=== PATIENT | male | born 1960 | race Caucasian/White ===

== ENCOUNTER → 2018-08-10 13:34 | Outpatient (CLI) | payer BC, SELFPAY ==
[2018-08-10 14:06] LABS: Basophils # 0.1 K/mm3 (0-0.2); Basophils % 1.1 % (0.1-2.0); Eosinophils # 0.2 K/mm3 (0.0-0.4); Eosinophils % 2.9 % (0.1-12.0); Hemoglobin 16.2 g/dL (14.1-18.0); Lymphocytes # 1.2 K/mm3 (0.7-4.5); Lymphocytes % 18.2 % (10-50); Mean Corpuscular Volume 87.8 fl (80-94); Mean Platelet Volume 7.4 fl (7.4-10.4); Monocytes # 0.4 K/mm3 (0.1-1.0); Monocytes % 6.1 % (1.7-9.3); Neutrophils # 4.8 K/mm3 (1.8-7.8); Neutrophils % 71.6 % (37.0-80.0); Platelet Count 286 K/mm3 (142-424); Red Blood Count 5.58 M/mm3 (4.60-6.20); Red Cell Distribution Width 14.3 % (11.5-17.5); White Blood Count 6.7 K/mm3 (4.8-10.8)
[2018-08-10 14:55] LABS: Alanine Aminotransferase 27 U/L (12-78); Albumin Level 3.8 gm/dL (3.4-5.0); Albumin/Globulin Ratio 1.1 (1.1-1.8); Alkaline Phosphatase 82 U/L (46-116); Anion Gap 13.5 mEq/L (5-15); Aspartate Amino Transferase 14 U/L (15-37); Bilirubin,Total 1.7 mg/dL (0.2-1.0); Blood Urea Nitrogen 24 mg/dL (7-18); Calcium 9.4 mg/dL (8.5-10.1); Carbon Dioxide 28 mmol/L (21.0-32.0); Chloride 99 mmol/L (98-107); Chol/HDL Ratio 5.6 (1-3.5); Cholesterol 201 mg/dL (140-200); Creatinine,Serum 1.34 mg/dL (0.70-1.30); Estimated Glomerular Filt Rate 55 ml/min (>60); GFR (African American) 67 ML/MIN (>60); Globulin 3.4 gm/dl (1.3-3.2); Glucose 338 mg/dL (74-106); HDL Cholesterol 36 mg/dL (27-67); LDL Cholesterol 115 mg/dL (0-130); Potassium 3.5 mmoL/L (3.5-5.1); Sodium 137 mmol/L (136-145); T4 (Thyroxine) 7.7 ug/dl (4.7-13.3); Thyroid Stimulating Hormone 1.56 uIU/ml (0.358-3.740); Total Protein,Serum 7.2 gm/dL (6.4-8.2); Triglycerides 251 mg/dL (30-200); VLDL Cholesterol 50 mg/dL (0-40)
[2018-08-10 14:57] LABS: Hemoglobin A1C 9.2 % (0.0-7.0)
[2018-08-10 15:07] LABS: Amphetamine/Metha Screen,Urine Negative ng/mL (<1000); Barbiturates Screen,Urine Negative ng/mL (<200); Benzodiazepines Screen,Urine Negative ng/mL (<200); Cannabinoid Screen,Urine Negative ng/mL (<50); Cocaine Screen,Urine Negative ng/mL (<300); Methadone Screen,Urine Negative ng/mL (<300); Opiate Screen,Urine Negative ng/mL (<300); Phencyclidine Screen,Urine Negative ng/mL (<25)
[2018-08-12 10:15] LABS: Creatinine, Urine 226.1 mg/dL (Not Estab.); Microalbumin, Urine 112.4 ug/mL (Not Estab.)
== END ==
PROVIDERS: PCP Nurse Practitioner Family; Visit Provider Nurse Practitioner Family
DX: E11.9 Type 2 diabetes mellitus without complications (principal); I10 Essential (primary) hypertension; Z79.899 Other long term (current) drug therapy
CPT/HCPCS: 80053; 80061; 80305; 82043; 82570; 82652; 83036; 84436; 84443; 85025

== ENCOUNTER → 2018-09-09 08:34 | Outpatient (CLI) | payer BC, SELFPAY | PROVIDERS: PCP Emergency Medicine; Visit Provider Nurse Practitioner Family | DX: Z71.3 Dietary counseling and surveillance (principal); E11.9 Type 2 diabetes mellitus without complications | CPT/HCPCS: 97802 ==

== ENCOUNTER → 2018-10-07 09:03 | Outpatient (CLI) | payer BC, SELFPAY ==
--- NOTE | 2018-10-07 09:05 | US_ITS ---
US Arterial Ankle Brachial Ind History: ITS.REASON: Skin Changes ORDERING PHYSICIAN: Shantel aJckson DPM PATIENT AGE: 58 years TECHNIQUE: Segmental pressures obtained of both right and left leg. These are compared to brachial blood pressure to yield index at each level sampled including summary SHRUTHI. The data sheets from the procedure are available in PACS FINDINGS Rest study only performed today No prior studies available for comparison. Blood pressures reported are in millimeters mercury. RIGHT LEG SHRUTHI = 0.7. RIGHT LEG TBI=0.6 Brachial BP: 157 Thigh BP: 185 Calf BP: 188 Ankle PT: 112 Ankle DP : 105 Digit =92 LEFT LEG SHRUTHI = 1.2 LEFT LEG TBI= 0.9 Brachial BPD: 164 Thigh BP: 179 Calf BP: 189 Ankle PT:189 Ankle DP: 187 Digit = 149 Pulses and waveforms: Normal IMPRESSION: The right SHRUTHI is low consistent with moderate arterial disease
== END ==
PROVIDERS: PCP Nurse Practitioner Family; Visit Provider Podiatrist
DX: R09.89 Other specified symptoms and signs involving the circulatory and respiratory systems (principal)
CPT/HCPCS: 93922

== ENCOUNTER → 2018-10-21 11:22 | Outpatient (CLI) | payer BC, SELFPAY ==
[2018-10-21 11:28] LABS: Microscopic, Urine URINE MICROSCOPIC (MICROSCOPIC)
[2018-10-21 11:44] LABS: Basophils % 0.5 % (0.1-2.0); Eosinophils # 0.1 K/mm3 (0.0-0.4); Eosinophils % 1.7 % (0.1-12.0); Hematocrit 47.8 % (42.0-52.0); Hemoglobin 15.4 g/dL (14.1-18.0); Lymphocytes # 1.2 K/mm3 (0.7-4.5); Lymphocytes % 13.7 % (10-50); Mean Corpuscular HGB Conc 32.3 g/dL (31.8-35.4); Mean Corpuscular Volume 89.7 fl (80-94); Monocytes # 0.4 K/mm3 (0.1-1.0); Neutrophils # 6.8 K/mm3 (1.8-7.8); Platelet Count 306 K/mm3 (142-424); Red Blood Count 5.32 M/mm3 (4.60-6.20); White Blood Count 8.6 K/mm3 (4.8-10.8)
[2018-10-21 11:48] LABS: Appearance,Urine CLEAR (Clear); Bilirubin,Urine Negative (Negative); Blood, Urine Negative (Negative); Color,Urine YELLOW (Yellow); Glucose,Urine (UA) Negative (Negative); Ketones,Urine TRACE (Negative); Leukocyte Esterase,Urine Negative (Negative); Nitrate,Urine Negative (Negative); PH,Urine 6.5 (5.0-8.5); Protein,Urine 1+ (Negative); Specific Gravity, Urine 1.015 (1.005-1.030)
[2018-10-21 12:25] LABS: RBC,Urine Occasional #/hpf (0-3); WBC,Urine Occasional #/hpf (0-3)
[2018-10-21 13:02] LABS: Albumin Level 3.7 gm/dL (3.4-5.0); Anion Gap 13.8 mEq/L (5-15); Blood Urea Nitrogen 22 mg/dL (7-18); Calcium 9.1 mg/dL (8.5-10.1); Carbon Dioxide 28 mmol/L (21.0-32.0); Chloride 101 mmol/L (98-107); Estimated Glomerular Filt Rate 62 ml/min (>60); GFR (African American) 76 ML/MIN (>60); Glucose 140 mg/dL (74-106); Phosphorous 3.9 mg/dL (2.4-4.9); Potassium 3.8 mmoL/L (3.5-5.1); Sodium 139 mmol/L (136-145)
[2018-10-21 14:23] LABS: Creatinine,Urine Random 269 mg/dL (20-320); Total Protein,Urine Random 70.8 mg/dL (0.0-11.9)
[2018-10-22 10:56] LABS: Vitamin D 25 Hydroxy 38.4 ng/mL (30.0-100.0)
[2018-10-22 17:32] LABS: Parathyroid Hormone Intact 56 pg/mL (15-65)
== END ==
PROVIDERS: Visit Provider Internal Medicine Nephrology
DX: N18.3 Chronic kidney disease, stage 3 (moderate) (principal)
CPT/HCPCS: 36415; 80069; 81001; 82570; 82652; 83970; 84155; 85025

== ENCOUNTER → 2018-11-04 12:58 | Outpatient (POV) | payer BC, SELFPAY | PROVIDERS: Visit Provider Internal Medicine Nephrology | DX: Z00.00 Encounter for general adult medical examination without abnormal findings (principal) ==

== ENCOUNTER → 2018-11-05 13:29 | Outpatient (CLI) | payer BC, SELFPAY ==
[2018-11-05 14:57] LABS: Amphetamine/Metha Screen,Urine Negative ng/mL (<1000); Barbiturates Screen,Urine Negative ng/mL (<200); Benzodiazepines Screen,Urine Negative ng/mL (<200); Cannabinoid Screen,Urine Negative ng/mL (<50); Cocaine Screen,Urine Negative ng/mL (<300); Methadone Screen,Urine Negative ng/mL (<300); Opiate Screen,Urine Negative ng/mL (<300); Phencyclidine Screen,Urine Negative ng/mL (<25)
[2018-11-05 15:19] LABS: Hemoglobin A1C 7.3 % (0.0-7.0)
== END ==
PROVIDERS: Visit Provider Nurse Practitioner Family
DX: F41.9 Anxiety disorder, unspecified (principal); Z79.899 Other long term (current) drug therapy; E11.9 Type 2 diabetes mellitus without complications; Z79.84 Long term (current) use of oral hypoglycemic drugs
CPT/HCPCS: 80305; 83036

== ENCOUNTER → 2018-12-06 09:29 | Outpatient (CLI) | payer BC, SELFPAY ==
--- NOTE | 2018-12-06 09:30 | US_ITS ---
US extremity RT limited CLINICAL INDICATION: Palpable abnormality ITS.REASON: lipoma ORDERING PHYSICIAN: Yang Temple MD PATIENT AGE: 58 years Comparison: None FINDINGS: There is an oval heterogeneous area of echogenicity in the subcutaneous region measuring 2.3 x 0.7 x 1.8 cm was some slight increase in echogenicity and may represent a lipoma. This does not represent a cystic process. The echogenicity is greater than the underlying muscle. IMPRESSION: Probable lipoma corresponding to the palpable abnormality of the right anterior shoulder
== END ==
PROVIDERS: PCP Nurse Practitioner Family; Visit Provider Surgery
DX: D17.9 Benign lipomatous neoplasm, unspecified (principal)
CPT/HCPCS: 76882

== ENCOUNTER → 2019-01-25 08:57 | Outpatient (CLI) | payer BC, SELFPAY ==
[2019-01-25 11:10] LABS: Magnesium 2.2 mg/dL (1.4-2.2)
[2019-01-26 08:34] LABS: Vitamin B12 480 pg/mL (232-1245)
[2019-01-29 10:47] LABS: Vitamin B1 181.6 nmol/L (66.5-200.0)
== END ==
PROVIDERS: Visit Provider Nurse Practitioner Family
DX: R25.1 Tremor, unspecified (principal)
CPT/HCPCS: 36415; 82607; 83735; 84425

== ENCOUNTER 2019-03-22 09:55 | Observation (INO) ==
--- NOTE | 2019-03-22 10:04 | Emergency Department Note ---
ED Disposition Clinical Impression: Precordial chest pain, Gait disturbance, Hyperglycemia Speech disturbance Qualifiers: Speech disturbance type: unspecified speech disturbance Qualified Code(s): R47.9 - Unspecified speech disturbances Disposition: Admitted as Observation Condition on Discharge: Good Referrals: Sandra Ray APRN [Primary Care Provider] - - Critical Care Critical Care Time: No Attestation: On , the high probability of a clinically significant, sudden or life threatening deterioration of the following system(s) required my full and direct attention, intervention and personal management. The time I documented below is in addition to time spent performing reported procedures but includes the following listed in this critical care notation. Medical Decision Making - Felipe Inquiry Pt receiving controlled substance: No Vital Signs: 03/22/19 10:03 03/22/19 10:22 03/22/19 10:30 Temperature 98.1 F Temperature Source Oral Pulse Rate [Right Radial] 80 79 83 Respiratory Rate 16 Blood Pressure [Right Arm] 150/105 H 150/105 H 156/112 H Blood Pressure Mean [Right Arm] 120 120 126 Blood Pressure Source [Right Arm] Automatic Cuff Blood Pressure Position [Right Arm] Supine Sitting Sitting 02 Sat by Pulse Oximetry 99 98 96 Oxygen Delivery Method Room Air Room Air Room Air 03/22/19 11:20 Temperature Temperature Source Pulse Rate [Right Radial] 82 Respiratory Rate Blood Pressure [Right Arm] 161/110 H Blood Pressure Mean [Right Arm] 127 Blood Pressure Source [Right Arm] Blood Pressure Position [Right Arm] Sitting 02 Sat by Pulse Oximetry 93 L Oxygen Delivery Method Room Air - Lab Data Lab Results 03/22/19 10:18: WBC 8.0, RBC 4.79, Hgb 12.0 L, Hct 38.6 L, MCV 80.5, MCH 25.0 L, MCHC 31.1 L, RDW 15.4, Plt Count 350, MPV 7.0 L, Neut % (Auto) 76.7, Lymph % (Auto) 13.9, [place] % (Auto) 6.3, Eos % (Auto) 2.5, Baso % (Auto) 0.7, Neut # (Auto) 6.2, Lymph # (Auto) 1.1, [place] # (Auto) 0.5, Eos # (Auto) 0.2, Baso # (Auto) 0.1 03/22/19 10:18: Sodium 136, Potassium 3.4 L, Chloride 100, Carbon Dioxide 27, Anion Gap 12.4, BUN 18, Creatinine 1.34 H, Estimated Creat Clear 80, Estimated GFR 55 L, Est GFR ( Amer) 66, Glucose 302 H, Calcium 8.9, Total Bilirubin 0.8, AST 9 L, ALT 30, Alkaline Phosphatase 121 H, Troponin I < 0.02, Total Protein 6.8, Albumin 3.1 L, Globulin 3.7 H, Albumin/Globulin Ratio 0.8 L Result diagrams: 03/22/19 10:18 03/22/19 10:18 - Radiology Data #1 Image(s): Chest Image Reviewed: Yes I reviewed the patient's radiology image, Yes I have reviewed radiologist's interpretation Preliminary Findings: Normal/NAD - CT Data CT Scan: Head Time Received: 12:[address] Reviewed: Yes: I have viewed the radiologist's interpretation Findings Narrative: Impression:No acute intracranial process. 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 Right maxillary sinus small retention cyst. Dictated By: Asael Pedroza MD 9 [id number] - ECG Data Tracing #1 EKG interpreted by Rolando Conner MD: Rhythm: sinus Rate: 81 [place]: normal Ectopy: none Conduction: Right bundle branch block ST Segment Changes: none T Wave Changes: none Q Waves: none No evidence of acute ischemia or injury - Physician Consults Physician Consulted: CARMINE Castro, for Dr. Lucas Time: 11:20 Reason -: Cardiology Eval/Care Comment/Response: requests admit, serial cardiac enzymes, stress test tomorrow Additional Consult: Julianna Time: 11:50 Reason -: Admission Comment/Response: Agrees to admit the patient to the hospital. We discussed the patient's clinical information, including history, exam, laboratory and radiology results and ED course. Per hospital procedure, I will write temporary bridge inpatient orders on the patient. Specific orders requested by the admitting physician: As per cardiology - ALFREDO Score for Non-Stemi Age of Patient: 50-59 years old Heart Rate: 70-89 bpm Systolic Blood Pressure: 140-159 mmHg Serum Creatinine: 1.20-1.59 mg/dl CHF [place] Class: I-No CHF Other Risk Factors: None Non-Stemi Risk Score: 84 Medical Decision Narrative: I was unable to find any prior heart cath at this facility. Jason was able to find a report of a heart cath February 19, 2018, at [facility], which showed noncritical coronary artery disease. Test was apparently prompted by an abnormal stress test. Recent visit [address] Mayfield in the office here, at that time reported the chest pain. Dr. Mayfield requested a stress test. General Adult HPI - General Stated complaint: Chest pain Time Seen by Provider: 03/22/19 10:25 - History of Present Illness HPI narrative: Complains of episodes of chest pain. This is his third episode. States that he had chest pain today at about 9 AM that lasted less than 15 minutes. Does not remember what he was doing when the pain came on. Associated with shortness of breath, left arm pain, diaphoresis. States that he has had 2 previous episodes on and Thursday of last week, each lasting 2 to 3 minutes, brought on by exertion. States that he is currently pain-free. States he had a cardiac cath in 2016 that showed normal coronary arteries. In November of this year had an angiogram of his lower extremities. States that he has hypertension, hyperlipidemia, diabetes. Also has been having problems with his gait and with forming his words for several months. - Related Data Home Medications Medication Instructions Recorded Confirmed aspirin 81 mg tablet,delayed 81 mg PO DAILY 08/10/18 03/18/19 release Amitriptyline HCl 75 mg PO QHS 03/22/19 Ergocalciferol (Vitamin D2) See Rx Instructions .ROUTE .COMPLEX 03/22/19 [Pilyol] Fluoxetine HCl [Prozac] 40 mg PO DAILY 03/22/19 Gabapentin [Gabapentin 300mg Cap] 300 mg PO BID 03/22/19 Lisinopril [Lisinopril 40mg Tablet] 40 mg PO BID 03/22/19 Lovastatin 10 mg PO QPM 03/22/19 Metformin HCl [Metformin 1000mg 1,000 mg PO BID 03/22/19 Tablets] Metoprolol Succinate 25 mg PO DAILY 03/22/19 Mupirocin [Centany] 1 applic TOPICAL BID 03/22/19 Rivaroxaban [Xarelto] 2.5 mg PO BID 03/22/19 glipiZIDE [Glipizide] 10 mg PO BID 03/22/19 Allergies Allergy/AdvReac Type Severity Reaction Status Date / Time No Known Allergies Allergy Verified 03/18/19 09:37 [facility] History - Hepatitis A Screen Attestation statement:: This patient has been screened for Hepatitis A risk factors. I have reviewed the patient's past medical history: Yes Medical History: Reports:: Anxiety, Depression, Diabetes Mellitus Type 2, Hypertension Comment: ptsd Other Surgeries: Yes: Cardiac Catheterization, Colonoscopy, Other Amputation: No Fractures: No Comment: Removed polyps from instine.. - Social History Smoking Status: Never smoker Alcohol Intake: never Alcohol Intake Frequency:: holidays/special occasions only Substance Use Type: former substance user, marijuana Occupational Status: unemployed Household Members: spouse - Psychiatric History Pschychiatric History:: Reports:: Anxiety, Depression Family Hx:: Cancer, Diabetes, Coronary Artery Disease, Heart Attack, Stroke Comment: Mother-PR@72. Father-CAD@30's. Brother-PR@30's ROS Obtained: Yes All systems reviewed & no additional complaints - Constitutional Constitutional: Denies fever(s) - Cardiovascular Cardiovascular: Reports chest pain, Reports diaphoresis - Respiratory Respiratory: Yes dyspnea - Gastrointestinal Gastrointestingal: Denies: nausea, vomiting - Musculoskeletal Musculoskeletal: Reports other (Intermittent left leg pain due to neuropathy) - Neurologic Neurologic: Reports abnormal gait, Reports abnormal speech Physical Exam - General General appearance: alert, in no apparent distress - Head Head exam: atraumatic, normocephalic - Eye Eye exam: Present: normal appearance, EOMI - ENT ENT exam: Present: mucous membranes moist - Neck Neck exam: Present: normal inspection, trachea midline - Chest Chest inspection: Present: normal inspection, symmetric chest wall rise - Respiratory Respiratory exam: Present: normal lung sounds bilaterally. Absent: respiratory distress - Cardiovascular Cardiovascular exam: Present: regular rate, normal rhythm, normal heart sounds - Abdominal Exam Abdominal exam: Present: soft. Absent: distention, tenderness, guarding - Extremities Exam Extremities exam: Present: normal inspection, full ROM - Neurological Exam Neurological exam: Present: alert, oriented X3 - Psychiatric Psychiatric exam: Present: normal affect, normal mood - Skin Skin exam: Present: warm, dry
[2019-03-22 11:11] LABS: Basophils # 0.1 K/mm3 (0-0.2); Basophils % 0.7 % (0.1-2.0); Eosinophils # 0.2 K/mm3 (0.0-0.4); Eosinophils % 2.5 % (0.1-12.0); Hematocrit 38.6 % (42.0-52.0); Lymphocytes # 1.1 K/mm3 (0.7-4.5); Lymphocytes % 13.9 % (10-50); Mean Corpuscular HGB Conc 31.1 g/dL (31.8-35.4); Mean Corpuscular Volume 80.5 fl (80-94); Monocytes # 0.5 K/mm3 (0.1-1.0); Monocytes % 6.3 % (1.7-9.3); Neutrophils # 6.2 K/mm3 (1.8-7.8); Neutrophils % 76.7 % (37.0-80.0); Platelet Count 350 K/mm3 (142-424); Red Blood Count 4.79 M/mm3 (4.60-6.20); Red Cell Distribution Width 15.4 % (11.5-17.5)
[2019-03-22 11:23] LABS: Alanine Aminotransferase 30 U/L (12-78); Albumin Level 3.1 gm/dL (3.4-5.0); Albumin/Globulin Ratio 0.8 (1.1-1.8); Alkaline Phosphatase 121 U/L (46-116); Anion Gap 12.4 mEq/L (5-15); Aspartate Amino Transferase 9 U/L (15-37); Bilirubin,Total 0.8 mg/dL (0.2-1.0); Blood Urea Nitrogen 18 mg/dL (7-18); Calcium 8.9 mg/dL (8.5-10.1); Carbon Dioxide 27 mmol/L (21.0-32.0); Chloride 100 mmol/L (98-107); Globulin 3.7 gm/dl (1.3-3.2); Glucose 302 mg/dL (74-106); Sodium 136 mmol/L (136-145); Total Protein,Serum 6.8 gm/dL (6.4-8.2)
--- NOTE | 2019-03-22 14:48 | Consult Report ---
History of Present Illness Consult date: 03/22/19 (@[id number]) Requesting physician: Rolando Conner Consult reason: chest pain Chief complaint: Chest pain Additional Medical History:: 1. PAD 2. Hypertension 3. Hyperlipidemia 4. Coronary artery disease 5. Right bundle branch block 6. Diabetes History of present illness: This is a 58-year-old white gentleman who presented to the emergency department with complaints of chest pain. The patient states that he was playing with his dog around 9 AM this morning when he had sudden onset of chest pain. He describes this as a sharp, electric pain in the left side of his chest that radiates down his left arm. He states it is associated with shortness of breath and diaphoresis. The patient states that the symptoms typically occur with activity. They do improve with rest. He is also had multiple episodes of chest pain on and Thursday last week. His episodes last for approximately 15 minutes before they resolve. The patient was seen by Dr. MANNING last week and set up for a echocardiogram and Myoview stress test. These tests are currently in review with his insurance. He denies any fever, chills, nausea, vomiting, diarrhea, PND or orthopnea. The patient does have a history of coronary disease and peripheral arterial disease. He does have hypertension, hyperlipidemia and diabetes. The patient's initial troponin is negative. And his EKG has no acute changes. [facility] History I have reviewed the patient's past medical history: Yes Medical History: Reports:: Anxiety, Coronary Artery Disease, Depression, Diabetes Mellitus Type 2, Hyperlipidemia, Hypertension *Have you ever received a pneumonia vaccine?: No *Have you received a flu vaccine this season?: Yes Other Surgeries: Yes: Cardiac Catheterization, Colonoscopy, Other Amputation: No Fractures: No - *Social History Educational Level: Completed High School Smoking Status: Never smoker Alcohol Intake: current Alcohol Intake Frequency:: a few times a month Substance Use Type: former substance user, marijuana *Occupational Status:: unemployed, disabled Housing: house Household Members: spouse *Travel in the last 8 weeks: None - Psychiatric History Expresses thoughts of harming self/others: None Suicide Plan Description: No Plan Pschychiatric History:: Reports:: Anxiety, Depression Family Hx:: Cancer, Diabetes, Coronary Artery Disease, Heart Attack, Stroke Meds Home Medications Medication Instructions Recorded Confirmed Type aspirin 81 mg tablet,delayed 81 mg PO DAILY 08/10/18 03/22/19 History release Amitriptyline HCl 75 mg PO HS 03/22/19 03/22/19 History Ergocalciferol (Vitamin D2) See Rx Instructions .ROUTE .COMPLEX 03/22/19 03/22/19 History [Drisdol] Fluoxetine HCl [Prozac] 40 mg PO DAILY 03/22/19 03/22/19 History Gabapentin [Gabapentin 300mg Cap] 300 mg PO BID 03/22/19 03/22/19 History Lisinopril [Lisinopril 40mg Tablet] 40 mg PO BID 03/22/19 03/22/19 History Lovastatin 10 mg PO HS 03/22/19 03/22/19 History Metformin HCl [Metformin 1000mg 1,000 mg PO BID 03/22/19 03/22/19 History Tablets] Metoprolol Succinate 25 mg PO DAILY 03/22/19 03/22/19 History Mupirocin [Centany] 1 applic TOPICAL BID 03/22/19 03/22/19 History Rivaroxaban [Xarelto] 2.5 mg PO BID 03/22/19 03/22/19 History glipiZIDE [Glipizide] 10 mg PO BID 03/22/19 03/22/19 History Allergies Allergy/AdvReac Type Severity Reaction Status Date / Time No Known Allergies Allergy Verified 03/18/19 09:37 Review of Systems - Review of Systems Review of systems:: pertinent systems reviewed and negative unless documented below - Constitutional Reports lack of energy - *Cardiovascular Reports chest pain, Reports chest pain with activity, Reports excessive sweating, Reports shortness of breath, Reports shortness of breath with activity - *Respiratory Reports shortness of breath, Reports shortness of breath with activity - *Neurologic Reports abnormal walking, Reports abnormal speech Exam Vital signs and Labs for Last 24 Hours: Temp Pulse Resp BP Pulse Ox 97.5 F L 89 18 172/103 H 98 03/22/19 13:35 03/22/19 13:35 03/22/19 13:35 03/22/19 13:35 03/22/19 13:35 Laboratory Results - last 24 hr 03/22/19 10:18: WBC 8.0, RBC 4.79, Hgb 12.0 L, Hct 38.6 L, MCV 80.5, MCH 25.0 L, MCHC 31.1 L, RDW 15.4, Plt Count 350, MPV 7.0 L, Neut % (Auto) 76.7, Lymph % (Auto) 13.9, [place] % (Auto) 6.3, Eos % (Auto) 2.5, Baso % (Auto) 0.7, Neut # (Auto) 6.2, Lymph # (Auto) 1.1, [place] # (Auto) 0.5, Eos # (Auto) 0.2, Baso # (Auto) 0.1 03/22/19 10:18: Sodium 136, Potassium 3.4 L, Chloride 100, Carbon Dioxide 27, Anion Gap 12.4, BUN 18, Creatinine 1.34 H, Estimated Creat Clear 80, Estimated GFR 55 L, Est GFR ( Amer) 66, Glucose 302 H, Calcium 8.9, Total Bilirubin 0.8, AST 9 L, ALT 30, Alkaline Phosphatase 121 H, Troponin I < 0.02, Total Protein 6.8, Albumin 3.1 L, Globulin 3.7 H, Albumin/Globulin Ratio 0.8 L I & O for Last 24 hours: Intake & Output 03/19/19 03/20/19 03/21/19 03/22/19 23:59 23:59 23:59 23:59 Weight 204 lb 5 oz Narrative: EKG is sinus rhythm with right bundle branch block and a rate of 81. - *Routine HEENT Exam Head: Present: normocephalic, atraumatic Eye: Present: EOMI, PERRL ENT: Present: mucous membranes moist - *Routine Neck Exam Present: supple, full ROM, normal carotid upstroke. Absent: JVD, carotid bruit, lymphadenopathy - *Routine Respiratory Exam Present: CTA bilaterally - *Routine Cardiovascular Exam Present: RRR, Normal S1, Normal S2. Absent: murmur - *Routine Abdominal Exam Present: soft, normoactive bowel sounds. Absent: tenderness, distended - *Routine Extremities Exam Present: full ROM, pulses intact, normal capillary refill. Absent: cyanosis, clubbing, edema - *Routine Skin Exam Present: intact, warm. Absent: erythema, rash - *Routine Neurological Exam Present: alert, oriented X3, CN II-XII intact. Absent: sensory deficit, motor deficit - Routine Psychiatric Exam Present: normal affect, normal thought process - Detailed Eye Exam Eyelids: Left normal inspection Assessment and Plan (1) Typical angina Current visit: Yes Status: Acute Category: Medical Code(s): I20.9 - Angina pectoris, unspecified (2) SOB (shortness of breath) Current visit: No Status: Acute Category: Medical Code(s): R06.02 - Shortness of breath (3) Right bundle branch block (RBBB) Current visit: No Status: Acute Category: Medical Code(s): I45.10 - Unspecified right bundle-branch block (4) CAD (coronary artery disease) Current visit: No Status: Chronic Qualifiers: Coronary Disease-Associated Artery/Lesion type: [place] artery [place] vs. transplanted heart: [place] heart Associated angina: without angina Qualified Code(s): I25.10 - Atherosclerotic heart disease of [place] coronary artery without angina pectoris Category: Medical Code(s): I25.10 - Atherosclerotic heart disease of [place] coronary artery without angina pectoris (5) HTN (hypertension) Current visit: No Status: Chronic Qualifiers: Hypertension type: essential hypertension Qualified Code(s): I10 - Essential (primary) hypertension Category: Medical Code(s): I10 - Essential (primary) hypertension (6) PAD (peripheral artery disease) Current visit: No Status: Acute Category: Medical Code(s): I73.9 - Peripheral vascular disease, unspecified (7) Hyperlipidemia Current visit: No Status: Chronic Qualifiers: Hyperlipidemia type: mixed hyperlipidemia Qualified Code(s): E78.2 - Mixed hyperlipidemia Category: Medical Code(s): E78.5 - Hyperlipidemia, unspecified (8) Diabetes mellitus Current visit: No Status: Chronic Qualifiers: Diabetes mellitus type: type 2 Diabetes mellitus assisted insulin use: without long chain beamer use Diabetes mellitus complication status: with neurologic complications Diabetes mellitus complication detail: with polyneuropathy Qualified Code(s): E11.42 - Type 2 diabetes mellitus with diabetic polyneuropathy Category: Medical Code(s): E11.9 - Type 2 diabetes mellitus without complications - Assessment and plan all Dx Assessment and Plan for all problems:: Plan: 1. The patient has been admitted to the hospital with chest pain. The patient first troponin is negative. He has no acute changes on his EKG. The patient does have known coronary artery disease. He was set up for a Myoview stress test and an echocardiogram on an outpatient basis. These tests are still currently in review. The patient has had worsening of his angina symptoms. He has now come into the emergency department because of his worsening symptoms. He is having typical angina/class III angina. 2. We will plan to proceed with left heart cath to evaluate his coronary artery disease tomorrow around 1430 given his typical angina and known coronary artery disease. He also has a history of PAD, hypertension, hyperlipidemia and diabetes. He has high risk for disease progression. 3. The patient has been educated on the risks and benefits of proceeding with left cardiac catheterization. The patient verbalizes understanding is agreeable in proceeding with the procedure. 4. He will be n.p.o. after breakfast tomorrow in preparation for left heart cath. 5. The patient will get IV fluids prior to the procedure. 6. Coronary artery disease is present. 7. His blood pressure is elevated. Will add Norvasc 5 mg daily and increase his metoprolol ER to 50 mg daily for better blood pressure control. 8. His LDL goal is less than 55. We will get a liver and lipid panel in the morning. 9. We will get an echocardiogram to evaluate his LV function. 10. Hold Xarelto in preparation for left cardiac catheterization. 11. Further recognitions will be made pending the patient's response to treatment. Thank you for the opportunity to help participate in the care of this patient.
--- NOTE | 2019-03-22 15:07 | Pharmacy Consult Notes ---
[facility] Pharmacy VTE Monitoring - Patient Demographics Admission date: 03/22/19 Report Date: 03/22/19 Time: 15:06 Allergies/Adverse Reactions: Patient Allergies No Known Allergies Allergy (Verified 03/18/19 09:37) Height: 1.83 m Weight: 92.675 kg Patient Problems: Current Active Problems (Updated 03/22/19 @ 14:55 by Nani Lr APRN) Precordial chest pain (Acute) Gait disturbance (Acute) Speech disturbance (Acute) Hyperglycemia (Acute) Typical angina (Acute) - VTE Risk Labs: VTE Related Lab Results Hgb 12.0 g/dL (14.1-18.0) L 03/22/19 10:18 Hct 38.6 % (42.0-52.0) L 03/22/19 10:18 Plt Count 350 K/mm3 (142-424) 03/22/19 10:18 BUN 18 mg/dL (7-18) 03/22/19 10:18 Creatinine 1.34 mg/dL (0.70-1.30) H 03/22/19 10:18 Estimated Creat Clear 80 mL/min (50-200) 03/22/19 10:18 Was VTE Risk Assessment Performed: Yes VTE Score: 1 VTE Risk Level: Very Low Risk - Prophylaxis VTE Prophylaxis Ordered?: Yes Types of VTE Prophylaxis: TEDS Knee High Location of Applied Device: Bilateral Lower Extremeties
--- NOTE | 2019-03-22 19:44 | Cardiology Report ---
PROCEDURE: 2-D M-mode and color Doppler study INDICATIONS FOR THE TEST: Chest pain+ COPD Heart Murmur Tobacco Smoking Palpitations Fatigue Syncope Edema Hypertension+Diabetes Mellitus+ Rheumatic Fever SOB+RASHID Obesity Hyperlipidemia+ Family History HD Additional History RBBB, CAD PATIENT INFORMATION HEIGHT: 72 WEIGHT: 205 GENDER: Male B/P: 172/103 2-D/M-MODE INTERPRETATION: 2-D MEASUREMENTS OBSERVED VALUES IN CMS Right Ventricular Dimension (RVDd) 3.0 Interventricular Septum (Thickness)(IVsd) 1.4 Left Ventricular Internal Dimensions(LVIDd) 4.6 Left Ventricular Posterior Wall (Thickness)(LVPWd) 1.3 Aortic Root 3.5 Aortic Cusp Separation 2.6 Left Atrial Dimensions (LAD) 4.6 2D 1. Technically very difficult study because of the patient's factor and poor acoustic windows 2. Left atrium is moderately enlarged, left ventricle is mildly dilated, there is severely reduced left ventricular systolic function, visually estimated ejection fraction of 25-30% , there is marked hypo to akinesis involving the anterolateral lateral and posterolateral wall. Rest of the myocardial segments are hypokinetic. 3. The right atrium and right ventricle are moderately enlarged, contractility of the right ventricle appears to be normal. 4. The aortic valve is thickened and calcified leaflet continue to display mobility. 5. The mitral valve leaflets are minimally thickened. 6. The pulmonic valve is poorly visualized. 7. No significant pericardial effusion noted. DOPPLER INTERROGATION: Doppler interrogation of the aortic, mitral and tricuspid valvular presence of moderate to severe mitral, Doppler evidence of raised left atrial as well as left ventricular end-diastolic pressure, there is moderate tricuspid regurgitation noted, calculated right ventricular systolic pressure 61 mmHg consistent with moderate pulmonary hypertension, inferior vena cava is mildly dilated without significant inspiratory collapse. Doppler evidence of low cardiac output state seen. CONCLUSION: 1. Technically difficult study because of the patient's factor and poor acoustic Windows, endocardial surfaces are poorly visualized. 2. Biatrial enlargement, mildly dilated left ventricle, severely reduced left ventricular systolic function visually estimated ejection fraction 25-30% with segmental wall motion abnormality described above, Doppler evidence of low cardiac output state, as well as increased left atrial and left ventricular end-diastolic pressure. 3. Moderate to severe mitral and moderate tricuspid regurgitation, calculated right ventricular systolic pressure is 61 mmHg consistent with moderate pulmonary hypertension, inferior vena cava is mildly dilated without significant inspiratory collapse. 4. No significant pericardial effusion noted.
--- NOTE | 2019-03-22 20:04 | History & Physical Report ---
*Admission Date: 03/22/19 *Chief complaint: chest pain *History of present illness: this pt presented to the [facility] -omplains of episodes of chest pain. This is his third episode. States that he had chest pain today at about 9 AM that lasted less than 15 minutes. Does not remember what he was doing when the pain came on. Associated with shortness of breath, left arm pain, diaphoresis. States that he has had 2 previous episodes on and Thursday of last week, each lasting 2 to 3 minutes, brought on by exertion. States that he is currently pain-free. States he had a cardiac cath in 2016 that showed normal coronary arteries. In November of this year had an angiogram of his lower extremities. States that he has hypertension, hyperlipidemia, diabetes. Also has been having problems with his gait and with forming his words for several months. pt was admitted for eval and treatment [place] History I have reviewed the patient's past medical history: Yes Medical History: Reports:: Anxiety, Coronary Artery Disease, Depression, Diabe ashly Mellitus Type 2, Hyperlipidemia, Hypertension *Have you ever received a pneumonia vaccine?: No *Have you received a flu vaccine this season?: Yes Other Surgeries: Yes: Cardiac Catheterization, Colonoscopy, Other Amputation: No Fractures: No - *Social History Educational Level: Completed High School Smoking Status: Never smoker Alcohol Intake: current Alcohol Intake Frequency:: a few times a month Substance Use Type: former substance user, marijuana *Occupational Status:: unemployed, disabled Housing: house Household Members: spouse *Travel in the last 8 weeks: None - Psychiatric History Expresses thoughts of harming self/others: None Suicide Plan Description: No Plan Pschychiatric History:: Reports:: Anxiety, Depression Family Hx:: Cancer, Diabetes, Coronary Artery Disease, Heart Attack, Stroke Review of Systems - Review of Systems Review of systems:: pertinent systems reviewed and negative unless documented below - Constitutional Denies fever(s) - Eyes Denies change in vision - ENT Denies headache(s) - *Cardiovascular Reports chest pain - *Respiratory Denies cough - *Gastrointestinal Denies abdominal pain - *Genitourinary Denies blood in urine - *Musculoskeletal Denies joint pain - Integumentary/Breasts Denies rash - *Neurologic Reports abnormal walking, Reports abnormal speech - Psychiatric Denies confusion Meds Home Medications Medication Instructions Recorded Confirmed Type aspirin 81 mg tablet,delayed 81 mg PO DAILY 08/10/18 03/22/19 History release Amitriptyline HCl 75 mg PO HS 03/22/19 03/22/19 History Ergocalciferol (Vitamin D2) 1 cap PO WEEKLY 03/22/19 03/22/19 History [Drisdol] Fluoxetine HCl [Prozac] 40 mg PO DAILY 03/22/19 03/22/19 History Gabapentin [Gabapentin 300mg Cap] 300 mg PO BID 03/22/19 03/22/19 History Lisinopril [Lisinopril 40mg Tablet] 40 mg PO BID 03/22/19 03/22/19 History Lovastatin 10 mg PO HS 03/22/19 03/22/19 History Metformin HCl [Metformin 1000mg 1,000 mg PO BID 03/22/19 03/22/19 History Tablets] Metoprolol Succinate 25 mg PO DAILY 03/22/19 03/22/19 History Mupirocin [Centany] 1 applic TOPICAL BID 03/22/19 03/22/19 History Rivaroxaban [Xarelto] 2.5 mg PO BID 03/22/19 03/22/19 History glipiZIDE [Glipizide] 15 mg PO BID 03/22/19 03/22/19 History Allergies Allergy/AdvReac Type Severity Reaction Status Date / Time No Known Allergies Allergy Verified 03/18/19 09:37 Exam Vital signs and Labs for Last 24 Hours: Temp Pulse Resp BP Pulse Ox 97.5 F L 85 18 172/103 H 98 03/22/19 13:35 03/22/19 16:00 03/22/19 13:35 03/22/19 13:35 03/22/19 13:35 Laboratory Results - last 24 hr 03/22/19 10:18: WBC 8.0, RBC 4.79, Hgb 12.0 L, Hct 38.6 L, MCV 80.5, MCH 25.0 L, MCHC 31.1 L, RDW 15.4, Plt Count 350, MPV 7.0 L, Neut % (Auto) 76.7, Lymph % (Auto) 13.9, [place] % (Auto) 6.3, Eos % (Auto) 2.5, Baso % (Auto) 0.7, Neut # (Auto) 6.2, Lymph # (Auto) 1.1, [place] # (Auto) 0.5, Eos # (Auto) 0.2, Baso # (Auto) 0.1 03/22/19 10:18: Sodium 136, Potassium 3.4 L, Chloride 100, Carbon Dioxide 27, Anion Gap 12.4, BUN 18, Creatinine 1.34 H, Estimated Creat Clear 80, Estimated GFR 55 L, Est GFR ( Amer) 66, Glucose 302 H, Calcium 8.9, Total Bilirubin 0.8, AST 9 L, ALT 30, Alkaline Phosphatase 121 H, Troponin I < 0.02, Total Protein 6.8, Albumin 3.1 L, Globulin 3.7 H, Albumin/Globulin Ratio 0.8 L 03/22/19 15:41: Troponin I < 0.02 03/22/19 17:29: POC Glucose 248 H 03/22/19 19:00: Troponin I < 0.02 I & O for Last 24 hours: Intake & Output 03/20/19 03/21/19 03/22/19 03/23/19 11:59 11:59 11:59 11:59 Intake Total 250 / 250 Balance 250 / 250 Weight 205 lb 204 lb 5 oz - Constitutional no acute distress - *Routine HEENT Exam Head: Present: normocephalic Eye: Present: EOMI, PERRL ENT: Present: mucous membranes dry - *Routine Neck Exam Present: supple. Absent: JVD - *Routine Respiratory Exam Present: decreased breath sounds - *Routine Cardiovascular Exam Present: RRR, murmur - *Routine Abdominal Exam Present: soft - *Routine Extremities Exam Present: edema. Absent: calf tenderness - *Routine Skin Exam Present: intact - *Routine Neurological Exam Present: alert, oriented X3, CN II-XII intact - Routine Psychiatric Exam Present: normal affect Assessment and Plan (1) Typical angina Current visit: Yes Status: Acute Category: Medical Code(s): I20.9 - Angina pectoris, unspecified (2) SOB (shortness of breath) Current visit: No Status: Acute Category: Medical Code(s): R06.02 - Shortness of breath (3) Right bundle branch block (RBBB) Current visit: No Status: Acute Category: Medical Code(s): I45.10 - Unspecified right bundle-branch block (4) CAD (coronary artery disease) Current visit: No Status: Chronic Qualifiers: Coronary Disease-Associated Artery/Lesion type: [place] artery [place] vs. transplanted heart: [place] heart Associated angina: without angina Qualified Code(s): I25.10 - Atherosclerotic heart disease of [place] coronary artery without angina pectoris Category: Medical Code(s): I25.10 - Atherosclerotic heart disease of [place] coronary artery without angina pectoris (5) HTN (hypertension) Current visit: No Status: Chronic Qualifiers: Hypertension type: essential hypertension Qualified Code(s): I10 - Essential (primary) hypertension Category: Medical Code(s): I10 - Essential (primary) hypertension (6) PAD (peripheral artery disease) Current visit: No Status: Acute Category: Medical Code(s): I73.9 - Peripheral vascular disease, unspecified (7) Hyperlipidemia Current visit: No Status: Chronic Qualifiers: Hyperlipidemia type: mixed hyperlipidemia Qualified Code(s): E78.2 - Mixed hyperlipidemia Category: Medical Code(s): E78.5 - Hyperlipidemia, unspecified (8) Diabetes mellitus Current visit: No Status: Chronic Qualifiers: Diabetes mellitus type: type 2 Diabetes mellitus nursing home insulin use: without nursing home use Diabetes mellitus complication status: with neurologic complications Diabetes mellitus complication detail: with polyneuropathy Qualified Code(s): E11.42 - Type 2 diabetes mellitus with diabetic polyneuropathy Category: Medical Code(s): E11.9 - Type 2 diabetes mellitus without complications
[2019-03-23 07:14] LABS: Basophils # 0.1 K/mm3 (0-0.2); Basophils % 0.7 % (0.1-2.0); Eosinophils # 0.2 K/mm3 (0.0-0.4); Eosinophils % 2.6 % (0.1-12.0); Hematocrit 41.6 % (42.0-52.0); Hemoglobin 12.8 g/dL (14.1-18.0); Lymphocytes # 1.7 K/mm3 (0.7-4.5); Lymphocytes % 21.1 % (10-50); Mean Corpuscular HGB Conc 30.8 g/dL (31.8-35.4); Mean Corpuscular Volume 80.5 fl (80-94); Mean Platelet Volume 6.7 fl (7.4-10.4); Monocytes # 0.5 K/mm3 (0.1-1.0); Monocytes % 6.2 % (1.7-9.3); Neutrophils # 5.6 K/mm3 (1.8-7.8); Neutrophils % 69.4 % (37.0-80.0); Platelet Count 443 K/mm3 (142-424); Red Blood Count 5.16 M/mm3 (4.60-6.20); Red Cell Distribution Width 15.5 % (11.5-17.5)
[2019-03-23 07:43] LABS: Anion Gap 11.2 mEq/L (5-15); Calcium 8.9 mg/dL (8.5-10.1)
--- NOTE | 2019-03-23 09:45 | Progress Note ---
Subjective Date: 03/23/19 Time: 09:15 Principal diagnosis: typical angina Interval history: This is a 58-year-old white to the emergency department with complaints of chest pain. He states that he was playing with his dog when he had sudden onset of chest pain and he describes it as a sharp, electric pain in the left side of his chest that radiates down his left arm. It was associated with shortness of breath and diaphoresis. He states that he had also had previous episodes on and Thursday but yesterday morning the pain was more severe and lasted for approximately 15 minutes. He has been set up for an echocardiogram and Myoview stress test on an outpatient basis but his symptoms worsened warranting him to come into the emergency department. This morning he denies any chest pain or pressure. He denies any fever chills nausea vomiting diarrhea PND or orthopnea. The patient is set up to undergo left cardiac catheterization today to reevaluate his coronary artery disease. Exam Vital signs and Labs for Last 24 Hours: Temp Pulse Resp BP Pulse Ox 97.7 F 69 16 151/73 H 95 03/23/19 08:00 03/23/19 08:00 03/23/19 08:00 03/23/19 08:00 03/23/19 08:00 Laboratory Results - last 24 hr 03/22/19 10:18: WBC 8.0, RBC 4.79, Hgb 12.0 L, Hct 38.6 L, MCV 80.5, MCH 25.0 L, MCHC 31.1 L, RDW 15.4, Plt Count 350, MPV 7.0 L, Neut % (Auto) 76.7, Lymph % (Auto) 13.9, [place] % (Auto) 6.3, Eos % (Auto) 2.5, Baso % (Auto) 0.7, Neut # (Auto) 6.2, Lymph # (Auto) 1.1, [place] # (Auto) 0.5, Eos # (Auto) 0.2, Baso # (Auto) 0.1 03/22/19 10:18: Sodium 136, Potassium 3.4 L, Chloride 100, Carbon Dioxide 27, An ion Gap 12.4, BUN 18, Creatinine 1.34 H, Estimated Creat Clear 80, Estimated GFR 55 L, Est GFR ( Amer) 66, Glucose 302 H, Calcium 8.9, Total Bilirubin 0.8, AST 9 L, ALT 30, Alkaline Phosphatase 121 H, Troponin I < 0.02, Total Protein 6.8, Albumin 3.1 L, Globulin 3.7 H, Albumin/Globulin Ratio 0.8 L 03/22/19 15:41: Troponin I < 0.02 03/22/19 17:29: POC Glucose 248 H 03/22/19 19:00: Troponin I < 0.02 03/22/19 20:48: POC Glucose 236 H 03/23/19 05:47: POC Glucose 211 H 03/23/19 06:24: WBC 8.0, RBC 5.16, Hgb 12.8 L, Hct 41.6 L, MCV 80.5, MCH 24.8 L, MCHC 30.8 L, RDW 15.5, Plt Count 443 H D, MPV 6.7 L, Neut % (Auto) 69.4, Lymph % (Auto) 21.1, [place] % (Auto) 6.2, Eos % (Auto) 2.6, Baso % (Auto) 0.7, Neut # (Auto) 5.6, Lymph # (Auto) 1.7, [place] # (Auto) 0.5, Eos # (Auto) 0.2, Baso # (Auto) 0.1 03/23/19 06:24: Sodium 140, Potassium 3.2 L, Chloride 100, Carbon Dioxide 32, Anion Gap 11.2, BUN 19 H, Creatinine 1.42 H, Estimated Creat Clear 74, Estimated GFR 51 L, Est GFR ( Amer) 62, Glucose 190 H D, Calcium 8.9, Triglycerides 99, Cholesterol 161, LDL Cholesterol 114, VLDL Cholesterol 20, HDL Cholesterol 27, Cholesterol/HDL Ratio 6.0 H I & O for Last 24 hours: Intake & Output 03/20/19 03/21/19 03/22/19 03/23/19 23:59 23:59 23:59 23:59 Intake Total 250 / 250 0 / 0 Balance 250 / 250 0 / 0 Weight 204 lb 5 oz 200 lb 8 oz Narrative: His telemetry strip is sinus rhythm with a rate of 74. Echocardiogram shows: 1. Technically difficult study because of the patient's factor and poor acoustic Windows, endocardial surfaces are poorly visualized. 2. Biatrial enlargement, mildly dilated left ventricle, severely reduced left ventricular systolic function visually estimated ejection fraction 25-30% with segmental wall motion abnormality described above, Doppler evidence of low cardiac output state, as well as increased left atrial and left ventricular end-diastolic pressure. 3. Moderate to severe mitral and moderate tricuspid regurgitation, calculated right ventricular systolic pressure is 61 mmHg consistent with moderate pulmonary hypertension, inferior vena cava is mildly dilated without significant inspiratory collapse. 4. No significant pericardial effusion noted. - *Routine HEENT Exam Head: Present: normocephalic, atraumatic Eye: Present: EOMI, PERRL ENT: Present: mucous membranes moist - *Routine Neck Exam Present: supple, full ROM, normal carotid upstroke. Absent: JVD, carotid bruit, lymphadenopathy - *Routine Respiratory Exam Present: CTA bilaterally - *Routine Cardiovascular Exam Present: RRR, Normal S1, Normal S2. Absent: murmur - *Routine Abdominal Exam Present: soft, normoactive bowel sounds. Absent: tenderness, distended - *Routine Extremities Exam Present: full ROM, pulses intact, normal capillary refill. Absent: cyanosis, clubbing, edema - *Routine Skin Exam Present: intact, warm. Absent: erythema, rash - *Routine Neurological Exam Present: alert, oriented X3, CN II-XII intact. Absent: sensory deficit, motor deficit - Detailed Eye Exam Eyelids: Left normal inspection Progress Note: A&P (1) Typical angina Status: Acute Current Visit: Yes (2) SOB (shortness of breath) Status: Acute Current Visit: No (3) Right bundle branch block (RBBB) Status: Acute Current Visit: No (4) CAD (coronary artery disease) Status: Chronic Current Visit: No (5) HTN (hypertension) Status: Chronic Current Visit: No (6) PAD (peripheral artery disease) Status: Acute Current Visit: No (7) Hyperlipidemia Status: Chronic Current Visit: No (8) Diabetes mellitus Status: Chronic Current Visit: No Assessment and Plan for All Diagnoses:: Plan: 1. The patient was admitted to the hospital with chest pain. His troponins have been negative. He had no acute EKG changes. He does have a known history of coronary artery disease. Patient had been set up for an echocardiogram and Myoview stress test on an outpatient basis but his symptoms worsened and he decided to come into the emergency department. The patient is having worsening angina. His symptoms are consistent with typical angina. 2. We will plan to proceed with left cardiac catheterization to evaluate his coronary artery disease given his typical angina. 3. The patient's echocardiogram shows an ejection fraction of 25 to 30% with moderate to severe mitral regurgitation and moderate tricuspid regurgitation. The patient also has moderate pulmonary hypertension. The patient has a new onset of LV dysfunction. This is very concerning for ischemic heart disease. And as mentioned before we will plan to proceed with left cardiac catheterization today to evaluate his coronary artery disease. 4. The patient is at increased risk for sudden cardiac given his severe LV dysfunction. We will get him set up with a LifeVest before discharge from the hospital given his ejection fraction at 25 to 30%. 5. The patient remain n.p.o. in preparation for left cardiac catheterization. 6. We will stop his IV fluids given his LV function. 7. Coronary artery disease is present. 8. His blood pressure is elevated this morning. But it is better than it was yesterday. We will continue to follow his blood pressure post his left heart cath and if his blood pressure remains elevated we may have to titrate his blood pressure medicines even more. 9. His LDL goal is less than 55. His LDL is 114. We will stop pravastatin and switch him over to Lipitor 20 mg daily. 10. His Xarelto is currently being held in preparation for left cardiac catheterization. 11. Further recommendations will be made pending the patient's response to treatment and the results of his left cardiac catheterization later jacques Thank you for the opportunity to help participate in the care of this patient.
--- NOTE | 2019-03-23 23:16 | Progress Note ---
Internal Medicine - PN: Subj *Date: 03/23/19 *Time: 09:00 Interval history: doing ok - has some sob - awaiting heart cath Exam Vital signs and Labs for Last 24 Hours: Temp Pulse Resp BP Pulse Ox 97.7 F 71 20 131/81 94 L 03/23/19 21:30 03/23/19 21:30 03/23/19 21:30 03/23/19 21:30 03/23/19 21:30 Laboratory Results - last 24 hr 03/23/19 05:47: POC Glucose 211 H 03/23/19 06:24: WBC 8.0, RBC 5.16, Hgb 12.8 L, Hct 41.6 L, MCV 80.5, MCH 24.8 L, MCHC 30.8 L, RDW 15.5, Plt Count 443 H D, MPV 6.7 L, Neut % (Auto) 69.4, Lymph % (Auto) 21.1, [place] % (Auto) 6.2, Eos % (Auto) 2.6, Baso % (Auto) 0.7, Neut # (Auto) 5.6, Lymph # (Auto) 1.7, [place] # (Auto) 0.5, Eos # (Auto) 0.2, Baso # (Auto) 0.1 03/23/19 06:24: Sodium 140, Potassium 3.2 L, Chloride 100, Carbon Dioxide 32, Anion Gap 11.2, BUN 19 H, Creatinine 1.42 H, Estimated Creat Clear 74, Estimated GFR 51 L, Est GFR ( Amer) 62, Glucose 190 H D, Calcium 8.9, Triglycerides 99, Cholesterol 161, LDL Cholesterol 114, VLDL Cholesterol 20, HDL Cholesterol 27, Cholesterol/HDL Ratio 6.0 H 03/23/19 11:21: POC Glucose 140 H 03/23/19 16:55: POC Glucose 132 H 03/23/19 20:08: POC Glucose 189 H I & O for Last 24 hours: Intake & Output 03/21/19 03/22/19 03/23/19 03/24/19 11:59 11:59 11:59 11:59 Intake Total 250 / 250 480 / 480 Balance 250 / 250 480 / 480 Weight 205 lb 200 lb 7.99 oz - Constitutional no acute distress - *Routine HEENT Exam Head: Present: normocephalic Eye: Present: EOMI, PERRL ENT: Present: mucous membranes dry - *Routine Neck Exam Present: supple - *Routine Respiratory Exam Present: decreased breath sounds - *Routine Cardiovascular Exam Present: RRR, murmur, S4 - *Routine Abdominal Exam Present: soft - *Routine Extremities Exam Absent: calf tenderness - *Routine Skin Exam Present: intact - *Routine Neurological Exam Present: alert, oriented X3, CN II-XII intact - Routine Psychiatric Exam Present: normal affect Assessment and Plan (1) Typical angina Current visit: Yes Status: Acute Category: Medical Code(s): I20.9 - Angina pectoris, unspecified (2) SOB (shortness of breath) Current visit: No Status: Acute Category: Medical Code(s): R06.02 - Shortness of breath (3) Right bundle branch block (RBBB) Current visit: No Status: Acute Category: Medical Code(s): I45.10 - Unspecified right bundle-branch block (4) CAD (coronary artery disease) Current visit: No Status: Chronic Qualifiers: Coronary Disease-Associated Artery/Lesion type: [place] artery [place] vs. transplanted heart: [place] heart Associated angina: without angina Qualified Code(s): I25.10 - Atherosclerotic heart disease of [place] coronary artery without angina pectoris Category: Medical Code(s): I25.10 - Atherosclerotic heart disease of [place] coronary artery without angina pectoris (5) HTN (hypertension) Current visit: No Status: Chronic Qualifiers: Hypertension type: essential hypertension Qualified Code(s): I10 - Essential (primary) hypertension Category: Medical Code(s): I10 - Essential (primary) hypertension (6) PAD (peripheral artery disease) Current visit: No Status: Acute Category: Medical Code(s): I73.9 - Peripheral vascular disease, unspecified (7) Hyperlipidemia Current visit: No Status: Chronic Qualifiers: Hyperlipidemia type: mixed hyperlipidemia Qualified Code(s): E78.2 - Mixed hyperlipidemia Category: Medical Code(s): E78.5 - Hyperlipidemia, unspecified (8) Diabetes mellitus Current visit: No Status: Chronic Qualifiers: Diabetes mellitus type: type 2 Diabetes mellitus detention insulin use: without intermediate card tender use Diabetes mellitus complication status: with neurologic complications Diabetes mellitus complication detail: with polyneuropathy Qualified Code(s): E11.42 - Type 2 diabetes mellitus with diabetic polyneuropathy Category: Medical Code(s): E11.9 - Type 2 diabetes mellitus without complications
[2019-03-24 06:37] LABS: Basophils # 0.1 K/mm3 (0-0.2); Basophils % 0.8 % (0.1-2.0); Eosinophils # 0.3 K/mm3 (0.0-0.4); Eosinophils % 3.7 % (0.1-12.0); Lymphocytes # 1.1 K/mm3 (0.7-4.5); Lymphocytes % 15.3 % (10-50); Mean Corpuscular HGB Conc 30.9 g/dL (31.8-35.4); Mean Corpuscular Volume 80.9 fl (80-94); Mean Platelet Volume 7.2 fl (7.4-10.4); Monocytes # 0.5 K/mm3 (0.1-1.0); Monocytes % 7.2 % (1.7-9.3); Neutrophils # 5.3 K/mm3 (1.8-7.8); Platelet Count 347 K/mm3 (142-424); Red Blood Count 4.82 M/mm3 (4.60-6.20); Red Cell Distribution Width 15.2 % (11.5-17.5); White Blood Count 7.3 K/mm3 (4.8-10.8)
[2019-03-24 06:40] LABS: Anion Gap 10.3 mEq/L (5-15); Calcium 8.7 mg/dL (8.5-10.1)
--- NOTE | 2019-03-24 08:17 | Progress Note ---
Subjective Date: 03/24/19 Time: 08:12 Principal diagnosis: typical angina Interval history: 58 yo WM in bed in NAD. No complaints. Slept well. Exam Vital signs and Labs for Last 24 Hours: Temp Pulse Resp BP Pulse Ox 98.9 F 68 16 138/88 99 03/24/19 07:59 03/24/19 07:59 03/24/19 07:59 03/24/19 07:59 03/24/19 07:59 Laboratory Results - last 24 hr 03/23/19 11:21: POC Glucose 140 H 03/23/19 16:55: POC Glucose 132 H 03/23/19 20:08: POC Glucose 189 H 03/24/19 05:38: WBC 7.3, RBC 4.82, Hgb 12.0 L, Hct 39.0 L, MCV 80.9, MCH 25.0 L, MCHC 30.9 L, RDW 15.2, Plt Count 347, MPV 7.2 L, Neut % (Auto) 73.0, Lymph % (Auto) 15.3, [place] % (Auto) 7.2, Eos % (Auto) 3.7, Baso % (Auto) 0.8, Neut # (Auto) 5.3, Lymph # (Auto) 1.1, [place] # (Auto) 0.5, Eos # (Auto) 0.3, Baso # (Auto) 0.1 03/24/19 05:38: Sodium 140, Potassium 3.3 L, Chloride 102, Carbon Dioxide 31, Anion Gap 10.3, BUN 17, Creatinine 1.31 H, Estimated Creat Clear 80, Estimated GFR 56 L, Est GFR ( Amer) 68, Glucose 190 H, Calcium 8.7 03/24/19 05:58: POC Glucose 191 H I & O for Last 24 hours: Intake & Output 03/21/19 03/22/19 03/23/19 03/24/19 11:59 11:59 11:59 11:59 Intake Total 250 / 250 720 / 720 Balance 250 / 250 720 / 720 Weight 205 lb 200 lb 7.99 oz 201 lb 1 oz - *Routine HEENT Exam Head: Present: normocephalic Eye: Present: EOMI, PERRL ENT: Present: mucous membranes moist - *Routine Respiratory Exam Present: CTA bilaterally. Absent: accessory muscle use, rales, rhonchi, wheezes - *Routine Cardiovascular Exam Present: RRR. Absent: murmur, gallop, rubs - *Routine Extremities Exam Absent: edema, calf tenderness - *Routine Neurological Exam Present: alert, oriented X3, moving all extremities Progress Note: A&P (1) Typical angina Status: Acute Current Visit: Yes (2) SOB (shortness of breath) Status: Acute Current Visit: No (3) Right bundle branch block (RBBB) Status: Acute Current Visit: No (4) CAD (coronary artery disease) Status: Chronic Current Visit: No (5) HTN (hypertension) Status: Chronic Current Visit: No (6) PAD (peripheral artery disease) Status: Acute Current Visit: No (7) Hyperlipidemia Status: Chronic Current Visit: No (8) Diabetes mellitus Status: Chronic Current Visit: No (9) Cardiomyopathy, dilated, nonischemic Status: Acute Current Visit: Yes Assessment and Plan for All Diagnoses:: 1. In light of non-ischemic cardiomyopathy, will switch meds to coreg 25 mg BID, entresto 24/26 mg BID along with spironolactone 25 mg daily (stopping metoprolol, lisinopril, lasix and will work to stop norvasc due to cardiomyopathy). Continue ASA 81 mg daily and atorvastatin 20 mg daily. 2. Replacing potassium today. 3. Awaiting fitting of LifeVest 4. Possibly home later today if LifeVest placed. 5. Follow up next week to check BP/HR and adjust meds.
--- NOTE | 2019-03-24 09:02 | Progress Note ---
Internal Medicine - PN: Subj *Date: 03/24/19 *Time: 09:14 Interval history: 38-year-old male patient sitting up in bed resting quietly. Respirations easy even, denies chest pain SOA, or any other concerns at present Exam Vital signs and Labs for Last 24 Hours: Temp Pulse Resp BP Pulse Ox 98.9 F 68 16 138/88 99 03/24/19 07:59 03/24/19 07:59 03/24/19 07:59 03/24/19 07:59 03/24/19 07:59 Laboratory Results - last 24 hr 03/23/19 11:21: POC Glucose 140 H 03/23/19 16:55: POC Glucose 132 H 03/23/19 20:08: POC Glucose 189 H 03/24/19 05:38: WBC 7.3, RBC 4.82, Hgb 12.0 L, Hct 39.0 L, MCV 80.9, MCH 25.0 L, MCHC 30.9 L, RDW 15.2, Plt Count 347, MPV 7.2 L, Neut % (Auto) 73.0, Lymph % (Auto) 15.3, [place] % (Auto) 7.2, Eos % (Auto) 3.7, Baso % (Auto) 0.8, Neut # (Auto) 5.3, Lymph # (Auto) 1.1, [place] # (Auto) 0.5, Eos # (Auto) 0.3, Baso # (Auto) 0.1 03/24/19 05:38: Sodium 140, Potassium 3.3 L, Chloride 102, Carbon Dioxide 31, Anion Gap 10.3, BUN 17, Creatinine 1.31 H, Estimated Creat Clear 80, Estimated GFR 56 L, Est GFR ( Amer) 68, Glucose 190 H, Calcium 8.7 03/24/19 05:58: POC Glucose 191 H I & O for Last 24 hours: Intake & Output 03/21/19 03/22/19 03/23/19 03/24/19 23:59 23:59 23:59 23:59 Intake Total 250 / 250 480 / 480 240 / 240 Balance 250 / 250 480 / 480 240 / 240 Weight 204 lb 5 oz 200 lb 7.99 oz 201 lb 1 oz - Constitutional no acute distress - *Routine HEENT Exam Head: Present: normocephalic, atraumatic Eye: Present: EOMI, PERRL ENT: Absent: mucous membranes dry - *Routine Neck Exam Present: supple, full ROM. Absent: JVD - *Routine Respiratory Exam Present: CTA bilaterally. Absent: accessory muscle use, respiratory distress - *Routine Cardiovascular Exam Present: RRR. Absent: murmur - *Routine Abdominal Exam Present: soft, normoactive bowel sounds. Absent: tenderness - *Routine Extremities Exam Present: full ROM, pulses intact. Absent: cyanosis - Routine Back/Spine/Pelvis Exam Back/Spine: Present: full ROM, CVA tenderness. Absent: pain with rotation - *Routine Skin Exam Present: intact. Absent: cyanosis, wounds - *Routine Neurological Exam Present: alert, oriented X3, CN II-XII intact. Absent: altered mental status - Routine Psychiatric Exam Present: normal affect, normal thought process. Absent: auditory hallucinations, visual hallucinations Assessment and Plan (1) Typical angina Current visit: Yes Status: Acute Category: Medical Code(s): I20.9 - Angina pectoris, unspecified (2) SOB (shortness of breath) Current visit: No Status: Acute Category: Medical Code(s): R06.02 - Shortness of breath (3) Right bundle branch block (RBBB) Current visit: No Status: Acute Category: Medical Code(s): I45.10 - Unspecified right bundle-branch block (4) CAD (coronary artery disease) Current visit: No Status: Chronic Qualifiers: Coronary Disease-Associated Artery/Lesion type: [place] artery [place] vs. transplanted heart: [place] heart Associated angina: without angina Qualified Code(s): I25.10 - Atherosclerotic heart disease of [place] coronary artery without angina pectoris Category: Medical Code(s): I25.10 - Atherosclerotic heart disease of [place] coronary artery without angina pectoris (5) HTN (hypertension) Current visit: No Status: Chronic Qualifiers: Hypertension type: essential hypertension Qualified Code(s): I10 - Essential (primary) hypertension Category: Medical Code(s): I10 - Essential (primary) hypertension (6) PAD (peripheral artery disease) Current visit: No Status: Acute Category: Medical Code(s): I73.9 - Peripheral vascular disease, unspecified (7) Hyperlipidemia Current visit: No Status: Chronic Qualifiers: Hyperlipidemia type: mixed hyperlipidemia Qualified Code(s): E78.2 - Mixed hyperlipidemia Category: Medical Code(s): E78.5 - Hyperlipidemia, unspecified (8) Diabetes mellitus Current visit: No Status: Chronic Qualifiers: Diabetes mellitus type: type 2 Diabetes mellitus terminal system operator insulin use: without terminal system operator use Diabetes mellitus complication status: with neurologic complications Diabetes mellitus complication detail: with polyneuropathy Qualified Code(s): E11.42 - Type 2 diabetes mellitus with diabetic polyneuropathy Category: Medical Code(s): E11.9 - Type 2 diabetes mellitus without complications (9) Cardiomyopathy, dilated, nonischemic Current visit: Yes Status: Acute Category: Medical Code(s): I42.0 - Dilated cardiomyopathy - Assessment and plan all Dx Assessment and Plan for all problems:: Rounded with Dr. Levine all orders per Dr. Levine 03/21 ECHO: Echocardiogram shows: 1. Technically difficult study because of the patient's factor and poor acoustic Windows, endocardial surfaces are poorly visualized. 2. Biatrial enlargement, mildly dilated left ventricle, severely reduced left ventricular systolic function visually estimated ejection fraction 25-30% with segmental wall motion abnormality described above, Doppler evidence of low cardiac output state, as well as increased left atrial and left ventricular end-diastolic pressure. 3. Moderate to severe mitral and moderate tricuspid regurgitation, calculated right ventricular systolic pressure is 61 mmHg consistent with moderate pulmonary hypertension, inferior vena cava is mildly dilated without significant inspiratory collapse. 4. No significant pericardial effusion noted. Cardiology is seen today and recommends: 1. In light of non-ischemic cardiomyopathy, will switch meds to coreg 25 mg BID, entresto 24/26 mg BID along with spironolactone 25 mg daily (stopping metoprolol, lisinopril, lasix and will work to stop norvasc due to cardiomyopathy). Continue ASA 81 mg daily and atorvastatin 20 mg daily. 2. Replacing potassium today. 3. Awaiting fitting of LifeVest 4. Possibly home later today if LifeVest placed. 5. Follow up next week to check BP/HR and adjust meds. Today we will wait to see results of LifeVest fitting
--- NOTE | 2019-03-24 12:11 | Discharge Summary ---
General - General Admission date:: 03/22/19 Discharge date: 03/24/19 (Patient sitting up in bed respirations easy even, denies further chest pain. Will be discharged pending LifeVest fitting, patient is agreeable to this.) HPI HPI: this pt presented to the [facility] ed -omplains of episodes of chest pain. This is his third episode. States that he had chest pain today at about 9 AM that lasted less than 15 minutes. Does not remember what he was doing when the pain came on. Associated with shortness of breath, left arm pain, diaphoresis. States that he has had 2 previous episodes on and Thursday of last week, each lasting 2 to 3 minutes, brought on by exertion. States that he is currently pain-free. States he had a cardiac cath in 2016 that showed normal coronary arteries. In November of this year had an angiogram of his lower extremities. States that he has hypertension, hyperlipidemia, diabetes. Also has been having problems with his gait and with forming his words for several months. pt was admitted for eval and treatment Hospital Course Hospital Course: 58-year-old male patient presented to the ED on 03/22 with complaints of chest pain. This has been his third episode of chest pain, he had chest pain that lasted 15 minutes and is not able to remember what he was doing when the pain began, he also complained of shortness of air, left arm pain, and states he was diaphoretic at the time. He has had 2 previous episodes of chest pain last week on 2 separate days each lasting 2 to 3 minutes that were brought on by exertion. He reports having a cardiac cath in 2016 that showed normal coronary arteries. He does have a history of hypertension hyperlipidemia and diabetes. While in the hospital he had a 2D echo showing biatrial enlargement mildly dilated left ventricle with a reduced estimated ejection fraction of 25 to 30% with segmental wall motion abnormality. Moderate to severe mitral and moderate tricuspid regurgitation calculated right ventricular systolic pressure is 61 consistent with moderate pulmonary hypertension. There is no significant pericardial effusion noted. (Per Dr. Mayfield). 03/22 CXR: Neg Dictated By:Asael Pedroza MD 03/[address]: There is no mass, acute hemorrhage or extra-axial fluid collection. Ventricles, sulci and cortical areas are normal. There are punctate round hypodense foci of CSF attenuation in the right basal ganglia and the genu of the right internal capsule. There are no other areas of abnormal attenuation. There is a 10 mm polypoid density along the medial wall of the right maxillary sinus. The remainder of the paranasal sinuses and mastoid air cells are clear. There is no acute osseous process. Impression:No acute intracranial process. 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 Right maxillary sinus small retention cyst. Dictated By: Asael Pedroza MD Cardiology has seen the patient and has recommended: 1. With nonischemic cardiomyopathy, will switch meds to Coreg 25 mg twice daily Entresto 24/26 mg twice daily along with Spironolactone 25 mg daily (stopping metoprolol lisinopril Lasix and will work to stop Norvasc due to cardiomyopathy (continue ASA 81 mg daily and atorvastatin 20 mg daily 2. Replacing potassium today 3. Awaiting fitting of LifeVest 4. Possibly home later today if LifeVest placed 5. Follow-up next week to check BP/HR and adjust meds Currently awaiting LifeVest to be fitted, after fitting patient will be discharged home. Patient is agreeable to this. Will follow up with the cardiology in 1 week, and then follow-up with PCP in 2 weeks. Objective Vital signs: Temp Pulse Resp BP Pulse Ox 98.2 F 71 18 144/72 H 99 03/24/19 11:02 03/24/19 11:02 03/24/19 11:02 03/24/19 11:02 03/24/19 11:02 no acute distress, cooperative - *Routine HEENT Exam Head: Present: normocephalic, atraumatic. Absent: tenderness of temporal artery Eye: Present: EOMI, PERRL. Absent: conjunctival icterus ENT: Present: mucous membranes dry. Absent: sinus tenderness - *Routine Neck Exam Present: supple, full ROM. Absent: JVD, tenderness - *Routine Respiratory Exam Present: CTA bilaterally. Absent: accessory muscle use, respiratory distress, wheezes - *Routine Cardiovascular Exam Present: RRR. Absent: murmur, gallop, JVD - *Routine Abdominal Exam Present: soft, normoactive bowel sounds. Absent: tenderness, guarding, firm - *Routine Extremities Exam Present: full ROM, pulses intact. Absent: cyanosis, tenderness, joint swelling - Routine Back/Spine/Pelvis Exam Back/Spine: Present: full ROM. Absent: CVA tenderness - *Routine Skin Exam Present: intact, normal turgor. Absent: cyanosis, erythema, rash - *Routine Neurological Exam Present: alert, oriented X3, CN II-XII intact, moving all extremities. Absent: sensory deficit, motor deficit - Routine Psychiatric Exam Present: normal affect, normal thought process. Absent: auditory hallucinati ons, visual hallucinations Results Labs on day of discharge: Labs from last 24 hours 03/24/19 03/24/19 03/24/19 11:37 05:58 05:38 WBC RBC Hgb Hct MCV MCH MCHC RDW Plt Count MPV Neut % (Auto) Lymph % (Auto) [place] % (Auto) Eos % (Auto) Baso % (Auto) Neut # (Auto) Lymph # (Auto) [place] # (Auto) Eos # (Auto) Baso # (Auto) Sodium 140 Potassium 3.3 L Chloride 102 Carbon Dioxide 31 Anion Gap 10.3 BUN 17 Creatinine 1.31 H Estimated Creat Clear 80 Estimated GFR 56 L Est GFR ( Amer) 68 Glucose 190 H POC Glucose 275 H 191 H Calcium 8.7 03/24/19 03/23/19 03/23/19 05:38 20:08 16:55 WBC 7.3 RBC 4.82 Hgb 12.0 L Hct 39.0 L MCV 80.9 MCH 25.0 L MCHC 30.9 L RDW 15.2 Plt Count 347 MPV 7.2 L Neut % (Auto) 73.0 Lymph % (Auto) 15.3 [place] % (Auto) 7.2 Eos % (Auto) 3.7 Baso % (Auto) 0.8 Neut # (Auto) 5.3 Lymph # (Auto) 1.1 [place] # (Auto) 0.5 Eos # (Auto) 0.3 Baso # (Auto) 0.1 Sodium Potassium Chloride Carbon Dioxide Anion Gap BUN Creatinine Estimated Creat Clear Estimated GFR Est GFR ( Amer) Glucose POC Glucose 189 H 132 H Calcium - Additional Comments Rounded with Dr. Levine all orders per Dr. Levine DS: Diagnosis - Discharge Diagnosis (1) Typical angina Status: Acute (2) SOB (shortness of breath) Status: Acute (3) Right bundle branch block (RBBB) Status: Acute (4) CAD (coronary artery disease) Status: Chronic (5) HTN (hypertension) Status: Chronic (6) PAD (peripheral artery disease) Status: Acute (7) Hyperlipidemia Status: Chronic (8) Diabetes mellitus Status: Chronic (9) Cardiomyopathy, dilated, nonischemic Status: Acute Discharge Plan - Patient Discharge Instructions ACTIVITY: Continue current activity DIET: continue same diet Patient Instructions: Cardiac Catheterization, DI for Cardiac Catheterization, DI for Surgical Site Infection, DI for Chest Pain, Surgical Site Infection, Low- Sodium Diet - Follow up Plan Follow up with: Singh Lucas MD [Staff Physician] - 1 week Mohan Levine MD [Staff Physician] - 2 weeks Disposition: Home, Self-Skilled Nursing Medications: Home Medications Medication Instructions Recorded Confirmed Type aspirin 81 mg tablet,delayed 81 mg PO DAILY 08/10/18 03/22/19 History release Amitriptyline HCl 75 mg PO HS 03/22/19 03/22/19 History Ergocalciferol (Vitamin D2) 1 cap PO WEEKLY 03/22/19 03/22/19 History [Drisdol] Fluoxetine HCl [Prozac] 40 mg PO DAILY 03/22/19 03/22/19 History Gabapentin [Gabapentin 300mg Cap] 300 mg PO BID 03/22/19 03/22/19 History Lisinopril [Lisinopril 40mg Tablet] 40 mg PO BID 03/22/19 03/22/19 History Lovastatin 10 mg PO HS 03/22/19 03/22/19 History Metformin HCl [Metformin 1000mg 1,000 mg PO BID 03/22/19 03/22/19 History Tablets] Metoprolol Succinate 25 mg PO DAILY 03/22/19 03/22/19 History Mupirocin [Centany] 1 applic TOPICAL BID 03/22/19 03/22/19 History Rivaroxaban [Xarelto] 2.5 mg PO BID 03/22/19 03/22/19 History glipiZIDE [Glipizide] 15 mg PO BID 03/22/19 03/22/19 History Amlodipine Besylate [Norvasc 5mg 5 mg PO DAILY 30 Days #30 tab 03/24/19 Rx tablet] Carvedilol [Coreg 25mg Tablet] 25 mg PO BID 30 Days #60 tab 03/24/19 Rx Sacubitril/Valsartan [Entresto 1 each PO BID 30 Days #60 tab 03/24/19 Rx 24/26mg Tablet] Spironolactone [Aldactone 25mg Tab] 25 mg PO DAILY 30 Days #30 tab 03/24/19 Rx Prescriptions/Medication Reconciliation: New Carvedilol [Coreg 25mg Tablet] 25 mg PO BID 30 Days #60 tab Sacubitril/Valsartan [Entresto 24/26mg Tablet] 1 each PO BID 30 Days #60 tab Amlodipine Besylate [Norvasc 5mg tablet] 5 mg PO DAILY 30 Days #30 tab Spironolactone [Aldactone 25mg Tab] 25 mg PO DAILY 30 Days #30 tab Continued aspirin 81 mg tablet,delayed release 81 mg PO DAILY Mupirocin [Centany] 1 applic TOPICAL BID Metformin HCl [Metformin 1000mg Tablets] 1,000 mg PO BID Lovastatin 10 mg PO HS glipiZIDE [Glipizide] 15 mg PO BID Gabapentin [Gabapentin 300mg Cap] 300 mg PO BID Fluoxetine HCl [Prozac] 40 mg PO DAILY Amitriptyline HCl 75 mg PO HS Rivaroxaban [Xarelto] 2.5 mg PO BID Ergocalciferol (Vitamin D2) [Drisdol] 1 cap PO WEEKLY Discontinued Metoprolol Succinate 25 mg PO DAILY Lisinopril [Lisinopril 40mg Tablet] 40 mg PO BID
== END 2019-03-24 18:38 | disposition home or self-care (01) ==
LOC: 2ND 09:55 → ER 09:55 → 2ND 13:38
PROVIDERS: ADMIT Emergency Medicine; ATTEND Emergency Medicine
DX: Z79.899 Other long term (current) drug therapy; R06.02 Shortness of breath; E11.42 Type 2 diabetes mellitus with diabetic polyneuropathy; I27.20 Pulmonary hypertension, unspecified; Z79.84 Long term (current) use of oral hypoglycemic drugs; E11.65 Type 2 diabetes mellitus with hyperglycemia; Z79.01 Long term (current) use of anticoagulants; I42.9 Cardiomyopathy, unspecified; I20.9 Angina pectoris, unspecified; I25.10 Atherosclerotic heart disease of native coronary artery without angina pectoris; I45.10 Unspecified right bundle-branch block; I73.9 Peripheral vascular disease, unspecified; R94.31 Abnormal electrocardiogram [ECG] [EKG]; E78.2 Mixed hyperlipidemia; R26.9 Unspecified abnormalities of gait and mobility; Z79.82 Long term (current) use of aspirin
CPT/HCPCS: 36415; 70450; 71010; 71045; 80048; 80053; 80061; 82962; 84484; 85025; 93005; 93306; 93458; 99152; 99284; C1725; C1769; G0378; Q9967

== ENCOUNTER → 2019-04-20 19:47 | Outpatient (CLI) | payer BC, SELFPAY | PROVIDERS: PCP Emergency Medicine; Visit Provider Nurse Practitioner Family | DX: G47.33 Obstructive sleep apnea (adult) (pediatric) (principal); I10 Essential (primary) hypertension; R40.0 Somnolence; R06.83 Snoring | CPT/HCPCS: 95810 ==

== ENCOUNTER → 2019-04-26 10:04 | Outpatient (CLI) | payer BC, SELFPAY ==
[2019-04-26 10:06] LABS: Microscopic, Urine URINE MICROSCOPIC (MICROSCOPIC)
--- NOTE | 2019-04-26 10:14 | NM_ITS ---
PROCEDURE: NM MUGA CLINICAL INDICATION: MUGA scan Cardiomyopathy COMPARISON: No exams were available for comparison TECHNIQUE: 26.5 mCi technetium sodium pertechnetate with ultra tag kit FINDINGS: Ejection fraction is calculated be 21 percent with global hypokinesia IMPRESSION: EF low at 21 percent Dictated by: Navdeep Medel MD 04/26/2019 19:21 Signed by: <Electronically signed by Navdeep Medel MD in [place]> 04/26/2019 19:21
[2019-04-26 10:27] LABS: Basophils # 0.1 K/mm3 (0-0.2); Basophils % 0.7 % (0.1-2.0); Eosinophils # 0.3 K/mm3 (0.0-0.4); Eosinophils % 3.4 % (0.1-12.0); Hematocrit 50.5 % (42.0-52.0); Lymphocytes # 1.2 K/mm3 (0.7-4.5); Lymphocytes % 13.6 % (10-50); Mean Corpuscular HGB Conc 31.8 g/dL (31.8-35.4); Mean Corpuscular Hemoglobin 26.8 pg (27.0-31.2); Mean Corpuscular Volume 84.1 fl (80-94); Mean Platelet Volume 6.6 fl (7.4-10.4); Monocytes # 0.5 K/mm3 (0.1-1.0); Monocytes % 5.5 % (1.7-9.3); Neutrophils # 6.6 K/mm3 (1.8-7.8); Neutrophils % 76.7 % (37.0-80.0); Platelet Count 297 K/mm3 (142-424); Red Cell Distribution Width 16.2 % (11.5-17.5); White Blood Count 8.6 K/mm3 (4.8-10.8)
[2019-04-26 10:41] LABS: Appearance,Urine CLEAR (Clear); Bilirubin,Urine Negative (Negative); Blood, Urine Negative (Negative); Color,Urine YELLOW (Yellow); Glucose,Urine (UA) 3+ (Negative); Ketones,Urine Negative (Negative); Leukocyte Esterase,Urine Negative (Negative); Nitrate,Urine Negative (Negative); Protein,Urine TRACE (Negative); Urobilinogen,Urine 0.2 EU/dl (0.2)
[2019-04-26 11:06] LABS: Albumin Level 3.8 gm/dL (3.4-5.0); Anion Gap 10.7 mEq/L (5-15); Blood Urea Nitrogen 21 mg/dL (7-18); Calcium 9.1 mg/dL (8.5-10.1); Carbon Dioxide 31 mmol/L (21.0-32.0); Chloride 95 mmol/L (98-107); Creatinine,Serum 1.48 mg/dL (0.70-1.30); Estimated Glomerular Filt Rate 49 ml/min (>60); GFR (African American) 59 ML/MIN (>60); Phosphorous 3.5 mg/dL (2.4-4.9); Potassium 3.7 mmoL/L (3.5-5.1); Sodium 133 mmol/L (136-145)
[2019-04-26 11:07] LABS: Creatinine,Urine Random 76 mg/dL (20-320)
[2019-04-26 11:13] LABS: Glucose 495 mg/dL (74-106)
[2019-04-26 11:39] LABS: Squamous Epithelial Cell,Urine Occasional #/hpf (0-5); WBC,Urine Occasional #/hpf (0-3)
--- NOTE | 2019-04-26 12:41 | HMH.ITSHM ---
Current Home Medications as stated by this patient Vikram Flores or corporate representative. []GLIPIZIDE FLUOXETINE ASA AMITRIPTYLINE SPIRONOLACTONE ENTRESTO RIVAROXABAN MUPIROCIN METFORMIN GABAPENTIN CARVEDILOL VITAMIN D2 ATORVASTATIN AMLODIPINE
== END ==
PROVIDERS: Internal Medicine Nephrology; Visit Provider Internal Medicine Cardiovascular Disease
DX: I42.0 Dilated cardiomyopathy (principal); N18.2 Chronic kidney disease, stage 2 (mild)
CPT/HCPCS: 36415; 78473; 80069; 81001; 82570; 84155; 85025; A9512; A9560

== ENCOUNTER → 2019-05-09 15:43 | Outpatient (POV) | payer BC, SELFPAY | PROVIDERS: Visit Provider Internal Medicine Nephrology | DX: Z00.00 Encounter for general adult medical examination without abnormal findings (principal) ==

== ENCOUNTER → 2019-06-13 19:15 | Outpatient (CLI) | payer BC, SELFPAY | PROVIDERS: PCP Nurse Practitioner Family; Visit Provider Nurse Practitioner Family | DX: G47.33 Obstructive sleep apnea (adult) (pediatric) (principal); I10 Essential (primary) hypertension; R40.0 Somnolence; R06.83 Snoring | CPT/HCPCS: 95810 ==

== ENCOUNTER → 2019-07-04 09:46 | Outpatient (CLI) | payer BC, SELFPAY ==
--- NOTE | 2019-07-04 09:49 | XR_ITS ---
PROCEDURE: XR ELBOW LT 2V CLINICAL INDICATION: Elbow pain The elbow pain with fluid buildup COMPARISON: No exams were available for comparison FINDINGS: No fracture or dislocation. No lytic or blastic change. There is normal mineralization. The joint spaces are well-preserved. No significant degenerative/arthritic changes. No erosive changes evident.. Minimal calcification noted at the medial epicondylar region. This could be due to old injury. Other findings:Soft tissue swelling is present at the olecranon. No radiopaque foreign body or soft tissue gas IMPRESSION: Olecranon bursitis Dictated by: Navdeep Medel MD 07/04/2019 12:05 Electronically signed by Navdeep Medel MD in [place] 07/04/2019 12:05
== END ==
PROVIDERS: PCP Nurse Practitioner Family; Visit Provider Orthopaedic Surgery
DX: M25.522 Pain in left elbow (principal)
CPT/HCPCS: 73070

== ENCOUNTER 2019-08-11 04:49 | Observation (INO) ==
[2019-08-11 05:08] LABS: Basophils # 0.1 K/mm3 (0-0.2); Basophils % 0.8 % (0.1-2.0); Eosinophils # 0.3 K/mm3 (0.0-0.4); Eosinophils % 3.2 % (0.1-12.0); Hematocrit 50.8 % (42.0-52.0); Hemoglobin 16.6 g/dL (14.1-18.0); Lymphocytes # 1.6 K/mm3 (0.7-4.5); Lymphocytes % 21.2 % (10-50); Mean Corpuscular HGB Conc 32.8 g/dL (31.8-35.4); Mean Corpuscular Volume 90.9 fl (80-94); Mean Platelet Volume 7.7 fl (7.4-10.4); Monocytes # 0.4 K/mm3 (0.1-1.0); Monocytes % 5.7 % (1.7-9.3); Neutrophils # 5.3 K/mm3 (1.8-7.8); Neutrophils % 69.1 % (37.0-80.0); Platelet Count 275 K/mm3 (142-424); Red Blood Count 5.59 M/mm3 (4.60-6.20); Red Cell Distribution Width 13.2 % (11.5-17.5); White Blood Count 7.6 K/mm3 (4.8-10.8)
[2019-08-11 05:22] LABS: Anion Gap 13.4 mEq/L (5-15); C-Reactive Protein 0.5 mg/dL (0.0-0.9); Calcium 8.8 mg/dL (8.5-10.1)
--- NOTE | 2019-08-11 05:33 | Emergency Department Note ---
ED Disposition Clinical Impression: AICD (automatic cardioverter/defibrillator) present Chest pain Qualifiers: Chest pain type: precordial pain Qualified Code(s): R07.2 - Precordial pain Disposition: Admitted as Observation Condition on Discharge: Good - Critical Care Critical Care Time: No Attestation: On 08/11/19, the high probability of a clinically significant, sudden or life threatening deterioration of the following system(s) required my full and direct attention, intervention and personal management. The time I documented below is in addition to time spent performing reported procedures but includes the following listed in this critical care notation. Medical Decision Making - Medical Records Medical records reviewed: Yes: I reviewed the patient's medical records. - Felipe Inquiry Pt receiving controlled substance: No Vital Signs: 08/11/19 04:50 08/11/19 04:57 08/11/19 05:04 Temperature 97.6 F Temperature Source Oral Pulse Rate [Left Radial] 72 65 Respiratory Rate 16 Blood Pressure [Right Arm] 187/93 H 166/89 H Blood Pressure Mean [Right Arm] 124 114 Blood Pressure Source [Right Arm] Automatic Cuff Automatic Cuff Automatic Cuff Blood Pressure Position [Right Arm] Sitting Sitting Supine 02 Sat by Pulse Oximetry 99 Oxygen Delivery Method Room Air - Lab Data Lab results reviewed: Yes: I reviewed the patient's lab results. Lab Results 08/11/19 04:53: WBC 7.6, RBC 5.59, Hgb 16.6, Hct 50.8, MCV 90.9, MCH 29.8, MCHC 32.8, RDW 13.2, Plt Count 275, MPV 7.7, Neut % (Auto) 69.1, Lymph % (Auto) 21.2, Carver % (Auto) 5.7, Eos % (Auto) 3.2, Baso % (Auto) 0.8, Neut # (Auto) 5.3, Lymph # (Auto) 1.6, Carver # (Auto) 0.4, Eos # (Auto) 0.3, Baso # (Auto) 0.1, ESR 14 08/11/19 04:53: Sodium 140, Potassium 3.4 L, Chloride 100, Carbon Dioxide 30, Anion Gap 13.4, BUN 18, Creatinine 1.31 H, Estimated Creat Clear 80, Estimated GFR 56 L, Est GFR ( Amer) 68, Glucose 361 H, Calcium 8.8, Troponin I 0.03, C-Reactive Protein 0.5 Result diagrams: 08/11/19 04:53 08/11/19 04:53 Orders (Tests/Meds): ED MEDICATIONS Generic Name Dose Route Start Last Admin Trade Name Freq PRN Reason Stop Dose Admin Sodium Chloride 1,000 mls @ 999 mls/hr 08/11/19 05:00 08/11/19 05:03 Sod Chlor 0.9% 1000ml Bag IV 08/11/19 06:00 999 mls/hr .Q1H1M ERMELINDA Administration Discontinued Medications Generic Name Dose Route Start Last Admin Trade Name Freq PRN Reason Stop Dose Admin Aspirin 243 mg 08/11/19 05:00 08/11/19 05:03 Aspirin 81mg Chewable Tablet PO 08/11/19 05:01 243 mg ONCE ONE Administration Ketorolac Tromethamine 30 mg 08/11/19 05:37 08/11/19 05:39 Toradol 30mg/Ml Vial IV 08/11/19 05:38 30 mg ONCE ONE Administration ORDERS Category Date Time Status Troponin I Q3H Lab 08/11/19 08:00 Ordered Troponin I Q3H Lab 08/11/19 11:00 Ordered - Radiology Data #1 Image(s): Chest Image Reviewed: Yes I reviewed the patient's radiology image Preliminary Findings: Normal/NAD - ECG Data Tracing #1 Arrhythmias present: other (pacemaker) Chest Pain HPI - General Chief Complaint: Chest Pain Stated Complaint: chest pain Time Seen by Provider: 08/11/19 05:00 Mode of Arrival: Ambulatory Source of Information: Patient, Spouse, Medical Record Limitations: No Limitations Description of Symptoms (Recalled from ER Triage Doc. by RN): pt stated he experienced chest pain this morning around 3am. pt stated it was a sharp pain that felt like it radiated across his chest. pt stated he took 2 nitro at home and 81mg of aspirin. pt denies any chest pain at this time. - History of Present Illness HPI narrative: pt with acute episode of chest pain this am with hx of heart dis - pt reports chest pain resolved at this time MD complaint: chest pain indicative of cardiac Onset (ago): hour(s) Duration: now resolved Activity at onset: awoke with symptoms Pain location: left chest Severity: severe Quality: sharp Pain radiation: LUE Relieving factors: nitroglycerin Risk Factors for CAD: Family Hx of CAD Treatments prior to or on arrival for Cardiac Chest Pain: aspirin, nitroglycerin - ALFREDO Score for Non-Stemi Age of Patient: 50-59 years old Heart Rate: 70-89 bpm Systolic Blood Pressure: 160-199 mmHg Serum Creatinine: 1.20-1.59 mg/dl CHF Killip Class: I-No CHF Other Risk Factors: None Non-Stemi Risk Score: 70 - Related Data Prior Cardiac Testing/Procedures: Cardiac Angiogram Home Medications Medication Instructions Recorded Confirmed aspirin 81 mg tablet,delayed 81 mg PO DAILY 08/10/18 07/15/19 release Ergocalciferol (Vitamin D2) 1 cap PO WEEKLY 03/22/19 07/15/19 [Drisdol] Gabapentin [Gabapentin 300mg Cap] 300 mg PO BID 03/22/19 07/15/19 Rivaroxaban [Xarelto 2.5mg Tab*] 2.5 mg PO BID 03/22/19 07/15/19 carvediloL [Coreg 25mg Tablet] 25 mg PO BID 06/16/19 07/15/19 Nitroglycerin [Nitroglycerin Patch] 1 patch TRANSDERMAL DAILY 08/11/19 08/11/19 Rosuvastatin Calcium 10 mg PO DAILY 08/11/19 08/11/19 Trazodone HCl 50 mg PO QHS 08/11/19 08/11/19 Previous Rx's Medication Instructions Recorded nitroglycerin 0.4 mg sublingual 0.4 mg SUBLINGUAL Q5-15M PRN #30 06/16/19 tablet tab metformin 1,000 mg tablet 1,000 mg PO BID 90 Days #180 tab 07/13/19 glipizide 10 mg tablet 15 mg PO BID #180 tab 07/15/19 losartan 100 mg tablet 100 mg PO DAILY #30 tab 07/15/19 aripiprazole 5 mg tablet 5 mg PO QHS #30 tab 07/26/19 fluoxetine 40 mg capsule 40 mg PO DAILY #30 cap 07/26/19 hydroxyzine pamoate 25 mg capsule 25 mg PO TID PRN #90 cap 08/03/19 Allergies Allergy/AdvReac Type Severity Reaction Status Date / Time No Known Allergies Allergy Verified 07/15/19 11:15 [facility] History - Hepatitis A Screen Drug use history?: No High risk sexual behaviors?: No History of sexually transmitted infection?: No Currently employed?: No Childcare worker?: No Do you have indoor plumbing?: Yes Do you have electricity?: Yes Attestation statement:: This patient has been screened for Hepatitis A risk factors. I have reviewed the patient's past medical history: Yes Medical History: Reports:: Anxiety, Congestive Heart Failure, Coronary Artery Disease, Depression, Diabetes Mellitus Type 2, Hyperlipidemia, Hypertension, Internal Pacemaker, Migraine Comment: ptsd, wearing heart monitor (life vest) Laterality Cases: Bilateral: Tonsillectomy Other Surgeries: Yes: Cardiac Catheterization, Cardiac Surgery, Colonoscopy, Coronary Stent, Pacemaker, Other Amputation: No Fractures: No Comment: Removed polyps from instine.. - Social History Smoking Status: Never smoker Alcohol Intake: never Alcohol Intake Frequency:: holidays/special occasions only Substance Use Type: former substance user, marijuana Occupational Status: unemployed, disabled Housing: house Household Members: spouse - Psychiatric History Pschychiatric History:: Reports:: Anxiety, Depression Family Hx:: Cancer, Diabetes, Coronary Artery Disease, Heart Attack, Stroke Comment: Mother-NV@72. Father-CAD@30's. Brother-NV@30's ROS Obtained: Yes All systems reviewed & no additional complaints - Constitutional Constitutional: Denies fever(s) - Eyes Eyes: Denies change in vision - ENT Ears, Nose, Mouth, and Throat: Denies sore throat - Cardiovascular Cardiovascular: Reports chest pain, Reports chest pain at rest, Reports radiating jaw, neck or arm pain - Respiratory Respiratory: No cough - Gastrointestinal Gastrointestingal: Denies: vomiting - Genitourinary Male Genitourinary: Denies hematuria - Musculoskeletal Musculoskeletal: Denies joint pain - Integumentary/Breasts Skin/Breast: Denies rash - Neurologic Neurologic: Reports as per HPI, Reports headache(s), Denies seizure-like activity Physical Exam - General General appearance: alert, in no apparent distress - Head Head exam: normocephalic - Eye Eye exam: Present: PERRL, EOMI. Absent: scleral icterus - ENT ENT exam: Present: mucous membranes moist - Neck Neck exam: Present: trachea midline - Respiratory Respiratory exam: Present: normal lung sounds bilaterally. Absent: respiratory distress - Cardiovascular Cardiovascular exam: Present: regular rate, systolic murmur - Abdominal Exam Abdominal exam: Present: soft - Extremities Exam Extremities exam: Present: full ROM. Absent: calf tenderness - Neurological Exam Neurological exam: Present: alert, oriented X3, CN II-XII intact - Psychiatric Psychiatric exam: Present: normal affect - Skin Skin exam: Absent: rash
[2019-08-11 05:45] LABS: Erythrocyte Sedimentation Rate 14 mm/hr (0-20)
--- NOTE | 2019-08-11 07:49 | Pharmacy Consult Notes ---
[facility] Pharmacy VTE Monitoring - Patient Demographics Admission date: 08/11/19 Report Date: 08/11/19 Time: 07:49 Allergies/Adverse Reactions: Patient Allergies No Known Allergies Allergy (Verified 07/15/19 11:15) Height: 1.83 m Weight: 88.054 kg Patient Problems: Current Active Problems Chest pain (Acute) AICD (automatic cardioverter/defibrillator) present (Chronic) - VTE Risk Labs: VTE Related Lab Results Hgb 16.6 g/dL (14.1-18.0) 08/11/19 04:53 Hct 50.8 % (42.0-52.0) 08/11/19 04:53 Plt Count 275 K/mm3 (142-424) 08/11/19 04:53 BUN 18 mg/dL (7-18) 08/11/19 04:53 Creatinine 1.31 mg/dL (0.70-1.30) H 08/11/19 04:53 Estimated Creat Clear 80 mL/min (50-200) 08/11/19 04:53 Was VTE Risk Assessment Performed: Yes VTE Score: 5 VTE Risk Level: Low Risk - Prophylaxis VTE Prophylaxis Ordered?: Yes Types of VTE Prophylaxis: Pharmacological Pharmacologic Type: Other (XARELTO) - VTE Diagnosis Confirmed Treatment or plan recommended: Continue Current Treatment
--- NOTE | 2019-08-11 09:00 | Consult Report ---
History of Present Illness Consult date: 08/11/19 Requesting physician: Mohan Levine Consult reason: chest pain Chief complaint: chest pain Additional Medical History:: 1. PAD Juan John, 02/2019 ANGIOGRAPHIC RESULTS: The suprarenal abdominal aorta is normal. The mesenteric arteries normal. The bilateral renal arteries are singular and normal. The infrarenal abdominal aorta is normal. The bilateral common internal and external iliac arteries are normal. The bilateral common femoral arteries are normal. The bilateral profunda femoris artery superficial femoral arteries are normal. The right popliteal artery has a long concentric 30-40% stenosis. Distally there is single-vessel runoff below the knee as the anterior and posterior tibialis arteries are proximally occluded. The peroneal artery is patent down to its distal segment and then has small vessel 90% stenoses prior to approaching the foot. The posterior tibialis artery reconstitutes penitentiary down the calf and then supplies a posterior flow to the foot. The left popliteal artery has a focal 30-40% stenosis in its proximal portion with mild 20% mid vessel stenoses. Distally there is a 40-50% stenosis involving the ACT trauma. The posterior tibialis artery is proximally occluded the anterior tibialis artery is widely patent in its proximal mid and distal segment with very slow flow into the left foot. The peroneal artery is patent in the proximal and mid segment but does not appear to have distal flow into the foot Impression: Single vessel runoff bilaterally below the knees as described above consistent with small vessel diffuse vasculopathy Widely patent major arteries in the abdomen iliacs femoral and superficial femoral arteries with mild to moderate nonflow limiting disease in the popliteal arteries Plan: Medical management LDL less than 55 Aggressive physical therapy I would recommend Xarelto 2.5 twice a day combined with aspirin 81 mg daily 2. Hypertension 3. Hyperlipidemia 4. Non-ischemic Cardiomyopathy [facility], 02/2019, Dr. Cantu ANGIOGRAPHIC RESULTS: 1. The left main artery normal 2. The left anterior descending artery small but normal 3. The circumflex artery large and dominant. Second obtuse marginal branch was small in size. 80% mid stenosis. This vessel is less than 2 mm in size. Normal and brisk flow into the posterior descending and posterior lateral branches was came off the circumflex 4. The right coronary artery moderate in size and nondominant. Angiographically normal 5. The ACHARYA ventriculogram reveals a ejection fraction 20-25%. Global reduc tion. 1+ mitral insufficiency 6. The left ventricular end-diastolic pressure 25 IMPRESSION: 1. Severe one-vessel coronary artery disease. This is a branch vessel less than 2 mm in size. All of the large vessels have brisk flow with no significant stenosis. 2. Severe cardiomyopathy with an ejection fraction of 20-25% 3. Mild to moderate mitral insufficiency 4. Elevated left ventricular end-diastolic pressure PLAN: 1. Recommend aspirin and Plavix given patient's branch vessel disease. Coronary disease is significantly out of proportion to patient's cardiomyopathy. No intervention necessary for the branch vessel disease. Large coronary arteries angiographically normal 2. Aggressive treatment for cardiomyopathy 3. Continue IV Lasix 4. Recommended addition of Coreg, Entresto, oral Lasix and aldactone as tolerated 5. Patient will need a life vest until ejection fraction can be repeated at the 6-8 week shivani B. AICD implanted, 05/2019 due to continued cardiomyopathy with MUGA scan EF of 21%. 5. Right bundle branch block 6. Diabetes 7. Anxiety secondary to PTSD (related to trauma) History of present illness: 58-year-old white male admitted through the emergency department for recurrent episodes of left-sided chest discomfort with radiation across the chest and occasionally into the left arm. Patient relates elevated blood pressure recently in the 190/110 mm Hg range with associated headaches and chest discomfort. Patient did take nitroglycerin at home with improvement in symptoms which prompted his visit to the ER. EKG shows ventricular pacing. Troponins are within normal limits. Patient's had no further chest pain since admission. Recently seen in the office by Dr. Mayfield with increasing his losartan to 100 mg daily but still with elevated blood pressure noted. [facility] History Medical History: Reports:: Anxiety, Cardiomyopathy, Congestive Heart Failure, Coronary Artery Disease, Depression, Diabetes Mellitus Type 2, Hyperlipidemia, Hypertension, Internal Pacemaker, Migraine Denies:: Cancer, Diabetes Mellitus Type 1, MRSA *Have you ever received a pneumonia vaccine?: Yes *Have you received a flu vaccine this season?: Yes Other Medical History: Reports: Arthritis, Sinus Problems Laterality Cases: Bilateral: Tonsillectomy Other Surgeries: Yes: Appendectomy, Cardiac Catheterization, Cardiac Surgery, Colonoscopy, Coronary Stent, Pacemaker, Other Amputation: No Fractures: No - *Social History Educational Level: Completed High School Smoking Status: Never smoker Alcohol Intake: current Alcohol Intake Frequency:: holidays/special occasions only Substance Use Type: former substance user, marijuana *Occupational Status:: unemployed, disabled Housing: house Household Members: spouse *Travel in the last 8 weeks: None - Psychiatric History Pschychiatric History:: Reports:: Anxiety, Depression Family Hx:: Cancer, Coronary Artery Disease, Diabetes, Heart Attack, Hypertension, Stroke, Alcoholism Meds Home Medications Medication Instructions Recorded Confirmed Type aspirin 81 mg tablet,delayed 81 mg PO DAILY 08/10/18 08/11/19 History release Ergocalciferol (Vitamin D2) 1 cap PO WEEKLY 03/22/19 08/11/19 History [Drisdol] Gabapentin [Gabapentin 300mg Cap] 300 mg PO BID 03/22/19 08/11/19 History Rivaroxaban [Xarelto 2.5mg Tab*] 2.5 mg PO BID 03/22/19 08/11/19 History carvediloL [Coreg 25mg Tablet] 25 mg PO BID 06/16/19 08/11/19 History nitroglycerin 0.4 mg sublingual 0.4 mg SUBLINGUAL Q5-15M PRN #30 06/16/19 08/11/19 Rx tablet tab metformin 1,000 mg tablet 1,000 mg PO BID 90 Days #180 tab 07/13/19 08/11/19 Rx glipizide 10 mg tablet 15 mg PO BID #180 tab 07/15/19 08/11/19 Rx losartan 100 mg tablet 100 mg PO DAILY #30 tab 07/15/19 08/11/19 Rx aripiprazole 5 mg tablet 5 mg PO QHS #30 tab 07/26/19 08/11/19 Rx fluoxetine 40 mg capsule 40 mg PO DAILY #30 cap 07/26/19 08/11/19 Rx hydroxyzine pamoate 25 mg capsule 25 mg PO TID PRN #90 cap 08/03/19 08/11/19 Rx Nitroglycerin [Nitroglycerin Patch] 1 patch TRANSDERMAL DAILY 08/11/19 08/11/19 History Rosuvastatin Calcium 10 mg PO DAILY 08/11/19 08/11/19 History Trazodone HCl 50 mg PO QHS 08/11/19 08/11/19 History Allergies Allergy/AdvReac Type Severity Reaction Status Date / Time No Known Allergies Allergy Verified 07/15/19 11:15 Review of Systems - Review of Systems Review of systems:: pertinent systems reviewed and negative unless documented below - *Cardiovascular Reports chest pain, Denies shortness of breath, Denies shortness of breath with activity - *Respiratory Denies shortness of breath, Denies shortness of breath with activity - *Gastrointestinal Denies abdominal pain, Denies nausea, Denies vomiting - *Musculoskeletal Denies joint pain, Denies back pain - *Neurologic Reports headache(s), Denies seizure-like activity Exam Vital signs and Labs for Last 24 Hours: Temp Pulse Resp BP Pulse Ox 98.3 F 66 18 162/93 H 99 08/11/19 07:44 08/11/19 07:44 08/11/19 07:44 08/11/19 07:44 08/11/19 07:44 Laboratory Results - last 24 hr 08/11/19 04:53: WBC 7.6, RBC 5.59, Hgb 16.6, Hct 50.8, MCV 90.9, MCH 29.8, MCHC 32.8, RDW 13.2, Plt Count 275, MPV 7.7, Neut % (Auto) 69.1, Lymph % (Auto) 21.2, Dunn % (Auto) 5.7, Eos % (Auto) 3.2, Baso % (Auto) 0.8, Neut # (Auto) 5.3, Lymph # (Auto) 1.6, Dunn # (Auto) 0.4, Eos # (Auto) 0.3, Baso # (Auto) 0.1, ESR 14 08/11/19 04:53: Sodium 140, Potassium 3.4 L, Chloride 100, Carbon Dioxide 30, Anion Gap 13.4, BUN 18, Creatinine 1.31 H, Estimated Creat Clear 80, Estimated GFR 56 L, Est GFR ( Amer) 68, Glucose 361 H, Calcium 8.8, Troponin I 0.03, C-Reactive Protein 0.5 08/11/19 06:39: POC Glucose 375 H* 08/11/19 08:20: Troponin I < 0.02 I & O for Last 24 hours: Intake & Output 08/08/19 08/09/19 08/10/19 08/11/19 11:59 11:59 11:59 11:59 Intake Total 0 / 0 Balance 0 / 0 Weight 194 lb 2 oz - *Routine HEENT Exam Head: Present: normocephalic Eye: Present: EOMI, PERRL ENT: Present: mucous membranes moist - *Routine Neck Exam Present: supple. Absent: JVD, carotid bruit - *Routine Respiratory Exam Present: CTA bilaterally. Absent: accessory muscle use, rales, rhonchi, wheezes - *Routine Cardiovascular Exam Present: RRR. Absent: murmur, gallop, rubs - *Routine Abdominal Exam Present: soft. Absent: tenderness, distended, guarding - *Routine Extremities Exam Absent: edema, calf tenderness - *Routine Neurological Exam Present: alert, oriented X3, moving all extremities Assessment and Plan (1) Chest pain Current visit: Yes Status: Acute Qualifiers: Chest pain type: precordial pain Qualified Code(s): R07.2 - Precordial pain Category: Medical Code(s): R07.9 - Chest pain, unspecified (2) AICD (automatic cardioverter/defibrillator) present Current visit: Yes Status: Chronic Category: Surgical Code(s): Z95.810 - Presence of automatic (implantable) cardiac defibrillator (3) Cardiomyopathy, dilated, nonischemic Current visit: No Status: Chronic Category: Medical Code(s): I42.0 - Dilated cardiomyopathy (4) Diabetes mellitus Current visit: No Status: Chronic Qualifiers: Diabetes mellitus type: type 2 Diabetes mellitus intermodal owner operator truck driver insulin use: without intermodal owner operator truck driver use Diabetes mellitus complication status: with neurologic complications Diabetes mellitus complication detail: with polyneuropathy Qualified Code(s): E11.42 - Type 2 diabetes mellitus with diabetic polyneuropathy Category: Medical Code(s): E11.9 - Type 2 diabetes mellitus without complications (5) Hyperlipidemia Current visit: No Status: Chronic Qualifiers: Hyperlipidemia type: mixed hyperlipidemia Qualified Code(s): E78.2 - Mixed hyperlipidemia Category: Medical Code(s): E78.5 - Hyperlipidemia, unspecified (6) PAD (peripheral artery disease) Current visit: No Status: Chronic Category: Medical Code(s): I73.9 - Peripheral vascular disease, unspecified (7) HTN (hypertension) Current visit: No Status: Chronic Qualifiers: Hypertension type: essential hypertension Qualified Code(s): I10 - Essential (primary) hypertension Category: Medical Code(s): I10 - Essential (primary) hypertension - Assessment and plan all Dx Assessment and Plan for all problems:: 1. Atypical chest pain with normal troponins and no acute EKG changes. Known small vessel branch disease by recent cardiac catheterization earlier this year with patent main coronary arteries. Likely related to uncontrolled blood pressure. Will increase Coreg to 37.5 mg twice daily and continue losartan 100 mg daily. Recommend follow-up in our office in 1 to 2 weeks for blood pressure check. 2. Continue AICD checks as per schedule in our office. 3. Continue aspirin and low-dose Xarelto therapy for small vessel CAD and PAD. 4. Okay for discharge home from cardiology standpoint. Follow-up in our office in 1 to 2 weeks.
--- NOTE | 2019-08-11 09:10 | Discharge Summary ---
General - General Admission date:: 08/11/19 Discharge date: 08/11/19 Objective Vital signs: Temp Pulse Resp BP Pulse Ox 98.3 F 66 18 162/93 H 99 08/11/19 07:44 08/11/19 07:44 08/11/19 07:44 08/11/19 07:44 08/11/19 07:44 no acute distress - *Routine HEENT Exam Head: Present: normocephalic, atraumatic. Absent: scalp tenderness, tenderness of temporal artery Eye: Present: EOMI, PERRL, normal accommodation. Absent: periorbital swelling ENT: Present: mucous membranes moist. Absent: sinus tenderness - *Routine Neck Exam Present: full ROM, trachea midline. Absent: JVD, tracheal deviation - *Routine Respiratory Exam Present: CTA bilaterally. Absent: accessory muscle use - *Routine Cardiovascular Exam Present: RRR - *Routine Abdominal Exam Present: soft, normoactive bowel sounds. Absent: tenderness, firm - *Routine Extremities Exam Present: full ROM, pulses intact. Absent: cyanosis, calf tenderness - Routine Back/Spine/Pelvis Exam Back/Spine: Present: full ROM. Absent: CVA tenderness - *Routine Skin Exam Present: intact, warm. Absent: cyanosis, wounds - *Routine Neurological Exam Present: alert, oriented X3, CN II-XII intact. Absent: pronator drift, hemineglect - Routine Psychiatric Exam Present: normal affect, normal thought process. Absent: auditory hallucinations, visual hallucinations Results Labs on day of discharge: Labs from last 24 hours 08/11/19 08/11/19 08/11/19 08:20 06:39 04:53 WBC RBC Hgb Hct MCV MCH MCHC RDW Plt Count MPV Neut % (Auto) Lymph % (Auto) [place] % (Auto) Eos % (Auto) Baso % (Auto) Neut # (Auto) Lymph # (Auto) [place] # (Auto) Eos # (Auto) Baso # (Auto) ESR Sodium 140 Potassium 3.4 L Chloride 100 Carbon Dioxide 30 Anion Gap 13.4 BUN 18 Creatinine 1.31 H Estimated Creat Clear 80 Estimated GFR 56 L Est GFR ( Amer) 68 Glucose 361 H POC Glucose 375 H* Calcium 8.8 Troponin I < 0.02 0.03 C-Reactive Protein 0.5 08/11/19 04:53 WBC 7.6 RBC 5.59 Hgb 16.6 Hct 50.8 MCV 90.9 MCH 29.8 MCHC 32.8 RDW 13.2 Plt Count 275 MPV 7.7 Neut % (Auto) 69.1 Lymph % (Auto) 21.2 [place] % (Auto) 5.7 Eos % (Auto) 3.2 Baso % (Auto) 0.8 Neut # (Auto) 5.3 Lymph # (Auto) 1.6 [place] # (Auto) 0.4 Eos # (Auto) 0.3 Baso # (Auto) 0.1 ESR 14 Sodium Potassium Chloride Carbon Dioxide Anion Gap BUN Creatinine Estimated Creat Clear Estimated GFR Est GFR ( Amer) Glucose POC Glucose Calcium Troponin I C-Reactive Protein - Additional Comments Rounded with Dr. Levine, all orders per Dr. Levine 1. Will discharge home today 2. We will follow-up in office in 1 week 3. Pulmonology appointment September 06 at 2 PM Discharge Plan - Patient Discharge Instructions ACTIVITY: Continue current activity DIET: continue same diet Patient Instructions: Automatic Cardioverter Defibrillator Implantation, DI for Automatic Cardioverter/Defibrillator Implantation, DI for Chest Pain - Follow up Plan Follow up with: Marquez Saldaña APRN [Nurse Practitioner] - 1 week Disposition: Home, Self-Custodial Medications: Home Medications Medication Instructions Recorded Confirmed Type aspirin 81 mg tablet,delayed 81 mg PO DAILY 08/10/18 08/11/19 History release Ergocalciferol (Vitamin D2) 1 cap PO WEEKLY 03/22/19 08/11/19 History [Drisdol] Gabapentin [Gabapentin 300mg Cap] 300 mg PO BID 03/22/19 08/11/19 History Rivaroxaban [Xarelto 2.5mg Tab*] 2.5 mg PO BID 03/22/19 08/11/19 History carvediloL [Coreg 25mg Tablet] 25 mg PO BID 06/16/19 08/11/19 History nitroglycerin 0.4 mg sublingual 0.4 mg SUBLINGUAL Q5-15M PRN #30 06/16/19 1 10/12/18 Rx tablet tab metformin 1,000 mg tablet 1,000 mg PO BID 90 Days #180 tab 07/13/19 08/11/19 Rx glipizide 10 mg tablet 15 mg PO BID #180 tab 07/15/19 08/11/19 Rx losartan 100 mg tablet 100 mg PO DAILY #30 tab 07/15/19 08/11/19 Rx aripiprazole 5 mg tablet 5 mg PO QHS #30 tab 07/26/19 08/11/19 Rx fluoxetine 40 mg capsule 40 mg PO DAILY #30 cap 07/26/19 08/11/19 Rx hydroxyzine pamoate 25 mg capsule 25 mg PO TID PRN #90 cap 08/03/19 08/11/19 Rx Nitroglycerin [Nitroglycerin Patch] 1 patch TRANSDERMAL DAILY 08/11/19 08/11/19 History Rosuvastatin Calcium 10 mg PO DAILY 08/11/19 08/11/19 History Trazodone HCl 50 mg PO QHS 08/11/19 08/11/19 History Prescriptions/Medication Reconciliation: No Action aspirin 81 mg tablet,delayed release 81 mg PO DAILY metformin 1,000 mg tablet 1,000 mg PO BID 90 Days #180 tab losartan 100 mg tablet 100 mg PO DAILY #30 tab glipizide 10 mg tablet 15 mg PO BID #180 tab nitroglycerin 0.4 mg sublingual tablet 0.4 mg SUBLINGUAL Q5-15M PRN #30 tab PRN Reason: chest pain aripiprazole 5 mg tablet 5 mg PO QHS #30 tab fluoxetine 40 mg capsule 40 mg PO DAILY #30 cap hydroxyzine pamoate 25 mg capsule 25 mg PO TID PRN #90 cap PRN Reason: for increased anxiety Gabapentin [Gabapentin 300mg Cap] 300 mg PO BID carvediloL [Coreg 25mg Tablet] 25 mg PO BID Trazodone HCl 50 mg PO QHS Rosuvastatin Calcium 10 mg PO DAILY Rivaroxaban [Xarelto 2.5mg Tab*] 2.5 mg PO BID Ergocalciferol (Vitamin D2) [Drisdol] 1 cap PO WEEKLY Nitroglycerin [Nitroglycerin Patch] 1 patch TRANSDERMAL DAILY - Problem Reconciliation Problems Reviewed?: Yes
--- NOTE | 2019-08-11 09:51 | H&P/Discharge Summary ---
General - General Admission date:: 08/11/19 Discharge date: 08/11/19 *Admission Date: 08/11/19 *History of present illness: 58-year-old white male admitted through the emergency department for recurrent episodes of left-sided chest discomfort with radiation across the chest and occasionally into the left arm. Patient relates elevated blood pressure recently in the 190/110 mm Hg range with associated headaches and chest discomfort. Patient did take nitroglycerin at home with improvement in symptoms which prompted his visit to the ER. EKG shows ventricular pacing. Troponins are within normal limits. Patient's had no further chest pain since admission. Recently seen in the office by Dr. Mayfield with increasing his losartan to 100 mg daily but still with elevated blood pressure noted (Per CARMINE Chavez). [facility] History Medical History: Reports:: Anxiety, Cardiomyopathy, Congestive Heart Failure, Coronary Artery Disease, Depression, Diabetes Mellitus Type 2, Hyperlipidemia, Hypertension, Internal Pacemaker, Migraine Denies:: Cancer, Diabetes Mellitus Type 1, MRSA *Have you ever received a pneumonia vaccine?: Yes *Have you received a flu vaccine this season?: Yes Other Medical History: Reports: Arthritis, Sinus Problems Laterality Cases: Bilateral: Tonsillectomy Other Surgeries: Yes: Appendectomy, Cardiac Catheterization, Cardiac Surgery, Colonoscopy, Coronary Stent, Pacemaker, Other Amputation: No Fractures: No - *Social History Educational Level: Completed High School Smoking Status: Never smoker Alcohol Intake: current Alcohol Intake Frequency:: holidays/special occasions only Substance Use Type: former substance user, marijuana *Occupational Status:: unemployed, disabled Housing: house Household Members: spouse *Travel in the last 8 weeks: None - Psychiatric History Pschychiatric History:: Reports:: Anxiety, Depression Family Hx:: Cancer, Coronary Artery Disease, Diabetes, Heart Attack, Hypertension, Stroke, Alcoholism Review of Systems - Review of Systems Review of systems:: pertinent systems reviewed and negative unless documented below - Constitutional Denies fever(s), Denies weakness - Eyes Denies blurry vision, Denies change in vision - ENT Denies sinus pressure, Denies sore throat - *Cardiovascular Reports chest pain, Reports chest pain with activity, Denies shortness of breath when lying down - *Respiratory Reports shortness of breath with activity, Denies cough - *Gastrointestinal Denies abdominal pain, Denies coffee ground vomit, Denies bright, red blood in stools - *Genitourinary Denies difficulty urinating, Denies painful urination - *Musculoskeletal Denies joint swelling - Integumentary/Breasts Denies hair loss, Denies yellowing of the skin - *Neurologic Reports headache(s), Denies seizure-like activity - Psychiatric Denies thoughts of hurting/killing others, Denies thoughts of hurting/killing yourself - Endocrine Denies cold intolerance, Denies heat intolerance - Hematologic/Lymphatic Denies easy bleeding, Denies easy bruising - Allergic/Immunologic Denies lip swelling, Denies tongue swelling Exam Vital signs and Labs for Last 24 Hours: Temp Pulse Resp BP Pulse Ox 98.3 F 66 18 162/93 H 99 08/11/19 07:44 08/11/19 08:00 08/11/19 07:44 08/11/19 07:44 08/11/19 08:00 Laboratory Results - last 24 hr 08/11/19 04:53: WBC 7.6, RBC 5.59, Hgb 16.6, Hct 50.8, MCV 90.9, MCH 29.8, MCHC 32.8, RDW 13.2, Plt Count 275, MPV 7.7, Neut % (Auto) 69.1, Lymph % (Auto) 21.2, [place] % (Auto) 5.7, Eos % (Auto) 3.2, Baso % (Auto) 0.8, Neut # (Auto) 5.3, Lymph # (Auto) 1.6, [place] # (Auto) 0.4, Eos # (Auto) 0.3, Baso # (Auto) 0.1, ESR 14 08/11/19 04:53: Sodium 140, Potassium 3.4 L, Chloride 100, Carbon Dioxide 30, Anion Gap 13.4, BUN 18, Creatinine 1.31 H, Estimated Creat Clear 80, Estimated GFR 56 L, Est GFR ( Amer) 68, Glucose 361 H, Calcium 8.8, Troponin I 0.03, C-Reactive Protein 0.5 08/11/19 06:39: POC Glucose 375 H* 08/11/19 08:20: Troponin I < 0.02 I & O for Last 24 hours: Intake & Output 08/08/19 08/09/19 08/10/19 08/11/19 23:59 23:59 23:59 23:59 Intake Total 0 / 0 Balance 0 / 0 Weight 194 lb 2 oz - Constitutional no acute distress - *Routine HEENT Exam Head: Present: normocephalic, atraumatic Eye: Present: EOMI, PERRL, normal accommodation. Absent: conjunctival icterus ENT: Present: mucous membranes moist - *Routine Neck Exam Present: full ROM, trachea midline. Absent: JVD, tracheal deviation - *Routine Respiratory Exam Present: CTA bilaterally. Absent: accessory muscle use, rales - *Routine Cardiovascular Exam Present: RRR - *Routine Abdominal Exam Present: soft. Absent: tenderness, firm - *Routine Extremities Exam Present: full ROM. Absent: cyanosis, tenderness - Routine Back/Spine/Pelvis Exam Back/Spine: Present: full ROM. Absent: CVA tenderness - *Routine Skin Exam Present: intact. Absent: cyanosis, erythema - *Routine Neurological Exam Present: alert, oriented X3, CN II-XII intact. Absent: altered mental status - Routine Psychiatric Exam Present: normal affect, normal thought process. Absent: auditory hallucinations, visual hallucinations Hospital Course Hospital Course: 58-year-old white male admitted through the emergency department for recurrent episodes of left-sided chest discomfort with radiation across the chest and occasionally into the left arm. Patient relates elevated blood pressure recently in the 190/110 mm Hg range with associated headaches and chest discomfort. Patient did take nitroglycerin at home with improvement in symptoms which prompted his visit to the ER. EKG shows ventricular pacing. Troponins are within normal limits. Patient's had no further chest pain since admission. Recently seen in the office by Dr. Mayfield with increasing his losartan to 100 mg daily but still with elevated blood pressure noted (Per CARMINE Chavez). Trop NEG 08/11 CXR: IMPRESSION: No change with no acute finding Dictated by: Alaina Medel has seen and Rec: 1. Atypical chest pain with normal troponins and no acute EKG changes. Known small vessel branch disease by recent cardiac catheterization earlier this year with patent main coronary arteries. Likely related to uncontrolled blood pressure. Will increase Coreg to 37.5 mg twice daily and continue losartan 100 mg daily. Recommend follow-up in our office in 1 to 2 weeks for blood pressure check. 2. Continue AICD checks as per schedule in our office. 3. Continue aspirin and low-dose Xarelto therapy for small vessel CAD and PAD. 4. Okay for discharge home from cardiology standpoint. Follow-up in our office in 1 to 2 weeks. 1. Will D/C home today 2. F/U PCP in 1 week 3. F/U Cards in 1-2 weeks Results Labs on day of discharge: Labs from last 24 hours 08/11/19 08/11/19 08/11/19 08:20 06:39 04:53 WBC RBC Hgb Hct MCV MCH MCHC RDW Plt Count MPV Neut % (Auto) Lymph % (Auto) [place] % (Auto) Eos % (Auto) Baso % (Auto) Neut # (Auto) Lymph # (Auto) [place] # (Auto) Eos # (Auto) Baso # (Auto) ESR Sodium 140 Potassium 3.4 L Chloride 100 Carbon Dioxide 30 Anion Gap 13.4 BUN 18 Creatinine 1.31 H Estimated Creat Clear 80 Estimated GFR 56 L Est GFR ( Amer) 68 Glucose 361 H POC Glucose 375 H* Calcium 8.8 Troponin I < 0.02 0.03 C-Reactive Protein 0.5 08/11/19 04:53 WBC 7.6 RBC 5.59 Hgb 16.6 Hct 50.8 MCV 90.9 MCH 29.8 MCHC 32.8 RDW 13.2 Plt Count 275 MPV 7.7 Neut % (Auto) 69.1 Lymph % (Auto) 21.2 [place] % (Auto) 5.7 Eos % (Auto) 3.2 Baso % (Auto) 0.8 Neut # (Auto) 5.3 Lymph # (Auto) 1.6 [place] # (Auto) 0.4 Eos # (Auto) 0.3 Baso # (Auto) 0.1 ESR 14 Sodium Potassium Chloride Carbon Dioxide Anion Gap BUN Creatinine Estimated Creat Clear Estimated GFR Est GFR ( Amer) Glucose POC Glucose Calcium Troponin I C-Reactive Protein - Additional Comments Rounded w/ Dr Levine, all orders per Dr. Levine DS: Diagnosis - Discharge Diagnosis (1) Chest pain Status: Acute (2) AICD (automatic cardioverter/defibrillator) present Status: Chronic (3) Cardiomyopathy, dilated, nonischemic Status: Chronic (4) Diabetes mellitus Status: Chronic (5) Hyperlipidemia Status: Chronic (6) PAD (peripheral artery disease) Status: Chronic (7) HTN (hypertension) Status: Chronic Discharge Plan - Patient Discharge Instructions DIET: continue same diet Patient Instructions: Automatic Cardioverter Defibrillator Implantation, DI for Automatic Cardioverter/Defibrillator Implantation, DI for Chest Pain - Follow up Plan Follow up with: Marquez Saldaña APRN [Nurse Practitioner] - 1 week Singh Lucas MD [Staff Physician] - 1 week Disposition: Home, Self-Detention Medications: Home Medications Medication Instructions Recorded Confirmed Type aspirin 81 mg tablet,delayed 81 mg PO DAILY 08/10/18 08/11/19 History release Ergocalciferol (Vitamin D2) 1 cap PO WEEKLY 03/22/19 08/11/19 History [Drisdol] Gabapentin [Gabapentin 300mg Cap] 300 mg PO BID 03/22/19 08/11/19 History Rivaroxaban [Xarelto 2.5mg Tab*] 2.5 mg PO BID 03/22/19 08/11/19 History carvediloL [Coreg 25mg Tablet] 25 mg PO BID 06/16/19 08/11/19 History nitroglycerin 0.4 mg sublingual 0.4 mg SUBLINGUAL Q5-15M PRN #30 06/16/19 08/11/19 Rx tablet tab metformin 1,000 mg tablet 1,000 mg PO BID 90 Days #180 tab 07/13/19 08/11/19 Rx glipizide 10 mg tablet 15 mg PO BID #180 tab 07/15/19 08/11/19 Rx losartan 100 mg tablet 100 mg PO DAILY #30 tab 07/15/19 08/11/19 Rx aripiprazole 5 mg tablet 5 mg PO QHS #30 tab 07/26/19 08/11/19 Rx fluoxetine 40 mg capsule 40 mg PO DAILY #30 cap 07/26/19 08/11/19 Rx hydroxyzine pamoate 25 mg capsule 25 mg PO TID PRN #90 cap 08/03/19 08/11/19 Rx Nitroglycerin [Nitroglycerin Patch] 1 patch TRANSDERMAL DAILY 08/11/19 08/11/19 History Rosuvastatin Calcium 10 mg PO DAILY 08/11/19 08/11/19 History Trazodone HCl 50 mg PO QHS 08/11/19 08/11/19 History Prescriptions/Medication Reconciliation: No Action aspirin 81 mg tablet,delayed release 81 mg PO DAILY metformin 1,000 mg tablet 1,000 mg PO BID 90 Days #180 tab losartan 100 mg tablet 100 mg PO DAILY #30 tab glipizide 10 mg tablet 15 mg PO BID #180 tab nitroglycerin 0.4 mg sublingual tablet 0.4 mg SUBLINGUAL Q5-15M PRN #30 tab PRN Reason: chest pain aripiprazole 5 mg tablet 5 mg PO QHS #30 tab fluoxetine 40 mg capsule 40 mg PO DAILY #30 cap hydroxyzine pamoate 25 mg capsule 25 mg PO TID PRN #90 cap PRN Reason: for increased anxiety Gabapentin [Gabapentin 300mg Cap] 300 mg PO BID carvediloL [Coreg 25mg Tablet] 25 mg PO BID Trazodone HCl 50 mg PO QHS Rosuvastatin Calcium 10 mg PO DAILY Rivaroxaban [Xarelto 2.5mg Tab*] 2.5 mg PO BID Ergocalciferol (Vitamin D2) [Drisdol] 1 cap PO WEEKLY Nitroglycerin [Nitroglycerin Patch] 1 patch TRANSDERMAL DAILY - Problem Reconciliation Problems Reviewed?: Yes
--- NOTE | 2019-08-12 06:54 | Electrocardiograph Report ---
APPROVED REPORT Exam: Resting ECG HR:68 bpm ECG Measurements Heart Rate 68 AXES NC 166 P 65 QRSd 148 QRS 128 QT 444 T51 QTc 472 <Conclusion> Poor data quality, interpretation may be adversely affected Electronic ventricular pacemaker Electronically signed by : Joe Morales, 08/12/2019 06:53:21
--- OUTSIDE RECORDS SUMMARY | 2019-08-12 09:37 | External Medical Summary | Continuity of Care Document ---
:1960 Author Organization [facility] Address [address] [employer] [place] [address] Phone Care Team Providers Name Role Phone Lance Attending Provider Flor Primary Care Provider Lance Primary Care Provider Nneka Stewatr Attending Provider Juan Attending Provider Shar Bee Attending Provider Shira Mayfield Attending Provider Tori Levine Primary Care Provider Layne Attending Provider Renetta Attending Provider Flor Attending Provider Malik Attending Provider Tori Levine Attending Provider Allergies, Adverse Reactions, Alerts No known allergies. Medications Medication Status Dose Units Route Sig Qty Days Start End Instruct ions Date Date Aspirin Active 81 MG Oral Daily August 10, 2018 10:09am Losartan Active 100 MG Oral Daily July 11:40am Nitroglycerin Active 0.4 MG Sublingua every May until l to , response; do minutes 2019 not exceed 3 9:39am doses per episode Metformin Hcl Active 1000 MG Oral Twice a July 9:06am Glipizide Active 15 MG Oral Twice a July take with , mg tablet to 2019 equal 15 mg 1:21pm twice daily Aripiprazole Active 5 mg Oral every 30 July day at , bedtime 2018 5:44pm Fluoxetine Hcl Active 40 MG Oral Daily July 26, 2019 5:44pm Hydroxyzine Active 25 mg Oral Three July Pamoate times a 2018 day 10:01am Carvedilol Active 25 MG Oral Twice a May 3:42am Ergocalciferol Active 1 CAP Oral Weekly February E ONE (Vitamin D2) , CAPSULE BY 2018 MOUTH WEEKLY 10:25am Gabapentin Active 300 MG Oral Twice a February 10:25am Rivaroxaban Active 2.5 MG Oral Twice a February 10:25am Nitroglycerin Active 1 PATCH Daily July low nitrate-free interval of approx. 10-12 hrs per 24-hour period , Place patch 8P M and remove 8AM 2018 5:47am Rosuvastatin Active 10 MG Oral Daily July 5:47am Trazodone Hcl Active 50 MG Oral every July at , bedtime 2018 5:47am Problems Active Problems Medical Problem Onset Date Status Daytime somnolence Active Heart failure, NYHA class 2 Active Heart failure, NYHA class 3 Active Onychogryphosis Active Decreased stamina Active Family history of heart disease Active Cardiomyopathy, dilated, nonischemic Act elkin Diabetic neuropathy Active Speech disturbance Active Onychomycosis Active Fatigue Active SOB (shortness of breath) Active Diabetes mellitus Active Angina, class IV Active CAD (coronary artery disease) Active Right bundle branch block (RBBB) Active Claudication Active Depression Active Dyspnea Active Hyperglycemia Active Hyperlipidemia Active Chronic systolic heart failure Active Neuropathy Active Renal insufficiency Active Retinopathy Active Decreased sensation of lower Active extremity Pre-ulcerative calluses Active Pain due to onychomycosis of Active toenails of both feet Abnormal EKG Active PAD (peripheral artery disease) Active Claudication Active AICD (automatic Active cardioverter/defibrillator) present Chest pain Active Abnormal ankle brachial index (SHRUTHI) Acti ve HTN (hypertension) Active Cardiomyopathy Active Numbness and tingling of both lower Acti ve extremities Inactive/Resolved Problems Medical Problem Onset Date Status Gait disturbance Resolved Typical angina Resolved Precordial chest pain Resolved Chest pain Resolved Procedures Procedure Date Performed Status XR chest 2V August 11, 2019 completed ECG initial Besson August 11, 2019 completed XR elbow LT 2V July 04, 2019 completed XR chest portable May 18, 2019 completed Bi-Ventricular AICD May 18, 2019 9:00am completed XR chest 2V June 16, 2019 completed ECG initial Go June 16, 2019 completed Relevant Diagnostic Tests and/or Laboratory Data Laboratory Results Test Date/Time Result Interpretation Reference Result Perfo rming Range Comment Site White Blood May 8.6 4.8-10.8 [facility], [address] [place] [address] 36 E Count 2018 K/mm3 [place] [address] 9:10am White Blood May 7.9 4.8-10.8 [place] [address] E Count 2018 K/mm3 [place] [address] 3:25am White Blood July 7.6 4.8-10.8 [facility], [address] [place] [address] 36 E Count 2018 K/mm3 [place] [address] 4:53am Red Blood Count May 6.03 4.60-6.20 [facility], [address] [place] [address] 36 E 2018 M/mm3 [place] [address] 9:10am Red Blood Count May 5.23 4.60-6.20 [facility], [address] [place] [address] 36 E 2018 M/[place]3 [place] [address] 3:25am Red Blood Count July 5.59 4.60-6.20 [facility], [address] [place] [address] 36 E 2018 M/[place]3 [place] [address] 4:53am Hemoglobin May 16.6 14.1-18.0 [facility], [address] [place] [address] 36 E 2018 g/[place] [address] 9:10am Hemoglobin May 14.9 14.1-18.0 [facility], [address] [place] [address] 36 E 2018 g/[place] [address] 3:25am Hemoglobin July 16.6 14.1-18.0 [facility], [address] [place] [address] E 2018 g/dL [place] [address] 4:53am Hematocrit May 49.6 % 42.0-52.0 [facility], [address] [place] [address] E 2018 [place] [address] 9:10am Hematocrit May 45.8 % 42.0-52.0 [facility], [address] [place] [address] E 2018 [place] [address] 3:25am Hematocrit July 50.8 % 42.0-52.0 [facility], [address] [place] [address] E 2018 [place] [address] 4:53am Mean May 82.3 fl 80-94 [facility], [address] [place] [address] E Corpuscular 2018 [place] [address] Volume 9:10am Mean May 87.6 fl 80-94 [facility], [address] [place] [address] E Corpuscular 2018 [place] [address] Volume 3:25am Mean July 90.9 fl 80-94 [facility], [address] [place] [address] E Corpuscular 2018 [place] [address] Volume 4:53am Mean May 27.5 pg 27.0-31.2 [facility], [address] [place] [address] E Corpuscular 2018 [place] [address] Hemoglobin 9:10am Mean May 28.4 pg 27.0-31.2 [facility], [address] [place] [address] E Corpuscular 2018 [place] [address] Hemoglobin 3:25am Mean July 29.8 pg 27.0-31.2 [facility], [address] [place] [address] E Corpuscular 2018 [place] [address] Hemoglobin 4:53am Mean May 33.5 31.8-35.4 [facility], [address] [place] [address] E Corpuscular 2018 g/dL [place] [address] Hemoglobin 9:10am Concent Mean May 32.4 31.8-35.4 [facility], [address] [place] [address] E Corpuscular 2018 g/dL [place] [address] Hemoglobin 3:25am Concent Mean July 32.8 31.8-35.4 [facility], [address] [place] [address] E Corpuscular 2018 g/dL [place] [address] Hemoglobin 4:53am Concent Red Cell May 17.2 % 11.5-17.5 [facility], [address] [place] [address] E Distribution 2018 Tammy [place] [address] Width 9:10am Red Cell May 17.0 % 11.5-17.5 [facility], [address] [place] [address] E Distribution 2018 [place] [address] Width 3:25am Red Cell July 13.2 % 11.5-17.5 [facility], [address] [place] [address] E Distribution 2018 Tam[place] [address] Width 4:53am Platelet Count May 309 142-424 [facility], [address] [place] [address] E 2018 K/mm3 [place] [address] 9:10am Platelet Count May 277 142-424 [facility], [address] [place] [address] E 2018 K/mm3 [place] [address] 3:25am Platelet Count July 275 142-424 [facility], [address] [place] [address] 36 E 2018 K/mm3 [place] [address] 4:53am Mean Platelet May 6.2 fl 7.4-10.4 [facility], [address] [place] [address] E Volume 2018 [place] [address] 9:10am Mean Platelet May 7.0 fl 7.4-10.4 [facility], [address] [place] [address] E Volume 2018 [place] [address] 3:25am Mean Platelet July 7.7 fl 7.4-10.4 [facility], [address] [place] [address] E Volume 2018 [place] [address] 4:53am Neutrophils (%) May 74.1 % 37.0-80.0 [facility], [address] [place] [address] E (Auto) 2018 [place] [address] 9:10am Neutrophils (%) May 65.0 % 37.0-80.0 [facility], [address] [place] [address] 36 E (Auto) 2018 [place] [address] 3:25am Neutrophils (%) July 69.1 % 37.0-80.0 [facility], [address] [place] [address] 36 E (Auto) 2018 [place] [address] 4:53am Lymphocytes (%) May 16.6 % [facility], [address] [place] [address] 36 E (Auto) 2018 [place] [address] 9:10am Lymphocytes (%) May 23.8 % [facility], [address] [place] [address] 36 E (Auto) 2018 [place] [address] 3:25am Lymphocytes (%) July 21.2 % [facility], [address] [place] [address] E (Auto) 2018 [place] [address] 4:53am Monocytes (%) May 6.1 % 1.7-9.3 [facility], [address] [place] [address] E (Auto) 2018 [place] [address] 9:10am Monocytes (%) May 7.2 % 1.7-9.3 [facility], [address] [place] [address] 36 E (Auto) 2018 [place] [address] 3:25am Monocytes (%) July 5.7 % 1.7-9.3 [facility], [address] [place] [address] E (Auto) 2018 [place] [address] 4:53am Eosinophils (%) May 2.6 % 0.1-12.0 [facility], [address] [place] [address] 36 E (Auto) 2018 [place] [address] 9:10am Eosinophils (%) May 3.4 % 0.1-12.0 [facility], [address] [place] [address] 36 E (Auto) 2018 [place] [address] 3:25am Eosinophils (%) July 3.2 % 0.1-12.0 [facility], [address] [place] [address] E (Auto) 2018 [place] [address] 4:53am Basophils (%) May 0.7 % 0.1-2.0 [facility], [address] [place] [address] E (Auto) 2018 [place] [address] 9:10am Basophils (%) May 0.7 % 0.1-2.0 [facility], [address] [place] [address] 36 E (Auto) 2018 [place] [address] 3:25am Basophils (%) July 0.8 % 0.1-2.0 [facility], [address] [place] [address] E (Auto) 2018 [place] [address] 4:53am Neutrophils # May 6.4 1.8-7.8 [facility], [address] [place] [address] 36 E (Auto) 2018 K/mm3 [place] [address] 9:10am Neutrophils # May 5.1 1.8-7.8 [facility], [address] [place] [address] E (Auto) 2018 K/mm3 [place] [address] 3:25am Neutrophils # July 5.3 1.8-7.8 [facility], [address] [place] [address] E (Auto) 2018 K/mm3 [place] [address] 4:53am Lymphocytes # May 1.4 0.7-4.5 [facility], [address] [place] [address] 36 E (Auto) 2018 K/mm3 [place] [address] 9:10am Lymphocytes # May 1.9 0.7-4.5 [facility], [address] [place] [address] 36 E (Auto) 2018 K/mm3 [place] [address] 3:25am Lymphocytes # July 1.6 0.7-4.5 [facility], [address] [place] [address] 36 E (Auto) 2018 K/mm3 [place] [address] 4:53am Monocytes # May 0.5 0.1-1.0 [facility], [address] [place] [address] 36 E (Auto) 2018 K/mm3 [place] [address] 9:10am Monocytes # May 0.6 0.1-1.0 [facility], [address] [place] [address] 36 E (Auto) 2018 K/mm3 [place] [address] 3:25am Monocytes # July 0.4 0.1-1.0 [facility], [address] [place] [address] E (Auto) 2018 K/mm3 [place] [address] 4:53am Eosinophils # Edna 0.2 0.0-0.4 [facility], [address] [place] [address] 36 E (Auto) 2018 K/mm3 [place] [address] 9:10am Eosinophils # May 0.3 0.0-0.4 [facility], [address] [place] [address] 36 E (Auto) 2018 K/mm3 [place] [address] 3:25am Eosinophils # July 0.3 0.0-0.4 [facility], [address] [place] [address] 36 E (Auto) 2018 K/mm3 [place] [address] 4:53am Basophils # May 0.1 0-0.2 [facility], [address] [place] [address] 36 E (Auto) 2018 K/mm3 [place] [address] 9:10am Basophils # May 0.1 0-0.2 [facility], [address] [place] [address] E (Auto) 2018 K/mm3 [place] [address] 3:25am Basophils # July 0.1 0-0.2 [facility], [address] [place] [address] 36 E (Auto) 2018 K/mm3 [place] [address] 4:53am Erythrocyte July 14 mm/hr 0-20 [facility], [address] [place] [address] E Sedimentation 2018 [place] [address] Rate 4:53am Troponin I May < 0.02 0.00-0.06 *ALERT* [facility], [address] [place] [address] E 2018 ng/ml levels of [place] [address] 5:25am Biotin can falsely depress Troponin results.Many dietary supplements promoted for hair,skin, and nail benefits contain biotin levels up to 650 times the recommended daily intake of biotin. In additon to dietary supplements, Biotin is occasionally prescribed for medical conditions. Troponin I July 0.03 0.00-0.06 *ALERT* [facility], [address] [place] [address] E 2018 ng/ml levels of [place] [address] 11:17am Biotin can falsely depress Troponin results.Many dietary supplements promoted for hair,skin, and nail benefits contain biotin levels up to 650 times the recommended daily intake of biotin. In additon to dietary supplements, Biotin is occasionally prescribed for medical conditions. Sodium Level May 137 136-145 [facility], [address] [place] [address] 36 E 2018 mmol/[place] [address] 9:10am Sodium Level May 137 136-145 [facility], [address] [place] [address] 36 E 2018 mmol/[place] [address] 3:25am Sodium Level July 140 136-145 [facility], [address] [place] [address] 36 E 2018 mmol/[place] [address] 4:53am Potassium Level May 3.6 3.5-5.1 [facility], [address] [place] [address] 36 E 2018 mmoL/[place] [address] 9:10am Potassium Level May 3.9 3.5-5.1 [facility], [address] [place] [address] 36 E 2018 mmoL/[place] [address] 3:25am Potassium Level July 3.4 3.5-5.1 [facility], [address] [place] [address] 36 E 2018 mmoL/[place] [address] 4:53am Chloride Level May-107 [facility], [address] [place] [address] 36 E 2018 mmol/[place] [address] 9:10am Chloride Level May107 [facility], [address] [place] [address] 36 E 2018 mmol/[place] [address] 3:25am Chloride Level July107 [facility], [address] [place] [address] 36 E 2018 mmol/[place] [address] 4:53am Carbon Dioxide May 28 21.0-32.0 [facility], [address] [place] [address] 36 E Level 2018 mmol/[place] [address] 9:10am Carbon Dioxide June 26 21.0-32.0 [facility], [address] [place] [address] E Level 2018 mmol/[place] [address] 3:25am Carbon Dioxide August 29 21.0-32.0 [facility], [address] [place] [address] 36 E Level 2018 mmol/[place] [address] 4:53am Anion Gap May 14.6 5-15 [facility], [address] [place] [address] 36 E 2018 mEq/[place] [address] 9:10am Anion Gap May 13.9 - [facility], [address] [place] [address] 36 E 2018 mEq/[place] [address] 3:25am Anion Gap July 13.4 01-12 [facility], [address] [place] [address] 36 E 2018 mEq/[place] [address] 4:53am Blood Urea May 15 mg/dL 03-17 [facility], [address] [place] [address] 36 E Nitrogen 2018 [place] [address] 9:10am Blood Urea May 25 mg/dL 03-17 [facility], [address] [place] [address] 36 E Nitrogen 2018 [place] [address] 3:25am Blood Urea July 18 mg/dL 03-17 [facility], [address] [place] [address] 36 E Nitrogen 2018 [place] [address] 4:53am Creatinine May 1.21 0.70-1.30 [facility], [address] [place] [address] 36 E 2018 mg/[place] [address] 9:10am Creatinine May 1.35 0.70-1.30 [facility], [address] [place] [address] 36 E 2018 mg/[place] [address] 3:25am Creatinine July 1.31 0.70-1.30 [facility], [address] [place] [address] 36 E 2018 mg/[place] [address] 4:53am Estimated May 0-300 [facility], [address] [place] [address] 36 E Creatinine 2018 mL/[place] [address] Clearance 9:10am Estimated May 77 0-300 [facility], [address] [place] [address] 36 E Creatinine 2018 mL/[place] [address] Clearance 3:25am Estimated July 0-300 [facility], [address] [place] [address] 36 E Creatinine 2018 mL/[place] [address] Clearance 4:53am Estimated GFR May 75 >59 [facility], [address] [place] [address] 36 E ( 2018 ML/[place] [address] [place]er) 9:10am Estimated GFR May 66 >59 [facility], [address] [place] [address] 36 E ( 2018 ML/[place] [address] [place]) 3:25am Estimated GFR July 68 >59 [facility], [address] [place] [address] 36 E ( 2018 ML/[place] [address] [place]) 4:53am Estimat May >59 [facility], [address] [place] [address] 36 E Glomerular 2018 ml/[place] [address] Filtration Rate 9:10am Estimat May 54 >59 [facility], [address] [place] [address] 36 E Glomerular 2018 ml/[place] [address] Filtration Rate 3:25am Estimat July 56 >59 [facility], [address] [place] [address] 36 E Glomerular 2018 ml/[place] [address] Filtration Rate 4:53am Glucose Level May 272 74-106 [facility], [address] [place] [address] 36 E 2018 mg/[place] [address] 9:10am Glucose Level May 199 74-106 [facility], [address] [place] [address] 36 E 2018 mg/[place] [address] 3:25am Glucose Level July 361 74-106 [facility], [address] [place] [address] 36 E 2018 mg/[place] [address] 4:53am Bedside Glucose July 230 70-110 [place] 2018 re (RALS) 12:27pm Calcium Level May 9.1 8.5-10.1 [facility], [address] [place] [address] 36 E 182018 mg/[place] [address] 9:10am Calcium Level May 9.3 8.5-10.1 [facility], [address] [place] [address] 36 E 2018 mg/[place] [address] 3:25am Calcium Level July 8.8 8.5-10.1 [facility], [address] [place] [address] 36 E 2018 mg/[place] [address] 4:53am C-Reactive Kurt 0.5 0.0-0.9 [facility], [address] [place] [address] 36 E Protein 2018 mg/[place] [address] 4:53am Diagnostic Imaging Reports Report Dictated Date/Time Dictated By Status Radiology Report May 18, 2019 Navdeep Medel MD completed 12:58pm [place] [address] [facility] [address] [place] [id number] XRay R eport Sig mika Patient: Vikram Flores MR#: [id number] : 1960 Acct:[id number] Age/Sex: 58 / M ADM Date: 9 Loc: CATHLAB Attending Dr: Singh Lucas MD Ordering Physician: Singh Lucas MD Date of Service: 05/18/19 Procedure(s): XR chest portable Accession Number(s): [id number] cc: Navdeep Medel MD; Sandra Ray APRN~ PROCEDURE: XR CHEST PORTABLE CLINICAL HISTORY: Confirm pacemaker/AI D placement COMPARISON: CL PACEMAKER DEFIBRILATOR from 05/18/2019 FINDINGS: Normal heart size. Biventricular pacema ker has been inserted by left subclavian approach. A coronary sinus lead is curled distall y and looped back upon itself. RV and RA leads are in position. No luca dence of pneumothorax. No lobar consolidation or collapse. Surgic al clips are present in the left upper chest. No acute bony abnormalities. IMPRESSION: Biventricular pacemaker present as desc ribed above Dictated by: Navdeep Medel MD 05/18/2019 14:04 Electronically signed by Navdeep Medel in OV 05/18/2019 14:04 Interventional Radiology May 18, 2019 Singh Lucas , completed Report 2:00pm [place] [address] [facility] [address] [id number] Interventional Radiology Rpt Sig mika Patient: Vikram Flores MR#: [id number] : 1960 Acct:[id number] Age/Sex: 58 / M ADM Date: 9 Loc: CATHLAB Attending Dr: Singh Lucsa MD Ordering Physician: Singh Lucas MD Date of Service: 05/18/19 Procedure(s): CL PACEMAKER DEFIBRILATOR Accession Number(s): [id number] cc: Sandra Ray APRN; Singh Lucas MD~ APPROVED REPORT -------- ------ Patient Location: Outpatient Transportation Modeler: Shar Michelle AUTOGRAPHER RT (R) PROCEDURES 1. Pocket formation for biventricular p acemaker generator with cardiac resynchronization/defibrillator therapy. 2. Placement of atrial sensing and pacing lead into the right atrial appendage. 3. Placement of a right ventricular sensin g, pacing and shocking lead in the right ventricular apex. 4. Placemen t of left ventricular sensing pacing lead via the coronary sinus. 5. Permanent cardiac resynchronization therapy with ICD impl antation/biventricular pacemaker. INDICATION Systolic Congestive Heart Failure, ejec tion <35%, Wide QRS >120ms, [place] Heart Assoication Clas s 3 Congestive Heart Failure Informed consent was obtained prior to the procedure. COMPLICATIONS None Estimated Blood Loss: less than 10ml TECHNIQUE 1% Lidocaine with epinephrine used to a nesthetized the left anterior aspect of the chest. Scalpel was used t o make the initial cutaneous incision while electrocautery was used to dissect down tinto the fascia. The fascia was lifted off the p ectoralis muscle and digitally manipulated creating a pocket for the p acemaker. The patient was then placed in Trendelenburg position and th e subclavian vein was accessed via the Selinger technique on 3 separat e occasions. 3 wires were left into the subclavian vein.The right vent ricular pacing shocking coil sheath was placed into the subclavian v ein and under fluoroscopic guidance the right ventricular sensing pacing shocking lead was placed into the right ventricular apex and secured into place with a distal screw. After achieving excellent numbers the lead was then secured into placing using 3-0 silk. Th e lead was secured to the fascia also with a heavy silk suture. P rior to the right ventricular lead being secured into place, the pimentel th was peeled away from the subclavian vein. Under fluoroscopic travon dance the coronary sinus was cannulated and confirmed with an inject ion of contrast. An .014 wire was then placed distally in the inferio r posterior segment of the left ventricle via the coronary sinus a nd the left ventricular lead was advanced. After achieving excellent thresholds and interrogation numbers the sheath was then peeled away and the lead was then secured into place using silk suture. Following this, the left ventricular coil was secured in place using heavy s ilk and also secured to the fascia. An additional 7 Persian sheath w as then placed over the existing wire and an atrial sensing charles cing coil was placed in the right atrial appendage. After achieving excellent thresholds the sheath was peeled away and the lead was secured to the fascia using heavy silk. After achieving hemostasis, Ancef was used to flush the pocket and the 3 leads were attached to the LITHOGRAPH PRINTER-D generator. The generator was the secured into place vi a heavy silk suture. Monocryl was used to close the subcutaneous laye rs while venancio were used to close the cutaneous layer. A pressure d ressing was placed and the [facility]. ANGIOGRAPHIC RESULTS Generator Model number: G247 Generator Serial number: [id number] Atrial lead model number: 774 Atrial lead serial number: [id number] P-wave: 4.3 mV Impedence: 663 Ohms Threshold: 0.8V Left Ventricular lead model number: 467 4 Left Ventricular lead serial number: [id number] R-wave: 10.8V Impedence: 1273 Ohms Threshold: 0.8 V Right Ventricular lead model number: 06 75 Right Ventricular lead serial number: [id number] R-wave: 8.3 V Impedence: 484 Ohms Threshold: 0.4 V Pacing Parameters: Mode: DDD Base/Max Track: 60/120 bpm ICD Rate Cutoffs: VT-1: 180 bpm, 30 sec, ATP, 41J x 6 VF: 220 bpm, 1 sec, Quick convert, 41J x 8 No diaphragmatic stimulation at 10 volt s. IMPRESSION 1. Successful Pocket formation for bive ntricular pacemaker generator with cardiac resynchronization/defibril lator therapy. 2. Successful placement of right atrial sensing and pacing lead into the right atrial appendage. 3. Successful placement of a right vent ricular sensing, pacing and shocking lead in the right ventricular apex. 4. Successful placement of left ventric ular sensing pacing lead via the coronary sinus. 5. Successful permanent cardiac resynch ronization plus AICD generator device. Electronically signed by : Singh cormier, 05/20/2019 10:33:21 Radiology Report June 16, 2019 Navdeep Medel MD completed 3:34am [facility] [address] [place] [facility] [address] [place] [address] XRay R eport Sig mika Patient: Vikram Flores MR#: [id number] : 1960 Acct:[id number] Age/Sex: 58 / M ADM Date: 9 Loc: ER Attending Dr: Ordering Physician: Mohan Levine MD Date of Service: 06/16/19 Procedure(s): XR chest 2V Accession Number(s): [id number] cc: Navdeep Medel MD~ PROCEDURE: XR CHEST 2V CLINICAL HISTORY: CP Chest pain, recent pacemaker insertion COMPARISON: XR CHEST PORTABLE from FINDINGS: There is a biventricular pacemaker pres ent as before from left subclavian approach. Normal heart size . Lungs are clear. The lungs are clear without infiltrates , suspicious nodules, or pleural effusions. No acute bony abnormalities. IMPRESSION: Pacemaker present. No change with no a cute finding Dictated by: Navdeep Medel MD 06/16/2019 03:49 Electronically signed by Navdeep Medel in [place] 06/16/2019 03:49 Radiology Report July 04, 2019 Navdeep Medel MD completed 9:56am [place] [id number] [place] [facility] [address] [place], [place] [address] XRay R eport Sig mika Patient: Vikram Flores MR#: [id number] : 1960 Acct:[id number] Age/Sex: 58 / M ADM Date: 9 Loc: RAD Attending Dr: Sravanthi Gan MD Ordering Physician: Sravanthi Gan MD Date of Service: 07/04/19 Procedure(s): XR elbow LT 2V Accession Number(s): [id number] cc: Navdeep Medel MD; Sandra Ray APRN~ PROCEDURE: XR ELBOW LT 2V CLINICAL INDICATION: Elbow pain The elbow pain with fluid buildup COMPARISON: No exams were available fo r comparison FINDINGS: No fracture or dislocation. No lytic or blastic change. There is normal mineralization. The joint spaces are well-preserved. No significant degenerative/arthritic changes. No eros elkin changes evident.. Minimal calcification noted at the medial epico ndylar region. This could be due to old injury. Other findings:Soft tissue swelling is present at the olecranon. No radiopaque foreign body or soft tissue gas IMPRESSION: Olecranon bursitis Dictated by: Navdeep Medel MD 07/04/2019 12:05 Electronically signed by Navdeep Medel in [place] 07/04/2019 12:05 Radiology Report August 11, 2019 Navdeep Medel MD completed 5:10am [facility] [address] [place] [facility] [address] [address] XRay R eport Sig mika Patient: Vikram Flores MR#: [id number] : 1960 Acct:[id number] Age/Sex: 58 / M ADM Date: 9 Loc: 2ND [id number]-[address]: Mohan Levine MD Ordering Physician: Mohan Levine MD Date of Service: 08/11/19 Procedure(s): XR chest 2V Accession Number(s): [id number] cc: Navdeep Medel MD; Mohan Levine MD~ PROCEDURE: XR CHEST 2V CLINICAL HISTORY: chest pain COMPARISON: XR CHEST PORTABLE from XR CHEST 2V from 06/16/2019 FINDINGS: Biventricular pacemaker is present from left subclavian approach. Right atrial lead is also noted. There are low lung volumes. Unremarkable heart size. Lungs are janak ar. Degenerative changes thoracic spine. IMPRESSION: No change with no acute finding Dictated by: Navdeep Medel MD 08/11/2019 05:33 Electronically signed by Navdeep Medel in [place] 08/11/2019 05:33 Health Concerns Concerns Recurrent chest pain, and what to do if it occurs. Advance Directives Advance Directive Response Recorded Date/Time Living Will Yes August 11, 2019 6:40am Does the patient have an No June 20 019 1:34pm advanced directive on file? Living Will No June 20, 2019 1 :34pm Chief Complaint and Reason for Visit Chief Complaint ISCHEMIC CARDIOMYOPATHY [facility] (follow up ) pm placement f/u Amb Documentation Amb Documentation bp chest/lab test fu 1 week sleep study CP er f/u Diabetic foot evaluation Fluid on Elbow lt elbow, no known ao [facility] (follow up ) Obstructive sleep apnea foll ow-up LT elbow pain/fluid 1 month chest pain Reason for Visit Chest pain AICD (automatic cardioverter /defibrillator) present Encounters Encounter Location(s) Arrival/Admit Date Discharge/Depart Date Provider(s) Departed [facility] Physician May 18, May 18, 2019 [facility] 2018 8:35am 2:52pm MD Lance Care Registered [facility] Physician May 18, [facility]-Cardiology 2018 11:59pm MD Lola Lucas Departed [facility] Physician May 24, May 24, 2019 Martina Early Physician/[facility]-Behavioral 2018 8:12am 10:30am KORY Stewart ab[facility] Visit Departed [facility] Physician May 25, May 25, 2019 Lavern wright Physician/[facility]-Cardiology 2018 1:30pm 2:12pm Easton Saldaña abhijeet Office -[place] Visit Registered [facility] Physician May 27, [facility]- 2018 9:28am KORY Maritnez Registered [facility] Physician May 27, [facility] Inpatient [facility]- 2018 9:44am Departed [facility] Physician June 02, 2019 June 02, 2019 Francisco Javier Mayfield Physician/[facility]-Cardiology 1:14pm 2:52pm MD jha Office -[place] Visit Departed [facility] Physician June 09, 2019 June 09, 2019 Daquan Mayfield Physician/[facility]-Cardiology 12:48pm 1:46pm MD abhijeet Office -[place] Visit Registered [facility] Physician June 13, 2019 Pallavi jenkins , Inpatient Group-Neurology 7:15pm MD [facility] Departed [facility] Physician June 16, 2019 June 16, 2019 jimenez barclay [facility]-Emergency 3:17am 6:57am Room Departed [facility] Physician June 16, 2019 June 16, 2019 Daquan Mayfield Physician/[facility]-Cardiology 8:35am 9:55am MD abhijeet Office -[place] Visit Departed [facility] Physician June 16, 2019 June 16, 2019 Estephania Jackson , Physician/[facility]-Podiatry 9:58am 10:33am DPM abhijeet Office Clinic [facility] Visit Departed [facility] Physician June 20, 2019 June 20, 2019 [facility] iv[facility] Ray , Physician/[facility]-Primary 12:40pm 1:24pm TELEPHONE 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 abhijeet Office Care-[place] Visit Registered [facility] Physician July 04, 2019 [facility]-Radiology 9:46am MD Malik Departed [facility] Physician July 04, 2019 July 04, 2019 Victoria Early Physician/[facility]-Behavioral 9:59am 11:25am KORY Stewart [facility] Office [facility] Visit Departed [facility] Physician July 04, 2019 July 04, 2019 Aramis Tillman Physician/[facility]-Neurology 10:05am 10:57am MD abhijeet Office Sleep Clinic Visit [facility] Departed [facility] Physician July 04, 2019 July 04, 2019 Irlanda coreas Physician/[facility]-Surgical 1:02pm 2:13pm MD Malik abhijeet Office Suite Visit Departed [facility] Physician July 15, July 15, 2019 Francisco Javier denson Physician/[facility]-Cardiology 2018 10:32am 11:43am MD abhijeet Office -[place] Visit Discharged [facility] Physician August 11, August 11, 2019 Shamir Valle Inpatient Group-Second 2019 6:22am 4:03pm MD Julianna Floor Registered [facility] Physician August 12, Mohan Valle Inpatient Group- 2018 9:10am MD Julianna Recent Diagnosis Onset Date Chest pain AICD (automatic cardioverter/defibrillator) present Assessments See care plan goals Functional Status Observation Response Date Recorded Oral Care Ability Independent August 11, 2019 6:40am Bathing Ability Independent August 11, 2019 6:40am Eating (Feeding) Ability Independent August 11, 2019 6:40am Toileting Ability Independent August 11, 2019 6:40am Ambulation Ability Independent August 11, 2019 6:40am Functional status ambulatory July 04, 2019 1 0:57am Functional status ambulatory July 24, 2019 9:08pm Functional status ambulatory June 16, 2019 1 0:38am Functional status ambulatory July 15, 2019 2:53pm Functional status ambulatory June 09, 2019 3 :05pm Functional status ambulatory June 02, 2019 3: 09pm Functional status ambulatory June 16, 2019 1 :53pm Functional status ambulatory June 20, 2019 1 :34pm Functional status ambulatory July 04, 2019 3 :04pm Oral Care Ability Independent July 04, 2019 3 :04pm Bathing Ability Independent July 04, 2019 3 :04pm Eating (Feeding) Ability Independent July 04, 2 019 3:04pm Toileting Ability Independent July 04, 2019 3 :04pm Ambulation Ability Independent July 04, 2019 3 :04pm Functional status ambulatory May 25, 2019 3:06pm Functional status ambulatory May 24, 2019 9:26am Oral Care Ability Independent May 24, 2019 9:26am Bathing Ability Independent May 24, 2019 9:26am Eating (Feeding) Ability Independent May 24, 2019 9:26am Toileting Ability Independent May 24, 2019 9:26am Ambulation Ability Independent May 24, 2019 9:26am Goals Acute Goals Nursing Diagnosis: Knowledge Deficit D isease/Condition Goal(s): Education of di sease process Instruction(s): Follow provider p joy/instructions (See attached discharge education) Follow/up with primary care provider as instructed in discharge packet Ambulatory Goals Patient verbalizes understanding of dise ase process/healthy behaviors. Patient to follow plan of care. Education provid ed. - is supportive Immunizations Immunization Event Date Not Given Dose Panel Edge Painter Lot Vac cine Reason Number Number Informatio n Statement (VIS) Deta il Fluzone Quad May 6mo+ 2017 Fluzone Quad May 6-35 Months 2016 PPD (Tuberculin) March 19, 2018 Mental Status Observation Response Date Recorded Comprehension Ability No Impairment August 11 9 12:44pm Able to Read Yes August 11, 2019 6:40am Able to Write Yes August 11, 2019 6:40am Ability to Follow Directions Excellent August 112018 6:40am Eye Contact Maintains Eye Contact August 11 9 6:40am Oral Expression Ability No Impairment August 11 019 6:40am Ability to Follow Directions Excellent May 012018 9:07am Medical Equipment Implanted Devices Device Date Implanted MAYI Number ACUITY QUAD SPIRAL S 86CM May 18, 2019 Endocardial defibrillation lead May 18, 2019 [id number] Endocardial pacing lead May 18, 2019 [id number] Cardiac resynchronization therapy May 18, 2019 [id number] implantable defibrillator Insurance Providers Guarantor Vikram Flores Address [address] [address] Contact Info. Home Phone: Payer Policy Id Coverage Id Subscriber's Subscriber Effective Expi ration Name Id Date Date [place] [id number] Vikram Flores [id number] Claims Other1 [id number] Self Pay Self N/A Plan of Treatment Follow up as ordered by primary care provider Discussed treatment of insomnia with [facility] DIRECTOR GLOBAL DEVELOPMENT. She would prefer that Dr. Tillman initially prescribe ambien and if despite treatment of severe complex sleep apnea his insomnia persists, she would then consider taking it over. Ambien 5mg take 1 tablet PO QHS PRN insomnia #15, 1 refill No to be taken nightly, only PRN. Risks for addiction/abuse reviewed. Indications and possible side effects were again reviewed. Controlled Substance agreement all reviewed Do not drive after taking ambien due to fatigue/excessive sleepiness placing you at increased risk of injury to self or others Do not take trazodone on same night as ambien Trazodone prescribed by behavioral health DIRECTOR GLOBAL DEVELOPMENT (Thelma) not helping Healthy sleep hygiene reviewed Treat Severe complex sleep apnea and ability to fall asleep and stay asleep likely to improve Behavioral Health DIRECTOR GLOBAL DEVELOPMENT to consider Ambien PRN while adjusting to cpap treatment Start with trial w/ autopap 6/16cm w/ heated humidifier Depending on response, may require formal titration Prefers Lina KOVACS. Order faxed Follow up in 1 month -Educated re: what AMANDA is (central and obstructive), risks of untreated AMANDA, personal AMANDA risk factors, AMANDA treatment options was provided. "About Sleep Disorders" booklet and "What is AMANDA" handout provided. -Goals for treatment and usage of device were reviewed and reinforced today. Patient is able to verbalize understanding of the importance of wearing the device a minimum of 4 hours every night. -Aware sleep apnea typically improved when sleeping elevated or avoiding supine positioning while sleeping -Patient was advised to notify the office immediately with any new or worsening symptoms. -Risk associated with driving and unresolved drowsiness as a result of untreated sleep apnea were reviewed. Patient agrees to not drive if drowsy -Lifestyle modifications including but not limited to diet, daily exercise, maintaining healthy weight were discussed and encouraged 58yo M with olecranon bursitis L elbow -- recommend ice, compression, NSAIDs -- do not recommend aspiration -- should infection develop, recommend patient return for evaluation/antibiotics -- if this fails to improve with time and bothers the patient it may be excised, but he would like to avoid surgery at this time -- [email or web address] handout given -- f/u PRN Disclaimer: Portions of this office visit were transcribed with voice recognition software. Notes are proofread for errors, but minor grammatical or spelling errors may persist. refer to ortho for removal, ointment for rash Future Tests Future scheduled test information is unavailable Pending Tests Pending diagnostic test information is unavailable Future Visits Future appointment information is unavailable Referrals to Other Providers Reason for Referral Start Provider Provider Contact Provider Address Referral Date Information Admission to [facility] August 122018 [facility] Singh Lucas Work Phone: [phone] [place] [phone] Future Procedures Future procedure information is unavailable Future Medications Future medication information is unavailable Patient Instructions Post-traumatic Stress Disorder Insomnia High Triglycerides Heart Failure Coronary Artery Disease Essential Hypertension Heart-Healthy Diet Fat-Restricted Diet Effectiveness of Diets for Weight Loss DI for Shortness of Breath Peripheral Neuropathy High Triglycerides Type 2 Diabetes Heart Failure Heart-Healthy Diet Fat-Restricted Diet Effectiveness of Diets for Weight Loss DI for Chest Pain Heart Failure Essential Hypertension DI for Chest Pain Coronary Artery Disease DI for Chest Pain How to Take Care of Your Feet If You Hav e Diabetes DI for Rash Post-traumatic Stress Disorder Insomnia Insomnia Vertigo High Triglycerides Type 2 Diabetes Heart Failure Heart-Healthy Diet Fat-Restricted Diet Effectiveness of Diets for Weight Loss DI for Diabetic Neuropathy DI for Shortness of Breath Automatic Cardioverter Defibrillator Imp lantation DI for Automatic Cardioverter/Defibrilla tor Implantation DI for Chest Pain Social History Assigned Sex Male Vital Signs Vital Reading Result Reference Range Collection Date/ Time Height 172.72 cm May 18, 2019 8:52am Weight 96.61 kg May 18, 2019 8:52am Body Temperature 97.6 [degF] 97.6-99.6 May 18, 2019 9:07am Heart Rate 94 /min 60-90 May 18, 2019 2:15pm Respiratory rate 18 /min -May 18, 2019 2:15pm Oxygen saturation by 98 % 95-100 May 012018 Pulse oximetry 2:15pm BP Systolic 146 mm[Hg] 110-140 May 18, 2019 2:15pm BP Diastolic 113 mm[Hg] 60-90 May 18, 2019 2:15pm BMI (Body Mass Index) 32.3 kg/m2 May 18, 2019 8:52am Height 172.72 cm May 24, 2019 9:00am Weight 90.26 kg May 24, 2019 9:00am Body Temperature 95.8 [degF] 97.6-99.6 May 24, 2019 9:00am Heart Rate 80 /min 60-90 May 24, 2019 9:00am Oxygen saturation by 96 % 95-100 May 022018 Pulse oximetry 9:00am BP Systolic 112 mm[Hg] 110-140 May 24, 2019 9:00am BP Diastolic 76 mm[Hg] 60-90 May 24, 2019 9:00am BMI (Body Mass Index) 30.2 kg/m2 May 24, 2019 9:00am Height 185.42 cm May 25, 2019 1:46pm Weight 89.35 kg May 25, 2019 1:46pm Heart Rate 89 /min 60-90 May 25, 2019 1:46pm Oxygen saturation by 97 % 95-100 May 022018 Pulse oximetry 1:46pm BP Systolic 132 mm[Hg] 110-140 May 25, 2019 1:46pm BP Diastolic 90 mm[Hg] 60-90 May 25, 2019 1:46pm BMI (Body Mass Index) 25.9 kg/m2 May 25, 2019 1:46pm Height 185.42 cm June 02 9 1:44pm Weight 89.81 kg June 02 9 1:44pm Heart Rate 81 /min 60-90 June 02 9 1:44pm Oxygen saturation by 98 % 95-100 May Pulse oximetry 1:44pm BP Systolic 154 mm[Hg] 110-140 June 02 9 1:48pm BP Diastolic 93 mm[Hg] 60-90 June 02 9 1:48pm BMI (Body Mass Index) 26.1 kg/m2 May 1:44pm Height 185.42 cm June 09 1:12pm Weight 89.81 kg June 09 1:12pm Heart Rate 81 /min 60-90 June 09 1:12pm Oxygen saturation by 95 % 95-100 May Pulse oximetry 1:12pm BP Systolic 162 mm[Hg] 110-140 June 09 1:12pm BP Diastolic 100 mm[Hg] 60-90 June 09 1:12pm BMI (Body Mass Index) 26.1 kg/m2 June 092018 1:12pm Height 182.88 cm June 16 3:25am Weight 89.81 kg June 16 3:25am Body Temperature 98.3 [degF] 97.6-99.6 June 16, 2 019 6:55am Heart Rate 73 /min 60-June 16 6:55am Respiratory rate 20 /min 12-June 16, 019 6:55am Oxygen saturation by 98 % 95-100 May Pulse oximetry 3:25am BP Systolic 116 mm[Hg] 110-140 June 16, 6:55am BP Diastolic 79 mm[Hg] 60-90 June 16, 6:55am BMI (Body Mass Index) 26.8 kg/m2 June 162018 3:25am Height 185.42 cm June 16 9:11am Weight 92.98 kg June 16 9:11am Heart Rate 75 /min 60-90 June 16 9:11am Oxygen saturation by 96 % 95-100 May Pulse oximetry 9:11am BP Systolic 144 mm[Hg] 110-140 June 16 9:11am BP Diastolic 76 mm[Hg] 60-90 June 16 9:11am BMI (Body Mass Index) 27.0 kg/m2 June 162018 9:11am Height 182.88 cm June 16 10:10am Weight 91.17 kg June 16 10:10am Heart Rate 76 /min 60-90 June 16 10:10am Oxygen saturation by 96 % 95-100 May Pulse oximetry 10:10am BP Systolic 147 mm[Hg] 110-140 June 16 10:10am BP Diastolic 81 mm[Hg] 60-90 June 16 10:10am BMI (Body Mass Index) 27.2 kg/m2 June 162018 10:10am Height 182.88 cm June 20 12:56pm Weight 90.26 kg June 20 12:56pm Body Temperature 97.9 [degF] 97.6-99.6 June 20, 2 019 12:56pm Heart Rate 78 /min 60-90 June 20 12:56pm Respiratory rate 18 /min -June 20, 2 019 12:56pm Oxygen saturation by 98 % 95-100 May Pulse oximetry 12:56pm BP Systolic 140 mm[Hg] 110-140 June 20, 12:56pm BP Diastolic 88 mm[Hg] 60-90 June 20, 12:56pm BMI (Body Mass Index) 26.9 kg/m2 June 202018 12:56pm Height 182.88 cm July 04, 10:58am Weight 88.45 kg July 04, 10:58am Heart Rate 72 /min -July 04, 10:58am Oxygen saturation by 92 % 95-100 July Pulse oximetry 10:58am BP Systolic 140 mm[Hg] 110-140 July 04, 10:58am BP Diastolic 89 mm[Hg] 60-90 July 04, 10:58am BMI (Body Mass Index) 26.4 kg/m2 July 042018 10:58am Height 182.88 cm July 04, 10:10am Weight 88.45 kg July 04, 10:10am Body Temperature 97.8 [degF] 97.6-99.6 July 04, 2 019 10:10am Heart Rate 71 /min -July 04, 10:10am Respiratory rate 16 /min 08-23July 04, 2 019 10:10am Oxygen saturation by 95 % 95-100 July Pulse oximetry 10:10am BP Systolic 140 mm[Hg] 110-140 July 04, 10:10am BP Diastolic 86 mm[Hg] 60-90 July 04, 10:10am BMI (Body Mass Index) 26.4 kg/m2 July 042018 10:10am Height 182.88 cm July 04, 1:21pm Weight 88.45 kg July 04, 1:21pm Heart Rate 73 /min -July 04, 1:21pm BP Systolic 156 mm[Hg] 110-140 July 04, 1:21pm BP Diastolic 90 mm[Hg] 60-July 04, 1:21pm BMI (Body Mass Index) 26.4 kg/m2 July 042018 1:21pm Height 182.88 cm July 15, 2 019 11:15am Weight 90.71 kg July 15, 2 019 11:15am Heart Rate 83 /min 60-90 July 15, 2 019 11:15am Oxygen saturation by 100 % 95-100 July 152018 Pulse oximetry 11:15am BP Systolic 173 mm[Hg] 110-140 July 15, 2 019 11:20am BP Diastolic 89 mm[Hg] 60-90 July 15, 2 019 11:20am BMI (Body Mass Index) 27.1 kg/m2 July 012018 11:15am Height 182.88 cm August 11, 2 019 6:19am Weight 88.05 kg August 11, 2 019 6:19am Body Temperature 98.3 [degF] 97.6-99.6 August 11, 2019 12:00pm Heart Rate 66 /min -August 11, 2 019 12:00pm Respiratory rate 18 /min -August 11, 2019 12:00pm Oxygen saturation by 99 % 95-100 August 112018 Pulse oximetry 12:00pm BP Systolic 178 mm[Hg] 110-140 August 11, 2 019 12:00pm BP Diastolic 103 mm[Hg] 60-90 August 11, 2 019 12:00pm BMI (Body Mass Index) 26.3 kg/m2 July 312018 6:19am
== END 2019-08-11 16:03 | disposition home or self-care (01) ==
LOC: 2ND 04:49 → ER 04:49 → 2ND 06:22
PROVIDERS: ADMIT Emergency Medicine; ATTEND Emergency Medicine
CPT/HCPCS: 36415; 71020; 71046; 80048; 82962; 84484; 85025; 85651; 86140; 93005; 96374; 99284; G0378

== ENCOUNTER → 2020-03-28 07:41 | Outpatient (CLI) | payer BC, SELFPAY ==
--- NOTE | 2020-03-28 07:42 | CA_ITS ---
APPROVED REPORT Invertebrate Paleontologist: Fifi Aguirre RVT Study Quality: Good Indications: HTN Risk Factors Hypertension Hyperlipidemia Diabetes Renal Artery Doppler Origin (R) 116.3/ cm/sec Proximal (R) 138.9/ cm/sec Mid (R) 109.9/ cm/sec Distal (R) 59.5/ cm/sec Renal Aorta Ratio (R) 1.72 Segmental A. (R) 39.7/14.0 cm/sec RI: 0.64 Segmental A. Sup (R) 39.7/14.0 cm/sec Segmental A. Mid (R) 25.7/10.5 cm/sec Segmental A. Inf (R) 28.9/13.7 cm/sec Origin (L) 103.7/ cm/sec Proximal (L) 88.1/ cm/sec Mid (L) 122.3/ cm/sec Distal (L) 63.4/ cm/sec Renal Aorta Ratio (L) 1.52 Segmental A. (L) 57.7/13.7 cm/sec RI: 0.76 Segmental A. Sup (L) 42.1/16.6 cm/sec Segmental A. Mid (L) 24.5/11.7 cm/sec Segmental A. Inf (L) 57.7/13.7 cm/sec Renal Measurements Kidney Size (R) 11.9x7.9 cm Cortical Thickness (R) 1.2 cm Kidney Size (L) 12.6x7.9 cm Cortical Thickness (L) 1.9 cm Findings Study suggests no evidence of renal artery stenosis of the bilateral renal arteries. Conclusion Study suggests no evidence of renal artery stenosis of the bilateral renal arteries. Electronically signed by : Karen Sotelo, 03/29/2020 09:03:57
--- NOTE | 2020-03-28 07:42 | CA_ITS ---
APPROVED REPORT EXAM: Comprehensive 2D, Doppler, and color-flow Echocardiogram Liquor Merchant: Fifi Aguirre RVT Ht: 6 ft 0 in Wt: 192lbs BSA: 2.09 BP: 158/90 mmHg Indications: HTN,CP,CM,AICD,HLD,CHF,ABN EKG,SOA,DM 2D Dimensions LVOT 1.89 cm (M/F) 1.5-2.5 M-Mode Dimensions RVDd 2.21 cm (0.9-2.6) LVDd 3.62 cm (3.5-5.7) LVDs 2.67 cm (3.5-5.7) IVSd 1.49 cm (0.6-1.1) PWd 1.51 cm (0.6-1.1) EF (Teich) 52.40% FS 26.20% EDV (Teich) 55.20 mL ESV (Teich) 26.30 mL LV Diastology E/A Ratio 0.47 Mitral Valve MV A Velocity 94.00 (40-130 cm/s) Left Ventricle Left atrium is mildly enlarged, left ventricle is mildly dilated, visually estimated ejection fraction 40% left ventricle is globally hypokinetic, there is grade 1 diastolic dysfunction seen without tissue Doppler evidence of raise left atrial pressure. Right Ventricle Right atrium and right ventricular normal size and contractility, there is an AICD lead seen in right ventricle. Aortic Valve Aortic valve is minimally thickened and fibrosed, there is no aortic stenosis or aortic insufficiency. Mitral Valve Mitral valve is grossly normal, there is mild mitral regurgitation. Tricuspid Valve Tricuspid valve is grossly normal, there is mild tricuspid regurgitation, tricuspid regurgitation jet velocity is inadequate for calculation of the right ventricular systolic pressure. Pulmonic Valve Pulmonic valve is poorly visualized. Great Vessels Aortic root is normal size. Pericardium No significant pericardial effusion noted. Conclusion 1. Mildly enlarged left atrium, mildly dilated left ventricle, mild concentric left ventricular hypertrophy, visually estimated ejection fraction 40%, left ventricle is globally hypokinetic, grade 1 diastolic dysfunction seen without tissue Doppler evidence of raise left atrial pressure. 2. Mild mitral and tricuspid regurgitation. 3. No significant pericardial effusion noted. Electronically signed by : Francisco Javier Mayfield, 03/29/2020 16:02:49
== END ==
PROVIDERS: PCP Emergency Medicine; Visit Provider Urology
DX: R07.89 Other chest pain (principal); R06.02 Shortness of breath; R42 Dizziness and giddiness; R94.31 Abnormal electrocardiogram [ECG] [EKG]; E11.42 Type 2 diabetes mellitus with diabetic polyneuropathy; E13.49 Other specified diabetes mellitus with other diabetic neurological complication; E78.2 Mixed hyperlipidemia; G62.9 Polyneuropathy, unspecified; I42.9 Cardiomyopathy, unspecified; I50.22 Chronic systolic (congestive) heart failure; I50.9 Heart failure, unspecified; R53.83 Other fatigue; Z82.49 Family history of ischemic heart disease and other diseases of the circulatory system; Z95.810 Presence of automatic (implantable) cardiac defibrillator
CPT/HCPCS: 93306; 93976

== ENCOUNTER 2020-09-04 17:46 | Inpatient (IN) | payer MEDICARE, BC, SELFPAY ==
[2020-09-04] VITALS (9 sets, daily range): BP systolic 158–213; BP diastolic 98–121; PULSE 65–76; RESP 12–20; TEMP 36.5–37; O2SAT 94–98; BMI 24.4
--- NOTE | 2020-09-04 17:47 | XR_ITS ---
PROCEDURE: XR CHEST PORTABLE CLINICAL HISTORY: weak Weakness, left-sided numbness COMPARISON: CR XR CHEST PORTABLE from 05/18/2019 CR XR CHEST 2V from 06/16/2019 CR XR CHEST 2V from 08/11/2019 FINDINGS: The cardiomediastinal silhouette and pulmonary vascularity are within normal limits. Biventricular and right atrial pacemaker leads are in place. No acute bony abnormalities. IMPRESSION: No acute findings. Dictated by: Navdeep Medel MD 09/04/2020 19:21 Navdeep Medel MD in [place] 09/04/2020 19:21
--- NOTE | 2020-09-04 17:47 | CT_ITS ---
PROCEDURE: CT HEAD/BRAIN WO CON CLINICAL INDICATION: left arm weak And study gait, left arm weakness, walking difficulty COMPARISON: CT HEADWO CT head/brain wo con from 03/22/2019 TECHNIQUE: Axial images obtained. All CT scans at the facility use one or more dose reduction, viz: automated exposure control, ma/kV adjustment per patient size (including targeted exams where dose is matched to indication, i.e. head), or iterative reconstruction technique. FINDINGS: No midline shift, mass effect, intracranial hemorrhage, hydrocephalus, or extra-axial fluid collection is evident. There are old right-sided lacunar infarctions of the basal ganglia and thalamus. The calvarium has an unremarkable appearance. No mastoid effusion. Small retention cyst noted in the maxillary sinuses. IMPRESSION: Chronic ischemic changes, no acute intracranial findings Dictated by: Navdeep Medel MD 09/05/2020 11:16 Navdeep Medel MD in [place] 09/05/2020 11:16
--- NOTE | 2020-09-04 17:48 | CT_ITS ---
Procedure: CT ANGIO NECK CT ANGIO HEAD CLINICAL HISTORY: stroke Under study gait, weakness, left-sided weakness with numbness and loss of balance COMPARISON: CT CT ANGIO HEAD from 09/04/2020 TECHNIQUE: IV Contrast: 100ml Isovue 370 Axial images obtained with sagittal and coronal reformats. All CT scans at the facility use one or more dose reduction, viz: automated exposure control, ma/kV adjustment per patient size (including targeted exams where dose is matched to indication, i.e. head), or iterative reconstruction technique. FINDINGS: CT angio neck: The aortic arch has an unremarkable appearance as do the great vessels. The right common carotid internal carotid and external carotid arteries have an unremarkable appearance. No evidence stenosis or dissection. No ulcerating plaque. The left common carotid internal carotid and external carotid arteries have an unremarkable appearance. No evidence of stenosis dissection or ulcerated plaque. No aneurysm apparent. Minimal calcific plaque is noted in the proximal left internal carotid. Unremarkable vertebrals with left-sided vertebral dominance. CTA head: The internal carotids have an unremarkable appearance. No aneurysm, AVM, or major intracranial occlusive process. The the vertebral basilar system has an unremarkable appearance. Soft tissues: Lung apices are clear. Scattered small nodes are present in the neck. No enhancing lesions are evident. IMPRESSION: 1. Negative CT angiogram of the neck. 2. Negative CT angiogram of the head 3. No stenosis occlusion ulceration or aneurysm apparent. Dictated by: Navdeep Medel MD 09/05/2020 11:25 Navdeep Medel MD in [place] 09/05/2020 11:25
--- NOTE | 2020-09-04 17:53 | PC.NURSE ---
FSBS 352
--- NOTE | 2020-09-04 17:54 | HMH.EDGENADL ---
ED Disposition Clinical Impression: Transient ischemic attack (TIA) Hypertension Qualifiers: Hypertension type: essential hypertension Qualified Code(s): I10 - Essential (primary) hypertension Disposition: Admitted As Inpatient Condition on Discharge: Serious Referrals: Sandra Ray APRN [Primary Care Provider] - Time of Disposition: 19:30 - Critical Care Critical Care Time: Yes Attestation: On , the high probability of a clinically significant, sudden or life threatening deterioration of the following system(s) required my full and direct attention, intervention and personal management. The time I documented below is in addition to time spent performing reported procedures but includes the following listed in this critical care notation. Total Critical Care Time: 36 Vital system(s) involved:: Central Nervous System My critical care processes included: Assessment & monitoring of V/S, Initial and Re-exams, Data Review/Interpretation, Coordinating Care, Documentation Medical Decision Making - Medical Records Medical records reviewed: Yes: I reviewed the patient's medical records. - Felipe Inquiry Pt receiving controlled substance: No Vital Signs: 09/04/20 17:46 09/04/20 18:29 09/04/20 19:01 Temperature 98.6 F Temperature Source Oral Pulse Rate [Left Radial] 66 68 68 Respiratory Rate 20 Blood Pressure [Right Arm] 210/121 H 213/118 H 193/113 H Blood Pressure Mean [Right Arm] 150 149 139 Blood Pressure Source [Right Arm] Automatic Cuff Automatic Cuff Automatic Cuff Blood Pressure Position [Right Arm] Sitting Sitting Sitting 02 Sat by Pulse Oximetry 97 96 96 Oxygen Delivery Method Room Air Room Air Room Air - Lab Data Lab Results 09/04/20 17:52: POC Glucose 352 H* 09/04/20 18:00: WBC 6.8, RBC 5.67, Hgb 17.8, Hct 50.0, MCV 88.0, MCH 31.4 H, MCHC 35.6 H, RDW 13.4, Plt Count 253, MPV 7.3 L, Neut % (Auto) 69.1, Lymph % (Auto) 21.5, [place] % (Auto) 6.6, Eos % (Auto) 1.8, Baso % (Auto) 1.0, Neut # (Auto) 4.7, Lymph # (Auto) 1.5, [place] # (Auto) 0.4, Eos # (Auto) 0.1, Baso # (Auto) 0.1 09/04/20 18:00: PT 10.7, INR 0.96, APTT 25.8 09/04/20 18:00: Sodium 132 L, Potassium 3.9, Chloride 96 L, Carbon Dioxide 30, Anion Gap 9.9, BUN 14, Creatinine 0.80, Estimated Creat Clear 115, Estimated GFR 99, Est GFR ( Amer) 120, Glucose 379 H, Calcium 10.2, Total Bilirubin 1.6 H, AST 31, ALT 22, Alkaline Phosphatase 125, Troponin I 0.02, Total Protein 7.2, Albumin 4.1, Globulin 3.1, Albumin/Globulin Ratio 1.3 Result diagrams: 09/04/20 18:00 09/04/20 18:00 Orders (Tests/Meds): ED MEDICATIONS Discontinued Medications Generic Name Dose Route Start Last Admin Trade Name Freq PRN Reason Stop Dose Admin Iopamidol 100 ml 09/04/20 18:15 09/04/20 18:19 Iopamidol-370 (76%);100ml Bottle IV 09/04/20 18:16 100 ml ONCE ONE Administration Nitroglycerin 0.4 mg 09/04/20 19:27 Nitroglycerin 0.4mg Sl Tablet SL 09/04/20 19:28 ONCE ONE Sodium Chloride 50 ml 09/04/20 18:15 09/04/20 18:19 0.9 % Sodium Chloride 50 Ml Vial IV 09/04/20 18:16 50 ml ONCE ONE Administration Sodium Chloride 10 ml 09/04/20 18:15 09/04/20 18:19 Sodium Chloride 0.9% 10ml Syr (Rad Only) IV 09/04/20 18:16 10 ml ONCE ONE Administration ORDERS Category Date Time Status CT angio head Stat Cat Scan 09/04/20 17:[address] angio neck Stat Cat Scan 09/04/20 17:[address] head/brain wo con Stat Cat Scan 09/04/20 17:47 Taken Covid-19 IgG/IgM ([facility]) Stat Lab 09/04/20 19:27 Ordered Troponin I Q3H Lab 09/04/20 21:00 Ordered Troponin I Q3H Lab 09/05/20 00:00 Ordered EKG Request [ECG Request by /Shen] Stat Y 09/04/20 17:47 Ordered Medical Decision Narrative: In summary this is a 60-year-old male presenting to the emergency department with left-sided weakness. Patient clinically stable on arrival. Taken to a room and placed on radiographer cardiac catheterization. Barely perceptible right arm weakness and pronator drif
[2020-09-04 17:59] LABS: POC Glucose,Bedside 352 (70-110)
--- NOTE | 2020-09-04 18:01 | PC.NURSE ---
Pt to rad.
[2020-09-04 18:07] LABS: Basophils # 0.1 K/mm3 (0-0.2); Eosinophils # 0.1 K/mm3 (0.0-0.4); Eosinophils % 1.8 % (0.1-12.0); Hemoglobin 17.8 g/dL (14.1-18.0); Lymphocytes # 1.5 K/mm3 (0.7-4.5); Lymphocytes % 21.5 % (10-50); Mean Corpuscular HGB Conc 35.6 g/dL (31.8-35.4); Mean Corpuscular Hemoglobin 31.4 pg (27.0-31.2); Mean Platelet Volume 7.3 fl (7.4-10.4); Monocytes # 0.4 K/mm3 (0.1-1.0); Monocytes % 6.6 % (1.7-9.3); Neutrophils # 4.7 K/mm3 (1.8-7.8); Neutrophils % 69.1 % (37.0-80.0); Platelet Count 253 K/mm3 (142-424); Red Blood Count 5.67 M/mm3 (4.60-6.20); Red Cell Distribution Width 13.4 % (11.5-17.5); White Blood Count 6.8 K/mm3 (4.8-10.8)
[2020-09-04 18:12] LABS: Chloride 96 mmol/L (98-107)
[2020-09-04 18:13] LABS: Potassium 3.9 mmoL/L (3.5-5.1); Sodium 132 mmol/L (136-145)
[2020-09-04 18:15] LABS: Alanine Aminotransferase 22 U/L (12-78); Aspartate Amino Transferase 31 U/L (17-59); Blood Urea Nitrogen 14 mg/dl (9-20); Creatinine Clearance Estimated 115 mL/min (50-200); Estimated Glomerular Filt Rate 99 ml/min (>60); GFR (African American) 120 ML/MIN (>60)
[2020-09-04 18:16] LABS: Albumin Level 4.1 g/dl (3.5-5.0); Albumin/Globulin Ratio 1.3 (1.1-1.8); Alkaline Phosphatase 125 U/L (38-126); Anion Gap 9.9 mEq/L (5-15); Bilirubin,Total 1.6 mg/dl (0.2-1.3); Calcium 10.2 mg/dl (8.4-10.2); Carbon Dioxide 30 mmol/L (22.0-30.0); Globulin 3.1 g/dL (1.3-3.2); Glucose 379 mg/dl (74-100); Total Protein,Serum 7.2 g/dl (6.3-8.2)
[2020-09-04 18:28] LABS: Troponin I 0.02 ng/ml (0.00-0.034)
[2020-09-04 18:30] LABS: INR 0.96 (0.9-1.1); Prothrombin Time 10.7 seconds (9.4-11.8)
[2020-09-04 18:31] LABS: Activated Partial Thrombo Time 25.8 seconds (23.6-34.0)
[2020-09-04 19:48] LABS: Coronavirus 19 IgG Antibody Negative (Negative); Coronavirus 19 IgM Antibody Negative (Negative)
--- NOTE | 2020-09-04 21:10 | PC.NURSE ---
PT ARRIVED TO FLOOR VIA WHEELCHAIR @ 2104
--- NOTE | 2020-09-04 21:23 | HMH.PHAVTE ---
[facility] Pharmacy VTE Monitoring - Patient Demographics Admission date: 09/04/20 Report Date: 09/04/20 Time: 21:23 Allergies/Adverse Reactions: Patient Allergies No Known Allergies Allergy (Verified 07/09/20 08:35) Height: 1.83 m Weight: 81.647 kg Patient Problems: Current Active Problems Transient ischemic attack (TIA) (Acute) HTN (hypertension) (Chronic) - VTE Risk Labs: VTE Related Lab Results Hgb 17.8 g/dL (14.1-18.0) 09/04/20 18:00 Hct 50.0 % (42.0-52.0) 09/04/20 18:00 Plt Count 253 K/mm3 (142-424) 09/04/20 18:00 PT 10.7 seconds (9.4-11.8) 09/04/20 18:00 INR 0.96 (0.9-1.1) 09/04/20 18:00 APTT 25.8 seconds (23.6-34.0) 09/04/20 18:00 BUN 14 mg/dl (9-20) 09/04/20 18:00 Creatinine 0.80 mg/dl (0.66-1.25) 09/04/20 18:00 Estimated Creat Clear 115 mL/min (50-200) 09/04/20 18:00 Clinical Trial Participant: No - Prophylaxis VTE Prophylaxis Ordered?: Yes Types of VTE Prophylaxis: TEDS Knee High
--- NOTE | 2020-09-04 21:26 | HMH.HP ---
*Admission Date: 09/04/20 *Chief complaint: possible tia *History of present illness: pt presented to the ed e states that for 2 days pt has been slurring his words and weak on his left side 60-year-old male presenting to the emergency department with left-sided weakness. Symptoms started over the weekend, 2 to 3 days ago. No specific time. Patient noticed that he was having trouble gripping objects with his left hand. [place] like his arm and leg were getting tired quickly. His thought his speech was somewhat abnormal. No vision changes. No numbness or weakness in his lower extremities. No gait instability. He has a history of diabetes, poorly controlled. Cardiac history. Takes a blood thinner, does not know the name. No history of stroke. Chart review shows that patient takes Xarelto. summary this is a 60-year-old male presenting to the emergency department with left-sided weakness. Patient clinically stable on arrival. Taken to a room and placed on noise abatement engineer. Barely perceptible right arm weakness and pronator drift. No facial asymmetry. No dysarthria or aphasia. Patient is at least 48 hours since symptom onset, likely longer. Will obtain CBC, CMP, chest x-ray, EKG, troponin profile, PT, PTT, noncontrast head CT, CT angiography of the head and neck. Noncontrast head CT shows old lacunar infarcts. CT angiography of the head shows no large vessel occlusion. Does show severe left SCRAP WORKER P3 stenosis. Severe right RUPESH A2 stenosis CT angiography of the neck shows no abnormality. On reassessment patient has no focal neurologic deficit. Has a subjective tingling in his left hand. But no weakness. No facial asymmetry. No speech difficulty. Eager to eat and drink. Patient will be admitted for MRI of the brain and further management of transient ischemic attack. pt was seen in the ed and has some blurred vision and slurred speech with decreased dexterity lt upper ext - pt will be admitted at this time - [facility] History I have reviewed the patient's past medical history: Yes Medical History: Reports:: Anxiety, Cardiomyopathy, Congestive Heart Failure, Coronary Artery Disease, Depression, Diabetes Mellitus Type 1, Diabetes Mellitus Type 2, Hyperlipidemia, Hypertension, Internal Pacemaker, Migraine Denies:: Cancer, MRSA *Have you ever received a pneumonia vaccine?: No *Have you received a flu vaccine this season?: No Other Medical History: Reports: Arthritis, Sinus Problems Laterality Cases: Bilateral: Tonsillectomy Other Surgeries: Yes: Appendectomy, Cardiac Catheterization, Cardiac Surgery, Colonoscopy, Coronary Stent, Pacemaker, Other Amputation: No Fractures: No - *Social History Smoking Status: Never smoker Alcohol Intake: current Alcohol Intake Frequency:: holidays/special occasions only Substance Use Type: former substance user, marijuana *Occupational Status:: unemployed, disabled Housing: house Household Members: spouse *Travel in the last 8 weeks: None - Psychiatric History Pschychiatric History:: Reports:: Anxiety, Depression Family Hx:: Cancer, Coronary Artery Disease, Diabetes, Heart Attack, Hypertension, Stroke, Alcoholism Review of Systems - Review of Systems Review of systems:: pertinent systems reviewed and negative unless documented below - Constitutional Denies fever(s) - Eyes Reports blurry vision, Reports change in vision - ENT Denies facial pain - *Cardiovascular Denies chest pain - *Respiratory Denies cough - *Gastrointestinal Denies abdominal pain - *Genitourinary Denies blood in urine - *Musculoskeletal Denies joint pain, Denies neck pain - Integumentary/Breasts Denies rash - *Neurologic Reports abnormal speech, Reports sensory deficit, Reports weakness, Denies confusion, Denies dizziness, Denies headache(s), Denies loss of vision, Denies numbness, Denies seizure-like activity - Psychiatric Denies anxiety Meds Home Medications Medication Instructions Record
[2020-09-04 22:25] LABS: POC Glucose,Bedside 463 (70-110)
--- NOTE | 2020-09-04 23:29 | PC.NURSE ---
notified Dr Levine by phone of pt fsbs [phone] at approx [phone]. protocol states to call md if greater than [phone]. md gave verbal order to give 15 units of insulin to pt.
--- NOTE | 2020-09-04 23:52 | PC.NURSE ---
During assessment it was noted that pt appears to have weakness in left leg and difficulty controlling it with ambulation. pt states it is better than prior to admission. pt left barker operator is slightly weaker than right. Pt also states that he is having difficulty discerning colors on the call sheikh. will continue to monitor.
[2020-09-05 00:38] VITALS: BMI 25.3
[2020-09-05 04:00] VITALS: BP 159/86; PULSE 67; RESP 18; TEMP 36.8; O2SAT 97
--- NOTE | 2020-09-05 05:12 | PC.NURSE ---
Admission assessment delayed r/t scheduled downtime. pt has rested fitfully this shift. requested something for sleep at 0300, informed pt that we will address with MD during rounds just in case pt remains another night. lung sounds are clear throughout. bowel sounds are active in all quads. nad noted. pt is unsteady on his feet when ambulating to the bathroom. pt is compliant with calling for help to go to the restroom. pt is alert and oriented x4. will continue to monitor.
[2020-09-05 05:42] VITALS: BMI 272.7
[2020-09-05 06:58] LABS: POC Glucose,Bedside 229 (70-110)
--- NOTE | 2020-09-05 07:06 | CA_ITS ---
APPROVED REPORT Field Sales Engineer: Fifi Aguirre RVT Laterality: Bilateral Study Quality: Good Indications: tia Risk Factors Hypertension: TIA/CVA History Hyperlipidemia Diabetes Doppler Spectral Velocity Analysis ECA (R) 141.10/15.00 cm/s ECA (L) 127.20/12.80 cm/s dICA (R) 97.30/24.60 cm/s dICA (L) 84.50/21.40 cm/s Chaya (R) 83.40/22.50 cm/s Chaya (L) 59.90/16.00 cm/s pICA (R) 67.40/17.10 cm/s pICA (L) 50.30/12.80 cm/s dCCA (R) 81.30/11.80 cm/s dCCA (L) 79.10/11.80 cm/s pCCA (R) 103.70/8.60 cm/s pCCA (L) 104.80/15.00 cm/s Vert (R) 48.10/11.80 cm/s Vert (L) 33.10/8.60 cm/s ICA/CCA 1.20 ICA/CCA 1.07 Findings Study suggests less than 20% stenosis of the right internal cartoid artery. study suggests less than 20% stneosis of the left internal cartoid artery. Antegrade flow seen bilateral vertebral arteries. Conclusion Study suggests less than 20% stenosis of the right internal cartoid artery. study suggests less than 20% stneosis of the left internal cartoid artery. Antegrade flow seen bilateral vertebral arteries. Electronically signed by : Navdeep Medel MD 09/05/2020 13:23:22
--- NOTE | 2020-09-05 07:07 | CA_ITS ---
APPROVED REPORT EXAM: Comprehensive 2D, Doppler, and color-flow Echocardiogram Choker Hooker: Rosita Kong CRT Ht: 6 ft 0 in Wt: 187lbs BSA: 2.07 BP: 185/98 mmHg Indications: Chest Pain, Chest Pressure, Diabetes, Hyperlipidemia, Cardiomyopathy, Hypertension/HDD, CHF, CAD, STENT, AICD, TIA 2D Dimensions Aortic Root 2.05 cm M-Mode Dimensions RVDd 2.61 cm (0.9-2.6) LA Diam 4.34 cm (1.9-4.0) LVDd 5.57 cm (3.5-5.7) Ao Diam 4.27 cm (2.0-3.7) LVDs 4.43 cm (3.5-5.7) IVSd 1.25 cm (0.6-1.1) PWd 0.71 cm (0.6-1.1) EF (Teich) 41.30% FS 20.50% EDV (Teich) 151.80 mL ESV (Teich) 89.10 mL LV Diastology E Decel Time 150.00 (160-240 msec) E/A Ratio 0.46 Aortic Valve AO Peak GR. 6.40 mmHg Mitral Valve MV E Max Nikolay. 43.60 (40-130 cm/s) MV A Velocity 94.50 (40-130 cm/s) E/A Ratio 0.46 MV Decel. Time 150.00 (160-240 ms) MV PHT 44.00 ms Tricuspid Valve TR P. Velocity 204.10 cm/s RAP Estimate 10.00 mmHg RVSP 26.70 mmHg Left Ventricle Left atrium is mildly enlarged, left ventricle is normal size, mild concentric left ventricular hypertrophy, visually estimated ejection fraction 40%, there is moderate hypokinesis involving mid to distal septum and anterior apical wall, endocardial surfaces are very poorly visualized, Doppler evidence of impaired LV relaxation seen, tissue Doppler is inadequate for calculation of the left atrial pressure. Right Ventricle Right atrium and right ventricle are normal size and contractility, there is a pacemaker or any AICD lead seen in right ventricle. Aortic Valve Aortic valve is minimally thickened and fibrosed, there is no aortic stenosis or aortic insufficiency. Mitral Valve Mitral valve is grossly normal, there is mild mitral regurgitation. Tricuspid Valve Tricuspid valve is grossly normal, there is mild tricuspid regurgitation, tricuspid regurgitation jet velocity is inadequate for calculation of the right ventricular systolic pressure. Pulmonic Valve Pulmonic valve is poorly visualized. Great Vessels Aortic root is normal size. Pericardium No significant pericardial effusion noted. Conclusion 1. Technically difficult study because of the patient factors and poor acoustic windows. 2. Mildly enlarged left atrium, normal left ventricular size, mild concentric left ventricular hypertrophy, visually estimated ejection fraction 40% with segmental wall motion abnormalities described above. Doppler evidence of impaired LV relaxation. 3. Mild mitral and tricuspid regurgitation. 4. No significant pericardial effusion noted. Electronically signed by : Francisco Javier Mayfield, 09/06/2020 16:04:45
--- NOTE | 2020-09-05 07:30 | PC.NURSE ---
faxed order to pharmacy to change fsbs to [facility]. computers down from [phone] order obtained for dr vega at approx [phone]
--- NOTE | 2020-09-05 07:31 | PC.NURSE ---
pt unsure of meds this shift r/t tia/memory issues. pt is to ask to bring in meds so they may be verified
[2020-09-05 08:00] VITALS: BP 182/94; PULSE 73; RESP 15; TEMP 36.7; O2SAT 96
--- NOTE | 2020-09-05 08:03 | HMH.PHAINT ---
Clarified home medication list using list from Cardiology office and [facility] pharmacy
[2020-09-05 08:30] LABS: Basophils % 0.7 % (0.1-2.0); Eosinophils # 0.2 K/mm3 (0.0-0.4); Hematocrit 47.1 % (42.0-52.0); Hemoglobin 16.3 g/dL (14.1-18.0); Lymphocytes # 1.9 K/mm3 (0.7-4.5); Lymphocytes % 27.9 % (10-50); Mean Corpuscular HGB Conc 34.7 g/dL (31.8-35.4); Mean Corpuscular Hemoglobin 31.1 pg (27.0-31.2); Mean Corpuscular Volume 89.7 fl (80-94); Mean Platelet Volume 7.8 fl (7.4-10.4); Monocytes # 0.4 K/mm3 (0.1-1.0); Monocytes % 5.7 % (1.7-9.3); Neutrophils # 4.2 K/mm3 (1.8-7.8); Neutrophils % 62.8 % (37.0-80.0); Platelet Count 244 K/mm3 (142-424); Red Blood Count 5.26 M/mm3 (4.60-6.20); Red Cell Distribution Width 13.4 % (11.5-17.5); White Blood Count 6.7 K/mm3 (4.8-10.8)
[2020-09-05 08:39] LABS: Anion Gap 10.9 mEq/L (5-15); Blood Urea Nitrogen 9 mg/dl (9-20); Carbon Dioxide 33 mmol/L (22.0-30.0); Chloride 95 mmol/L (98-107); Creatinine Clearance Estimated -56 mL/min (50-200); Estimated Glomerular Filt Rate 99 ml/min (>60); GFR (African American) 120 ML/MIN (>60); Glucose 280 mg/dl (74-100); Sodium 136 mmol/L (136-145)
[2020-09-05 08:46] LABS: Calcium 8.8 mg/dl (8.4-10.2); Potassium 2.9 mmoL/L (3.5-5.1)
[2020-09-05 09:06] LABS: Hemoglobin A1C 11.2 % (4.0-6.0)
--- NOTE | 2020-09-05 10:50 | HMH.DCSUM ---
General - General Admission date:: 09/04/20 Discharge date: 09/05/20 HPI HPI: pt presented to the ed e states that for 2 days pt has been slurring his words and weak on his left side 60-year-old male presenting to the emergency department with left-sided weakness. Symptoms started over the weekend, 2 to 3 days ago. No specific time. Patient noticed that he was having trouble gripping objects with his left hand. [place] like his arm and leg were getting tired quickly. His thought his speech was somewhat abnormal. No vision changes. No numbness or weakness in his lower extremities. No gait instability. He has a history of diabetes, poorly controlled. Cardiac history. Takes a blood thinner, does not know the name. No history of stroke. Chart review shows that patient takes Xarelto. summary this is a 60-year-old male presenting to the emergency department with left-sided weakness. Patient clinically stable on arrival. Taken to a room and placed on cardiac cath lab manager. Barely perceptible right arm weakness and pronator drift. No facial asymmetry. No dysarthria or aphasia. Patient is at least 48 hours since symptom onset, likely longer. Will obtain CBC, CMP, chest x-ray, EKG, troponin profile, PT, PTT, noncontrast head CT, CT angiography of the head and neck. Noncontrast head CT shows old lacunar infarcts. CT angiography of the head shows no large vessel occlusion. Does show severe left GROUP CAPTAIN P3 stenosis. Severe right RUPESH A2 stenosis CT angiography of the neck shows no abnormality. On reassessment patient has no focal neurologic deficit. Has a subjective tingling in his left hand. But no weakness. No facial asymmetry. No speech difficulty. Eager to eat and drink. Patient will be admitted for MRI of the brain and further management of transient ischemic attack. pt was seen in the ed and has some blurred vision and slurred speech with decreased dexterity lt upper ext - pt will be admitted at this time - Hospital Course Hospital Course: 60-year-old male patient presents the emergency department with left-sided weakness, slurring his words, and blurred vision. He reports this has been going on for 2 to 3 days. He denies any numbness or weakness in his bilateral lower extremities, left upper extremity is weak and he reports having difficulty grabbing objects. He does have a history of poorly controlled diabetes and is on a blood thinner but does not know the name He was admitted to the hospital for MRI of the brain and further work-up of TIA. Noncontrast head CT shows old lacunar infarcts. CT angiography of the head shows no large vessel occlusion. Does show severe left GROUP CAPTAIN P3 stenosis. Severe right RUPESH A2 stenosis CT angiography of the neck shows no abnormality. Sodium 136, potassium 2.9 replaced today, BUN 9, creatinine 0.8. H/H 16.3/47.3 He is unable to obtain MRI today due to having an AICD. Discussed discharging home today he is in agreement to this, also discussed lack of medical appointment attendance and better control of his diabetes. He states he will make a greater attempt to attend all appointments in the future. Carotid Dopplers showing no acute abnormalities Echo showing 40% ejection fraction and mild mitral valve regurgitation and tricuspid valve regurgitation with no acute findings We will discharge home today he is agreeable to this will look into outpatient OT/PT Follow-up with PCP to sched outpatient EMG and nerve conduction studies Objective Vital signs: Temp Pulse Resp BP Pulse Ox 98.1 F 73 15 182/94 H 96 09/05/20 08:00 09/05/20 08:00 09/05/20 08:00 09/05/20 08:00 09/05/20 08:00 no acute distress - *Routine HEENT Exam Head: Present: normocephalic. Absent: tenderness of temporal artery Eye: Present: EOMI. Absent: periorbital tenderness ENT: Present: mucous membranes moist. Absent: sinus tenderness - *Routine Neck Exam Present: trachea midline.
--- NOTE | 2020-09-05 11:24 | HMH.PTEV ---
Physical Therapy Evaluation Rehab PT IP Evaluation Start: 09/05/20 09:50 Freq: ONCE Status: Active Protocol: Document 09/05/20 11:18 WILLY (Rec: 09/05/20 11:24 WILLY [id number]) Subjective/History History History pt presented to the ed e states that for 2 days pt has been slurring his words and weak on his left side 60-year-old male presenting to the emergency department with left-sided weakness. Symptoms started over the weekend, 2 to 3 days ago. No specific time. Patient noticed that he was having trouble gripping objects with his left hand. [place] like his arm and leg were getting tired quickly. His thought his speech was somewhat abnormal. No vision changes. No numbness or weakness in his lower extremities. No gait instability. He has a history of diabetes, poorly controlled. Cardiac history. Takes a blood thinner, does not know the name. No history of stroke. Subjective Subjective Pt reports c/o blurry vision, and feeling weak and wobbly Rehab PT IP Eval Objective Appearance Patient Behavior Appropriate,Cooperative Patient Orientation Person,Place,Time Difficulty following instructions none Speech Pattern Clear,Appropriate Ambulation Patient Able to Ambulate Yes Ambulation Observation IP General Gait Pattern Observation Ataxic Gait,Shuffling Step Ambulation Distance (feet) 5 Ambulation Assistive Device None Ambulation Ability Contact Guard/Hand Hold Balance Ability to Arise Able, uses arms to help Sitting Balance Steady, safe Standing Balance Steady, wide stance Dynamic Sitting Balance Ability Fair Dynamic Standing Balance Ability Poor Transfers Bed Transfer Ability Independent,Supervision/Stand by Chair Transfer Ability Independent,Supervision/Stand by Sit to Stand Bed Transfer Ability Supervision/Stand by Sit to Stand Chair Transfer Ability Supervision/Stand by ROM LUE PT ROM Status
--- NOTE | 2020-09-05 12:53 | XR_ITS ---
PROCEDURE: XR SHOULDER LT MIN 2V CLINICAL INDICATION: fall in bathroom Posttraumatic pain COMPARISON: No exams were available for comparison FINDINGS: No fracture or dislocation. No lytic or blastic change. Cardiac pacemaker device is present The joint spaces are well-preserved. No significant degenerative/arthritic changes. No erosive changes evident. Other findings:None. IMPRESSION: No acute findings. Dictated by: Navdeep Medel MD 09/05/2020 13:27 Navdeep Medel MD in [place] 09/05/2020 13:27
--- NOTE | 2020-09-05 14:12 | HMH.OTEV ---
OT Inpatient Evaluation Rehab OT IP Evaluation Start: 09/05/20 09:50 Freq: ONCE Status: Complete Protocol: [facility] 09[facility]05/20 14[facility]06 [facility] (Rec: 09/05/20 14:12 [facility] [id number]) Rehab OT IP Assessment Subjective History Pt was oriented x3 on arrival. Pt was admitted via ED on 09/04/20 due to possible TIA. Pt had been having weakness on left side and slurred speech for 2+ days. Pt has a past medical history of Anxiety, cardiomyopathy, CHF, CAD, DM type 2, Hyperlipidemia, HTN, and internal pacemaker. Pt reports he lived at home with his . Pt claims he was independent with all ADL's and IADL's. Pt did not require AE during ambulation. Subjective I just got in bed. Objective Patient Orientation Person,Place,Birthday Upper Extremity Gross ROM WFL Bed Mobility bed mobility-scooting,bed mobility - supine/sit,bed mobility - rolling Assist Level Minimal x 2 (25% assist) Rehab OT IP prob,goals,plan Problems Date of Evaluation: 09/05/20 OT IP Problems Bed Mobility,Transfers,Gait, Balance,Self care,Safety Rehab Potential Rehab Potential Good Equipment Needs Assistive Devices Rolling / Wheeled Walker Plan OT intervention Plan Bed Mobility,Transfers,Gait, Balance,Self care,Safety, Therapeutic Exercise OT Plan Frequency Daily Duration LOS Discharge Goals Bed Mobility Ability Standby Assistance Sit to Stand Chair Transfer Ability Moderate x 1 (50% assist) Chair Transfer Ability Moderate x 1 (50% assist) Chair Transfer Technique Sit to/from Ambulatory Chair Transfer Assistive Devices Rolling Walker Feeding Ability Assist with Tray Set Up Lower Body Dressing Ability Assistance X1 Upper Body Dressing Ability Standby Assistance Bathing Ability Assistance x1 Performing Toilet Hygiene Ability Assistance X1 Overall Commode/Toilet Transfer Ability Assistance x1 Commode/Toilet Transfer Technique Sit to/from Ambulatory Discharge Plan OT Discharge Plan Pt would benefit most from short term rehab following hospital stay in order to
--- NOTE | 2020-09-05 14:12 | SW/DCPLANNER ---
Addendum entered by Velma Martínez 09/06/20 16:42: Updated patient information has been faxed to Heidy at [facility] per her request. Addendum entered by Velma Martínez 09/06/20 13:02: Heidy with [employer] has stated that she has been here to evaluate this patient: does not foresee any issues but will have to get approval from insurance. Heidy expects to have an answer before end of day today. Addendum entered by Velma Martínez 09/06/20 09:55: Heidy with [facility] [employer] has stated that she will be at [facility] to evaluate this patient this morning. I have attempted to contact patients regarding situation: no answer but VM has been left. Original Note: SPOKE WITH THIS AFTERNOON REGARDING DISCHARGE PLANS FOR THIS PATIENT... SHE STATED HER HAD SYMPTOMS FOR 2 DAYS BEFORE HE MENTIONED IT TO HER... SHE STATED SHE CAME HOME FROM WORK AND HE HAD AN ILL LOOK ON HIS FACE AND SHE IMMEDIATELY KNEW SOMETHING WAS NOT RIGHT AND BROUGHT HIM TO THE HOSPITAL AGAINST HIS WILL...I ASKED HER IF I COULD SEND IT TO [place] TO SEE IF HE IS A CANDIDATE FOR THEIR ACUTE REHAB DEPARTMENT... SHE AGREED HE NEEDS TO GO SOMEWHERE, HE WAS ASLEEP WHEN I SPOKE WITH HER AND SHE REQUESTED FOR ME TO NOT WAKE HIM.. I TOLD HER I WOULD SEND IT AND FOR HER TO DISCUSS THIS WITH HIM WHEN HE AWAKES...ONCE WE HEAR BACK IF ACCEPTED IT IS REASONABLE TO THINK HE CAN DISCHARGE TO GET HIM STARTED ON AGGRESSIVE THERAPY.... WILL FOLLOW UP ONCE I HEAR....
--- NOTE | 2020-09-05 14:13 | PC.NURSE ---
1305 patient sleeping. refused to have his blood pressure rechecked at this time
[2020-09-05 16:00] VITALS: BP 163/95; PULSE 70; RESP 16; TEMP 36.7; O2SAT 98
--- NOTE | 2020-09-05 16:35 | PC.NURSE ---
LEFT SIDED WEAKNESS CONTINUES WITH PREVIOUS ASSESSMENT. LEFT SIDED FACIAL DROOP NOTED AT TIMES. PATIENT IS ALERT AND ORIENTED X4. STATES SHE THINKS THE LEFT SIDED WEAKNESS IS WORSE THAN YESTERDAY. 20 GAUGE IV IN LEFT FA WITH NS INFUSING AT 50 ML/HR. PATIENT DENIES ANY PAIN. LUNG SOUNDS ARE CLEAR. VOIDS PER URINAL WITH ASSIST NEEDED AT TIMES. PLACEMENT TO REHAB FACILITY IN PROGRESS PER CARE MANAGEMENT. REMAINS AT BEDSIDE.
[2020-09-05 18:25] VITALS: BP 155/89; PULSE 76; RESP 18; O2SAT 95
--- NOTE | 2020-09-05 18:51 | XR_ITS ---
PROCEDURE: XR ELBOW LT MIN 3V CLINICAL INDICATION: LEFT ELBOW PAIN Posttraumatic pain COMPARISON: CR XR ELBOW LT 2V from 07/04/2019 FINDINGS: No fracture or dislocation. No lytic or blastic change. There is normal mineralization. Minimal osteoarthritic changes are present at the elbow. Soft tissue swelling is present at the olecranon region. Other findings:None. IMPRESSION: Soft tissue swelling at the olecranon region. No acute fracture or dislocation. Dictated by: Navdeep Medel MD 09/06/2020 06:24 Navdeep Medel MD in [place] 09/06/2020 06:24
--- NOTE | 2020-09-05 19:02 | PC.NURSE ---
REPORT GIVEN TO Claudette ORELLANA RN
[2020-09-05 20:00] VITALS: BP 154/95; PULSE 74; RESP 18; TEMP 36.7; O2SAT 95; O2SAT 97
[2020-09-05 23:30] LABS: POC Glucose,Bedside 306 (70-110)
[2020-09-06] VITALS: BP 152/88; PULSE 67; RESP 18; TEMP 36.3; O2SAT 95
--- NOTE | 2020-09-06 | PC.NURSE ---
Of note during assessment of patient his left arm weakness and left leg weakness appear progressed since my previous shift. pt unable to open left hand initially, hand eventually responded. Pt states that this has been an ongoing issue at home for the past few days. Issues was not apparent my last shift. no deviation to tongue noted, slight droop to left side of mouth when smiling. no eye droopage noted. will continue to monitor.
--- NOTE | 2020-09-06 00:31 | PC.NURSE ---
Addendum entered by Isha Reno RN 09/06/20 00:33: pt had 2 falls on day shift. Original Note: At start of shift pt requested something to help him sleep. Pt states he was unable to sleep last night and usually takes sleeping medication at home. paged Dr Morales at 2015 and call returned at 2023. ok to reorder pt Trazodone 100 mg QHS. informed of pt admission with TIA and pt had 2 falls this shift.
[2020-09-06 04:00] VITALS: BP 149/88; PULSE 69; RESP 20; TEMP 36.3; O2SAT 96
[2020-09-06 04:09] LABS: POC Glucose,Bedside 268 (70-110)
--- NOTE | 2020-09-06 05:10 | PC.NURSE ---
Addendum entered by Isha Reno RN 09/06/20 05:50: slight droop to left side of mouth Original Note: Paged Dr Morales at approx 1900. Pt was admitted with symptoms of TIA. 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 no weakness noted in left leg, but when walking pt was stiff leg walking. tonight on initial assessment pt had right sided facial droop, difficulty moving left arm. his left hand was noted to be in a fist at approx 1940. When asked a/o x4 pt when this started he stated this was nothing new. States it had been doing this for the past few days. pt was able to lift his hand off of the bed. pt was noted to have weakness in his left leg initially this shift. upon reassessment pt can only lift leg off of the bed approx [address] Levine pt primary MD was consulted in regards to possible stroke. information reviewed with MD. no need for stroke alert r/t symptoms already existing for 3-4 days with only progression of symptoms. no new orders for ct scan at this time. lung sounds are clear, bowel sounds are active .nad noted. pt is a DNR. a/ox4. fsbs spot checked at 6646 result 268.
[2020-09-06 06:32] LABS: POC Glucose,Bedside 274 (70-110)
[2020-09-06 07:10] LABS: Basophils # 0.1 K/mm3 (0-0.2); Basophils % 0.5 % (0.1-2.0); Eosinophils # 0.1 K/mm3 (0.0-0.4); Eosinophils % 1.2 % (0.1-12.0); Hemoglobin 15.2 g/dL (14.1-18.0); Lymphocytes # 1.1 K/mm3 (0.7-4.5); Lymphocytes % 12.5 % (10-50); Mean Corpuscular HGB Conc 33.1 g/dL (31.8-35.4); Mean Corpuscular Hemoglobin 30.3 pg (27.0-31.2); Mean Corpuscular Volume 91.6 fl (80-94); Mean Platelet Volume 6.9 fl (7.4-10.4); Monocytes # 0.5 K/mm3 (0.1-1.0); Monocytes % 5.1 % (1.7-9.3); Neutrophils # 7.2 K/mm3 (1.8-7.8); Neutrophils % 80.6 % (37.0-80.0); Platelet Count 222 K/mm3 (142-424); Red Blood Count 5.01 M/mm3 (4.60-6.20); Red Cell Distribution Width 13.2 % (11.5-17.5); White Blood Count 8.9 K/mm3 (4.8-10.8)
[2020-09-06 07:17] LABS: Anion Gap 12.3 mEq/L (5-15); Blood Urea Nitrogen 13 mg/dl (9-20); Calcium 8.6 mg/dl (8.4-10.2); Carbon Dioxide 26 mmol/L (22.0-30.0); Chloride 98 mmol/L (98-107); Creatinine Clearance Estimated 105 mL/min (50-200); Estimated Glomerular Filt Rate 86 ml/min (>60); GFR (African American) 105 ML/MIN (>60); Glucose 298 mg/dl (74-100); Potassium 3.3 mmoL/L (3.5-5.1); Sodium 133 mmol/L (136-145)
[2020-09-06 07:35] VITALS: BP 143/85; PULSE 77; RESP 18; TEMP 36.6; O2SAT 99
--- NOTE | 2020-09-06 08:30 | CT_ITS ---
PROCEDURE: CT HEAD/BRAIN W CON CLINICAL INDICATION: progressive neuro symptoms Progressive neurological symptoms. Left arm weakness now with inability to move the left arm the COMPARISON: CT HEADWO CT head/brain wo con from 03/22/[address] ANGIO HEAD from 09/04/[address] HEAD/BRAIN WO CON from 09/04/2020 TECHNIQUE: IV Contrast: 100ML Isovue 370 Axial images obtained. All CT scans at the facility use one or more dose reduction, viz: automated exposure control, ma/kV adjustment per patient size (including targeted exams where dose is matched to indication, i.e. head), or iterative reconstruction technique. FINDINGS: No midline shift or mass effect is evident. No acute intracranial hemorrhage. There are old lacunar infarctions of the right basal ganglia and thalamus. Decreased attenuation is present in the right thalamus which has the appearance of an old lacunar infarction on the previous exam. This however is slightly more prominent on today's exam and may represent superimposed acute lacunar infarction. There is also a new area of low density in the left head of the caudate region consistent with acute lacunar infarction. These areas do not demonstrate contrast enhancement. No enhancing lesions are evident. There are small bilateral maxillary sinus retention cyst. IMPRESSION: 1. New small lacunar infarction in the head of the caudate on the left. This area measures approximately 10 mm. 2. Chronic lacunar infarctions in the right basal ganglia and thalamus. There is some further decreased attenuation in the right thalamic region which may represent acute lacunar infarction superimposed upon chronic lacunar infarction in this area. 3. No acute intracranial hemorrhage and no enhancing lesions are evident. Dictated by: Navdeep Medel MD 09/06/2020 09:29 Navdeep Medel MD in [place] 09/06/2020 09:29
--- NOTE | 2020-09-06 09:35 | HMH.ACPN2 ---
Internal Medicine - PN: Subj *Date: 09/06/20 *Time: 09:35 Interval history: Overnight patient symptoms have increased. Patient is having left-sided facial droopiness unable to move or squeeze on the left upper extremity. Patient was able to follow commands. Left lower extremity weak but able to move toes. Repeated head CT which showed a new left lacunar infarction in the basal ganglia. And developing infarction on the right thalamus. called for transfer to stroke team. Spoke with Dr. Medina gave report on patient and CT. She stated there was no interventions at this time. States patient is on Xarelto and a baby aspirin that would be the treatment. They do not TPA small vessel disease. Dr. Medina stated that he is developing symptoms could go on for days. The treatment at this time would be Xarelto, aspirin, PT, and OT. Dr. Medina said at this time he does not need interventions. called message left for her to return call. Exam Vital signs and Labs for Last 24 Hours: Temp Pulse Resp BP Pulse Ox 97.8 F 77 18 143/85 H 99 09/06/20 07:35 09/06/20 07:35 09/06/20 07:35 09/06/20 07:35 09/06/20 07:35 Laboratory Results - last 24 hr 09/05/20 21:55: POC Glucose 306 H* 09/06/20 03:58: POC Glucose 268 H 09/06/20 06:22: POC Glucose 274 H 09/06/20 06:51: WBC 8.9 D, RBC 5.01, Hgb 15.2, Hct 46.0, MCV 91.6, MCH 30.3, MCHC 33.1, RDW 13.2, Plt Count 222, MPV 6.9 L, Neut % (Auto) 80.6 H, Lymph % (Auto) 12.5, [place] % (Auto) 5.1, Eos % (Auto) 1.2, Baso % (Auto) 0.5, Neut # (Auto) 7.2, Lymph # (Auto) 1.1, [place] # (Auto) 0.5, Eos # (Auto) 0.1, Baso # (Auto) 0.1 09/06/20 06:51: Sodium 133 L, Potassium 3.3 L, Chloride 98, Carbon Dioxide 26 D, Anion Gap 12.3, BUN 13 D, Creatinine 0.90, Estimated Creat Clear 105, Estimated GFR 86, Est GFR ( Amer) 105, Glucose 298 H, Calcium 8.6 I & O for Last 24 hours: Intake & Output 09/03/20 09/04/20 09/05/20 09/06/20 11:59 11:59 11:59 11:59 Intake Total 2886 / 2886 2736 / 2736 Output Total 700 / 700 Balance 2886 / 2886 2035 Weight 187 lb 1.348 oz 184 lb 8 oz - Constitutional no acute distress, thin - *Routine HEENT Exam Head: Present: normocephalic Eye: Present: PERRL ENT: Present: mucous membranes moist - *Routine Neck Exam Present: supple. Absent: lymphadenopathy - *Routine Respiratory Exam Present: CTA bilaterally - *Routine Cardiovascular Exam Present: RRR - *Routine Abdominal Exam Present: soft, normoactive bowel sounds. Absent: tenderness - *Routine Extremities Exam Absent: cyanosis, clubbing, edema, full ROM Comments: Left lower extremity weakness but able to move. Unable to move left upper extremity or grasp hand. But able to feel touch. - *Routine Skin Exam Present: warm. Absent: rash - *Routine Neurological Exam Present: alert, oriented X3, motor deficit, facial asymmetry Facial droopiness on the left.able to stick out tongue. - Routine Psychiatric Exam Present: normal affect Assessment and Plan (1) Transient ischemic attack (TIA) Status: Acute Category: Medical Code(s): G45.9 - Transient cerebral ischemic attack, unspecified (2) AICD (automatic cardioverter/defibrillator) present Status: Chronic Category: Surgical Code(s): Z95.810 - Presence of automatic (implantable) cardiac defibrillator (3) Chronic systolic heart failure Status: Chronic Category: Medical Code(s): I50.22 - Chronic systolic (congestive) heart failure (4) Cardiomyopathy, dilated, nonischemic Status: Chronic Category: Medical Code(s): I42.0 - Dilated cardiomyopathy (5) Right bundle branch block (RBBB) Status: Acute Category: Medical Code(s): I45.10 - Unspecified right bundle-branch block (6) CAD (coronary artery disease) Status: Chronic Qualifiers: Coronary Disease-Associated Artery/Lesion type: [place] artery [place] vs. transplanted heart: [place] heart Associated angina: without angina Qualified Code
--- NOTE | 2020-09-06 14:07 | HMH.SLDYSPHA ---
Speech & Language Evaluation Speech/Language Dysphagia Evaluation Start: 09/06/20 13:49 Freq: ONCE Status: Active Protocol: Document 09/06/20 13:50 FAM (Rec: 09/06/20 14:06 FAM [id number]) Dysphagia Assess/Goals/Plan Assessment Date of Evaluation: 09/06/20 Evaluation Type Initial Certification Assessment/Problems Dysphagia Does Patient Qualify for Service No Qualify/Failure Comment Patient showed no signs of dysphagia. No diet modifications needed. Recommendations PHYSICIAN CERTIFICATION: The specified therapy services are required, authorized, and reviewed every 30 days. Diet Recommendations Normal Liquid Type Recommendations Normal/Thin Dysphagia Swallow Precautions/Strategies Sitting Upright (90 deg) Plan Pt/Guardian verbally ack understanding Yes: RN notified of dx/prognosis/goals G -code Required No Speech & Language HPI Language Primary Language Tajik General Information General Current Food Consistancy Regular,Thin Liquids Dentition Good Dentition Oxygen Status Room Air Facial Symmetry Asymmetrical Patient Orientation Person,Place,Time,Situation Ability to Follow Directions Excellent Communication Ability No Impairment Dysphagia:Food Presentation Evaluation Food Type Mechanical Soft,Regular,Liquid ,Pudding Dysphagia Evaluation Summary Mr. Flores was given the following consistencies: thins via straw and open cup, pudding, mechanical soft, and regular. No signs of dysphagia were noted during the evaluation. At this time, Mr. Flores is on the least restrictive diet. Therapy is not warranted. Stroke Dysphagia Assessment PHYSICIAN CERTIFICATION: I certify the specified therapy services for Vikram Flores are required, authorized, and reviewed every 30 days.
[2020-09-06 15:37] VITALS: BP 152/97; PULSE 78; RESP 20; TEMP 36.6; O2SAT 95
--- NOTE | 2020-09-06 18:30 | PC.NURSE ---
HE IS AOx4, ABLE TO MAKE NEEDS KNOWN TO STAFF, LEFT SIDED FLACCIDITY IS STILL NOTICEABLE, MD IS AWARE OF STATUS, HE DID RECEIVE ANOTHER CT THIS SHIFT BUT NO NEW ORDERS AT THIS TIME, PT DOES NOT APPEAR TO HAVE ANY ISSUES WITH SWALLOWING OR CHEWING, TOLERATING DIABETIC DIET WELL, DENIES N/V/D, NO NEEDS AT THIS TIME, WILL CONTINUE TO MONITOR.
[2020-09-06 20:00] VITALS: BP 151/89; PULSE 66; RESP 18; TEMP 36.7; O2SAT 99
--- NOTE | 2020-09-06 21:27 | PC.NURSE ---
INFORMED DR ROMAN OF PT FSBS THIS EVENING. NO NEW ORDERS.
[2020-09-06 21:35] LABS: POC Glucose,Bedside 171 (70-110)
[2020-09-07 04:00] VITALS: BP 150/89; PULSE 67; RESP 16; TEMP 36.6; O2SAT 97
--- NOTE | 2020-09-07 04:32 | PC.NURSE ---
PT. ABLE TO STATE NAME, , PLACE AND YEAR. PT. ABLE TO FOLLOW COMMANDS AND STATE NEEDS. LUE NOTED TO HAVE SEVERE WEAKNESS AND LLE NOTED TO BE FLACCID. NO EPISODES OF N/V/D, DIZZINESS, SOA OR PAIN THIS SHIFT.
[2020-09-07 05:10] VITALS: BMI 25.4
[2020-09-07 06:53] LABS: POC Glucose,Bedside 201 (70-110)
[2020-09-07 07:20] LABS: Basophils # 0.1 K/mm3 (0-0.2); Basophils % 0.6 % (0.1-2.0); Eosinophils # 0.1 K/mm3 (0.0-0.4); Eosinophils % 1.7 % (0.1-12.0); Hematocrit 47.5 % (42.0-52.0); Hemoglobin 16.2 g/dL (14.1-18.0); Lymphocytes # 1.9 K/mm3 (0.7-4.5); Lymphocytes % 22.4 % (10-50); Mean Corpuscular HGB Conc 34.1 g/dL (31.8-35.4); Mean Corpuscular Volume 91.1 fl (80-94); Mean Platelet Volume 7.3 fl (7.4-10.4); Monocytes # 0.5 K/mm3 (0.1-1.0); Monocytes % 5.5 % (1.7-9.3); Neutrophils # 5.8 K/mm3 (1.8-7.8); Neutrophils % 69.8 % (37.0-80.0); Platelet Count 245 K/mm3 (142-424); Red Blood Count 5.22 M/mm3 (4.60-6.20); Red Cell Distribution Width 13.7 % (11.5-17.5); White Blood Count 8.3 K/mm3 (4.8-10.8)
[2020-09-07 07:32] LABS: Anion Gap 9.1 mEq/L (5-15); Blood Urea Nitrogen 15 mg/dl (9-20); Calcium 8.9 mg/dl (8.4-10.2); Carbon Dioxide 29 mmol/L (22.0-30.0); Chloride 96 mmol/L (98-107); Creatinine Clearance Estimated 106 mL/min (50-200); Estimated Glomerular Filt Rate 86 ml/min (>60); GFR (African American) 105 ML/MIN (>60); Glucose 226 mg/dl (74-100); Potassium 3.1 mmoL/L (3.5-5.1); Sodium 131 mmol/L (136-145)
[2020-09-07 08:00] VITALS: BP 155/86; PULSE 69; RESP 16; TEMP 36.7; O2SAT 95
--- NOTE | 2020-09-07 09:16 | HMH.ACPN2 ---
Internal Medicine - PN: Subj *Date: 09/07/20 *Time: 09:16 Interval history: pt alert and oreinted x3 Exam Vital signs and Labs for Last 24 Hours: Temp Pulse Resp BP Pulse Ox 98.0 F 69 16 155/86 H 95 09/07/20 08:00 09/07/20 08:00 09/07/20 08:00 09/07/20 08:00 09/07/20 08:00 Laboratory Results - last 24 hr 09/06/20 21:23: POC Glucose 171 H 09/07/20 06:25: WBC 8.3, RBC 5.22, Hgb 16.2, Hct 47.5, MCV 91.1, MCH 31.0, MCHC 34.1, RDW 13.7, Plt Count 245, MPV 7.3 L, Neut % (Auto) 69.8, Lymph % (Auto) 22.4, [place] % (Auto) 5.5, Eos % (Auto) 1.7, Baso % (Auto) 0.6, Neut # (Auto) 5.8, Lymph # (Auto) 1.9, [place] # (Auto) 0.5, Eos # (Auto) 0.1, Baso # (Auto) 0.1 09/07/20 06:25: Sodium 131 L, Potassium 3.1 L, Chloride 96 L, Carbon Dioxide 29, Anion Gap 9.1, BUN 15, Creatinine 0.90, Estimated Creat Clear 106, Estimated GFR 86, Est GFR ( Amer) 105, Glucose 226 H D, Calcium 8.9 09/07/20 06:25: POC Glucose 201 H I & O for Last 24 hours: Intake & Output 09/04/20 09/05/20 09/06/20 09/07/20 11:59 11:59 11:59 11:59 Intake Total 2886 / 2886 2736 / 2736 720 / 720 Output Total 700 / 700 850 / 850 Balance 2886 / 2886 2035 / 2035 -130 / -130 Weight 187 lb 1.348 oz 184 lb 8 oz 187 lb 11.2 oz - Constitutional no acute distress - *Routine HEENT Exam Head: Present: normocephalic Eye: Present: PERRL ENT: Present: mucous membranes moist - *Routine Neck Exam Present: supple. Absent: lymphadenopathy - *Routine Respiratory Exam Present: CTA bilaterally - *Routine Cardiovascular Exam Present: RRR - *Routine Abdominal Exam Present: soft, normoactive bowel sounds. Absent: tenderness - *Routine Extremities Exam Absent: cyanosis, clubbing, edema Comments: unable to move or grasp with left arm/hand left face droop - *Routine Skin Exam Present: warm. Absent: rash - *Routine Neurological Exam Present: alert, oriented X3 - Routine Psychiatric Exam Present: normal affect Assessment and Plan (1) Transient ischemic attack (TIA) Status: Acute Category: Medical Code(s): G45.9 - Transient cerebral ischemic attack, unspecified (2) AICD (automatic cardioverter/defibrillator) present Status: Chronic Category: Surgical Code(s): Z95.810 - Presence of automatic (implantable) cardiac defibrillator (3) Chronic systolic heart failure Status: Chronic Category: Medical Code(s): I50.22 - Chronic systolic (congestive) heart failure (4) Cardiomyopathy, dilated, nonischemic Status: Chronic Category: Medical Code(s): I42.0 - Dilated cardiomyopathy (5) Right bundle branch block (RBBB) Status: Acute Category: Medical Code(s): I45.10 - Unspecified right bundle-branch block (6) CAD (coronary artery disease) Status: Chronic Qualifiers: Coronary Disease-Associated Artery/Lesion type: [place] artery [place] vs. transplanted heart: [place] heart Associated angina: without angina Qualified Code(s): I25.10 - Atherosclerotic heart disease of [place] coronary artery without angina pectoris Category: Medical Code(s): I25.10 - Atherosclerotic heart disease of [place] coronary artery without angina pectoris (7) HTN (hypertension) Status: Chronic Qualifiers: Hypertension type: essential hypertension Qualified Code(s): I10 - Essential (primary) hypertension Category: Medical Code(s): I10 - Essential (primary) hypertension (8) Diabetes mellitus Status: Chronic Qualifiers: Diabetes mellitus type: type 2 Diabetes mellitus skilled nursing insulin use: without rodent exterminator use Diabetes mellitus complication status: with neurologic complications Diabetes mellitus complication detail: with polyneuropathy Qualified Code(s): E11.42 - Type 2 diabetes mellitus with diabetic polyneuropathy Category: Medical Code(s): E11.9 - Type 2 diabetes mellitus without complications - Assessment and plan all Dx Assessment and Plan for all problems:: rounded with dr dumas
--- NOTE | 2020-09-07 09:35 | SW/DCPLANNER ---
Addendum entered by [facility] 09/11/20 09:28: This patient discharged to [facility] Stroke Unit today. I did inform Heidy with [facility]. Addendum entered by [facility] 09/10/20 15:57: Heidy with [facility] has stated that due to patient not being at [facility] by 4PM (hold up due to ambulance transportation) accepted MD (Dr Blackburn) has requested to postpone admission to [facility] till tomorrow morning. I will inform: nurse (Daija), Taz Kimbrough and patient/family. Addendum entered by [facility] 09/10/20 13:20: Discharge summary has been faxed to [facility] Stroke [facility]. Nurse is aware that patient will need to be at [facility] before 4PM. Patient/ prefer ambulance transportation. Addendum entered by [facility] 09/10/20 13:04: Per Heiyd with [facility] this patient has been approved for today. I have informed patients family and nurse (Maribell). Patient will discharge today. Heidy has requested that this patient be at [facility] prior to 4PM and this has been relayed to nursing and MD. Addendum entered by [facility] 09/10/20 10:00: Updated patient information has been faxed to Heidy at [facility]. Patient is medically stable for discharge however we are currently waiting to hear back regarding precert from patients insurance. Addendum entered by [facility] 09/07/20 14:34: [facility] Unit: Stroke Unit Accepting MD: Dr Blackburn (unless discharge over weekend will be news production supervisor MD) report phone number: [phone] fax number: [phone] At this time [facility] is just waiting for precert from insurance. Patient, and MD are aware of plan. Heidy with [facility] will follow up once insurance gives auth. Addendum entered by [facility] 09/07/20 13:37: Continue to wait for pre-cert from insurance per Heidy at [facility]. Original Note: Per Heidy with [facility] this patient has been accepted to [facility] pending authorization from insurance company. I will update patient and his . I have also updated MD regarding situation. Dr Levine has stated that patient can discharge once auth is received from insurance. Heidy has stated that no further COVID testing is needed prior to admission to [facility]. I will continue to update: patient, , MD and Heidy with [facility]. Patient is agreeable to plan.
[2020-09-07 11:04] LABS: POC Glucose,Bedside 262 (70-110)
[2020-09-07 11:04] LABS: POC Glucose,Bedside 318 (70-110)
[2020-09-07 11:04] LABS: POC Glucose,Bedside 455 (70-110)
[2020-09-07 11:27] LABS: POC Glucose,Bedside 226 (70-110)
[2020-09-07 16:00] VITALS: BP 141/86; PULSE 69; RESP 18; TEMP 36.8; O2SAT 96
[2020-09-07 16:46] LABS: POC Glucose,Bedside 266 (70-110)
--- NOTE | 2020-09-07 17:45 | PC.NURSE ---
1630 RN reassessment complete. Pt has slept for majority of the shift, reports that he did not rest well last night. LUE remains flaccid, elevated on a pillow this shift. LLE with extreme weakness. Left sided facial droop not noticed during AM assessment but has been noticed since. A & O X4. Lung sounds CTA. Abd soft and nontender with BS active in all quads. Call light within reach, will continue to monitor.
[2020-09-07 20:00] VITALS: BP 159/84; PULSE 76; RESP 18; TEMP 36.4; O2SAT 96
[2020-09-07 20:10] VITALS: O2SAT 96
[2020-09-07 21:53] LABS: POC Glucose,Bedside 269 (70-110)
[2020-09-08 04:00] VITALS: BP 146/86; PULSE 69; RESP 16; TEMP 36.7; O2SAT 96
[2020-09-08 05:08] VITALS: BMI 24.8
--- NOTE | 2020-09-08 05:12 | PC.NURSE ---
at approximately 2009, bed alarm sounded and staff responded, pt had fallen before staff entered room, no injuries noted, no complaints of pain, vice president media relations dr notified, no new orders received, has rested well the rest of the shift, pt continues to have severe weakness to the LLE and the LUE is flaccid, is AxOx4, no complaints of SOA, chest pain, N/V/D, bed alarm remains on for safety
[2020-09-08 06:11] LABS: POC Glucose,Bedside 218 (70-110)
[2020-09-08 07:06] LABS: Basophils % 0.5 % (0.1-2.0); Eosinophils # 0.2 K/mm3 (0.0-0.4); Eosinophils % 1.9 % (0.1-12.0); Hematocrit 45.1 % (42.0-52.0); Hemoglobin 15.7 g/dL (14.1-18.0); Lymphocytes # 1.4 K/mm3 (0.7-4.5); Lymphocytes % 17.8 % (10-50); Mean Corpuscular HGB Conc 34.8 g/dL (31.8-35.4); Mean Corpuscular Hemoglobin 31.3 pg (27.0-31.2); Mean Corpuscular Volume 90.2 fl (80-94); Mean Platelet Volume 7.6 fl (7.4-10.4); Monocytes # 0.5 K/mm3 (0.1-1.0); Monocytes % 5.8 % (1.7-9.3); Neutrophils # 5.7 K/mm3 (1.8-7.8); Neutrophils % 74.1 % (37.0-80.0); Platelet Count 243 K/mm3 (142-424); Red Cell Distribution Width 13.6 % (11.5-17.5); White Blood Count 7.7 K/mm3 (4.8-10.8)
[2020-09-08 07:24] LABS: Anion Gap 10.2 mEq/L (5-15); Blood Urea Nitrogen 13 mg/dl (9-20); Calcium 8.7 mg/dl (8.4-10.2); Carbon Dioxide 29 mmol/L (22.0-30.0); Chloride 98 mmol/L (98-107); Creatinine Clearance Estimated 104 mL/min (50-200); Estimated Glomerular Filt Rate 86 ml/min (>60); GFR (African American) 105 ML/MIN (>60); Glucose 215 mg/dl (74-100); Potassium 3.2 mmoL/L (3.5-5.1); Sodium 134 mmol/L (136-145)
[2020-09-08 08:00] VITALS: BP 149/89; PULSE 68; RESP 18; TEMP 36.8; O2SAT 97
--- NOTE | 2020-09-08 09:37 | HMH.ACPN2 ---
Internal Medicine - PN: Subj *Date: 09/08/20 *Time: 09:37 Interval history: pt doing ok- no c/o - no improvement with lt upper ext - awaiting [facility] Exam Vital signs and Labs for Last 24 Hours: Temp Pulse Resp BP Pulse Ox 98.1 F 69 16 146/86 H 96 09/08/20 04:00 09/08/20 04:00 09/08/20 04:00 09/08/20 04:00 09/08/20 04:00 Laboratory Results - last 24 hr 09/06/20 14:06: POC Glucose 318 H* 09/06/20 17:43: POC Glucose 262 H 09/06/20 18:35: POC Glucose 455 H* 09/07/20 11:12: POC Glucose 226 H 09/07/20 16:28: POC Glucose 266 H 09/07/20 21:02: POC Glucose 269 H 09/08/20 05:43: POC Glucose 218 H 09/08/20 06:32: WBC 7.7, RBC 5.00, Hgb 15.7, Hct 45.1, MCV 90.2, MCH 31.3 H, MCHC 34.8, RDW 13.6, Plt Count 243, MPV 7.6, Neut % (Auto) 74.1, Lymph % (Auto) 17.8, [place] % (Auto) 5.8, Eos % (Auto) 1.9, Baso % (Auto) 0.5, Neut # (Auto) 5.7, Lymph # (Auto) 1.4, [place] # (Auto) 0.5, Eos # (Auto) 0.2, Baso # (Auto) 0.0 09/08/20 06:32: Sodium 134 L, Potassium 3.2 L, Chloride 98, Carbon Dioxide 29, Anion Gap 10.2, BUN 13, Creatinine 0.90, Estimated Creat Clear 104, Estimated GFR 86, Est GFR ( Amer) 105, Glucose 215 H, Calcium 8.7 I & O for Last 24 hours: Intake & Output 09/05/20 09/06/20 09/07/20 09/08/20 11:59 11:59 11:59 11:59 Intake Total 2886 / 2886 2736 / 2736 720 / 720 1054 / 1054 Output Total 700 / 700 1300 / 1300 1000 / 1000 Balance 2886 / 2886 2035 / 2035 -580 / -580 54 / 54 Weight 187 lb 1.348 oz 184 lb 8 oz 187 lb 11.2 oz 183 lb 8 oz - Constitutional no acute distress - *Routine HEENT Exam Head: Present: normocephalic Eye: Present: EOMI, PERRL ENT: Present: mucous membranes dry - *Routine Neck Exam Present: supple - *Routine Respiratory Exam Present: CTA bilaterally - *Routine Cardiovascular Exam Present: RRR, murmur - *Routine Abdominal Exam Present: soft - *Routine Extremities Exam Absent: calf tenderness - *Routine Skin Exam Present: intact - *Routine Neurological Exam Present: alert, CN II-XII intact flaccid lt upper ext - Routine Psychiatric Exam Present: normal affect Assessment and Plan (1) Transient ischemic attack (TIA) Status: Acute Category: Medical Code(s): G45.9 - Transient cerebral ischemic attack, unspecified (2) AICD (automatic cardioverter/defibrillator) present Status: Chronic Category: Surgical Code(s): Z95.810 - Presence of automatic (implantable) cardiac defibrillator (3) Chronic systolic heart failure Status: Chronic Category: Medical Code(s): I50.22 - Chronic systolic (congestive) heart failure (4) Cardiomyopathy, dilated, nonischemic Status: Chronic Category: Medical Code(s): I42.0 - Dilated cardiomyopathy (5) Right bundle branch block (RBBB) Status: Acute Category: Medical Code(s): I45.10 - Unspecified right bundle-branch block (6) CAD (coronary artery disease) Status: Chronic Qualifiers: Coronary Disease-Associated Artery/Lesion type: [place] artery [place] vs. transplanted heart: [place] heart Associated angina: without angina Qualified Code(s): I25.10 - Atherosclerotic heart disease of [place] coronary artery without angina pectoris Category: Medical Code(s): I25.10 - Atherosclerotic heart disease of [place] coronary artery without angina pectoris (7) HTN (hypertension) Status: Chronic Qualifiers: Hypertension type: essential hypertension Qualified Code(s): I10 - Essential (primary) hypertension Category: Medical Code(s): I10 - Essential (primary) hypertension (8) Diabetes mellitus Status: Chronic Qualifiers: Diabetes mellitus type: type 2 Diabetes mellitus nursing home insulin use: without buttermaker use Diabetes mellitus complication status: with neurologic complications Diabetes mellitus complication detail: with polyneuropathy Qualified Code(s): E11.42 - Type 2 diabetes mellitus with diabetic polyneuropathy Category: Medical Code(s): E11.9 - Type
[2020-09-08 11:38] LABS: POC Glucose,Bedside 159 (70-110)
[2020-09-08 15:52] LABS: POC Glucose,Bedside 228 (70-110)
[2020-09-08 16:00] VITALS: BP 141/86; PULSE 71; RESP 18; TEMP 36.9; O2SAT 96
--- NOTE | 2020-09-08 16:20 | PC.NURSE ---
A&OX4. PT HAS TOLERATED RA WELL THROUGHOUT SHIFT. RESPIRATIONS REGULAR AND UNLABORED. LUNG SOUNDS BILATERALLY CLEAR. ACTIVE BOWEL SOUNDS HEARD IN ALL 4 QUADRANTS. SOFT AND NONTENDER ABDOMEN .NO BM THUS FAR. PT VOIDS PER URINAL WITH CLEAR YELLOW URINE NOTED. +2 PULSES NOTED. L ARM IS FLACCID. SEVERE WEAKNESS NOTED TO L LEG. NO EDEMA NOTED. NO REPORTS OF PAIN THUS FAR. NS INFUSING AT 50ML/HR. VISITED PT TODAY. BED ALARM ON TO PROMOTE SAFETY. PT IS CURRENTLY LYING IN BED W CALL LIGHT WITHIN REACH. BED IN LOWEST POSITION. VSS. WILL CONTINUE TO MONITOR.
[2020-09-08 20:00] VITALS: BP 151/94; PULSE 69; RESP 16; TEMP 36.7; O2SAT 97
[2020-09-08 20:30] VITALS: O2SAT 97
[2020-09-08 20:49] LABS: POC Glucose,Bedside 228 (70-110)
[2020-09-09 04:00] VITALS: BP 149/79; PULSE 68; RESP 16; TEMP 36.8; O2SAT 96
[2020-09-09 04:48] VITALS: BMI 25.4
--- NOTE | 2020-09-09 04:59 | PC.NURSE ---
pt has rested well t/o shift, no acute changes since prior assessment, left leg remains severely weak, and left arm remains flaccid, bed alarm remains on for safety
[2020-09-09 06:18] LABS: POC Glucose,Bedside 203 (70-110)
[2020-09-09 07:21] LABS: Basophils # 0.1 K/mm3 (0-0.2); Basophils % 0.7 % (0.1-2.0); Eosinophils # 0.2 K/mm3 (0.0-0.4); Eosinophils % 2.3 % (0.1-12.0); Hematocrit 46.2 % (42.0-52.0); Hemoglobin 15.6 g/dL (14.1-18.0); Lymphocytes # 1.4 K/mm3 (0.7-4.5); Lymphocytes % 18.2 % (10-50); Mean Corpuscular HGB Conc 33.8 g/dL (31.8-35.4); Mean Corpuscular Hemoglobin 30.9 pg (27.0-31.2); Mean Corpuscular Volume 91.4 fl (80-94); Mean Platelet Volume 7.4 fl (7.4-10.4); Monocytes # 0.5 K/mm3 (0.1-1.0); Neutrophils # 5.4 K/mm3 (1.8-7.8); Neutrophils % 71.8 % (37.0-80.0); Platelet Count 226 K/mm3 (142-424); Red Blood Count 5.06 M/mm3 (4.60-6.20); Red Cell Distribution Width 13.6 % (11.5-17.5); White Blood Count 7.5 K/mm3 (4.8-10.8)
[2020-09-09 07:36] LABS: Anion Gap 8.5 mEq/L (5-15); Blood Urea Nitrogen 14 mg/dl (9-20); Calcium 8.6 mg/dl (8.4-10.2); Carbon Dioxide 28 mmol/L (22.0-30.0); Chloride 100 mmol/L (98-107); Creatinine Clearance Estimated 120 mL/min (50-200); Estimated Glomerular Filt Rate 99 ml/min (>60); GFR (African American) 120 ML/MIN (>60); Glucose 222 mg/dl (74-100); Potassium 3.5 mmoL/L (3.5-5.1); Sodium 133 mmol/L (136-145)
[2020-09-09 08:00] VITALS: BP 126/90; PULSE 69; RESP 20; TEMP 36.4; O2SAT 95
--- NOTE | 2020-09-09 09:36 | HMH.ACPN2 ---
Internal Medicine - PN: Subj *Date: 09/09/20 *Time: 08:30 Interval history: doing ok - sleepy but no sig change in neuro exam - - vss and labs ok Exam Vital signs and Labs for Last 24 Hours: Temp Pulse Resp BP Pulse Ox 97.6 F 69 20 126/90 95 09/09/20 08:00 09/09/20 08:00 09/09/20 08:00 09/09/20 08:00 09/09/20 08:00 Laboratory Results - last 24 hr 09/08/20 11:30: POC Glucose 159 H 09/08/20 15:41: POC Glucose 228 H 09/08/20 20:42: POC Glucose 228 H 09/09/20 06:02: POC Glucose 203 H 09/09/20 06:20: WBC 7.5, RBC 5.06, Hgb 15.6, Hct 46.2, MCV 91.4, MCH 30.9, MCHC 33.8, RDW 13.6, Plt Count 226, MPV 7.4, Neut % (Auto) 71.8, Lymph % (Auto) 18.2, [place] % (Auto) 7.0, Eos % (Auto) 2.3, Baso % (Auto) 0.7, Neut # (Auto) 5.4, Lymph # (Auto) 1.4, [place] # (Auto) 0.5, Eos # (Auto) 0.2, Baso # (Auto) 0.1 09/09/20 06:20: Sodium 133 L, Potassium 3.5, Chloride 100, Carbon Dioxide 28, Anion Gap 8.5, BUN 14, Creatinine 0.80, Estimated Creat Clear 120, Estimated GFR 99, Est GFR ( Amer) 120, Glucose 222 H, Calcium 8.6 I & O for Last 24 hours: Intake & Output 09/06/20 09/07/20 09/08/20 09/09/20 11:59 11:59 11:59 11:59 Intake Total 2736 / 2736 720 / 720 1174 / 1174 1042 / 1042 Output Total 700 / 700 1300 / 1300 1000 / 1000 550 / 550 Balance 2035 / 2035 -580 / -580 174 / 174 492 / 492 Weight 184 lb 8 oz 187 lb 11.2 oz 183 lb 8 oz 188 lb 2 oz - Constitutional no acute distress - *Routine HEENT Exam Head: Present: normocephalic Eye: Present: EOMI, PERRL ENT: Present: mucous membranes dry - *Routine Neck Exam Present: supple - *Routine Respiratory Exam Present: CTA bilaterally - *Routine Cardiovascular Exam Present: RRR - *Routine Abdominal Exam Present: soft - *Routine Extremities Exam Absent: calf tenderness - *Routine Skin Exam Present: intact - *Routine Neurological Exam Present: motor deficit (flaccid lt upper ext ) - Routine Psychiatric Exam Present: unable to assess Assessment and Plan (1) Transient ischemic attack (TIA) Status: Acute Category: Medical Code(s): G45.9 - Transient cerebral ischemic attack, unspecified (2) AICD (automatic cardioverter/defibrillator) present Status: Chronic Category: Surgical Code(s): Z95.810 - Presence of automatic (implantable) cardiac defibrillator (3) Chronic systolic heart failure Status: Chronic Category: Medical Code(s): I50.22 - Chronic systolic (congestive) heart failure (4) Cardiomyopathy, dilated, nonischemic Status: Chronic Category: Medical Code(s): I42.0 - Dilated cardiomyopathy (5) Right bundle branch block (RBBB) Status: Acute Category: Medical Code(s): I45.10 - Unspecified right bundle-branch block (6) CAD (coronary artery disease) Status: Chronic Qualifiers: Coronary Disease-Associated Artery/Lesion type: [place] artery [place] vs. transplanted heart: [place] heart Associated angina: without angina Qualified Code(s): I25.10 - Atherosclerotic heart disease of [place] coronary artery without angina pectoris Category: Medical Code(s): I25.10 - Atherosclerotic heart disease of [place] coronary artery without angina pectoris (7) HTN (hypertension) Status: Chronic Qualifiers: Hypertension type: essential hypertension Qualified Code(s): I10 - Essential (primary) hypertension Category: Medical Code(s): I10 - Essential (primary) hypertension (8) Diabetes mellitus Status: Chronic Qualifiers: Diabetes mellitus type: type 2 Diabetes mellitus keg header insulin use: without keg header use Diabetes mellitus complication status: with neurologic complications Diabetes mellitus complication detail: with polyneuropathy Qualified Code(s): E11.42 - Type 2 diabetes mellitus with diabetic polyneuropathy Category: Medical Code(s): E11.9 - Type 2 diabetes mellitus without complications (9) CVA (cerebral vascular accident) Status: Acute Qualifiers: CVA mechani
[2020-09-09 11:44] LABS: POC Glucose,Bedside 268 (70-110)
--- NOTE | 2020-09-09 15:21 | PC.NURSE ---
A&OX4. PT HAS TOLERATED RA WELL THROUGHOUT SHIFT. RESPIRATIONS REGULAR AND UNLABORED. LUNG SOUNDS BILATERALLY CLEAR. ACTIVE BOWEL SOUNDS HEARD IN ALL 4 QUADRANTS. SOFT AND NONTENDER ABDOMEN .NO BM THUS FAR. PT VOIDS PER URINAL WITH CLEAR YELLOW URINE NOTED. +2 PULSES NOTED. L ARM IS FLACCID. SEVERE WEAKNESS NOTED TO L LEG. NO EDEMA NOTED. NO REPORTS OF PAIN THUS FAR. NS INFUSING AT 50ML/HR. VISITED PT TODAY. BED ALARM ON TO PROMOTE SAFETY. PT RECEIVED A SHOWER AND LINEN CHANGE. PT IS CURRENTLY UP TO THE CHAIR TOLERATING WELL. BED IN LOWEST POSITION. VSS. WILL CONTINUE TO MONITOR.
[2020-09-09 15:48] LABS: POC Glucose,Bedside 217 (70-110)
[2020-09-09 16:00] VITALS: BP 143/69; PULSE 64; RESP 16; TEMP 36.7; O2SAT 98
[2020-09-09 19:45] VITALS: RESP 17; O2SAT 97
[2020-09-09 19:56] VITALS: BP 151/88; PULSE 67; RESP 17; TEMP 36.9; O2SAT 97
[2020-09-09 21:09] LABS: POC Glucose,Bedside 245 (70-110)
[2020-09-10 04:00] VITALS: BP 153/85; PULSE 67; RESP 16; TEMP 37.3; O2SAT 96
--- NOTE | 2020-09-10 04:33 | PC.NURSE ---
no acute changes since prior assessment, pt has rested well t/o shift, left arm remains flaccid, no complaints of SOA or chest pain, remains on room air with O2 sats 96-97%, bed alarm has remained on for safety
[2020-09-10 04:49] VITALS: BMI 25.6
[2020-09-10 05:40] LABS: POC Glucose,Bedside 184 (70-110)
[2020-09-10 07:41] LABS: Anion Gap 9.3 mEq/L (5-15); Blood Urea Nitrogen 12 mg/dl (9-20); Calcium 8.7 mg/dl (8.4-10.2); Carbon Dioxide 29 mmol/L (22.0-30.0); Chloride 100 mmol/L (98-107); Creatinine Clearance Estimated 107 mL/min (50-200); Estimated Glomerular Filt Rate 86 ml/min (>60); GFR (African American) 105 ML/MIN (>60); Glucose 173 mg/dl (74-100); Potassium 3.3 mmoL/L (3.5-5.1); Sodium 135 mmol/L (136-145)
[2020-09-10 07:47] LABS: Basophils # 0.1 K/mm3 (0-0.2); Basophils % 0.7 % (0.1-2.0); Eosinophils # 0.2 K/mm3 (0.0-0.4); Eosinophils % 2.6 % (0.1-12.0); Hematocrit 45.4 % (42.0-52.0); Hemoglobin 15.4 g/dL (14.1-18.0); Lymphocytes # 1.4 K/mm3 (0.7-4.5); Lymphocytes % 18.6 % (10-50); Mean Corpuscular HGB Conc 33.8 g/dL (31.8-35.4); Mean Corpuscular Hemoglobin 31.3 pg (27.0-31.2); Mean Corpuscular Volume 92.4 fl (80-94); Mean Platelet Volume 7.1 fl (7.4-10.4); Monocytes # 0.5 K/mm3 (0.1-1.0); Monocytes % 6.5 % (1.7-9.3); Neutrophils # 5.4 K/mm3 (1.8-7.8); Neutrophils % 71.7 % (37.0-80.0); Platelet Count 223 K/mm3 (142-424); Red Blood Count 4.91 M/mm3 (4.60-6.20); Red Cell Distribution Width 13.7 % (11.5-17.5); White Blood Count 7.5 K/mm3 (4.8-10.8)
[2020-09-10 08:00] VITALS: BP 148/86; PULSE 63; RESP 18; TEMP 36.8; O2SAT 96
--- NOTE | 2020-09-10 08:57 | HMH.ACPN2 ---
Internal Medicine - PN: Subj *Date: 09/10/20 *Time: 08:00 Interval history: no change in condition. waiting for [facility] Exam Vital signs and Labs for Last 24 Hours: Temp Pulse Resp BP Pulse Ox 98.3 F 63 18 148/86 H 96 09/10/20 08:00 09/10/20 08:00 09/10/20 08:00 09/10/20 08:00 09/10/20 08:00 Laboratory Results - last 24 hr 09/09/20 11:33: POC Glucose 268 H 09/09/20 15:38: POC Glucose 217 H 09/09/20 20:12: POC Glucose 245 H 09/10/20 05:33: POC Glucose 184 H 09/10/20 06:48: WBC 7.5, RBC 4.91, Hgb 15.4, Hct 45.4, MCV 92.4, MCH 31.3 H, MCHC 33.8, RDW 13.7, Plt Count 223, MPV 7.1 L, Neut % (Auto) 71.7, Lymph % (Auto) 18.6, [place] % (Auto) 6.5, Eos % (Auto) 2.6, Baso % (Auto) 0.7, Neut # (Auto) 5.4, Lymph # (Auto) 1.4, [place] # (Auto) 0.5, Eos # (Auto) 0.2, Baso # (Auto) 0.1 09/10/20 06:48: Sodium 135 L, Potassium 3.3 L, Chloride 100, Carbon Dioxide 29, Anion Gap 9.3, BUN 12, Creatinine 0.90, Estimated Creat Clear 107, Estimated GFR 86, Est GFR ( Amer) 105, Glucose 173 H, Calcium 8.7 I & O for Last 24 hours: Intake & Output 09/07/20 09/08/20 09/09/20 09/10/20 11:59 11:59 11:59 11:59 Intake Total 720 / 720 1174 / 1174 1042 / 1042 2261 / 2261 Output Total 1300 / 1300 1000 / 1000 550 / 550 1625 / 1625 Balance -580 / -580 174 / 174 492 / 492 636 / 636 Weight 187 lb 11.2 oz 183 lb 8 oz 188 lb 2 oz 189 lb 3 oz - Constitutional no acute distress - *Routine HEENT Exam Head: Present: normocephalic Eye: Present: PERRL ENT: Present: mucous membranes moist - *Routine Neck Exam Present: supple. Absent: lymphadenopathy - *Routine Respiratory Exam Present: CTA bilaterally - *Routine Cardiovascular Exam Present: RRR Comments: pacemaker - *Routine Abdominal Exam Present: soft, normoactive bowel sounds. Absent: tenderness - *Routine Extremities Exam Present: normal capillary refill. Absent: cyanosis, clubbing, edema Comments: unable to move left upper est. left side facial drooping - *Routine Skin Exam Present: warm. Absent: rash - *Routine Neurological Exam Present: alert, oriented X3 facial drooping left side unable to move left upper ext - Routine Psychiatric Exam Present: normal affect Assessment and Plan (1) Transient ischemic attack (TIA) Status: Acute Category: Medical Code(s): G45.9 - Transient cerebral ischemic attack, unspecified (2) AICD (automatic cardioverter/defibrillator) present Status: Chronic Category: Surgical Code(s): Z95.810 - Presence of automatic (implantable) cardiac defibrillator (3) Chronic systolic heart failure Status: Chronic Category: Medical Code(s): I50.22 - Chronic systolic (congestive) heart failure (4) Cardiomyopathy, dilated, nonischemic Status: Chronic Category: Medical Code(s): I42.0 - Dilated cardiomyopathy (5) Right bundle branch block (RBBB) Status: Acute Category: Medical Code(s): I45.10 - Unspecified right bundle-branch block (6) CAD (coronary artery disease) Status: Chronic Qualifiers: Coronary Disease-Associated Artery/Lesion type: [place] artery [place] vs. transplanted heart: [place] heart Associated angina: without angina Qualified Code(s): I25.10 - Atherosclerotic heart disease of [place] coronary artery without angina pectoris Category: Medical Code(s): I25.10 - Atherosclerotic heart disease of [place] coronary artery without angina pectoris (7) HTN (hypertension) Status: Chronic Qualifiers: Hypertension type: essential hypertension Qualified Code(s): I10 - Essential (primary) hypertension Category: Medical Code(s): I10 - Essential (primary) hypertension (8) Diabetes mellitus Status: Chronic Qualifiers: Diabetes mellitus type: type 2 Diabetes mellitus [facility] insulin use: without terminal computer operator use Diabetes mellitus complication status: with neurologic complications Diabetes mellitus complication detail: with polyneuropathy Qualified
[2020-09-10 11:02] LABS: POC Glucose,Bedside 156 (70-110)
--- NOTE | 2020-09-10 13:05 | HMH.DCSUM ---
General - General Admission date:: 09/04/20 Discharge date: 09/10/20 HPI HPI: pt presented to the ed e states that for 2 days pt has been slurring his words and weak on his left side 60-year-old male presenting to the emergency department with left-sided weakness. Symptoms started over the weekend, 2 to 3 days ago. No specific time. Patient noticed that he was having trouble gripping objects with his left hand. [place] like his arm and leg were getting tired quickly. His thought his speech was somewhat abnormal. No vision changes. No numbness or weakness in his lower extremities. No gait instability. He has a history of diabetes, poorly controlled. Cardiac history. Takes a blood thinner, does not know the name. No history of stroke. Chart review shows that patient takes Xarelto. summary this is a 60-year-old male presenting to the emergency department with left-sided weakness. Patient clinically stable on arrival. Taken to a room and placed on equipment monitor phototypesetting. Barely perceptible right arm weakness and pronator drift. No facial asymmetry. No dysarthria or aphasia. Patient is at least 48 hours since symptom onset, likely longer. Will obtain CBC, CMP, chest x-ray, EKG, troponin profile, PT, PTT, noncontrast head CT, CT angiography of the head and neck. Noncontrast head CT shows old lacunar infarcts. CT angiography of the head shows no large vessel occlusion. Does show severe left PHYSICIAN RELATIONS MANAGER P3 stenosis. Severe right RUPESH A2 stenosis CT angiography of the neck shows no abnormality. On reassessment patient has no focal neurologic deficit. Has a subjective tingling in his left hand. But no weakness. No facial asymmetry. No speech difficulty. Eager to eat and drink. Patient will be admitted for MRI of the brain and further management of transient ischemic attack. pt was seen in the ed and has some blurred vision and slurred speech with decreased dexterity lt upper ext - pt will be admitted at this time - Hospital Course Hospital Course: pt was admitted and at first was noted to have some use of lt upper ext - it was felt that he has element of atrophy to both upper ext - he had been eval in ed - In summary this is a 60-year-old male presenting to the emergency department with left-sided weakness. Patient clinically stable on arrival. Taken to a room and placed on equipment monitor phototypesetting. Barely perceptible right arm weakness and pronator drift. No facial asymmetry. No dysarthria or aphasia. Patient is at least 48 hours since symptom onset, likely longer. Will obtain CBC, CMP, chest x-ray, EKG, troponin profile, PT, PTT, noncontrast head CT, CT angiography of the head and neck. Noncontrast head CT shows old lacunar infarcts. CT angiography of the head shows no large vessel occlusion. Does show severe left PHYSICIAN RELATIONS MANAGER P3 stenosis. Severe right RUPESH A2 stenosis CT angiography of the neck shows no abnormality. On reassessment patient has no focal neurologic deficit. Has a subjective tingling in his left hand. But no weakness. No facial asymmetry. No speech difficulty. Eager to eat and drink. Patient will be admitted for MRI of the brain and further management of transient ischemic attack. PROCEDURE: CT HEAD/BRAIN WO CON CLINICAL INDICATION: left arm weak And study gait, left arm weakness, walking difficulty COMPARISON: CT HEADWO CT head/brain wo con from 03/22/2019 TECHNIQUE: Axial images obtained. All CT scans at the facility use one or more dose reduction, viz: automated exposure control, ma/kV adjustment per patient size (including targeted exams where dose is matched to indication, i.e. head), or iterative reconstruction technique. FINDINGS: No midline shift, mass effect, intracranial hemorrhage, hydrocephalus, or extra-axial fluid collection is evident. There are old right-sided lacunar infarctions of the basal ganglia and thalamus. The calvarium has an unremarkable appearance. No mastoid eff
--- NOTE | 2020-09-10 13:53 | PC.NURSE ---
ATTEMPTED TO CALL REPORT TO [facility]. THEY SAID THEY WOULD CALL BACK SHORTLY.
--- NOTE | 2020-09-10 14:07 | PC.NURSE ---
CALLED REPORT TO ANALI AT [facility].
--- NOTE | 2020-09-10 14:10 | PC.NURSE ---
CALLED [facility] TO TRANSPORT PT. THEY SAID IT MAY BE A LITTLE BIT.
[2020-09-10 16:00] VITALS: BP 149/84; PULSE 66; RESP 16; TEMP 36.7; O2SAT 96
--- NOTE | 2020-09-10 19:00 | PC.NURSE ---
A&OX4. PT HAS TOLERATED RA WELL THROUGHOUT SHIFT. RESPIRATIONS REGULAR AND UNLABORED. LUNG SOUNDS BILATERALLY CLEAR. ACTIVE BOWEL SOUNDS HEARD IN ALL 4 QUADRANTS. SOFT AND NONTENDER ABDOMEN .NO BM THUS FAR. PT VOIDS PER URINAL WITH CLEAR YELLOW URINE NOTED. +2 PULSES NOTED. L ARM IS FLACCID. SEVERE WEAKNESS NOTED TO L LEG. NO EDEMA NOTED. NO REPORTS OF PAIN THUS FAR. VISITED PT TODAY. BED ALARM ON TO PROMOTE SAFETY. PT WAS UNABLE TO GO TO [facility] TODAY DUE TO [facility] NOT BEING ABLE TO TRANSFER PT UNTIL LATER IN THE DAY DUE TO AN EMERGENCY RUN. IS AWARE. REPORT CALLED TO ANALI. ALL INFO FAXED TO [facility]. PT RECEIVED PNEUMONIA VACCINE AND TOLERATED WELL. PT IS BE DISCHARGED TO [facility] IN THE MORNING. IS AWARE WELL [facility]. PT IS CURRENTLY ASLEEP IN BED. BED IN LOWEST POSITION. CALL LIGHT WITHIN REACH. VSS. WILL CONTINUE TO MONITOR.
[2020-09-10 19:45] VITALS: RESP 16; O2SAT 96
[2020-09-10 20:00] VITALS: BP 114/94; PULSE 69; RESP 16; TEMP 37.1; O2SAT 96
--- NOTE | 2020-09-10 22:33 | PC.NURSE ---
pt's IV access was removed on day shift when pt was supposed to be discharged, pt currently has no IV access and Dr. Levine aware, will discharge to [facility] tomorrow
[2020-09-11 00:41] LABS: POC Glucose,Bedside 179 (70-110)
[2020-09-11 00:41] LABS: POC Glucose,Bedside 241 (70-110)
[2020-09-11 04:00] VITALS: BP 148/81; PULSE 67; RESP 16; TEMP 36.6; O2SAT 96
[2020-09-11 05:11] VITALS: BMI 25.4
--- NOTE | 2020-09-11 05:31 | PC.NURSE ---
pt has rested well t/o shift, no complaints of SOA or chest pain, left arm remains flaccid, left leg remains severely weak, bed alarm remains on
[2020-09-11 06:31] LABS: POC Glucose,Bedside 210 (70-110)
[2020-09-11 07:12] LABS: Basophils # 0.1 K/mm3 (0-0.2); Basophils % 0.6 % (0.1-2.0); Eosinophils # 0.1 K/mm3 (0.0-0.4); Eosinophils % 1.5 % (0.1-12.0); Hemoglobin 16.2 g/dL (14.1-18.0); Lymphocytes # 1.3 K/mm3 (0.7-4.5); Lymphocytes % 13.7 % (10-50); Mean Corpuscular HGB Conc 34.5 g/dL (31.8-35.4); Mean Corpuscular Hemoglobin 32.2 pg (27.0-31.2); Mean Corpuscular Volume 93.4 fl (80-94); Monocytes # 0.6 K/mm3 (0.1-1.0); Monocytes % 6.4 % (1.7-9.3); Neutrophils # 7.2 K/mm3 (1.8-7.8); Neutrophils % 77.9 % (37.0-80.0); Platelet Count 231 K/mm3 (142-424); Red Blood Count 5.03 M/mm3 (4.60-6.20); White Blood Count 9.2 K/mm3 (4.8-10.8)
[2020-09-11 07:28] LABS: Anion Gap 11.2 mEq/L (5-15); Blood Urea Nitrogen 15 mg/dl (9-20); Calcium 8.8 mg/dl (8.4-10.2); Carbon Dioxide 29 mmol/L (22.0-30.0); Chloride 99 mmol/L (98-107); Creatinine Clearance Estimated 107 mL/min (50-200); Estimated Glomerular Filt Rate 86 ml/min (>60); GFR (African American) 105 ML/MIN (>60); Glucose 230 mg/dl (74-100); Potassium 3.2 mmoL/L (3.5-5.1); Sodium 136 mmol/L (136-145)
--- NOTE | 2020-09-11 07:55 | PC.NURSE ---
pt assessed at this time. pt axo x4. pt denies any pain at this time. pt l arm and leg is flaccid. is able to feel touch on this side. unable to move fingers or toes. bilateral lung sounds clear. no edema noted. pt was assisted with opening breakfast tray and pulled up in bed so that he could feed himself. pt is to be transfered to [facility] today for rehab. will continue to observe.
[2020-09-11 08:00] VITALS: BP 151/82; PULSE 64; RESP 17; TEMP 36.6; O2SAT 98
--- NOTE | 2020-09-11 08:20 | HMH.ORTHOCON ---
*Admission Date: 09/04/20 *Reason for consult:: Diabetic Nail trim *History of present illness: Patient Name: Vikram Flores Date of : 1960 Patient Status: Inpatient Attending Provider: Mohan Levine Date: 09/11/20 Initialization Date: 09/04/20 21:26 *Admission Date: 09/04/20 *Chief complaint: possible tia *History of present illness: pt presented to the ed e states that for 2 days pt has been slurring his words and weak on his left side 60-year-old male presenting to the emergency department with left-sided weakness. Symptoms started over the weekend, 2 to 3 days ago. No specific time. Patient noticed that he was having trouble gripping objects with his left hand. [place] like his arm and leg were getting tired quickly. His thought his speech was somewhat abnormal. No vision changes. No numbness or weakness in his lower extremities. No gait instability. He has a history of diabetes, poorly controlled. Cardiac history. Takes a blood thinner, does not know the name. No history of stroke. Chart review shows that patient takes Xarelto. summary this is a 60-year-old male presenting to the emergency department with left-sided weakness. Patient clinically stable on arrival. Taken to a room and placed on campus monitor. Barely perceptible right arm weakness and pronator drift. No facial asymmetry. No dysarthria or aphasia. Patient is at least 48 hours since symptom onset, likely longer. Will obtain CBC, CMP, chest x-ray, EKG, troponin profile, PT, PTT, noncontrast head CT, CT angiography of the head and neck. Noncontrast head CT shows old lacunar infarcts. CT angiography of the head shows no large vessel occlusion. Does show severe left DRILL SERGEANT P3 stenosis. Severe right RUPESH A2 stenosis CT angiography of the neck shows no abnormality. On reassessment patient has no focal neurologic deficit. Has a subjective tingling in his left hand. But no weakness. No facial asymmetry. No speech difficulty. Eager to eat and drink. Patient will be admitted for MRI of the brain and further management of transient ischemic attack. pt was seen in the ed and has some blurred vision and slurred speech with decreased dexterity lt upper ext - pt will be admitted at this time - *New Podiatry Consult today for a Diabetic Nail trim before he is to go to [facility] for Rehab for a TIA and Left sided weakness. Patient is a patient of ours and hadn't been seen since 01/11/20. I will trim his nails today and he can follow up with us again once he is stable and discharged back home in three months. Patient appears to be stable this morning he is eating breakfast using his right hand and is doing well. [facility] History I have reviewed the patient's past medical history: Yes Medical History: Reports:: Anxiety, Cardiomyopathy, Congestive Heart Failure, Coronary Artery Disease, Depression, Diabetes Mellitus Type 1, Diabetes Mellitus Type 2, Hyperlipidemia, Hypertension, Internal Pacemaker, Migraine Denies:: Cancer, MRSA *Have you ever received a pneumonia vaccine?: No *Have you received a flu vaccine this season?: No Other Medical History: Reports: Arthritis, Sinus Problems Laterality Cases: Bilateral: Tonsillectomy Other Surgeries: Yes: Appendectomy, Cardiac Catheterization, Cardiac Surgery, Colonoscopy, Coronary Stent, Pacemaker, Other Amputation: No Fractures: No - *Social History Smoking Status: Never smoker Alcohol Intake: current Alcohol Intake Frequency:: holidays/special occasions only Substance Use Type: former substance user, marijuana *Occupational Status:: unemployed, disabled Housing: house Household Members: spouse *Travel in the last 8 weeks: None [facility] History I have reviewed the patient's past medical history: Yes Medical History: Reports:: Anxiety, Cardiomyopathy, Congestive Heart Failure, Coronary Artery Disease, Depression, Diabetes Mellitus Type 1, Diabetes Mellitus Type 2, Hyperlipidemia, Hyperten
--- NOTE | 2020-09-11 08:37 | PC.NURSE ---
report given to karla at [facility]
--- NOTE | 2020-09-11 08:37 | HMH.ACPN2 ---
Internal Medicine - PN: Subj *Date: 09/11/20 *Time: 08:45 Interval history: 60-year-old male patient sitting up in bed eating breakfast, reports he had a good night. Podiatry has been him today trim nails will schedule appointment in 3 months. Discussed discharge to [facility] today, he is agreement to this. it application support analyst is been arranged for 0900 Exam Vital signs and Labs for Last 24 Hours: Temp Pulse Resp BP Pulse Ox 97.9 F 67 16 148/81 H 96 09/11/20 04:00 09/11/20 04:00 09/11/20 04:00 09/11/20 04:00 09/11/20 04:00 Laboratory Results - last 24 hr 09/10/20 10:53: POC Glucose 156 H 09/10/20 17:05: POC Glucose 179 H 09/10/20 20:25: POC Glucose 241 H 09/11/20 06:23: POC Glucose 210 H 09/11/20 06:36: WBC 9.2, RBC 5.03, Hgb 16.2, Hct 47.0, MCV 93.4, MCH 32.2 H, MCHC 34.5, RDW 14.0, Plt Count 231, MPV 7.0 L, Neut % (Auto) 77.9, Lymph % (Auto) 13.7, [place] % (Auto) 6.4, Eos % (Auto) 1.5, Baso % (Auto) 0.6, Neut # (Auto) 7.2, Lymph # (Auto) 1.3, [place] # (Auto) 0.6, Eos # (Auto) 0.1, Baso # (Auto) 0.1 09/11/20 06:36: Sodium 136, Potassium 3.2 L, Chloride 99, Carbon Dioxide 29, Anion Gap 11.2, BUN 15, Creatinine 0.90, Estimated Creat Clear 107, Estimated GFR 86, Est GFR ( Amer) 105, Glucose 230 H D, Calcium 8.8 I & O for Last 24 hours: Intake & Output 09/08/20 09/09/20 09/10/20 09/11/20 23:59 23:59 23:59 23:59 Intake Total 1496 / 1496 1928 / 1928 1623 / 1623 Output Total 700 / 700 700 / 700 1175 / 1175 775 / 775 Balance 796 / 796 1228 / 1228 448 / 448 -775 / -775 Weight 183 lb 8 oz 188 lb 2 oz 189 lb 3 oz 188 lb 4 oz - Constitutional no acute distress - *Routine HEENT Exam Head: Present: normocephalic Eye: Present: EOMI ENT: Present: mucous membranes moist - *Routine Neck Exam Present: supple, trachea midline. Absent: tracheal deviation - *Routine Respiratory Exam Present: CTA bilaterally. Absent: accessory muscle use - *Routine Cardiovascular Exam Present: RRR - *Routine Abdominal Exam Present: soft, normoactive bowel sounds. Absent: tenderness, firm - *Routine Extremities Exam Present: pulses intact, normal capillary refill. Absent: cyanosis, edema, full ROM Comments: Left upper extremity is flaccid, no drive worker strength Left lower extremity extremely weak - *Routine Skin Exam Present: intact, dry, warm. Absent: cyanosis, erythema - *Routine Neurological Exam Present: alert, oriented X3. Absent: altered mental status - Routine Psychiatric Exam Present: normal affect, normal thought process. Absent: auditory hallucinations, visual hallucinations Assessment and Plan (1) Transient ischemic attack (TIA) Status: Acute Category: Medical Code(s): G45.9 - Transient cerebral ischemic attack, unspecified (2) AICD (automatic cardioverter/defibrillator) present Status: Chronic Category: Surgical Code(s): Z95.810 - Presence of automatic (implantable) cardiac defibrillator (3) Chronic systolic heart failure Status: Chronic Category: Medical Code(s): I50.22 - Chronic systolic (congestive) heart failure (4) Cardiomyopathy, dilated, nonischemic Status: Chronic Category: Medical Code(s): I42.0 - Dilated cardiomyopathy (5) Right bundle branch block (RBBB) Status: Acute Category: Medical Code(s): I45.10 - Unspecified right bundle-branch block (6) CAD (coronary artery disease) Status: Chronic Qualifiers: Coronary Disease-Associated Artery/Lesion type: jena artery [place] vs. transplanted heart: jena heart Associated angina: without angina Qualified Code(s): I25.10 - Atherosclerotic heart disease of jena coronary artery without angina pectoris Category: Medical Code(s): I25.10 - Atherosclerotic heart disease of jena coronary artery without angina pectoris (7) HTN (hypertension) Status: Chronic Qualifiers: Hypertension type: essential hypertension Qualified Code(s): I10 - Essential (primary) hypertension Category:
--- NOTE | 2020-09-11 09:05 | PC.NURSE ---
pt taken off unit at this time in stretcher via x2 ems staff to be transported to [facility]
[2020-09-11 10:25] LABS: POC Glucose,Bedside 311 (70-110)
[2020-09-11 10:25] LABS: POC Glucose,Bedside 291 (70-110)
== END 2020-09-11 09:05 | DRG 65 ==
LOC: ER 19:30 → 2ND 19:48
PROVIDERS: Nurse Practitioner Family; Admitting Provider Emergency Medicine; Emergency Provider Emergency Medicine; PCP Nurse Practitioner Family; Visit Provider Emergency Medicine
DX: I63.81 Other cerebral infarction due to occlusion or stenosis of small artery (principal); G81.94 Hemiplegia, unspecified affecting left nondominant side; I50.22 Chronic systolic (congestive) heart failure; I42.0 Dilated cardiomyopathy; R47.1 Dysarthria and anarthria; R29.810 Facial weakness; I11.0 Hypertensive heart disease with heart failure; I45.10 Unspecified right bundle-branch block; Z95.810 Presence of automatic (implantable) cardiac defibrillator; E11.42 Type 2 diabetes mellitus with diabetic polyneuropathy; I25.10 Atherosclerotic heart disease of native coronary artery without angina pectoris; Z79.899 Other long term (current) drug therapy; Z79.84 Long term (current) use of oral hypoglycemic drugs; Z79.82 Long term (current) use of aspirin; Z79.01 Long term (current) use of anticoagulants
CPT/HCPCS: 36415; 70450; 70470; 70496; 70498; 71045; 73030; 73080; 80048; 80053; 82962; 83036; 84484; 85025; 85610; 85730; 86328; 90732; 92610; 93005; 93306; 93880; 96365; 96366; 96372; 97110; 97162; 97166; 97530; 99284; Q9967

== ENCOUNTER 2020-10-22 10:42 | Emergency (ER) | payer MEDICARE, BC, SELFPAY ==
[2020-10-22 10:42] VITALS: BP 129/75; PULSE 69; RESP 16; TEMP 37.3; O2SAT 98; BMI 24.4
--- NOTE | 2020-10-22 10:48 | XR_ITS ---
PROCEDURE: XR CHEST PORTABLE CLINICAL HISTORY: cough COMPARISON: CR XR CHEST 2V from 06/16/2019 CR XR CHEST 2V from 08/11/2019 CR XR CHEST PORTABLE from 09/04/2020 FINDINGS: Cardiac pacemaker device is present from left subclavian approach with biventricular and right atrial leads. Borderline cardiomegaly without failure. Lungs are clear bilaterally. There are degenerative changes of the shoulders. IMPRESSION: No acute findings. Dictated by: Navdeep Medel MD 10/22/2020 12:00 Navdeep Medel MD in [place] 10/22/2020 12:00
--- NOTE | 2020-10-22 10:48 | CT_ITS ---
PROCEDURE: CT HEAD/BRAIN WO CON CLINICAL INDICATION: weakness Left-sided weakness. Altered mental status, altered level of consciousness, confusion, disorientation COMPARISON: CT CT HEAD/BRAIN WO/W CON from 09/06/2020 TECHNIQUE: Axial images obtained. All CT scans at the facility use one or more dose reduction, viz: automated exposure control, ma/kV adjustment per patient size (including targeted exams where dose is matched to indication, i.e. head), or iterative reconstruction technique. FINDINGS: No midline shift, mass effect, intracranial hemorrhage, hydrocephalus, or extra-axial fluid collection is evident. There are old right-sided lacunar infarctions of the basal ganglia. The calvarium has an unremarkable appearance. No mastoid effusion. Small retention cysts are present in the maxillary sinuses. There is mild mucosal thickening of the ethmoid sinuses. IMPRESSION: 1. No acute intracranial findings. 2. Old right-sided lacunar infarctions of the basal ganglia Dictated by: Navdeep Medel MD 10/22/2020 11:26 Navdeep Medel MD in [place] 10/22/2020 11:26
[2020-10-22 11:00] LABS: Basophils # 0.1 K/mm3 (0-0.2); Basophils % 0.5 % (0.1-2.0); Eosinophils # 0.3 K/mm3 (0.0-0.4); Eosinophils % 2.8 % (0.1-12.0); Hematocrit 42.3 % (42.0-52.0); Hemoglobin 14.3 g/dL (14.1-18.0); Lymphocytes # 1.3 K/mm3 (0.7-4.5); Mean Corpuscular HGB Conc 33.7 g/dL (31.8-35.4); Mean Corpuscular Volume 91.9 fl (80-94); Mean Platelet Volume 7.3 fl (7.4-10.4); Monocytes # 0.6 K/mm3 (0.1-1.0); Monocytes % 6.4 % (1.7-9.3); Neutrophils # 7.3 K/mm3 (1.8-7.8); Neutrophils % 76.3 % (37.0-80.0); Platelet Count 303 K/mm3 (142-424); Red Blood Count 4.61 M/mm3 (4.60-6.20); Red Cell Distribution Width 13.3 % (11.5-17.5); White Blood Count 9.5 K/mm3 (4.8-10.8)
[2020-10-22 11:05] LABS: Chloride 106 mmol/L (98-107)
[2020-10-22 11:06] LABS: Potassium 4.8 mmoL/L (3.5-5.1); Sodium 139 mmol/L (136-145)
[2020-10-22 11:08] LABS: Alanine Aminotransferase 21 U/L (12-78); Aspartate Amino Transferase 26 U/L (17-59); Blood Urea Nitrogen 33 mg/dl (9-20); Creatinine Clearance Estimated 92 mL/min (50-200); Estimated Glomerular Filt Rate 76 ml/min (>60); GFR (African American) 93 ML/MIN (>60); INR 1.07 (0.9-1.1); Prothrombin Time 11.8 seconds (9.4-11.8)
[2020-10-22 11:09] LABS: Albumin Level 4.4 g/dl (3.5-5.0); Albumin/Globulin Ratio 1.3 (1.1-1.8); Alkaline Phosphatase 84 U/L (38-126); Anion Gap 11.8 mEq/L (5-15); Carbon Dioxide 26 mmol/L (22.0-30.0); Globulin 3.3 g/dL (1.3-3.2); Glucose 207 mg/dl (74-100); Total Protein,Serum 7.7 g/dl (6.3-8.2)
[2020-10-22 11:12] VITALS: BP 121/74; PULSE 74; RESP 20; O2SAT 95
[2020-10-22 11:19] LABS: NT Pro Brain Natriuretic Pep. 236 pg/mL (0-125)
--- NOTE | 2020-10-22 11:21 | HMH.EDWEAK ---
ED Disposition Clinical Impression: Transient ischemic attack (TIA) Migraine Qualifiers: Migraine type: without aura Status migrainosus presence: without status migrainosus Intractability: not intractable Qualified Code(s): G43.009 - Migraine without aura, not intractable, without status migrainosus Disposition: Home, Self-Care Condition on Discharge: Good Instructions: DI for Muscle Weakness Referrals: Sandra Ray APRN [Primary Care Provider] - - Critical Care Critical Care Time: No Attestation: On 10/22/20, the high probability of a clinically significant, sudden or life threatening deterioration of the following system(s) required my full and direct attention, intervention and personal management. The time I documented below is in addition to time spent performing reported procedures but includes the following listed in this critical care notation. Medical Decision Making - Medical Records Medical records reviewed: Yes: I reviewed the patient's medical records. - Felipe Inquiry Pt receiving controlled substance: No Vital Signs: 10/22/20 10:42 10/22/20 11:12 10/22/20 11:42 Temperature 99.1 F Temperature Source Oral Pulse Rate [Left] 69 74 72 Respiratory Rate 16 20 18 Blood Pressure [Right Arm] 129/75 121/74 149/84 H Blood Pressure Mean [Right Arm] 93 89 105 Blood Pressure Source [Right Arm] Automatic Cuff Blood Pressure Position [Right Arm] Sitting 02 Sat by Pulse Oximetry 98 95 94 L Oxygen Delivery Method Room Air 10/22/20 12:12 Temperature Temperature Source Pulse Rate [Left] 72 Respiratory Rate 18 Blood Pressure [Right Arm] 136/90 Blood Pressure Mean [Right Arm] 105 Blood Pressure Source [Right Arm] Blood Pressure Position [Right Arm] 02 Sat by Pulse Oximetry 95 Oxygen Delivery Method - Lab Data Lab Results 10/22/20 10:45: WBC 9.5, RBC 4.61, Hgb 14.3, Hct 42.3, MCV 91.9, MCH 31.0, MCHC 33.7, RDW 13.3, Plt Count 303, MPV 7.3 L, Neut % (Auto) 76.3, Lymph % (Auto) 14.0, [place] % (Auto) 6.4, Eos % (Auto) 2.8, Baso % (Auto) 0.5, Neut # (Auto) 7.3, Lymph # (Auto) 1.3, [place] # (Auto) 0.6, Eos # (Auto) 0.3, Baso # (Auto) 0.1 10/22/20 10:45: PT 11.8, INR 1.07, APTT 27.0 10/22/20 10:45: Sodium 139, Potassium 4.8, Chloride 106, Carbon Dioxide 26, Anion Gap 11.8, BUN 33 H, Creatinine 1.00, Estimated Creat Clear 92, Estimated GFR 76, Est GFR ( Amer) 93, Glucose 207 H, Calcium 10.0, Total Bilirubin 1.0, AST 26, ALT 21, Alkaline Phosphatase 84, Troponin I < 0.01, NT-Pro-B Natriuret Pep 236 H, Total Protein 7.7, Albumin 4.4, Globulin 3.3 H, Albumin/Globulin Ratio 1.3, TSH 1.21 Result diagrams: 10/22/20 10:45 10/22/20 10:45 Orders (Tests/Meds): ORDERS Category Date Time Status Troponin I Q3H Lab 10/22/20 14:00 Ordered Troponin I Q3H Lab 10/22/20 17:00 Ordered Urinalysis and Microscopic Stat Lab 10/22/20 10:48 Ordered - Radiology Data #1 Image(s): Chest Image Reviewed: Yes I reviewed the patient's radiology results, Yes I reviewed the patient's radiology image, Yes I have reviewed radiologist's interpretation Preliminary Findings: Normal/NAD - CT Data CT Scan: Head Time Received: 13:[address] Reviewed: Yes: I have reviewed the patient's CT results, I have viewed the radiologist's interpretation Findings Narrative: IMPRESSION: 1. No acute intracranial findings. 2. Old right-sided lacunar infarctions of the basal ganglia - Reevaluation(s) Time: 13:50 Reevaluation #1: On reevaluation, the patient is feeling better. He has no headache. Repeat neurologic exam again does not show any focal weakness. I did have discussion with the patient regarding his medical management. He is currently on anticoagulation for CVA and receiving outpatient therapy. I did discuss the need for admission, however the patient would like to continue with outpatient remedies at this time. Given that his symptoms have resolved and he is currently on appropriate medicatio
[2020-10-22 11:23] LABS: Troponin I < 0.01 ng/ml (0.00-0.034)
[2020-10-22 11:40] LABS: Thyroid Stimulating Hormone 1.21 uIU/mL (0.465-4.68)
[2020-10-22 11:42] VITALS: BP 149/84; PULSE 72; RESP 18; O2SAT 94
[2020-10-22 12:12] VITALS: BP 136/90; PULSE 72; RESP 18; O2SAT 95
[2020-10-22 14:33] VITALS: BP 157/86; PULSE 71; RESP 16; TEMP 36.8; O2SAT 98
[2020-11-21 13:49] LABS: POC Glucose,Bedside 190 (70-110)
== END 2020-10-22 14:35 | disposition home or self-care (01) ==
PROVIDERS: Emergency Provider Emergency Medicine; PCP Nurse Practitioner Family
DX: G45.8 Other transient cerebral ischemic attacks and related syndromes (principal); G43.009 Migraine without aura, not intractable, without status migrainosus; E11.65 Type 2 diabetes mellitus with hyperglycemia; F41.8 Other specified anxiety disorders; I50.9 Heart failure, unspecified; I25.10 Atherosclerotic heart disease of native coronary artery without angina pectoris; I10 Essential (primary) hypertension; E78.5 Hyperlipidemia, unspecified; Z79.899 Other long term (current) drug therapy
CPT/HCPCS: 70450; 71045; 80053; 82962; 83880; 84443; 84484; 85025; 85610; 85730; 99283

== ENCOUNTER 2020-12-28 22:35 | Emergency (ER) | payer MEDICARE, BC, SELFPAY ==
[2020-12-28 22:32] VITALS: BP 156/102; PULSE 73; RESP 16; TEMP 36.4; O2SAT 97; BMI 24.3
--- NOTE | 2020-12-28 22:37 | CT_ITS ---
PROCEDURE INFORMATION: Exam: CT Head Without Contrast Exam date and time: 12/28/2020 10:37 PM Age: 60 years old Clinical indication: Injury or trauma; Blunt trauma (contusions or hematomas); Without loss of consciousness; Patient HX: Fall. No loc. Lac above left eye. Headache TECHNIQUE: Imaging protocol: Computed tomography of the head without contrast. Radiation optimization: All CT scans at this facility use at least one of these dose optimization techniques: automated exposure control; mA and/or kV adjustment per patient size (includes targeted exams where dose is matched to clinical indication); or iterative reconstruction. COMPARISON: CT HEAD/BRAIN WO CON 10/22/2020 11:09 AM FINDINGS: Brain: Atrophy and chronic small vessel ischemic changes. No hemorrhage. No mass effect or midline shift. Remote lacunar infarcts in the right thalamus. Cerebral ventricles: No ventriculomegaly. Bones/joints: Unremarkable. No acute fracture. Paranasal sinuses: Visualized sinuses are unremarkable. No fluid levels. Mastoid air cells: Visualized mastoid air cells are well aerated. Soft tissues: Unremarkable. IMPRESSION: Chronic changes in the brain but no acute intracranial abnormality.
--- NOTE | 2020-12-28 22:37 | CT_ITS ---
PROCEDURE INFORMATION: Exam: CT Cervical Spine Without Contrast Exam date and time: 12/28/2020 10:37 PM Age: 60 years old Clinical indication: Injury or trauma; Blunt trauma; Patient HX: Fall. No loc. Lac above left eye. Headache TECHNIQUE: Imaging protocol: Computed tomography images of the cervical spine without contrast. Radiation optimization: All CT scans at this facility use at least one of these dose optimization techniques: automated exposure control; mA and/or kV adjustment per patient size (includes targeted exams where dose is matched to clinical indication); or iterative reconstruction. COMPARISON: CT ANGIO NECK 09/04/2020 6:06 PM FINDINGS: Bones/joints: No acute fracture. Normal alignment. Discs/Spinal canal/Neural foramina: No significant disc protrusion. No severe spinal canal stenosis. No significant neural foraminal narrowing. Lungs: Lung apices are normal. Soft tissues: Unremarkable. IMPRESSION: No acute findings.
--- NOTE | 2020-12-28 22:37 | XR_ITS ---
PROCEDURE INFORMATION: Exam: XR Chest Exam date and time: 12/28/2020 10:37 PM Age: 60 years old Clinical indication: Injury or trauma; Fall; Blunt trauma (contusions or hematomas); Prior surgery; Surgery date: 6+ months; Surgery type: Pacemaker TECHNIQUE: Imaging protocol: XR of the chest. Views: 1 view. COMPARISON: CT ANGIO CHEST 12/28/2020 11:26 PM FINDINGS: Lungs: Unremarkable. No consolidation. Pleural spaces: Unremarkable. No pleural effusion. No pneumothorax. Heart/Mediastinum: Unremarkable. No cardiomegaly. Multi lead left-sided cardiac pacemaker with leads intact. Bones/joints: Unremarkable. IMPRESSION: No acute findings.
--- NOTE | 2020-12-28 22:39 | XR_ITS ---
PROCEDURE INFORMATION: Exam: XR Left Hip Exam date and time: 12/28/2020 10:39 PM Age: 60 years old Clinical indication: Injury or trauma; Fall; Blunt trauma (contusions or hematomas); Left; Hip TECHNIQUE: Imaging protocol: XR Left hip. Views: 2 or 3 views hip with pelvis when performed. COMPARISON: No relevant prior studies available. FINDINGS: Bones/joints: Unremarkable. No acute fracture. Soft tissues: Unremarkable. IMPRESSION: No acute findings.
--- NOTE | 2020-12-28 22:42 | CT_ITS ---
PROCEDURE INFORMATION: Exam: CT Lumbar Spine Without Contrast Exam date and time: 12/28/2020 10:42 PM Age: 60 years old Clinical indication: Injury or trauma; Blunt trauma (contusions or hematomas); Patient HX: Fall. Left rib pain TECHNIQUE: Imaging protocol: Computed tomography images of the lumbar spine without contrast. Radiation optimization: All CT scans at this facility use at least one of these dose optimization techniques: automated exposure control; mA and/or kV adjustment per patient size (includes targeted exams where dose is matched to clinical indication); or iterative reconstruction. COMPARISON: No relevant prior studies available. FINDINGS: Vertebrae: No acute fracture. Normal alignment. Discs/Spinal canal/Neural foramina: Disc bulging at L5-S1 with marginal osteophyte formation resulting in neural foraminal and central canal narrowing. No additional significant disc protrusion. No severe spinal canal stenosis. No significant neural foraminal narrowing. Soft tissues: Unremarkable. Nondisplaced left posterior 12th and 11th rib fracture. IMPRESSION: No fracture or malalignment of the lumbar spine.
--- NOTE | 2020-12-28 22:42 | CT_ITS ---
PROCEDURE INFORMATION: Exam: CT Thoracic Spine Without Contrast Exam date and time: 12/28/2020 10:42 PM Age: 60 years old Clinical indication: Injury or trauma; Blunt trauma (contusions or hematomas); Patient HX: Fall. Left rib pain TECHNIQUE: Imaging protocol: Computed tomography images of the thoracic spine without contrast. Radiation optimization: All CT scans at this facility use at least one of these dose optimization techniques: automated exposure control; mA and/or kV adjustment per patient size (includes targeted exams where dose is matched to clinical indication); or iterative reconstruction. COMPARISON: No relevant prior studies available. FINDINGS: Vertebrae: No acute fracture. Normal alignment. Multilevel anterior bridging osteophyte formation. Discs/Spinal canal/Neural foramina: No significant disc protrusion. No severe spinal canal stenosis. No significant neural foraminal narrowing. Soft tissues: Unremarkable. Nondisplaced left posterior 11th and 12th rib fractures. IMPRESSION: No acute fracture or malalignment of the thoracic spine.
[2020-12-28 22:45] LABS: Basophils % 0.3 % (0.1-2.0); Eosinophils # 0.1 K/mm3 (0.0-0.4); Eosinophils % 0.8 % (0.1-12.0); Hematocrit 34.9 % (42.0-52.0); Hemoglobin 12.1 g/dL (14.1-18.0); Lymphocytes # 0.9 K/mm3 (0.7-4.5); Lymphocytes % 6.2 % (10-50); Mean Corpuscular HGB Conc 34.6 g/dL (31.8-35.4); Mean Corpuscular Hemoglobin 31.2 pg (27.0-31.2); Mean Corpuscular Volume 90.2 fl (80-94); Mean Platelet Volume 7.1 fl (7.4-10.4); Monocytes # 0.7 K/mm3 (0.1-1.0); Monocytes % 4.7 % (1.7-9.3); Neutrophils # 12.5 K/mm3 (1.8-7.8); Platelet Count 276 K/mm3 (142-424); Red Blood Count 3.87 M/mm3 (4.60-6.20); Red Cell Distribution Width 13.4 % (11.5-17.5); White Blood Count 14.2 K/mm3 (4.8-10.8)
[2020-12-28 22:46] LABS: MANUAL DIFFERENTIAL MANUAL DIFFERENTIAL (MANUAL DIFF)
[2020-12-28 22:48] LABS: Chloride 101 mmol/L (98-107)
[2020-12-28 22:49] LABS: Potassium 4.1 mmoL/L (3.5-5.1); Sodium 137 mmol/L (136-145)
[2020-12-28 22:51] LABS: Alanine Aminotransferase 18 U/L (12-78); Aspartate Amino Transferase 20 U/L (17-59); Blood Urea Nitrogen 40 mg/dl (9-20); Creatinine Clearance Estimated 63 mL/min (50-200); Estimated Glomerular Filt Rate 57 ml/min (>60); GFR (African American) 68 ML/MIN (>60)
[2020-12-28 22:52] LABS: Albumin/Globulin Ratio 1.6 (1.1-1.8); Alkaline Phosphatase 78 U/L (38-126); Anion Gap 13.1 mEq/L (5-15); Bilirubin,Total 1.2 mg/dl (0.2-1.3); Calcium 9.5 mg/dl (8.4-10.2); Carbon Dioxide 27 mmol/L (22.0-30.0); Globulin 2.5 g/dL (1.3-3.2); Glucose 256 mg/dl (74-100); Total Protein,Serum 6.5 g/dl (6.3-8.2)
[2020-12-28 22:57] LABS: C-Reactive Protein 2.2 mg/L (0-4)
--- NOTE | 2020-12-28 23:00 | HMH.EDFALL ---
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 Left rib fracture Qualifiers: Encounter type: initial encounter Rib fracture type: multiple ribs Fracture type: closed Qualified Code(s): S22.42XA - Multiple fractures of ribs, left side, initial encounter for closed fracture Fall Qualifiers: Encounter type: initial encounter Qualified Code(s): W19.XXXA - Unspecified fall, initial encounter Diabetes mellitus Qualifiers: Diabetes mellitus type: type 2 Diabetes mellitus termite inspector insulin use: unspecified care home insulin use status Diabetes mellitus complication status: with other specified complication Qualified Code(s): E11.69 - Type 2 diabetes mellitus with other specified complication Disposition: Home, Self-Care Condition on Discharge: Fair Instructions: DI for Rib Fracture Additional Instructions: call pcp for follow up on thursday Referrals: Mohan Levine MD [Primary Care Provider] - - Critical Care Critical Care Time: No Attestation: On 12/28/20, the high probability of a clinically significant, sudden or life threatening deterioration of the following system(s) required my full and direct attention, intervention and personal management. The time I documented below is in addition to time spent performing reported procedures but includes the following listed in this critical care notation. Medical Decision Making - Medical Records Medical records reviewed: Yes: I reviewed the patient's medical records. - Felipe Inquiry Pt receiving controlled substance: No Vital Signs: 12/28/20 22:32 12/29/20 00:00 12/29/20 01:43 Temperature 97.5 F L Temperature Source Oral Pulse Rate 87 84 Pulse Rate [Right] 73 Respiratory Rate 16 Blood Pressure 189/103 H 135/71 Blood Pressure [Right Arm] 156/102 H Blood Pressure Mean 117 100 Blood Pressure Mean [Right Arm] 120 Blood Pressure Source 02 Sat by Pulse Oximetry 97 97 96 Oxygen Delivery Method 12/29/20 02:08 12/29/20 02:30 Temperature Temperature Source Pulse Rate 82 84 Pulse Rate [Right] Respiratory Rate Blood Pressure 137/71 140/73 Blood Pressure [Right Arm] Blood Pressure Mean Blood Pressure Mean [Right Arm] Blood Pressure Source Automatic Cuff Automatic Cuff 02 Sat by Pulse Oximetry 96 94 L Oxygen Delivery Method Room Air - Lab Data Lab results reviewed: Yes: I reviewed the patient's lab results. Lab Results 12/28/20 22:35: WBC 14.2 H, RBC 3.87 L, Hgb 12.1 L, Hct 34.9 L, MCV 90.2, MCH 31.2, MCHC 34.6, RDW 13.4, Plt Count 276, MPV 7.1 L, Neut % (Auto) 88.0 H, Lymph % (Auto) 6.2 L, [place] % (Auto) 4.7, Eos % (Auto) 0.8, Baso % (Auto) 0.3, Neut # (Auto) 12.5 H, Lymph # (Auto) 0.9, [place] # (Auto) 0.7, Eos # (Auto) 0.1, Baso # (Auto) 0.0, Total Counted 100, Neutrophils % (Manual) 87 H, Lymphocytes % (Manual) 4 L, Monocytes % (Manual) 7, Eosinophils % (Manual) 2, Platelet Estimate Normal, RBC Morphology Normal 12/28/20 22:35: Sodium 137, Potassium 4.1, Chloride 101, Carbon Dioxide 27, Anion Gap 13.1, BUN 40 H, Creatinine 1.30 H, Estimated Creat Clear 63, Estimated GFR 57 L, Est GFR ( Amer) 68, Glucose 256 H, Calcium 9.5, Total Bilirubin 1.2, AST 20, ALT 18, Alkaline Phosphatase 78, Troponin I < 0.01, C-Reactive Protein 2.2, Total Protein 6.5, Albumin 4.0, Globulin 2.5, Albumin/Globulin Ratio 1.6 12/28/20 22:35: ESR 20 12/28/20 22:35: Lipase 96 12/28/20 22:35: Amylase 107 12/29/20 00:05: Lactate 1.8 12/29/20 00:17: Urine Color Yellow, Urine Appearance Clear, Urine pH 6.5, Ur Specific [place] 1.015, Urine Protein Trace, Urine Glucose (UA) 1+, Urine Ketones Negative, Urine Blood Negative, Urine Nitrate Negative, Urine Bilirubin Negative, Urine Urobilinogen 0.2, Ur Leukocyte Esterase Negative, Urine RBC None, Urine WBC 5-10, Ur Squamous Epith Cells Occasional, Urine Bacteria None
[2020-12-28 23:03] LABS: Eosinophils % 2 % (0-3); Lymphocytes % 4 % (10-50); Monocytes % 7 % (2-9); Neutrophils % 87 % (42-76); Platelet Estimate Normal; RBC Morphology Normal; Total Cells Counted 100
--- NOTE | 2020-12-28 23:07 | CT_ITS ---
PROCEDURE INFORMATION: Exam: CTA Chest With Contrast Exam date and time: 12/28/2020 11:07 PM Age: 60 years old Clinical indication: Injury or trauma; Blunt trauma (contusions or hematomas); Patient HX: Fall. Left rib pain. Bruising to left ribs; Additional info: Fell on chest TECHNIQUE: Imaging protocol: Computed tomographic angiography of the chest with contrast. 3D rendering (Not supervised by radiologist): MIP and/or 3D reconstructed images were created by the technologist. Radiation optimization: All CT scans at this facility use at least one of these dose optimization techniques: automated exposure control; mA and/or kV adjustment per patient size (includes targeted exams where dose is matched to clinical indication); or iterative reconstruction. Contrast material: ISOVUE 370; Contrast volume: 70 ml; Contrast route: INTRAVENOUS (IV); COMPARISON: CR XR CHEST PORTABLE 10/22/2020 11:17 AM FINDINGS: Pulmonary arteries: Normal. No pulmonary emboli. Aorta: Unremarkable. No aortic aneurysm. No aortic dissection. Lungs: Mild dependent atelectasis in the lung bases. No pneumonia. Pleural spaces: Unremarkable. No pneumothorax. No pleural effusion. Heart: Unremarkable. No cardiomegaly. No pericardial effusion. Lymph nodes: Unremarkable. No enlarged lymph nodes. Bones/joints: Nondisplaced left posterior 11th rib fracture. Soft tissues: Unremarkable. IMPRESSION: Nondisplaced posterior left 11th rib fracture. No additional acute findings in the chest.
[2020-12-28 23:09] LABS: Erythrocyte Sedimentation Rate 20 mm/hr (0-20)
[2020-12-28 23:12] LABS: Troponin I < 0.01 ng/ml (0.00-0.034)
[2020-12-29] VITALS: BP 189/103; PULSE 87; O2SAT 97
--- NOTE | 2020-12-29 00:03 | ECG_ITS ---
APPROVED REPORT Exam: Resting ECG HR:79 bpm ECG Measurements Heart Rate 79 AXES VT 172 P 67 QRSd 144 QRS -47 QT 442 T 70 QTc 506 Conclusion Electronic ventricular pacemaker Electronically signed by : Joe Morales, 12/29/2020 08:43:52
[2020-12-29 00:22] LABS: Microscopic, Urine URINE MICROSCOPIC (MICROSCOPIC)
[2020-12-29 00:23] LABS: Appearance,Urine CLEAR (Clear); Bilirubin,Urine Negative (Negative); Blood, Urine Negative (Negative); Color,Urine YELLOW (Yellow); Glucose,Urine (UA) 1+ (Negative); Ketones,Urine Negative (Negative); Leukocyte Esterase,Urine Negative (Negative); Nitrate,Urine Negative (Negative); PH,Urine 6.5 (5.0-8.5); Protein,Urine TRACE (Negative); Specific Gravity, Urine 1.015 (1.005-1.030); Urobilinogen,Urine 0.2 EU/dl (0.2)
--- NOTE | 2020-12-29 00:25 | CT_ITS ---
PROCEDURE INFORMATION: Exam: CT Abdomen And Pelvis With Contrast Exam date and time: 12/29/2020 12:25 AM Age: 60 years old Clinical indication: Abdominal pain; Generalized; Patient HX: Left rib pain; Additional info: Mic earl TECHNIQUE: Imaging protocol: Computed tomography of the abdomen and pelvis with contrast. Radiation optimization: All CT scans at this facility use at least one of these dose optimization techniques: automated exposure control; mA and/or kV adjustment per patient size (includes targeted exams where dose is matched to clinical indication); or iterative reconstruction. Contrast material: ISOVUE; Contrast volume: 60 ml; Contrast route: IV; COMPARISON: CR XR HIP LT 2-3V W/PELVIS 12/28/2020 11:43 PM FINDINGS: Lungs: Mild atelectasis in the lung bases. Liver: Normal. No mass. Gallbladder and bile ducts: Normal. No calcified stones. No ductal dilation. Pancreas: Normal. No ductal dilation. Spleen: Normal. No splenomegaly. Adrenal glands: Normal. No mass. Kidneys and ureters: Normal. No hydronephrosis. Stomach and bowel: Unremarkable. No obstruction. No mucosal thickening. Appendix: No evidence of appendicitis. Intraperitoneal space: Unremarkable. No free air. No significant fluid collection. Vasculature: Unremarkable. No abdominal aortic aneurysm. Lymph nodes: Unremarkable. No enlarged lymph nodes. Urinary bladder: Unremarkable as visualized. Reproductive: Unremarkable as visualized. Bones/joints: Minimally displaced left posterior left 11th and 12th rib fracture. Soft tissues: Unremarkable. IMPRESSION: No acute intra abdominal or intrapelvic findings. Minimally displaced left posterior left 11th and 12th rib fracture.
[2020-12-29 00:28] LABS: Lactic Acid 1.8 mmol/L (0.7-2.1)
[2020-12-29 00:34] LABS: Squamous Epithelial Cell,Urine Occasional #/hpf (0-5)
[2020-12-29 00:37] LABS: Lipase 96 U/L (23-300)
--- NOTE | 2020-12-29 00:54 | XR_ITS ---
PROCEDURE INFORMATION: Exam: XR Left Shoulder Exam date and time: 12/29/2020 12:54 AM Age: 60 years old Clinical indication: Pain and injury or trauma; Blunt trauma (contusions or hematomas); Shoulder; Patient HX: Fall. HX of stroke, best images possible, limited movement of left arm; Additional info: Fall w/ pain TECHNIQUE: Imaging protocol: XR Left shoulder. Views: 2 or more views. COMPARISON: CR XR SHOULDER LT MIN 2V 09/05/2020 1:14 PM FINDINGS: Bones/joints: Normal. Soft tissues: Normal. IMPRESSION: No acute findings.
[2020-12-29 00:58] LABS: Amylase 107 U/L (30-110)
[2020-12-29 01:43] VITALS: BP 135/71; PULSE 84; O2SAT 96
[2020-12-29 02:08] VITALS: BP 137/71; PULSE 82; O2SAT 96
[2020-12-29 02:30] VITALS: BP 140/73; PULSE 84; O2SAT 94
[2020-12-29 02:31] LABS: Troponin I < 0.01 ng/ml (0.00-0.034)
[2020-12-29 03:00] VITALS: BP 132/69; PULSE 83; O2SAT 96
[2020-12-29 03:28] VITALS: BP 132/69; PULSE 83; RESP 16; TEMP 36.4; O2SAT 95
== END 2020-12-29 03:30 | disposition home or self-care (01) ==
PROVIDERS: Emergency Provider Emergency Medicine; PCP Emergency Medicine
DX: S22.42XA Multiple fractures of ribs, left side, initial encounter for closed fracture (principal); S00.83XA Contusion of other part of head, initial encounter; I63.89 Other cerebral infarction; G81.04 Flaccid hemiplegia affecting left nondominant side; Z95.810 Presence of automatic (implantable) cardiac defibrillator; E11.65 Type 2 diabetes mellitus with hyperglycemia; I50.9 Heart failure, unspecified; I25.10 Atherosclerotic heart disease of native coronary artery without angina pectoris; E78.5 Hyperlipidemia, unspecified; I10 Essential (primary) hypertension; Z79.899 Other long term (current) drug therapy; N28.9 Disorder of kidney and ureter, unspecified
CPT/HCPCS: 96374; 70450; 71045; 71275; 72125; 72128; 72131; 73030; 73502; 74177; 80053; 81001; 82150; 83605; 83690; 84484; 85007; 85025; 85651; 86140; 87040; 93005; 96375; 99283; Q9967

== ENCOUNTER → 2021-02-06 12:12 | Outpatient (CLI) | payer MEDICARE, BC, SELFPAY ==
[2021-02-06 13:01] LABS: Basophils # 0.1 K/mm3 (0-0.2); Basophils % 0.7 % (0.1-2.0); Eosinophils # 0.2 K/mm3 (0.0-0.4); Hematocrit 41.3 % (42.0-52.0); Hemoglobin 14.2 g/dL (14.1-18.0); Lymphocytes # 1.3 K/mm3 (0.7-4.5); Lymphocytes % 13.3 % (10-50); Mean Corpuscular HGB Conc 34.4 g/dL (31.8-35.4); Mean Corpuscular Hemoglobin 31.7 pg (27.0-31.2); Mean Corpuscular Volume 92.1 fl (80-94); Mean Platelet Volume 7.3 fl (7.4-10.4); Monocytes # 0.6 K/mm3 (0.1-1.0); Monocytes % 6.1 % (1.7-9.3); Neutrophils # 7.4 K/mm3 (1.8-7.8); Platelet Count 312 K/mm3 (142-424); Red Blood Count 4.48 M/mm3 (4.60-6.20); Red Cell Distribution Width 13.1 % (11.5-17.5); White Blood Count 9.5 K/mm3 (4.8-10.8)
[2021-02-06 13:28] LABS: Albumin Level 4.6 g/dl (3.5-5.0); Chloride 103 mmol/L (98-107); Potassium 4.7 mmoL/L (3.5-5.1); Sodium 139 mmol/L (136-145)
[2021-02-06 13:30] LABS: Blood Urea Nitrogen 21 mg/dl (9-20); Estimated Glomerular Filt Rate 69 ml/min (>60); GFR (African American) 83 ML/MIN (>60)
[2021-02-06 13:31] LABS: Anion Gap 12.7 mEq/L (5-15); Calcium 9.2 mg/dl (8.4-10.2); Carbon Dioxide 28 mmol/L (22.0-30.0); Glucose 154 mg/dl (74-100)
[2021-02-06 13:48] LABS: 25-OH Vitamin D, Total 73.1 ng/mL (30-100)
[2021-02-06 15:06] LABS: Intact Parathyroid Hormone 53.5 pg/mL (7.5-53.5)
== END ==
PROVIDERS: Visit Provider Internal Medicine Nephrology
DX: N18.30 Chronic kidney disease, stage 3 unspecified (principal)
CPT/HCPCS: 36415; 80069; 82306; 83970; 85025

== ENCOUNTER → 2021-02-11 12:21 | Outpatient (CLI) | payer MEDICARE, BC, SELFPAY ==
[2021-02-11 12:25] LABS: Microscopic, Urine URINE MICROSCOPIC (MICROSCOPIC)
[2021-02-11 13:07] LABS: Appearance,Urine CLEAR (Clear); Bilirubin,Urine Negative (Negative); Blood, Urine Negative (Negative); Color,Urine YELLOW (Yellow); Glucose,Urine (UA) 1+ (Negative); Ketones,Urine Negative (Negative); Leukocyte Esterase,Urine Negative (Negative); Nitrate,Urine Negative (Negative); Protein,Urine Negative (Negative); Specific Gravity, Urine 1.025 (1.005-1.030)
[2021-02-11 13:13] LABS: Creatinine,Urine Random 194 mg/dL (Not Estab.)
[2021-02-11 13:41] LABS: Squamous Epithelial Cell,Urine Occasional #/hpf (0-5)
== END ==
PROVIDERS: Visit Provider Internal Medicine Nephrology
DX: N18.30 Chronic kidney disease, stage 3 unspecified (principal)
CPT/HCPCS: 81001; 82570; 84155

== ENCOUNTER → 2021-02-11 14:59 | Outpatient (POV) | payer MEDICARE, BC, SELFPAY | PROVIDERS: Visit Provider Internal Medicine Nephrology | DX: Z00.00 Encounter for general adult medical examination without abnormal findings (principal) ==

== ENCOUNTER → 2021-02-28 14:35 | Outpatient (CLI) | payer MEDICARE, BC, SELFPAY ==
--- NOTE | 2021-02-28 14:35 | CT_ITS ---
PROCEDURE: CT CERVICAL SPINE WO CON CLINICAL INDICATION: Left arm weakness COMPARISON: CT CT CERVICAL SPINE WO CON from 12/28/2020 TECHNIQUE: Axial images obtained with sagittal and coronal reformats. All CT scans at the facility use one or more dose reduction, viz: automated exposure control, ma/kV adjustment per patient size (including targeted exams where dose is matched to indication, i.e. head), or iterative reconstruction technique. Axial spiral CT scanning performed of the cervical spine beginning at the base of the skull and continuing to the upper T-spine. 3-D multiplanar reconstruction with 3-D manipulation of volumetric data set in image rendering was completed by the radiologist and/or technologist with the supervision of the radiologist on independent workstation. FINDINGS: There is normal alignment. Small sclerotic focus is present in the lateral mass of C2 on the right unchanged. Minimal degenerative disc disease with minimal bulging disc at C3-C4.. Small lucency involving the superior endplate of C4 approximately 4 mm unchanged Minimal degenerative disc disease C4-C5. Degenerative disc disease C5-C6 with mild right-sided foraminal narrowing. Anterior osteophytes are present at this level. At C6-C7 there are small anterior osteophytes. C7-T1 has an unremarkable appearance. Lung apices are clear. There is a small retention cyst in the right maxillary sinus medially at 9 mm. IMPRESSION: Minimal degenerative changes. Overall no change with no acute finding. Dictated by: Navdeep Medel MD 02/28/2021 15:38 Navdeep Medel MD in [facility] 02/28/2021 15:38
== END ==
PROVIDERS: PCP Emergency Medicine; Visit Provider Specialist
DX: R53.1 Weakness (principal)
CPT/HCPCS: 72125

== ENCOUNTER → 2021-03-20 17:08 | Outpatient (CLI) | payer MEDICARE, BC, SELFPAY ==
[2021-03-20 18:30] LABS: Basophils # 0.1 K/mm3 (0-0.2); Basophils % 0.5 % (0.1-2.0); Eosinophils # 0.2 K/mm3 (0.0-0.4); Eosinophils % 1.8 % (0.1-12.0); Hematocrit 43.3 % (42.0-52.0); Hemoglobin 14.4 g/dL (14.1-18.0); Lymphocytes # 1.1 K/mm3 (0.7-4.5); Mean Corpuscular HGB Conc 33.2 g/dL (31.8-35.4); Mean Corpuscular Hemoglobin 30.4 pg (27.0-31.2); Mean Corpuscular Volume 91.5 fl (80-94); Mean Platelet Volume 7.7 fl (7.4-10.4); Monocytes # 0.5 K/mm3 (0.1-1.0); Monocytes % 4.8 % (1.7-9.3); Neutrophils # 9.3 K/mm3 (1.8-7.8); Neutrophils % 82.8 % (37.0-80.0); Platelet Count 333 K/mm3 (142-424); Red Blood Count 4.74 M/mm3 (4.60-6.20); Red Cell Distribution Width 12.8 % (11.5-17.5); White Blood Count 11.3 K/mm3 (4.8-10.8)
[2021-03-20 18:43] LABS: Alanine Aminotransferase 17 U/L (12-78); Albumin Level 4.3 g/dl (3.5-5.0); Albumin/Globulin Ratio 1.7 (1.1-1.8); Alkaline Phosphatase 82 U/L (38-126); Anion Gap 16.9 mEq/L (5-15); Aspartate Amino Transferase 20 U/L (17-59); Bilirubin,Total 0.9 mg/dl (0.2-1.3); Blood Urea Nitrogen 29 mg/dl (9-20); Calcium 9.3 mg/dl (8.4-10.2); Carbon Dioxide 26 mmol/L (22.0-30.0); Chloride 104 mmol/L (98-107); Chol/HDL Ratio 3.5 (1-3.5); Cholesterol 108 mg/dl (140-200); Estimated Glomerular Filt Rate 57 ml/min (>60); GFR (African American) 68 ML/MIN (>60); Globulin 2.5 g/dL (1.3-3.2); Glucose 173 mg/dl (74-100); HDL Cholesterol 31 mg/dl (40-60); Potassium 4.9 mmoL/L (3.5-5.1); Sodium 142 mmol/L (136-145); Total Protein,Serum 6.8 g/dl (6.3-8.2); Triglycerides 159 mg/dl (30-150); VLDL Cholesterol 32 mg/dL (0-40)
[2021-03-20 18:48] LABS: 25-OH Vitamin D, Total 72.6 ng/mL (30-100)
[2021-03-20 18:54] LABS: Direct LDL Cholesterol 52.22 mg/dL (100-129)
[2021-03-20 19:13] LABS: Prostate Specific Ag Screen 1.1 ng/ml (0.0-4.0); Thyroid Stimulating Hormone 1.62 uIU/mL (0.465-4.68)
[2021-03-21 08:45] LABS: Microalbumin/Creatinine Ratio 39.4
[2021-03-21 08:46] LABS: Creatinine,Urine Random 305 mg/dL (Not Estab.)
== END ==
PROVIDERS: Visit Provider Nurse Practitioner Family
DX: E11.9 Type 2 diabetes mellitus without complications (principal); E78.49 Other hyperlipidemia; N28.9 Disorder of kidney and ureter, unspecified; R09.89 Other specified symptoms and signs involving the circulatory and respiratory systems; R53.83 Other fatigue; E55.9 Vitamin D deficiency, unspecified; Z12.5 Encounter for screening for malignant neoplasm of prostate; Z79.84 Long term (current) use of oral hypoglycemic drugs
CPT/HCPCS: 80053; 80061; 82043; 82306; 82570; 83036; 84436; 84443; 85025; G0103

== ENCOUNTER → 2021-04-05 17:04 | Outpatient (CLI) | payer MEDICARE, BC, SELFPAY | PROVIDERS: Visit Provider Nurse Practitioner Family | DX: N39.0 Urinary tract infection, site not specified (principal); R68.89 Other general symptoms and signs | CPT/HCPCS: 87086 ==

== ENCOUNTER → 2021-05-15 13:03 | Outpatient (CLI) | payer MEDICARE, BC, SELFPAY ==
--- NOTE | 2021-05-15 13:10 | CT_ITS ---
PROCEDURE: CT HEAD/BRAIN WO CON CLINICAL INDICATION: vertigo, balance COMPARISON: CT CT HEAD/BRAIN WO CON from 12/28/2020 TECHNIQUE: Axial images obtained. All CT scans at the facility use one or more dose reduction, viz: automated exposure control, ma/kV adjustment per patient size (including targeted exams where dose is matched to indication, i.e. head), or iterative reconstruction technique. FINDINGS: No midline shift, mass effect, intracranial hemorrhage, hydrocephalus, or extra-axial fluid collection is evident. There are old lacunar infarctions of the right basal ganglia the right lower nima. No mastoid effusion. No sinus air-fluid level. IMPRESSION: 1. No acute intracranial findings. 2. Chronic ischemic changes with multiple old right-sided lacunar infarctions Dictated by: Navdeep Medel MD 05/15/2021 17:36 Navdeep Medel MD in [facility] 05/15/2021 17:36
== END ==
PROVIDERS: PCP Emergency Medicine; Visit Provider Nurse Practitioner Family
DX: R42 Dizziness and giddiness (principal)
CPT/HCPCS: 70450

== ENCOUNTER → 2021-05-29 12:21 | Outpatient (CLI) | payer MEDICARE, BC, SELFPAY ==
--- NOTE | 2021-05-29 12:26 | FL_ITS ---
PROCEDURE: FL BARIUM SWALLOW MODIFIED CLINICAL INDICATION: choking when drinking COMPARISON: No exams were available for comparison TECHNIQUE: Patient administered varying consistencies of barium contrast, while viewed in lateral position under real-time fluoroscopy with cine recording. FLUOROSCOPY TIME:3.5 minutes The study was performed in conjunction with speech pathologist. Please see that report & recommendations. FINDINGS: Patient was given varying consistencies of barium. There was tracheal aspiration with thin barium via a straw. There was no cough reflex. Was mild residual with all consistencies. There was some delay in initiation of the swallowing mechanism with mechanical soft with moderate residual with poor clearance with dry swallow. IMPRESSION: Solid aspiration with thin liquids with moderate residual and delay in initiation of swallowing mechanism Please see speech pathologist report and recommendations. Dictated by: Navdeep Medel MD 05/30/2021 15:14 Navdeep Medel MD in [facility] 05/30/2021 15:14
--- NOTE | 2021-05-29 14:16 | HMH.SLMBS2 ---
Speech & Language Evaluation Speech/Language Mod Barium Swallow Start: 05/29/21 13:58 Freq: once Status: Complete Protocol: Document 05/29/21 13:58 FAM (Rec: 05/29/21 14:16 FAM [id number]) General Information General Current Food Consistancy Regular,Thin Liquids Dentition Good Dentition Oxygen Status Room Air Facial Symmetry Asymmetrical Patient Orientation Person,Place,Time Ability to Follow Directions Excellent Communication Ability No Impairment MBS Recommendations Diet Dietary Recommendations Dysphagia Mechanical Soft, Chopped Meats,Thin Liquids Treatment/Strategies Strategy/Precaution Recommend Sitting Upright (90 deg),Turn Head Left,Chin Tuck,No Straw, Liquids from Cup,Small Bites and Sips,Alternate Liquids/ Solids Mod Barium Swallow Impressions Summary and Impressions Oral Phase Impression Mild Impairment Oral Phase Summary Mr. Flores was given the following consistencies: thins via straw and open cup, pudding, pureed, mechanical soft, regular, and pill with thin wash. The following impairments were noted in the oral phase: decreased oral manipulation with pudding and pureed. Pharyngeal Phase Impression Moderate Impairment Pharyngeal Phase Summary Mr. Flores did exhibit silent aspiration with thin liquids via straw. He did show penetration into laryngeal vestibule with thin liquids from open cup once fatigue set in. He was instructed to utilize the compensatory strategy head turn to left with chin tuck with success. He did have vallecular residue with all consistencies. He had residue in the pyriform sinuses with all consistencies . It was not cleared with dry swallow. When given a thin wash minimal residue was cleared. Speech/Language MBS Assessment/Goals/Plan Assessment Date of Evaluation: 05/29/21 Evaluation Type Initial Certification Assessment/Problems
== END ==
PROVIDERS: PCP Emergency Medicine; Visit Provider Nurse Practitioner Family
DX: R09.89 Other specified symptoms and signs involving the circulatory and respiratory systems (principal); R13.10 Dysphagia, unspecified
CPT/HCPCS: 70371; 92611

== ENCOUNTER → 2021-09-26 13:52 | Outpatient (CLI) | payer MEDICARE, MEDICAID, SELFPAY ==
--- NOTE | 2021-09-26 13:57 | XR_ITS ---
FINAL REPORT CLINICAL HISTORY: Right Great [place] Ulcer, simulated FINDINGS: RIGHT FOOT Three views of the right foot demonstrate no acute fracture or dislocation. The visualized joint spaces are intact. There is marked soft tissue edema throughout the 1st digit. There is a skin dressing over the distal portion the 1st distal phalange. There is no definite underlying bony erosion. IMPRESSION: Marked soft tissue edema throughout the 1st digit with no definite underlying bony erosion. Reviewed, Interpreted and Dictated by Sedrick Wallace MD Transcribed by Claudia Wall Authenticated by Sedrick Wallace MD on 09/26/2021 03:17:[address] [facility]
[2021-09-26 15:02] LABS: Chloride 104 mmol/L (98-107); Potassium 4.5 mmoL/L (3.5-5.1); Sodium 137 mmol/L (136-145)
[2021-09-26 15:04] LABS: Alanine Aminotransferase 14 U/L (12-78); Aspartate Amino Transferase 19 U/L (17-59); Blood Urea Nitrogen 24 mg/dl (9-20); Estimated Glomerular Filt Rate 76 ml/min (>60); GFR (African American) 92 ML/MIN (>60)
[2021-09-26 15:05] LABS: Albumin Level 4.4 g/dl (3.5-5.0); Albumin/Globulin Ratio 1.8 (1.1-1.8); Alkaline Phosphatase 75 U/L (38-126); Anion Gap 12.5 mEq/L (5-15); Basophils # 0.1 K/mm3 (0-0.2); Basophils % 0.7 % (0.1-2.0); Bilirubin,Total 1.5 mg/dl (0.2-1.3); Calcium 9.5 mg/dl (8.4-10.2); Carbon Dioxide 25 mmol/L (22.0-30.0); Eosinophils # 0.3 K/mm3 (0.0-0.4); Eosinophils % 2.4 % (0.1-12.0); Globulin 2.5 g/dL (1.3-3.2); Glucose 90 mg/dl (74-100); Hematocrit 44.6 % (42.0-52.0); Hemoglobin 14.3 g/dL (14.1-18.0); Lymphocytes # 1.2 K/mm3 (0.7-4.5); Lymphocytes % 9.6 % (10-50); Mean Corpuscular HGB Conc 32.1 g/dL (31.8-35.4); Mean Corpuscular Volume 93.4 fl (80-94); Mean Platelet Volume 7.3 fl (7.4-10.4); Monocytes # 0.6 K/mm3 (0.1-1.0); Monocytes % 4.5 % (1.7-9.3); Neutrophils # 10.7 K/mm3 (1.8-7.8); Neutrophils % 82.9 % (37.0-80.0); Platelet Count 347 K/mm3 (142-424); Red Blood Count 4.77 M/mm3 (4.60-6.20); Red Cell Distribution Width 13.2 % (11.5-17.5); Total Protein,Serum 6.9 g/dl (6.3-8.2); White Blood Count 12.9 K/mm3 (4.8-10.8)
[2021-09-26 15:10] LABS: C-Reactive Protein 2.9 mg/L (0-4)
[2021-09-26 15:28] LABS: Erythrocyte Sedimentation Rate 14 mm/hr (0-20)
== END ==
PROVIDERS: PCP Emergency Medicine; Visit Provider Nurse Practitioner Family
DX: E11.621 Type 2 diabetes mellitus with foot ulcer (principal); L97.519 Non-pressure chronic ulcer of other part of right foot with unspecified severity; L02.619 Cutaneous abscess of unspecified foot; L03.119 Cellulitis of unspecified part of limb; Z98.890 Other specified postprocedural states; Z79.84 Long term (current) use of oral hypoglycemic drugs
CPT/HCPCS: 36415; 73630; 80053; 85025; 85651; 86140

== ENCOUNTER → 2021-10-01 13:37 | Outpatient (CLI) | payer MEDICARE, MEDICAID, SELFPAY ==
--- NOTE | 2021-10-01 13:41 | US_ITS ---
FINAL REPORT CLINICAL HISTORY: Cold Extremities FINDINGS: Ankle/brachial indices was obtained. The right SHRUTHI is 0.67 consistent with moderate peripheral vascular disease. The left SHRUTHI is 0.80 consistent with mild peripheral vascular disease. IMPRESSION: Peripheral vascular disease bilaterally, right greater than left. Reviewed, Interpreted and Dictated by Yang Pierce III, MD Transcribed by Stephie Palencia Authenticated by Yang Pierce III, MD on 10/01/2021 04:09:46 PM [facility]
--- NOTE | 2021-10-01 14:09 | CT_ITS ---
FINAL REPORT TECHNIQUE: Thin section axial CT images with coronal and sagittal reformats were performed. This study was performed with techniques to keep radiation doses as low as reasonably achievable (ALARA). Individualized dose reduction techniques using automated exposure control or adjustment of mA and/or kV according to the patient''s size were employed. CLINICAL HISTORY: non healing wound FINDINGS: There is misregistration artifact at the level of the toes. No fractures identified. There is no acute bony erosion. There is a probable soft tissue ulcer at the tip of the great toe. IMPRESSION: Probable soft tissue ulcer at the tip of the great toe. Reviewed, Interpreted and Dictated by Yang Pierce III, MD Transcribed by Stephie Palencia Authenticated by Yang Pierce III, MD on 10/01/2021 04:09:41 PM [facility]
== END ==
PROVIDERS: PCP Emergency Medicine; Visit Provider Podiatrist
DX: E11.621 Type 2 diabetes mellitus with foot ulcer (principal); L97.519 Non-pressure chronic ulcer of other part of right foot with unspecified severity; R09.89 Other specified symptoms and signs involving the circulatory and respiratory systems; R68.89 Other general symptoms and signs; L03.031 Cellulitis of right toe; M79.674 Pain in right toe(s)
CPT/HCPCS: 73700; 93923

== ENCOUNTER → 2021-10-02 14:56 | Outpatient (CLI) | payer MEDICARE, MEDICAID, SELFPAY ==
--- NOTE | 2021-10-02 15:10 | CT_ITS ---
FINAL REPORT TECHNIQUE: Thin section axial CT images with coronal and sagittal reformats were performed. This study was performed with techniques to keep radiation doses as low as reasonably achievable (ALARA). Individualized dose reduction techniques using automated exposure control or adjustment of mA and/or kV according to the patient''s size were employed. CLINICAL HISTORY: repeat scan. big toe swelling. FINDINGS: There is a soft tissue defect at the tip of the right great toe. Soft tissue defect extends to the surface of the tuft of the first distal phalanx but no definite bony erosion is identified to suggest osteomyelitis. No other abnormality is identified. IMPRESSION: Soft tissue defect at the tip of the right great toe. No definite bony erosion identified. If indicated, MRI is more sensitive to evaluate for osteomyelitis. Reviewed, Interpreted and Dictated by Yang Pierce III, MD Transcribed by Stephie Palencia Authenticated by Yang Pierce III, MD on 10/02/2021 04:32:15 PM [facility]
== END ==
PROVIDERS: PCP Emergency Medicine; Visit Provider Podiatrist
DX: E11.621 Type 2 diabetes mellitus with foot ulcer (principal); L97.519 Non-pressure chronic ulcer of other part of right foot with unspecified severity; M79.674 Pain in right toe(s)

== ENCOUNTER 2021-10-24 09:33 | Outpatient (CLI) | payer MEDICARE, MEDICAID, SELFPAY ==
[2021-10-24 09:33] VITALS: BMI 23.0
--- NOTE | 2021-10-24 10:48 | XR_ITS ---
FINAL REPORT CLINICAL HISTORY: PICC PLACEMENT COMPARISON: 12/28/2020 FINDINGS: SINGLE VIEW CHEST The heart is normal in size. The mediastinum is unremarkable. Right PICC line tip terminates in the SVC. Left subclavian pacer is identified. The lungs are clear. There is no pneumothorax. IMPRESSION: Right PICC line tip in the SVC. Reviewed, Interpreted and Dictated by Sedrick Wallace MD Transcribed by Stephie Palencia Authenticated by Sedrick Wallace MD on 10/24/2021 11:39:35 AM [facility]
[2021-10-24 11:49] VITALS: BP 141/85; PULSE 65; RESP 20; TEMP 36.9; O2SAT 98
[2021-10-24 13:00] VITALS: BP 138/78; PULSE 68; RESP 20
[2021-10-24 14:05] VITALS: BP 135/74; PULSE 68; RESP 20
== END 2021-10-24 14:05 | disposition home or self-care (01) ==
LOC: INF 09:35
PROVIDERS: PCP Emergency Medicine; Visit Provider Podiatrist
DX: E11.621 Type 2 diabetes mellitus with foot ulcer (principal); L97.519 Non-pressure chronic ulcer of other part of right foot with unspecified severity; L03.119 Cellulitis of unspecified part of limb; Z79.84 Long term (current) use of oral hypoglycemic drugs
CPT/HCPCS: 36569; 71045; 96365; 96366; C1751; J3370

== ENCOUNTER 2021-10-30 10:00 | Outpatient (CLI) | payer MEDICARE, MEDICAID, SELFPAY ==
[2021-10-30 10:06] VITALS: BMI 23.0
[2021-10-30 10:21] LABS: Basophils # 0.1 K/mm3 (0-0.2); Basophils % 0.9 % (0.1-2.0); Eosinophils # 0.5 K/mm3 (0.0-0.4); Eosinophils % 5.5 % (0.1-12.0); Hematocrit 42.7 % (42.0-52.0); Hemoglobin 13.8 g/dL (14.1-18.0); Lymphocytes # 1.1 K/mm3 (0.7-4.5); Lymphocytes % 12.8 % (10-50); Mean Corpuscular HGB Conc 32.2 g/dL (31.8-35.4); Mean Corpuscular Hemoglobin 30.2 pg (27.0-31.2); Mean Corpuscular Volume 93.6 fl (80-94); Mean Platelet Volume 7.8 fl (7.4-10.4); Monocytes # 0.5 K/mm3 (0.1-1.0); Monocytes % 5.4 % (1.7-9.3); Neutrophils # 6.6 K/mm3 (1.8-7.8); Neutrophils % 75.4 % (37.0-80.0); Platelet Count 292 K/mm3 (142-424); Red Blood Count 4.56 M/mm3 (4.60-6.20); Red Cell Distribution Width 13.4 % (11.5-17.5); White Blood Count 8.8 K/mm3 (4.8-10.8)
[2021-10-30 10:31] LABS: Chloride 101 mmol/L (98-107); Potassium 4.8 mmoL/L (3.5-5.1); Sodium 135 mmol/L (136-145)
[2021-10-30 10:34] LABS: Alanine Aminotransferase 20 U/L (12-78); Albumin Level 4.1 g/dl (3.5-5.0); Albumin/Globulin Ratio 1.5 (1.1-1.8); Alkaline Phosphatase 75 U/L (38-126); Anion Gap 11.8 mEq/L (5-15); Aspartate Amino Transferase 27 U/L (17-59); Bilirubin,Total 1.3 mg/dl (0.2-1.3); Blood Urea Nitrogen 23 mg/dl (9-20); Calcium 8.4 mg/dl (8.4-10.2); Carbon Dioxide 27 mmol/L (22.0-30.0); Creatinine Clearance Estimated 86 mL/min (50-200); Estimated Glomerular Filt Rate 76 ml/min (>60); GFR (African American) 92 ML/MIN (>60); Globulin 2.7 g/dL (1.3-3.2); Glucose 126 mg/dl (74-100); Total Protein,Serum 6.8 g/dl (6.3-8.2)
[2021-10-30 10:51] LABS: Erythrocyte Sedimentation Rate 18 mm/hr (0-20)
[2021-10-30 11:09] LABS: Vancomycin,Trough 20.3 ug/mL (5.0-10.0)
== END 2021-10-30 10:11 | disposition home or self-care (01) ==
LOC: INF 10:01
PROVIDERS: Visit Provider Podiatrist
DX: E11.621 Type 2 diabetes mellitus with foot ulcer; L97.519 Non-pressure chronic ulcer of other part of right foot with unspecified severity; L03.119 Cellulitis of unspecified part of limb; Z79.84 Long term (current) use of oral hypoglycemic drugs
CPT/HCPCS: 80053; 80202; 85025; 85651; 86140

== ENCOUNTER 2021-11-06 09:05 | Outpatient (CLI) | payer MEDICARE, MEDICAID, SELFPAY ==
[2021-11-06 09:13] VITALS: BMI 23.0
[2021-11-06 09:37] LABS: Basophils # 0.1 K/mm3 (0-0.2); Basophils % 1.1 % (0.1-2.0); Eosinophils # 0.4 K/mm3 (0.0-0.4); Eosinophils % 5.8 % (0.1-12.0); Hematocrit 42.6 % (42.0-52.0); Hemoglobin 14.1 g/dL (14.1-18.0); Lymphocytes # 0.9 K/mm3 (0.7-4.5); Mean Corpuscular HGB Conc 33.1 g/dL (31.8-35.4); Mean Corpuscular Hemoglobin 30.8 pg (27.0-31.2); Mean Platelet Volume 7.7 fl (7.4-10.4); Monocytes # 0.4 K/mm3 (0.1-1.0); Monocytes % 5.9 % (1.7-9.3); Neutrophils # 5.4 K/mm3 (1.8-7.8); Neutrophils % 74.3 % (37.0-80.0); Platelet Count 273 K/mm3 (142-424); Red Blood Count 4.58 M/mm3 (4.60-6.20); Red Cell Distribution Width 13.3 % (11.5-17.5); White Blood Count 7.2 K/mm3 (4.8-10.8)
[2021-11-06 09:44] LABS: Alanine Aminotransferase 18 U/L (12-78); Albumin Level 4.2 g/dl (3.5-5.0); Albumin/Globulin Ratio 1.6 (1.1-1.8); Alkaline Phosphatase 78 U/L (38-126); Anion Gap 13.5 mEq/L (5-15); Aspartate Amino Transferase 26 U/L (17-59); Bilirubin,Total 1.5 mg/dl (0.2-1.3); Blood Urea Nitrogen 18 mg/dl (9-20); Calcium 8.8 mg/dl (8.4-10.2); Carbon Dioxide 27 mmol/L (22.0-30.0); Chloride 103 mmol/L (98-107); Creatinine Clearance Estimated 78 mL/min (50-200); Estimated Glomerular Filt Rate 68 ml/min (>60); GFR (African American) 83 ML/MIN (>60); Globulin 2.6 g/dL (1.3-3.2); Glucose 175 mg/dl (74-100); Potassium 4.5 mmoL/L (3.5-5.1); Sodium 139 mmol/L (136-145); Total Protein,Serum 6.8 g/dl (6.3-8.2)
[2021-11-06 10:19] LABS: Vancomycin,Trough 20.2 ug/mL (5.0-10.0)
[2021-11-06 10:26] LABS: Erythrocyte Sedimentation Rate 17 mm/hr (0-20)
== END 2021-11-06 09:45 | disposition home or self-care (01) ==
LOC: INF 09:07
PROVIDERS: PCP Emergency Medicine; Visit Provider Podiatrist
DX: E11.621 Type 2 diabetes mellitus with foot ulcer (principal); L03.115 Cellulitis of right lower limb; Z79.84 Long term (current) use of oral hypoglycemic drugs
CPT/HCPCS: 80053; 80202; 85025; 85651; 86140

== ENCOUNTER 2021-11-13 16:25 | Outpatient (CLI) | payer MEDICARE, MEDICAID, SELFPAY ==
[2021-11-13 16:30] VITALS: BMI 23.0
--- NOTE | 2021-11-13 16:53 | PC.NURSE ---
11/13/21 1640 Pt presents with for weekly picc line drsg change and labs. Upon immediate assessment of line, picc line is noted to be pulled out from the original insertion site approximately 10cm. Picc line drsg intact, picc line accessed and flushed using ns. Picc line flushes easily, however no blood return is noted from the line. Pt's did mention that she had to change the picc line drsg at home. Accessed venous access via butterfly needle to pt's lt fa and blood drawn for labs as ordered. Consulted infusion news production supervisor and RN that placed Picc line for the pt, Kalpana Zhu RN, and it was decided that pt would return to outpt clinic tomorrow am for picc evaluation and possible picc line replacement. Poc discussed with pt and and all parties were agreeable. Current Picc line left in place with drsg cdi and secured with stockingette as is, for evaluation per nurse tomorrow am.
[2021-11-13 17:01] LABS: Basophils # 0.1 K/mm3 (0-0.2); Basophils % 2.7 % (0.1-2.0); Eosinophils # 0.4 K/mm3 (0.0-0.4); Hemoglobin 14.7 g/dL (14.1-18.0); Lymphocytes % 21.6 % (10-50); Mean Corpuscular HGB Conc 33.4 g/dL (31.8-35.4); Mean Corpuscular Hemoglobin 30.8 pg (27.0-31.2); Mean Corpuscular Volume 92.1 fl (80-94); Mean Platelet Volume 7.6 fl (7.4-10.4); Monocytes # 0.4 K/mm3 (0.1-1.0); Monocytes % 9.3 % (1.7-9.3); Neutrophils # 2.6 K/mm3 (1.8-7.8); Neutrophils % 57.4 % (37.0-80.0); Platelet Count 291 K/mm3 (142-424); Red Blood Count 4.78 M/mm3 (4.60-6.20); Red Cell Distribution Width 13.5 % (11.5-17.5); White Blood Count 4.6 K/mm3 (4.8-10.8)
[2021-11-13 17:14] LABS: Alanine Aminotransferase 24 U/L (12-78); Albumin Level 4.1 g/dl (3.5-5.0); Albumin/Globulin Ratio 1.6 (1.1-1.8); Alkaline Phosphatase 76 U/L (38-126); Anion Gap 11.2 mEq/L (5-15); Aspartate Amino Transferase 27 U/L (17-59); Bilirubin,Total 1.4 mg/dl (0.2-1.3); Blood Urea Nitrogen 22 mg/dl (9-20); Calcium 8.8 mg/dl (8.4-10.2); Carbon Dioxide 27 mmol/L (22.0-30.0); Chloride 106 mmol/L (98-107); Creatinine Clearance Estimated 95 mL/min (50-200); Estimated Glomerular Filt Rate 86 ml/min (>60); GFR (African American) 104 ML/MIN (>60); Globulin 2.6 g/dL (1.3-3.2); Glucose 94 mg/dl (74-100); Potassium 4.2 mmoL/L (3.5-5.1); Sodium 140 mmol/L (136-145); Total Protein,Serum 6.7 g/dl (6.3-8.2)
[2021-11-13 17:20] LABS: C-Reactive Protein 1.5 mg/L (0-4)
[2021-11-13 17:21] LABS: Vancomycin,Trough 13.9 ug/mL (5.0-10.0)
[2021-11-13 17:28] LABS: Erythrocyte Sedimentation Rate 16 mm/hr (0-20)
== END 2021-11-13 16:55 | disposition home or self-care (01) ==
LOC: INF 16:26
PROVIDERS: PCP Emergency Medicine; Visit Provider Podiatrist
DX: E11.621 Type 2 diabetes mellitus with foot ulcer (principal); L97.519 Non-pressure chronic ulcer of other part of right foot with unspecified severity; L97.321 Non-pressure chronic ulcer of left ankle limited to breakdown of skin; L03.119 Cellulitis of unspecified part of limb; Z79.84 Long term (current) use of oral hypoglycemic drugs
CPT/HCPCS: 80053; 80202; 85025; 85651; 86140

== ENCOUNTER 2021-11-14 08:11 | Outpatient (CLI) | payer MEDICARE, MEDICAID, SELFPAY ==
[2021-11-14 08:57] VITALS: BMI 23.7
--- NOTE | 2021-11-14 09:06 | XR_ITS ---
FINAL REPORT CLINICAL HISTORY: PICC line placement COMPARISON: 10/24/2021 FINDINGS: A single portable view of the chest was obtained. There is a left subclavian ICD. There is a right side PICC line coiled in the upper SVC with the tip in the right subclavian vein. The heart size and pulmonary vascularity are within normal limits. The mediastinum is within normal limits. No acute pulmonary abnormality is identified. There is no pneumothorax. There are degenerative changes of bilateral shoulders. IMPRESSION: Right-sided PICC line coiled in the upper SVC with tip in the right subclavian vein. No pneumothorax. Reviewed, Interpreted and Dictated by Yang Pierce III, MD Transcribed by Lee Jacobs Authenticated by Yang Pierce III, MD on 11/14/2021 10:01:12 AM [facility]
--- NOTE | 2021-11-14 10:07 | XR_ITS ---
FINAL REPORT CLINICAL HISTORY: PICC PLACEMENT COMPARISON: Earlier today, November 14, 2021 FINDINGS: A single portable view of the chest was obtained. There is a left subclavian ICD. The right side PICC line has been repositioned with the tip in the lower SVC. The heart size and pulmonary vascularity are within normal limits. The mediastinum is within normal limits. No acute pulmonary abnormality is identified. There is no pneumothorax. The lungs are clear. The bony thorax is intact. IMPRESSION: Right-sided PICC line repositioned with tip in the lower SVC. No pneumothorax. Reviewed, Interpreted and Dictated by Yang Pierce III, MD Transcribed by Lee Jacobs Authenticated by Yang Pierce III, MD on 11/14/2021 10:39:29 AM [facility]
[2021-11-14 11:00] VITALS: BP 122/74; PULSE 68; RESP 20; TEMP 36.9; O2SAT 95
== END 2021-11-14 11:30 | disposition home or self-care (01) ==
LOC: INF 08:13
PROVIDERS: PCP Emergency Medicine; Visit Provider Podiatrist
DX: Z45.2 Encounter for adjustment and management of vascular access device (principal)
CPT/HCPCS: 36410; 36569; 71045; C1751

== ENCOUNTER 2021-11-20 09:15 | Outpatient (CLI) | payer MEDICARE, MEDICAID, SELFPAY ==
[2021-11-20 09:22] VITALS: BMI 23.0
[2021-11-20 09:53] LABS: Basophils % 1.4 % (0.1-2.0); Eosinophils # 0.1 K/mm3 (0.0-0.4); Eosinophils % 7.7 % (0.1-12.0); Hematocrit 40.4 % (42.0-52.0); Hemoglobin 13.6 g/dL (14.1-18.0); Lymphocytes # 0.6 K/mm3 (0.7-4.5); Lymphocytes % 33.6 % (10-50); Mean Corpuscular HGB Conc 33.7 g/dL (31.8-35.4); Mean Corpuscular Hemoglobin 31.7 pg (27.0-31.2); Mean Corpuscular Volume 94.2 fl (80-94); Mean Platelet Volume 7.7 fl (7.4-10.4); Monocytes # 0.4 K/mm3 (0.1-1.0); Monocytes % 22.7 % (1.7-9.3); Neutrophils # 0.6 K/mm3 (1.8-7.8); Neutrophils % 34.4 % (37.0-80.0); Platelet Count 245 K/mm3 (142-424); Red Blood Count 4.28 M/mm3 (4.60-6.20); Red Cell Distribution Width 13.5 % (11.5-17.5); White Blood Count 1.7 K/mm3 (4.8-10.8)
[2021-11-20 10:10] LABS: Alanine Aminotransferase 23 U/L (12-78); Albumin Level 3.9 g/dl (3.5-5.0); Albumin/Globulin Ratio 1.6 (1.1-1.8); Alkaline Phosphatase 114 U/L (38-126); Anion Gap 11.9 mEq/L (5-15); Aspartate Amino Transferase 46 U/L (17-59); Bilirubin,Total 1.7 mg/dl (0.2-1.3); Blood Urea Nitrogen 25 mg/dl (9-20); Calcium 8.9 mg/dl (8.4-10.2); Carbon Dioxide 26 mmol/L (22.0-30.0); Chloride 106 mmol/L (98-107); Creatinine Clearance Estimated 95 mL/min (50-200); Estimated Glomerular Filt Rate 86 ml/min (>60); GFR (African American) 104 ML/MIN (>60); Globulin 2.4 g/dL (1.3-3.2); Glucose 183 mg/dl (74-100); Potassium 4.9 mmoL/L (3.5-5.1); Sodium 139 mmol/L (136-145); Total Protein,Serum 6.3 g/dl (6.3-8.2)
[2021-11-20 10:15] LABS: C-Reactive Protein 3.5 mg/L (0-4)
[2021-11-20 10:17] LABS: Vancomycin,Trough 26.3 ug/mL (5.0-10.0)
[2021-11-20 10:19] LABS: Erythrocyte Sedimentation Rate 19 mm/hr (0-20)
--- NOTE | 2021-11-20 10:25 | PC.NURSE ---
11/20/21 1016 Nanci Francis called RN at 1016 to report Vanc trough 26.3. RN repeated and verified pts name, , and lab value. Result called to Katty in Dr. Jackson's office, no new orders noted.
[2021-11-20 10:54] LABS: MANUAL DIFFERENTIAL MANUAL DIFFERENTIAL (MANUAL DIFF)
[2021-11-20 11:11] LABS: Eosinophils % 4 % (0-3); Lymphocytes % 47 % (10-50); Monocytes % 17 % (2-9); Neutrophils % 32 % (42-76); Total Cells Counted 100
[2021-11-20 11:12] LABS: Platelet Estimate Normal
== END 2021-11-20 09:40 | disposition home or self-care (01) ==
LOC: INF 09:15
PROVIDERS: PCP Emergency Medicine; Visit Provider Podiatrist
DX: E11.621 Type 2 diabetes mellitus with foot ulcer (principal); L97.519 Non-pressure chronic ulcer of other part of right foot with unspecified severity; L97.321 Non-pressure chronic ulcer of left ankle limited to breakdown of skin; L03.119 Cellulitis of unspecified part of limb; R35.1 Nocturia; R68.89 Other general symptoms and signs; Z79.84 Long term (current) use of oral hypoglycemic drugs
CPT/HCPCS: 80053; 80202; 83036; 85007; 85025; 85651; 86140; 87086

== ENCOUNTER → 2021-11-20 18:57 | Outpatient (CLI) | payer MEDICARE, MEDICAID, SELFPAY ==
[2021-11-20 13:27] LABS: Hemoglobin A1C 5.6 % (4.0-6.0)
== END ==
PROVIDERS: Visit Provider Nurse Practitioner Family
DX: E11.40 Type 2 diabetes mellitus with diabetic neuropathy, unspecified (principal); R68.89 Other general symptoms and signs
CPT/HCPCS: 83036; 87086

== ENCOUNTER 2021-11-27 15:39 | Outpatient (CLI) | payer MEDICARE, MEDICAID, SELFPAY ==
[2021-11-27 15:45] VITALS: BMI 23.0
[2021-11-27 16:06] LABS: Chloride 104 mmol/L (98-107)
[2021-11-27 16:07] LABS: Potassium 4.2 mmoL/L (3.5-5.1); Sodium 139 mmol/L (136-145)
[2021-11-27 16:09] LABS: Alanine Aminotransferase 20 U/L (12-78); Aspartate Amino Transferase 23 U/L (17-59); Blood Urea Nitrogen 25 mg/dl (9-20); Creatinine Clearance Estimated 86 mL/min (50-200); Estimated Glomerular Filt Rate 76 ml/min (>60); GFR (African American) 92 ML/MIN (>60)
[2021-11-27 16:10] LABS: Albumin Level 3.8 g/dl (3.5-5.0); Albumin/Globulin Ratio 1.5 (1.1-1.8); Alkaline Phosphatase 81 U/L (38-126); Anion Gap 10.2 mEq/L (5-15); Bilirubin,Total 1.4 mg/dl (0.2-1.3); Calcium 8.5 mg/dl (8.4-10.2); Carbon Dioxide 29 mmol/L (22.0-30.0); Globulin 2.6 g/dL (1.3-3.2); Glucose 142 mg/dl (74-100); Total Protein,Serum 6.4 g/dl (6.3-8.2)
[2021-11-27 16:13] LABS: Basophils % 0.7 % (0.1-2.0); Eosinophils # 0.1 K/mm3 (0.0-0.4); Eosinophils % 3.6 % (0.1-12.0); Hematocrit 40.9 % (42.0-52.0); Hemoglobin 13.9 g/dL (14.1-18.0); Lymphocytes # 0.9 K/mm3 (0.7-4.5); Lymphocytes % 24.8 % (10-50); Mean Corpuscular HGB Conc 33.9 g/dL (31.8-35.4); Mean Corpuscular Hemoglobin 31.5 pg (27.0-31.2); Mean Corpuscular Volume 92.9 fl (80-94); Mean Platelet Volume 7.8 fl (7.4-10.4); Monocytes # 0.3 K/mm3 (0.1-1.0); Neutrophils # 2.2 K/mm3 (1.8-7.8); Neutrophils % 61.9 % (37.0-80.0); Platelet Count 311 K/mm3 (142-424); Red Cell Distribution Width 13.2 % (11.5-17.5); White Blood Count 3.5 K/mm3 (4.8-10.8)
[2021-11-27 16:16] LABS: C-Reactive Protein 3.1 mg/L (0-4)
[2021-11-27 16:34] LABS: Vancomycin,Trough 17.2 ug/mL (5.0-10.0)
[2021-11-27 16:36] LABS: Erythrocyte Sedimentation Rate 17 mm/hr (0-20)
== END 2021-11-27 16:05 | disposition home or self-care (01) ==
LOC: INF 15:41
PROVIDERS: PCP Emergency Medicine; Visit Provider Podiatrist
DX: L97.521 Non-pressure chronic ulcer of other part of left foot limited to breakdown of skin (principal); L97.321 Non-pressure chronic ulcer of left ankle limited to breakdown of skin; E11.621 Type 2 diabetes mellitus with foot ulcer; L97.519 Non-pressure chronic ulcer of other part of right foot with unspecified severity; R20.0 Anesthesia of skin; R20.2 Paresthesia of skin; R20.8 Other disturbances of skin sensation; Z79.84 Long term (current) use of oral hypoglycemic drugs
CPT/HCPCS: 80053; 80202; 85025; 85651; 86140

== ENCOUNTER 2021-12-04 15:22 | Outpatient (CLI) | payer MEDICARE, MEDICAID, SELFPAY ==
--- NOTE | 2021-12-04 15:35 | XR_ITS ---
FINAL REPORT CLINICAL HISTORY: wound COMPARISON: September 26, 2021 FINDINGS: 3 views of the right foot were obtained. There is no acute fracture or dislocation. There is a probable erosion of the distal medial tip of the tuft of the 1st distal phalanx. Overlying bandage obscures detail. IMPRESSION: Erosion of the tip of the 1st distal phalanx. Reviewed, Interpreted and Dictated by Yang Pierce III, MD Transcribed by Lee Jacobs Authenticated by Yang Pierce III, MD on 12/04/2021 04:25:04 PM [facility]
== END 2021-12-04 15:35 | disposition home or self-care (01) ==
PROVIDERS: PCP Emergency Medicine; Visit Provider Podiatrist
DX: E11.621 Type 2 diabetes mellitus with foot ulcer (principal); L97.519 Non-pressure chronic ulcer of other part of right foot with unspecified severity; Z51.89 Encounter for other specified aftercare; Z79.84 Long term (current) use of oral hypoglycemic drugs
CPT/HCPCS: 73630; G0463

== ENCOUNTER → 2021-12-24 09:24 | Outpatient (CLI) | payer MEDICARE, MEDICAID, SELFPAY ==
[2021-12-24 09:57] LABS: Basophils # 0.1 K/mm3 (0-0.2); Basophils % 1.7 % (0.1-2.0); Eosinophils # 0.3 K/mm3 (0.0-0.4); Hematocrit 41.4 % (42.0-52.0); Hemoglobin 14.2 g/dL (14.1-18.0); Lymphocytes % 14.3 % (10-50); Mean Corpuscular HGB Conc 34.2 g/dL (31.8-35.4); Mean Corpuscular Hemoglobin 31.6 pg (27.0-31.2); Mean Corpuscular Volume 92.3 fl (80-94); Mean Platelet Volume 7.4 fl (7.4-10.4); Monocytes # 0.4 K/mm3 (0.1-1.0); Monocytes % 5.6 % (1.7-9.3); Neutrophils # 5.2 K/mm3 (1.8-7.8); Neutrophils % 74.3 % (37.0-80.0); Platelet Count 251 K/mm3 (142-424); Red Blood Count 4.48 M/mm3 (4.60-6.20); Red Cell Distribution Width 13.6 % (11.5-17.5); White Blood Count 7.1 K/mm3 (4.8-10.8)
[2021-12-24 10:10] LABS: Chloride 105 mmol/L (98-107)
[2021-12-24 10:11] LABS: Potassium 4.7 mmoL/L (3.5-5.1); Sodium 139 mmol/L (136-145)
[2021-12-24 10:13] LABS: Blood Urea Nitrogen 34 mg/dl (9-20); Estimated Glomerular Filt Rate 76 ml/min (>60); GFR (African American) 92 ML/MIN (>60)
[2021-12-24 10:14] LABS: Anion Gap 11.7 mEq/L (5-15); Calcium 9.6 mg/dl (8.4-10.2); Carbon Dioxide 27 mmol/L (22.0-30.0); Glucose 202 mg/dl (74-100)
== END ==
PROVIDERS: Visit Provider Surgery
DX: Z01.818 Encounter for other preprocedural examination (principal)
CPT/HCPCS: 36415; 80048; 85025

== ENCOUNTER → 2022-06-18 15:00 | Outpatient (CLI) | payer MEDICARE, MEDICAID, SELFPAY ==
[2022-06-18 18:28] LABS: Basophils # 0.1 K/mm3 (0-0.2); Basophils % 0.8 % (0.1-2.0); Eosinophils # 0.3 K/mm3 (0.0-0.4); Eosinophils % 3.3 % (0.1-12.0); Hematocrit 40.9 % (42.0-52.0); Hemoglobin 13.7 g/dL (14.1-18.0); Lymphocytes # 1.2 K/mm3 (0.7-4.5); Lymphocytes % 13.8 % (10-50); Mean Corpuscular HGB Conc 33.4 g/dL (31.8-35.4); Mean Corpuscular Hemoglobin 30.6 pg (27.0-31.2); Mean Corpuscular Volume 91.4 fl (80-94); Mean Platelet Volume 7.9 fl (7.4-10.4); Monocytes # 0.5 K/mm3 (0.1-1.0); Monocytes % 5.6 % (1.7-9.3); Neutrophils # 6.7 K/mm3 (1.8-7.8); Neutrophils % 76.6 % (37.0-80.0); Platelet Count 302 K/mm3 (142-424); Red Blood Count 4.47 M/mm3 (4.60-6.20); Red Cell Distribution Width 13.9 % (11.5-17.5); White Blood Count 8.8 K/mm3 (4.8-10.8)
[2022-06-18 18:33] LABS: Alanine Aminotransferase 9 U/L (12-78); Albumin Level 4.3 g/dl (3.5-5.0); Albumin/Globulin Ratio 1.6 (1.1-1.8); Anion Gap 16.8 mEq/L (5-15); Aspartate Amino Transferase 23 U/L (17-59); Bilirubin,Total 1.5 mg/dl (0.2-1.3); Blood Urea Nitrogen 27 mg/dl (9-20); Carbon Dioxide 24 mmol/L (22.0-30.0); Chloride 103 mmol/L (98-107); Chol/HDL Ratio 3.3 (1-3.5); Cholesterol 93 mg/dl (140-200); Estimated Glomerular Filt Rate 68 ml/min (>60); GFR (African American) 83 ML/MIN (>60); Globulin 2.7 g/dL (1.3-3.2); Glucose 78 mg/dl (74-100); HDL Cholesterol 28 mg/dl (40-60); Potassium 4.8 mmoL/L (3.5-5.1); Sodium 139 mmol/L (136-145); Triglycerides 138 mg/dl (30-150); VLDL Cholesterol 28 mg/dL (0-40)
[2022-06-18 18:34] LABS: Alkaline Phosphatase 86 U/L (38-126)
[2022-06-18 18:45] LABS: Microalbumin/Creatinine Ratio 7.2
[2022-06-18 18:46] LABS: Creatinine,Urine Random 157 mg/dL (Not Estab.)
[2022-06-18 18:51] LABS: Free T4 (Free Thyroxine) 0.86 ng/dl (0.78-2.19)
[2022-06-18 18:52] LABS: 25-OH Vitamin D, Total 45.8 ng/mL (30-100)
[2022-06-18 18:57] LABS: Direct LDL Cholesterol 40.63 mg/dL (100-129)
[2022-06-18 19:05] LABS: Prostate Specific Ag Screen 1.5 ng/ml (0.0-4.0); Thyroid Stimulating Hormone 1.58 uIU/mL (0.465-4.68)
[2022-06-18 20:18] LABS: Hemoglobin A1C 5.5 % (4.0-6.0)
== END ==
PROVIDERS: PCP Emergency Medicine; Visit Provider Emergency Medicine
DX: E11.69 Type 2 diabetes mellitus with other specified complication (principal); Z12.5 Encounter for screening for malignant neoplasm of prostate; E55.9 Vitamin D deficiency, unspecified; Z79.84 Long term (current) use of oral hypoglycemic drugs
CPT/HCPCS: 80053; 80061; 82043; 82306; 82570; 83036; 84439; 84443; 85025; G0103

== ENCOUNTER → 2022-06-30 14:41 | Outpatient (CLI) | payer MEDICARE, MEDICAID, SELFPAY ==
--- NOTE | 2022-06-30 14:48 | XR_ITS ---
FINAL REPORT CLINICAL HISTORY: back pain, patient fell on thursday. FINDINGS: LUMBAR SPINE Three views demonstrate no acute fracture. There are mild and moderate degenerative changes. There is no malalignment. IMPRESSION: No acute process. Reviewed, Interpreted and Dictated by Yang Pierce III, MD Transcribed by Stephie Palencia Authenticated and . [facility]
--- NOTE | 2022-06-30 14:48 | XR_ITS ---
FINAL REPORT CLINICAL HISTORY: hip pain, patient fell on thursday. COMPARISON: 12/28/2020 FINDINGS: Left hip Three views were obtained. There is no acute fracture or dislocation. There are mild degenerative changes, stable since previous. No soft tissue abnormality is identified. IMPRESSION: No acute process. Reviewed, Interpreted and Dictated by Yang Pierce III, MD Transcribed by Stephie Palencia Authenticated and . [facility]
== END ==
PROVIDERS: PCP Emergency Medicine; Visit Provider Emergency Medicine
DX: M25.552 Pain in left hip (principal); M54.50 Low back pain, unspecified; W19.XXXA Unspecified fall, initial encounter
CPT/HCPCS: 72100; 73502

== ENCOUNTER → 2022-12-03 07:40 | Outpatient (CLI) | payer MEDICARE, MEDICAID, SELFPAY | PROVIDERS: PCP Emergency Medicine; Visit Provider Nurse Practitioner Family | DX: E11.69 Type 2 diabetes mellitus with other specified complication (principal); E78.2 Mixed hyperlipidemia; G20 Parkinson's disease; I10 Essential (primary) hypertension; I25.10 Atherosclerotic heart disease of native coronary artery without angina pectoris; I42.0 Dilated cardiomyopathy; I50.22 Chronic systolic (congestive) heart failure; I63.9 Cerebral infarction, unspecified; I73.9 Peripheral vascular disease, unspecified; R07.89 Other chest pain; R94.31 Abnormal electrocardiogram [ECG] [EKG]; Z95.810 Presence of automatic (implantable) cardiac defibrillator; Z79.84 Long term (current) use of oral hypoglycemic drugs | CPT/HCPCS: 78452; 93017; A9502; J2785 ==

== ENCOUNTER → 2022-12-08 14:52 | Outpatient (CLI) | payer MEDICARE, MEDICAID, SELFPAY | PROVIDERS: PCP Emergency Medicine; Visit Provider Nurse Practitioner Family | DX: E11.69 Type 2 diabetes mellitus with other specified complication (principal); E78.2 Mixed hyperlipidemia; G20 Parkinson's disease; I25.10 Atherosclerotic heart disease of native coronary artery without angina pectoris; I42.0 Dilated cardiomyopathy; I50.22 Chronic systolic (congestive) heart failure; I63.9 Cerebral infarction, unspecified; I73.9 Peripheral vascular disease, unspecified; R07.89 Other chest pain; R94.31 Abnormal electrocardiogram [ECG] [EKG]; Z95.810 Presence of automatic (implantable) cardiac defibrillator; Z79.84 Long term (current) use of oral hypoglycemic drugs | CPT/HCPCS: 93306 ==

== ENCOUNTER 2022-12-10 09:17 | Observation (INO) | payer MEDICARE, MEDICAID, SELFPAY ==
[2022-12-10] VITALS (12 sets, daily range): BP systolic 119–155; BP diastolic 77–89; PULSE 64–77; RESP 12–18; TEMP 36.4–36.8; O2SAT 96–99; BMI 25.7; BMI 25.5
--- NOTE | 2022-12-10 09:30 | ECG_ITS ---
APPROVED REPORT Exam: Resting ECG HR:70 bpm ECG Measurements Heart Rate 70 AXES KS 163 P 24 QRSd 145 QRS -49 QT 407 T 33 QTc 428 Conclusion ELECTRONIC VENTRICULAR PACEMAKER ABNORMAL RHYTHM ECG UNCONFIRMED REPORT Electronically signed by : Joe Morales MD 12/12/2022 09:36:19
--- NOTE | 2022-12-10 09:33 | XR_ITS ---
FINAL REPORT CLINICAL HISTORY: weakness COMPARISON: 11/14/2021 FINDINGS: A single portable view of the chest was obtained. A left subclavian ICD is present. The heart size and pulmonary vascularity are within normal limits. The mediastinum is within normal limits. No acute pulmonary abnormality is identified. There are degenerative changes in the shoulders. IMPRESSION: No active cardiopulmonary disease. Reviewed, Interpreted and Dictated by Yang Pierce III, MD Transcribed by Claudia Wall Authenticated and [facility]
--- NOTE | 2022-12-10 09:35 | HMH.EDGENADL ---
Discharge Plan Disposition Patient Disposition: Admitted As Inpatient Condition: Fair Chief Complaint: Weakness Prescriptions Prescriptions: No Action ergocalciferol (vitamin D2) 1,250 mcg (50,000 unit) capsule 50,000 unit PO WEEKLY (DME) Dexcom G6 Sensor Device See Rx Instructions .Route Qty: 3 0RF Rx Instructions: As directed (DME) Dexcom G6 [employer] Agent Misc See Rx Instructions .Route Qty: 1 0RF Rx Instructions: As directed (DME) Dexcom G6 Transmitter Device See Rx Instructions .Route Qty: 1 0RF Rx Instructions: As directed docusate sodium [Colace] 100 mg capsule 100 mg PO DAILY Qty: 30 2RF polyethylene glycol 3350 [Miralax] 17 gram/dose powder 17 g PO DAILY Qty: 510 2RF hydrocodone-acetaminophen 5-325 mg tablet 1 tab PO BID Qty: 20 0RF aripiprazole 5 mg tablet See Rx Instructions .ROUTE .COMPLEX Qty: 90 3RF Dose Instruction: TAKE 1 TABLET BY MOUTH AT BEDTIME Rx Instructions: TAKE 1 TABLET BY MOUTH AT BEDTIME aspirin 81 mg tablet,delayed release (DR/EC) See Rx Instructions .ROUTE .COMPLEX Qty: 90 3RF Dose Instruction: Take 1 tablet by mouth once daily Rx Instructions: Take 1 tablet by mouth once daily acetaminophen [Tylenol] 325 mg tablet 650 mg PO Q6H PRN (Reason: pain) Qty: 90 3RF atorvastatin 20 mg tablet See Rx Instructions .ROUTE .COMPLEX Qty: 90 3RF Dose Instruction: TAKE 1 TABLET BY MOUTH DAILY Rx Instructions: TAKE 1 TABLET BY MOUTH DAILY carbidopa-levodopa 25-100 mg tablet 2 tab PO TID 90 Days Qty: 540 0RF carvedilol 25 mg tablet 12.5 mg PO BID Qty: 180 0RF clopidogrel 75 mg tablet 75 mg PO DAILY Qty: 90 3RF glipizide 10 mg tablet See Rx Instructions .ROUTE .COMPLEX Qty: 90 0RF Dose Instruction: Take 1 tablet by mouth once daily Rx Instructions: Take 1 tablet by mouth once daily nitroglycerin 0.1 mg/hr patch 24 hour 1 patch TRANSDERMA DAILY PRN (Reason: Chest Pain) Qty: 30 3RF spironolactone 25 mg tablet See Rx Instructions .ROUTE .COMPLEX Qty: 90 0RF Dose Instruction: Take 1/2 (one-half) tablet by mouth once daily Rx Instructions: Take 1/2 (one-half) tablet by mouth once daily metformin 1,000 mg tablet See Rx Instructions .ROUTE .COMPLEX Qty: 180 0RF Dose Instruction: Take 1 tablet by mouth twice daily Rx Instructions: Take 1 tablet by mouth twice daily trihexyphenidyl 2 mg tablet See Rx Instructions .ROUTE .COMPLEX Qty: 90 0RF Dose Instruction: Take 1/2 (one-half) tablet by mouth once daily Rx Instructions: Take 1/2 (one-half) tablet by mouth once daily fluoxetine 40 mg capsule See Rx Instructions .ROUTE .COMPLEX Qty: 90 0RF Dose Instruction: TAKE 1 CAPSULE BY MOUTH ONCE DAILY FOR MOOD Rx Instructions: TAKE 1 CAPSULE BY MOUTH ONCE DAILY FOR MOOD Xarelto 2.5 mg tablet See Rx Instructions .ROUTE .COMPLEX Qty: 180 0RF Dose Instruction: Take 1 tablet by mouth twice daily Rx Instructions: Take 1 tablet by mouth twice daily Referrals Follow up/Referrals: Mohan Levine MD [Primary Care Provider] - See instructions Clinical Impressions Clinical Impression: Weakness, CAD (coronary artery disease), Heart problem Discharge ED Provider: Adriano Ugalde General Adult HPI General Chief complaint: Weakness Stated complaint: Numbness LT hand phys ref Time Seen by Provider: 12/10/22 09:35 History of Present Illness HPI narrative: Patient is a 62-year-old male with past medical history of ischemic stroke with left-sided residual in the upper and lower extremity who presents to the emergency department as a transfer patient from cardiology clinic for evaluation of weakness. History is obtained by patient and significant other at bedside. Patient has had generalized weakness over the last 48 hours which was more noticeable this morning.
--- NOTE | 2022-12-10 09:35 | PC.NURSE ---
fsbs 219
[2022-12-10 09:41] LABS: POC Glucose,Bedside 219 (70-110)
[2022-12-10 09:57] LABS: Chloride 100 mmol/L (98-107); Potassium 5.5 mmoL/L (3.5-5.1); Sodium 138 mmol/L (136-145)
[2022-12-10 09:58] LABS: Basophils # 0.1 K/mm3 (0-0.2); Basophils % 0.7 % (0.1-2.0); Eosinophils # 0.3 K/mm3 (0.0-0.4); Eosinophils % 2.9 % (0.1-12.0); Hemoglobin 15.6 g/dL (14.1-18.0); Lymphocytes # 1.2 K/mm3 (0.7-4.5); Lymphocytes % 11.7 % (10-50); Mean Corpuscular HGB Conc 33.2 g/dL (31.8-35.4); Mean Corpuscular Hemoglobin 30.6 pg (27.0-31.2); Mean Platelet Volume 7.3 fl (7.4-10.4); Monocytes # 0.5 K/mm3 (0.1-1.0); Neutrophils # 7.9 K/mm3 (1.8-7.8); Neutrophils % 79.6 % (37.0-80.0); Platelet Count 288 K/mm3 (142-424); Red Blood Count 5.11 M/mm3 (4.60-6.20); Red Cell Distribution Width 13.3 % (11.5-17.5); White Blood Count 9.9 K/mm3 (4.8-10.8)
[2022-12-10 10:00] LABS: Alanine Aminotransferase 15 U/L (12-78); Albumin Level 4.6 g/dl (3.5-5.0); Albumin/Globulin Ratio 1.4 (1.1-1.8); Alkaline Phosphatase 80 U/L (38-126); Anion Gap 14.5 mEq/L (5-15); Aspartate Amino Transferase 29 U/L (17-59); Bilirubin,Total 2.1 mg/dl (0.2-1.3); Blood Urea Nitrogen 26 mg/dl (9-20); Calcium 9.3 mg/dl (8.4-10.2); Carbon Dioxide 29 mmol/L (22.0-30.0); Creatinine Clearance Estimated 79 mL/min (50-200); Estimated Glomerular Filt Rate 62 ml/min (>60); GFR (African American) 74 ML/MIN (>60); Globulin 3.2 g/dL (1.3-3.2); Glucose 225 mg/dl (74-100); Total Protein,Serum 7.8 g/dl (6.3-8.2)
[2022-12-10 10:01] LABS: Magnesium 2.3 mg/dl (1.6-2.3)
[2022-12-10 10:24] LABS: Free T4 (Free Thyroxine) 0.92 ng/dl (0.78-2.19)
--- NOTE | 2022-12-10 10:27 | PC.NURSE ---
cardiology at bedside
--- NOTE | 2022-12-10 10:27 | PC.NURSE ---
Johny from cardiology in to see pt
--- NOTE | 2022-12-10 10:51 | PC.NURSE ---
pt reported having an accident when attempting to use the urinal. on assessment pt has urinated on his clothing, gown and the floors. this nurse gave the pt new sheets, gown and slip socks and assiste with getting cleaned up. no new complaints at this time
--- NOTE | 2022-12-10 11:31 | PC.NURSE ---
called lab about covid swab status.
[2022-12-10 11:34] LABS: Troponin I < 0.01 ng/ml (0.00-0.034)
[2022-12-10 11:40] LABS: Coronavirus 19, PCR Not Detected (NotDetected); Influenza A, PCR Not Detected (NotDetected); Influenza B, PCR Not Detected (NotDetected)
--- NOTE | 2022-12-10 12:14 | PC.NURSE ---
report given to OSMANY Buchanan
--- NOTE | 2022-12-10 12:35 | PC.NURSE ---
PT BEING TRANSPORTED UP FOR ADMISSION
--- NOTE | 2022-12-10 12:37 | PC.NURSE ---
arrived to floor by w/c from ED
--- NOTE | 2022-12-10 13:32 | HMH.PHAINT1 ---
Pharmacy Intervention Comments: Reconciled patient's home medications using pharmacy fill history and patient interview.
--- NOTE | 2022-12-10 13:54 | EXP.CARD.PN ---
Subjective Subjective Date: 12/10/22 Time: 13:54 Principal diagnosis: angina Interval history: Pt was seen in cardiology clinic today as noted below: Pt here for follow up after testing. ECHO is still pending. Stress test is abnormal showing a moderate fixed defect in the basal mid distal inferior and inferoseptal myocardium, defect consistent with scar in RCA. CAD is present. single-vessel CAD by cardiac catheterization 02/2019 of a small 2 mm branch vessel.? Medical therapy recommended. He states he has been having chest pain everyday, he states it usually happens when he is walking.? Characteristics of symptom or complaint: chest pain/pressure Location: left side of the chest pain Duration: minutes Intensity: 5/10 Radiation: No Aggravating or associated factors: exertion, walking Relieving factors: rest Associated Symptoms: dyspnea Sob with exertion. He is having some swelling in his left hand and his hand is more drawn today per patient's . also states she thinks its colder than usual. Cannot tell if hand is weaker then usual. BP is good today. Weight is stable. LDL goal is < 55. LDL is 40. on statin NYHA Class II Heart Failure, EF 40%. CVA in 08/2020 affected his left side he is doing PT and following with his neurologist. He walks with a cane and tremors in his right arm. AICD in place. 10/2022 showed heart logic stable, nonsustained v-tach no therapy, no a-fib. on aspirin and low-dose Xarelto therapy KLEBER- less than 20% bilateral ICA, AUG 2020, Recent CVA AUG 2020. AMANDA is present, intolerant of mask DM is controlled per PCP. EKG is v-pacing, rate is 80 bpm. Pt was also evaluated in ED with the following HPI: Patient is a 62-year-old male with past medical history of ischemic stroke with left-sided residual in the upper and lower extremity who presents to the emergency department as a transfer patient from cardiology clinic for evaluation of weakness.? History is obtained by patient and significant other at bedside.? Patient has had generalized weakness over the last 48 hours which was more noticeable this morning.? No focal weakness.? Patient's mentation is at baseline.? Due to new onset weakness he presents here for continued evaluation.? Patient has had decreased p.o. intake ever since his stroke in 2019, denies cough, fevers, acute rashes or arthralgias, dysuria. Exam Data for Last 24 hours Vital signs and Labs for Last 24 Hours: Temp Pulse Resp BP Pulse Ox 97.5 F L 68 18 146/83 H 99 12/10/22 12:44 12/10/22 12:44 12/10/22 12:44 12/10/22 12:44 12/10/22 12:44 Laboratory Results - last 24 hr 12/10/22 09:25: WBC 9.9, RBC 5.11, Hgb 15.6, Hct 47.0, MCV 92.0, MCH 30.6, MCHC 33.2, RDW 13.3, Plt Count 288, MPV 7.3 L, Neut % (Auto) 79.6, Lymph % (Auto) 11.7, Stark % (Auto) 5.0, Eos % (Auto) 2.9, Baso % (Auto) 0.7, Neut # (Auto) 7.9 H, Lymph # (Auto) 1.2, Stark # (Auto) 0.5, Eos # (Auto) 0.3, Baso # (Auto) 0.1 12/10/22 09:25: Sodium 138, Potassium 5.5 H, Chloride 100, Carbon Dioxide 29, Anion Gap 14.5, BUN 26 H, Creatinine 1.20, Estimated Creat Clear 79, Estimated GFR 62, Est GFR ( Amer) 74, Glucose 225 H, Calcium 9.3, Magnesium 2.3, Total Bilirubin 2.1 H, AST 29, ALT 15, Alkaline Phosphatase 80, Total Protein 7.8, Albumin 4.6, Globulin 3.2, Albumin/Globulin Ratio 1.4 12/10/22 09:25: Free T4 0.92 12/10/22 09:25: Troponin I < 0.01 12/10/22 09:34: POC Glucose 219 H 12/10/22 10:30: SARS-CoV-2 (PCR) Not detected, Influenza A Untype (PCR) Not detected, Influenza Type B (PCR) Not detected I & O for Last 24 hours: Intake & Output 12/07/22 12/08/22 12/09/22 12/10/22 23:59 23:59 23:59 23:59 Weight 188 lb 6 oz Constitutional Constitutional: average body habitus and chronically ill appearing *Routine HEENT Exam Head: Present normocephalic and atraumatic ENT: Present mucous membranes moist *Routine Neck Exam Neck: Present supple, full ROM and normal carotid upstroke; Absent JVD, carotid bruit or lymphadenopathy
[2022-12-10 14:34] LABS: Troponin I < 0.01 ng/ml (0.00-0.034)
--- NOTE | 2022-12-10 15:12 | EXP.HP ---
History of Present Illness *History of present illness: wes is a 62-year-old male with past medical history of ischemic stroke with left-sided residual in the upper and lower extremity who presents to the emergency department as a transfer patient from cardiology clinic for evaluation of weakness.? History is obtained by patient and significant other at bedside.? Patient has had generalized weakness over the last 48 hours which was more noticeable this morning.? No focal weakness.? Patient's mentation is at baseline.? Due to new onset weakness he presents here for continued evaluation.? Patient has had decreased p.o. intake ever since his stroke in 2019, denies cough, fevers, acute rashes or arthralgias, dysuria. Pt here for follow up after testing. ECHO is still pending. Stress test is abnormal showing a moderate fixed defect in the basal mid distal inferior and inferoseptal myocardium, defect consistent with scar in RCA. CAD is present. single-vessel CAD by cardiac catheterization 02/2019 of a small 2 mm branch vessel.? Medical therapy recommended. He states he has been having chest pain everyday, he states it usually happens when he is walking.? [facility] Disclaimer: The information contained in this section may have been updated after the patient was seen, as this information can be updated by other users. Medical History Angina pectoris CAD (coronary artery disease) Cardiomyopathy Chronic systolic heart failure CVA (cerebral vascular accident) History of suspected small vessel ischemic stroke. Previous CT scan of the head at the onset of symptoms did not show evidence of acute abnormalities consistent with left-sided weakness. There was evidence of chronic, clinical silent right lacunar CVA, left lacunar CVA without clinical correlation. Decreased stamina Diabetes mellitus Diabetic neuropathy Dyspnea Dyspnea and respiratory abnormality Episode of change in speech Heart failure, NYHA class 2 HTN (hypertension) Hyperlipidemia PAD (peripheral artery disease) Parkinson disease SOB (shortness of breath) Transient ischemic attack (TIA) Type 2 diabetes mellitus with diabetic neuropathy, without long-term current use of insulin Surgical History AICD (automatic cardioverter/defibrillator) present AICD present, double chamber Social History Smoking Status: Never smoker alcohol intake: never substance use type: denies use current occupational status: disabled Travel in the last 8 weeks: Inside the [place] household members: spouse housing: house number of children: 0 current occupational exposures/hazards: Yes caffeine: Yes Review of Systems Review of Systems Review of systems:: unable to obtain Meds Home Medications and Allergies Home Medications Medication Instructions Recorded Confirmed Type acetaminophen 325 mg tablet 650 mg PO Q6H PRN pain #90 tabs 06/23/22 12/10/22 Rx (Tylenol) aripiprazole 5 mg tablet 5 mg PO HS Depression 12/10/22 12/10/22 History aspirin 81 mg tablet,delayed 81 mg PO DAILY Heart disease 12/10/22 12/10/22 History release atorvastatin 20 mg tablet 20 mg PO DAILY High cholesterol 12/10/22 12/10/22 History carbidopa 25 mg-levodopa 100 mg 2.5 tab PO TID Parkinson 12/10/22 12/10/22 History tablet clopidogrel 75 mg tablet 75 mg PO DAILY Blood thinner, CAD 12/10/22 12/10/22 History fluoxetine 40 mg capsule 40 mg PO DAILY Mood 12/10/22 12/10/22 History metformin 1,000 mg tablet 1,000 mg PO BID Diabetes 12/10/22 12/10/22 History rivaroxaban 2.5 mg tablet (Xarelto) 2.5 mg PO BID Blood thinner 12/10/22 12/10/22 History spironolactone 25 mg tablet 12.5 mg PO DAILY Fluid 12/10/22 12/10/22 History trihexyphenidyl 2 mg tablet 1 mg PO DAILY parkinsons 12/10/22 12/10/22 History bisoprolol fumarate 5 mg tablet 5 mg PO DAILY #30 ta
[2022-12-10 17:20] LABS: POC Glucose,Bedside 139 (70-110)
[2022-12-10 17:35] LABS: Troponin I < 0.01 ng/ml (0.00-0.034)
[2022-12-10 21:56] LABS: POC Glucose,Bedside 142 (70-110)
[2022-12-11] VITALS (19 sets, daily range): BP systolic 121–184; BP diastolic 72–94; PULSE 59–71; RESP 16–22; TEMP 36.5–36.7; O2SAT 90–99; BMI 25.9
--- NOTE | 2022-12-11 03:54 | PC.NURSE ---
NO ACUTE CHANGES SINCE PREVIOUS ASSESSMENT. PT HAS RESTED WELL. LUNG SOUNDS CLEAR. NSR ON TELE. VSS. REMAINS AFEBRILE. CO C/O N/V OR CHEST PAIN.
[2022-12-11 05:32] LABS: POC Glucose,Bedside 101 (70-110)
[2022-12-11 06:11] LABS: Basophils # 0.1 K/mm3 (0-0.2); Basophils % 0.6 % (0.1-2.0); Eosinophils # 0.3 K/mm3 (0.0-0.4); Eosinophils % 3.9 % (0.1-12.0); Hematocrit 42.6 % (42.0-52.0); Hemoglobin 14.4 g/dL (14.1-18.0); Lymphocytes # 1.3 K/mm3 (0.7-4.5); Lymphocytes % 14.7 % (10-50); Mean Corpuscular HGB Conc 33.8 g/dL (31.8-35.4); Mean Corpuscular Hemoglobin 30.7 pg (27.0-31.2); Mean Corpuscular Volume 90.8 fl (80-94); Monocytes # 0.6 K/mm3 (0.1-1.0); Monocytes % 6.3 % (1.7-9.3); Neutrophils # 6.5 K/mm3 (1.8-7.8); Neutrophils % 74.5 % (37.0-80.0); Platelet Count 211 K/mm3 (142-424); Red Cell Distribution Width 13.2 % (11.5-17.5); White Blood Count 8.8 K/mm3 (4.8-10.8)
[2022-12-11 06:13] LABS: Chloride 103 mmol/L (98-107); Potassium 4.4 mmoL/L (3.5-5.1); Sodium 139 mmol/L (136-145)
[2022-12-11 06:15] LABS: Blood Urea Nitrogen 21 mg/dl (9-20); Creatinine Clearance Estimated 95 mL/min (50-200); Estimated Glomerular Filt Rate 76 ml/min (>60); GFR (African American) 92 ML/MIN (>60)
[2022-12-11 06:16] LABS: Alanine Aminotransferase 22 U/L (12-78); Albumin/Globulin Ratio 1.4 (1.1-1.8); Alkaline Phosphatase 81 U/L (38-126); Anion Gap 13.4 mEq/L (5-15); Aspartate Amino Transferase 23 U/L (17-59); Bilirubin,Total 1.7 mg/dl (0.2-1.3); Calcium 8.5 mg/dl (8.4-10.2); Carbon Dioxide 27 mmol/L (22.0-30.0); Cholesterol 103 mg/dl (140-200); Globulin 2.9 g/dL (1.3-3.2); Glucose 103 mg/dl (74-100); Magnesium 2.1 mg/dl (1.6-2.3); Phosphorous 3.9 mg/dl (2.5-4.5); Total Protein,Serum 6.9 g/dl (6.3-8.2); Triglycerides 222 mg/dl (30-150); VLDL Cholesterol 44 mg/dL (0-40)
[2022-12-11 06:17] LABS: HDL Cholesterol 26 mg/dl (40-60); Lactic Acid 1.4 mmol/L (0.7-2.1)
--- NOTE | 2022-12-11 07:17 | IR_ITS ---
APPROVED REPORT Patient Location: Inpatient Manager Gas: MELISSA Paris RT (R) PROCEDURES Selective coronary angiogram INDICATION Unstable angina Informed consent was obtained prior to the procedure. COMPLICATIONS NONE Estimated Blood Loss: LESS THAN 10 ML TECHNIQUE One percent lidocaine used to anesthetize the right anterior aspect of the wrist. The right radial artery was accessed via the Seldinger technique. A 6 Somali sheath was placed in the right radial artery. 150 mg magnesium sulfate, 800 mcg of nitroglycerin, 1mg Lidocaine and 5000 U Heparin were given through the arterial sheath. The papa catheter was also used to perform selective coronary angiogram at the end of the procedure the sheath was removed good hemostasis was achieved using Traclet band, patient was transferred to the postop holding area in stable condition. ANGIOGRAPHIC RESULTS The left main artery Normal The left anterior descending artery Proximal and mid vessel 10% luminal regularities The circumflex artery Large dominant with diffuse 10% luminal irregularities The right coronary artery Is nondominant yet still large with mild diffuse 10 to 20% stenosis The ACHARYA ventriculogram reveals Not performed The left ventricular end-diastolic pressure Not measured IMPRESSION Mild nonflow them coronary artery disease PLAN 1. Evaluation of noncardiac symptoms Electronically signed by : Singh Lucas MD 12/11/2022 16:41:33
--- NOTE | 2022-12-11 09:54 | HMH.OTEV ---
OT Inpatient Evaluation Rehab OT IP Evaluation Start: 12/11/22 08:53 Freq: ONCE Status: Active Protocol: Document 12/11/22 09:46 RUTHANN (Rec: 12/11/22 09:54 [id number] Rehab OT IP Assessment Subjective History Pt oriented x 3 on arrival. Pt agreeable to engage in therapy evaluation. Pt admitted on 12/10/22 due to Global weakness and CAD. Prior to being in the hosptial , pt lived at home with his . Pt claims prior to hospitalization he was independent with ADLs. Pt was dependent upon to complete IADLs. Pt uses a cane during functional transfers. Pt does still drive. Pt has a past history of CVA affecting left side in UE and LE. Pt has a past medical history of: Angina pectoris CAD (coronary artery disease) Cardiomyopathy Chronic systolic heart failure CVA (cerebral vascular accident) History of suspected small vessel ischemic stroke. Previous CT scan of the head at the onset of symptoms did not show evidence of acute abnormalities consistent with left-sided weakness. There was evidence of chronic, clinical silent right lacunar CVA, left lacunar CVA without clinical correlation. Decreased stamina Diabetes mellitus Diabetic neuropathy Dyspnea Dyspnea and respiratory abnormality Episode of change in speech Heart failure, NYHA class 2 HTN (hypertension) Hyperlipidemia PAD (peripheral artery disease ) Parkinson disease
--- NOTE | 2022-12-11 10:51 | EXP.CARD.PN ---
Subjective Subjective Date: 12/11/22 Time: 10:00 Principal diagnosis: angina Interval history: This is a 62-year-old gentleman who was admitted to the hospital secondary to chest pain/angina. The patient was evaluated in cardiology clinic and was complaining of chest pain. The patient describes this as a pressure sensation in the center to left side of his chest. He rates this a 5 out of 10 in intensity. It is not radiate. It is worsened with exertion. It improves with rest. It is associated with shortness of breath. He states that the chest pain last several minutes and then resolves. He states that this has been ongoing for quite some time now and getting worse. The patient did undergo Myoview stress testing which showed a moderate fixed defect in the basal mid distal inferior and inferior septal wall. The defect is consistent with a scar in the right coronary artery. This is a new finding. The patient was set up for outpatient left cardiac catheterization today but went to the emergency department for left-sided weakness and was subsequently admitted to the hospital. The patient is still complaining of chest pain as mentioned above. He denies any fever, chills, nausea, vomiting, diarrhea, PND or orthopnea. He states that his left-sided weakness is baseline for him at this time from residual from a previous CVA. Exam Data for Last 24 hours Vital signs and Labs for Last 24 Hours: Temp Pulse Resp BP Pulse Ox 97.9 F 65 18 150/84 H 96 12/11/22 07:33 12/11/22 07:33 12/11/22 07:33 12/11/22 07:33 12/11/22 07:33 Laboratory Results - last 24 hr 12/10/22 09:25: Troponin I < 0.01 12/10/22 10:30: SARS-CoV-2 (PCR) Not detected, Influenza A Untype (PCR) Not detected, Influenza Type B (PCR) Not detected 12/10/22 13:48: Troponin I < 0.01 12/10/22 16:45: Troponin I < 0.01 12/10/22 17:12: POC Glucose 139 H 12/10/22 20:07: POC Glucose 142 H 12/11/22 05:15: POC Glucose 101 12/11/22 05:48: WBC 8.8, RBC 4.70, Hgb 14.4, Hct 42.6, MCV 90.8, MCH 30.7, MCHC 33.8, RDW 13.2, Plt Count 211 D, MPV 7.0 L, Neut % (Auto) 74.5, Lymph % (Auto) 14.7, [place] % (Auto) 6.3, Eos % (Auto) 3.9, Baso % (Auto) 0.6, Neut # (Auto) 6.5, Lymph # (Auto) 1.3, [place] # (Auto) 0.6, Eos # (Auto) 0.3, Baso # (Auto) 0.1 12/11/22 05:48: Sodium 139, Potassium 4.4, Chloride 103, Carbon Dioxide 27, Anion Gap 13.4, BUN 21 H, Creatinine 1.00, Estimated Creat Clear 95, Estimated GFR 76, Est GFR ( Amer) 92 D, Glucose 103 H D, Calcium 8.5, Phosphorus 3.9, Magnesium 2.1, Total Bilirubin 1.7 H, AST 23, ALT 22 D, Alkaline Phosphatase 81, Total Protein 6.9, Albumin 4.0 D, Globulin 2.9, Albumin/Globulin Ratio 1.4, Triglycerides 222 H, Cholesterol 103 L, LDL Cholesterol Direct 46.40 L, VLDL Cholesterol 44 H, HDL Cholesterol 26 L, Cholesterol/HDL Ratio 4.0 H 12/11/22 05:48: Lactate 1.4 I & O for Last 24 hours: Intake & Output 12/08/22 12/09/22 12/10/22 12/11/22 23:59 23:59 23:59 23:59 Output Total 0 / 0 0 / 0 Balance 0 / 0 0 / 0 Weight 188 lb 6 oz 191 lb 1 oz Constitutional Constitutional: average body habitus and chronically ill appearing *Routine HEENT Exam Head: Present normocephalic and atraumatic ENT: Present mucous membranes moist *Routine Neck Exam Neck: Present supple, full ROM and normal carotid upstroke; Absent JVD, carotid bruit or lymphadenopathy *Routine Respiratory Exam Respiratory: Present CTA bilaterally, normal respiratory effort, able to speak in complete sentences and symmetric chest movement *Routine Cardiovascular Exam Cardiovascular: Present RRR, Normal S1 and Normal S2; Absent murmur or gallop *Routine Abdominal Exam Abdominal: Present soft and normoactive bowel sounds; Absent tenderness, distended or organomegaly *Routine Extremities Exam Extremities: Present full ROM, pulses intact and normal capillary refill; Absent cyanosis, clubbing or edema *Routine Skin Exam Skin: Present intact and warm; Absent erythema *Routine Neurological Exam Ne
--- NOTE | 2022-12-11 11:18 | HMH.PTEV ---
Physical Therapy Evaluation Rehab PT IP Evaluation Start: 12/11/22 08:53 Freq: ONCE Status: Active Protocol: Document 12/11/22 09:30 REILLY (Rec: 12/11/22 11:18 PHORMARY [id number]) Subjective/History History History 62 yowm adm to [facility] with CAD and general weakness, now scheduled for cardiac cath this date. He has hx of prior CVA with L side weakness and spasticity. He reports he lives with spouse, 2-3 steps to enter the home, he uses a quad cane for all mobility and is generally independent. He does reports his spouse assists him with many of his ADLs at baseline. Subjective Subjective Pt currently has no real c/o. I'm just hungry. Rehab PT IP Eval Objective Appearance Patient Behavior Appropriate Patient Orientation Person,Place,Time Difficulty following instructions none Speech Pattern Clear Ambulation Patient Able to Ambulate Yes Ambulation Observation IP General Gait Pattern Observation Shuffling Step,Decrease Stride Lngth (L) Ambulation Distance (feet) 40 Ambulation Assistive Device Small Base Quad Cane Ambulation Ability Independent Balance Ability to Arise Able, uses arms to help Sitting Balance Steady, safe Standing Balance Steady, wide stance Dynamic Sitting Balance Ability Good Dynamic Standing Balance Ability Fair Transfers Bed Transfer Ability Independent Chair Transfer Ability Independent Sit to Stand Bed Transfer Ability Independent Sit to Stand Chair Transfer Ability Independent ROM All Extremities PT ROM Status WFL MMT LLE PT MMT ABN Abnormal MMT Grade grossly 3/5 LUE PT MMT ABN Abnormal MMT Grade grossly 2/5 Rehab PT IP prob,goals,plan Problems Date of Evaluation: 12/11/22 Discharge Plan PT Discharge Plan Pt is currently at baseline for all mobility and has no current inpatient needs for Therapy. He is appropriate to return home once medically stable for d/c. G -code Required No Eval Complexity Eval Charge Codes 56709 - Moderate Complexity
--- NOTE | 2022-12-11 11:21 | CARE MANAGER ---
Received referral on this patient for placement. PT saw this patient and states that he is independent and ok to return home with . No further needs noted.
--- NOTE | 2022-12-11 17:17 | EXP.DC.SUM ---
General Admission date:: 12/10/22 HPI HPI HPI: wes is a 62-year-old male with past medical history of ischemic stroke with left-sided residual in the upper and lower extremity who presents to the emergency department as a transfer patient from cardiology clinic for evaluation of weakness.? History is obtained by patient and significant other at bedside.? Patient has had generalized weakness over the last 48 hours which was more noticeable this morning.? No focal weakness.? Patient's mentation is at baseline.? Due to new onset weakness he presents here for continued evaluation.? Patient has had decreased p.o. intake ever since his stroke in 2019, denies cough, fevers, acute rashes or arthralgias, dysuria. Pt here for follow up after testing. ECHO is still pending. Stress test is abnormal showing a moderate fixed defect in the basal mid distal inferior and inferoseptal myocardium, defect consistent with scar in RCA. CAD is present. single-vessel CAD by cardiac catheterization 02/2019 of a small 2 mm branch vessel.? Medical therapy recommended. He states he has been having chest pain everyday, he states it usually happens when he is walking.? Hospital Course Hospital Course Hospital Course: admitted for chest pain. received [facility] on 12/11 without obstructive CAD. ischarged for evaluation of non cardiac chest pain Exam Data for Last 24 hours Vital signs and Labs for Last 24 Hours: Temp Pulse Resp BP Pulse Ox 97.9 F 63 16 144/78 H 97 12/11/22 07:33 12/11/22 15:00 12/11/22 15:00 12/11/22 15:00 12/11/22 15:00 Laboratory Results - last 24 hr 12/10/22 16:45: Troponin I < 0.01 12/10/22 17:12: POC Glucose 139 H 12/10/22 20:07: POC Glucose 142 H 12/11/22 05:15: POC Glucose 101 12/11/22 05:48: WBC 8.8, RBC 4.70, Hgb 14.4, Hct 42.6, MCV 90.8, MCH 30.7, MCHC 33.8, RDW 13.2, Plt Count 211 D, MPV 7.0 L, Neut % (Auto) 74.5, Lymph % (Auto) 14.7, [place] % (Auto) 6.3, Eos % (Auto) 3.9, Baso % (Auto) 0.6, Neut # (Auto) 6.5, Lymph # (Auto) 1.3, [place] # (Auto) 0.6, Eos # (Auto) 0.3, Baso # (Auto) 0.1 12/11/22 05:48: Sodium 139, Potassium 4.4, Chloride 103, Carbon Dioxide 27, Anion Gap 13.4, BUN 21 H, Creatinine 1.00, Estimated Creat Clear 95, Estimated GFR 76, Est GFR ( Amer) 92 D, Glucose 103 H D, Calcium 8.5, Phosphorus 3.9, Magnesium 2.1, Total Bilirubin 1.7 H, AST 23, ALT 22 D, Alkaline Phosphatase 81, Total Protein 6.9, Albumin 4.0 D, Globulin 2.9, Albumin/Globulin Ratio 1.4, Triglycerides 222 H, Cholesterol 103 L, LDL Cholesterol Direct 46.40 L, VLDL Cholesterol 44 H, HDL Cholesterol 26 L, Cholesterol/HDL Ratio 4.0 H 12/11/22 05:48: Lactate 1.4 I & O for Last 24 hours: Intake & Output 12/08/22 12/09/22 12/10/22 12/11/22 23:59 23:59 23:59 23:59 Output Total 0 / 0 325 / 325 Balance 0 / 0 -325 / -325 Weight 85.445 kg 86.664 kg Constitutional Constitutional: no acute distress *Routine HEENT Exam Head: Present normocephalic Eye: Present EOMI and PERRL ENT: Present mucous membranes moist *Routine Neck Exam Neck: Present supple; Absent lymphadenopathy *Routine Respiratory Exam Respiratory: Present CTA bilaterally *Routine Cardiovascular Exam Cardiovascular: Present RRR *Routine Abdominal Exam Abdominal: Present soft and normoactive bowel sounds; Absent tenderness *Routine Extremities Exam Extremities: Absent cyanosis, clubbing or edema *Routine Skin Exam Skin: Present warm; Absent rash *Routine Neurological Exam Neurological: Present alert and oriented X3 Results Data Completed and Pending Labs on day of discharge: Labs from last 24 hours 12/11/22 12/11/22 12/11/22 05:48 05:48 05:48 WBC 8.8 RBC 4.70 Hgb 14.4 Hct 42.6 MCV 90.8 MCH 30.7 MCHC 33.8 RDW 13.2 Plt Count 211 D MPV 7.0 L Neut % (Auto) 74.5 Lymph % (Auto) 14.7 [place] % (Auto) 6.3 Eos % (Auto) 3.9 Baso % (Auto) 0.6 Neut # (Auto) 6.5 Lymph # (Auto) 1.3 [place] # (Auto) 0.6 Eos # (Auto
[2022-12-11 17:26] LABS: POC Glucose,Bedside 164 (70-110)
--- NOTE | 2022-12-11 20:37 | PC.NURSE ---
TR band off at this time. no pain reported at site. no bleeding or hematoma noted at right radial site. 2x2 with tegaderm placed over site.
--- NOTE | 2022-12-11 21:03 | PC.NURSE ---
Patients discharge instructions were discussed and given to patient/spouse,home meds were given out of the drawer and omni, IV discontinued, tele taken off patient. patient has no bleeding or hematoma noted at right radial site. Patient was wheeled off the floor at this time.
--- NOTE | 2022-12-12 15:18 | CARE MANAGER ---
Spoke with patient's spouse, who states patient is doing well. She plans to pick up driver medication this afternoon from pharmacy. No complaints or concerns voiced at time of call.
== END 2022-12-11 21:03 | disposition home or self-care (01) ==
LOC: ER 11:04 → 2ND 11:23
PROVIDERS: Internal Medicine; Admitting Provider Student in an Organized Health Care Education/Training Program; Emergency Provider Emergency Medicine; PCP Emergency Medicine; Visit Provider Student in an Organized Health Care Education/Training Program
DX: G20 Parkinson's disease (principal); I25.118 Atherosclerotic heart disease of native coronary artery with other forms of angina pectoris; I50.22 Chronic systolic (congestive) heart failure; Z79.84 Long term (current) use of oral hypoglycemic drugs; I69.354 Hemiplegia and hemiparesis following cerebral infarction affecting left non-dominant side; Z79.899 Other long term (current) drug therapy; Z95.810 Presence of automatic (implantable) cardiac defibrillator; I11.0 Hypertensive heart disease with heart failure; Z79.01 Long term (current) use of anticoagulants; E11.42 Type 2 diabetes mellitus with diabetic polyneuropathy; Z20.822 Contact with and (suspected) exposure to COVID-19
CPT/HCPCS: G0378; 36415; 71045; 80053; 80061; 82962; 83605; 83735; 84100; 84439; 84484; 85025; 93005; 93454; 97162; 97165; 99152; 99153; 99285; C1725; C1769; C9803; J1644; Q9967; U0003; U0005

== ENCOUNTER → 2023-02-24 14:18 | Outpatient (CLI) | payer MEDICARE, MEDICAID, SELFPAY ==
[2023-02-24 12:34] LABS: Basophils # 0.1 K/mm3 (0-0.2); Basophils % 0.7 % (0.1-2.0); Eosinophils # 0.4 K/mm3 (0.0-0.4); Eosinophils % 4.2 % (0.1-12.0); Hematocrit 45.4 % (42.0-52.0); Hemoglobin 14.7 g/dL (14.1-18.0); Lymphocytes % 11.9 % (10-50); Mean Corpuscular HGB Conc 32.4 g/dL (31.8-35.4); Mean Corpuscular Hemoglobin 30.2 pg (27.0-31.2); Mean Corpuscular Volume 93.1 fl (80-94); Mean Platelet Volume 7.4 fl (7.4-10.4); Monocytes # 0.5 K/mm3 (0.1-1.0); Monocytes % 6.1 % (1.7-9.3); Neutrophils # 6.7 K/mm3 (1.8-7.8); Neutrophils % 77.1 % (37.0-80.0); Platelet Count 290 K/mm3 (142-424); Red Blood Count 4.87 M/mm3 (4.60-6.20); Red Cell Distribution Width 12.6 % (11.5-17.5); White Blood Count 8.7 K/mm3 (4.8-10.8)
[2023-02-24 12:53] LABS: Chloride 103 mmol/L (98-107)
[2023-02-24 12:54] LABS: Potassium 4.8 mmoL/L (3.5-5.1); Sodium 140 mmol/L (136-145)
[2023-02-24 12:56] LABS: Alanine Aminotransferase 14 U/L (12-78); Albumin Level 4.4 g/dl (3.5-5.0); Albumin/Globulin Ratio 1.5 (1.1-1.8); Alkaline Phosphatase 69 U/L (38-126); Anion Gap 18.8 mEq/L (5-15); Aspartate Amino Transferase 24 U/L (17-59); Bilirubin,Total 1.6 mg/dl (0.2-1.3); Blood Urea Nitrogen 24 mg/dl (9-20); Carbon Dioxide 23 mmol/L (22.0-30.0); Estimated Glomerular Filt Rate 62 ml/min (>60); GFR (African American) 74 ML/MIN (>60); Globulin 2.9 g/dL (1.3-3.2); Total Protein,Serum 7.3 g/dl (6.3-8.2)
[2023-02-24 12:57] LABS: Calcium 9.2 mg/dl (8.4-10.2); Chol/HDL Ratio 3.6 (1-3.5); Cholesterol 90 mg/dl (140-200); Glucose 190 mg/dl (74-100); HDL Cholesterol 25 mg/dl (40-60); Triglycerides 211 mg/dl (30-150); VLDL Cholesterol 42 mg/dL (0-40)
[2023-02-24 13:08] LABS: Direct LDL Cholesterol 36.58 mg/dL (100-129)
[2023-02-24 13:12] LABS: T4 (Thyroxine) 8.7 ug/dl (5.53-11.0)
[2023-02-24 13:26] LABS: Thyroid Stimulating Hormone 1.27 uIU/mL (0.465-4.68)
== END ==
PROVIDERS: PCP Emergency Medicine; Visit Provider Emergency Medicine
DX: E11.69 Type 2 diabetes mellitus with other specified complication; Z79.84 Long term (current) use of oral hypoglycemic drugs; Z79.899 Other long term (current) drug therapy
CPT/HCPCS: 80053; 80061; 83036; 84436; 84443; 85025

== ENCOUNTER → 2023-04-27 13:03 | Outpatient (CLI) | payer MEDICARE, MEDICAID, SELFPAY ==
[2023-04-27 13:30] LABS: Basophils # 0.1 K/mm3 (0-0.2); Basophils % 0.7 % (0.1-2.0); Eosinophils # 0.4 K/mm3 (0.0-0.4); Eosinophils % 4.6 % (0.1-12.0); Hematocrit 45.9 % (42.0-52.0); Hemoglobin 15.1 g/dL (14.1-18.0); Lymphocytes # 1.2 K/mm3 (0.7-4.5); Lymphocytes % 14.5 % (10-50); Mean Corpuscular HGB Conc 32.9 g/dL (31.8-35.4); Mean Corpuscular Hemoglobin 30.4 pg (27.0-31.2); Mean Corpuscular Volume 92.4 fl (80-94); Mean Platelet Volume 7.5 fl (7.4-10.4); Monocytes # 0.5 K/mm3 (0.1-1.0); Neutrophils # 6.3 K/mm3 (1.8-7.8); Neutrophils % 74.2 % (37.0-80.0); Platelet Count 291 K/mm3 (142-424); Red Blood Count 4.97 M/mm3 (4.60-6.20); Red Cell Distribution Width 12.8 % (11.5-17.5); White Blood Count 8.4 K/mm3 (4.8-10.8)
[2023-04-27 13:46] LABS: INR 1.01 (0.9-1.1); Prothrombin Time 10.9 seconds (10.1-12.5)
[2023-04-27 14:01] LABS: Anion Gap 16.2 mEq/L (5-15); Blood Urea Nitrogen 27 mg/dl (9-20); Calcium 9.2 mg/dl (8.4-10.2); Carbon Dioxide 25 mmol/L (22.0-30.0); Chloride 105 mmol/L (98-107); Estimated Glomerular Filt Rate 52 ml/min (>60); GFR (African American) 62 ML/MIN (>60); Glucose 122 mg/dl (74-100); Potassium 5.2 mmoL/L (3.5-5.1); Sodium 141 mmol/L (136-145)
== END ==
PROVIDERS: PCP Emergency Medicine; Visit Provider Surgery
DX: I99.8 Other disorder of circulatory system (principal); I70.222 Atherosclerosis of native arteries of extremities with rest pain, left leg
CPT/HCPCS: 36415; 80048; 85025; 85610

== ENCOUNTER 2023-05-28 14:00 | Outpatient (RCR) | payer MEDICARE, MEDICAID, SELFPAY ==
--- NOTE | 2023-03-25 15:18 | HMH.PTOPEV ---
PT Outpatient Evaluation Rehab PT Outpatient Evaluation Start: 03/25/23 13:39 Freq: Status: Active Protocol: Document 03/25/23 14:57 REILLY (Rec: 03/25/23 15:18 PHOCHRISSY [id number]) E-signed By Abdirahman Pfeiffer, PT Outpatient Therapy Subjective History Subjective History This is the initial PT eval for Vikram Flores, 62 yowm who presents with difficulty ambulating and difficulty with ADLs ater suffering a CVA with L hemiparesis ~ 1-2 yrs ago. He reports, I'm not sure when it really happened, I just noticed my left side wasn 't working as well. He specifically reports difficulty eating due to severely limited use of the L UE. He also reports intermittent shooting pains in the L UE. He presents with a quad cane for ambulation. He has PMH of CAD, CVA, DM, HF, HTN, HLD, PAD, and parkinson's disease. He presents with grade 2 L GH jt subluxation due to weakness. L UE is essentially flaccid with moderate increased tone in the hand and finger only MMT grossly 1/5 throughout. Chief Complaint Weakness,Decreased Coordination Symptom Type Sharp Symptoms Relieved By Rest/Positioning Symptoms Aggravated By Physical Activity,Walking Prior Functional Limitations None Current Functional Limitations Housework,Dressing,Standing, Recreation Activity,Walking, Stairs,Balance Symptom Description Constant but Variable Level of pain today (0-10) 0 Pain scale - at its best (0-10) 0 Pain scale - at its worst (0-10) 7 Hip/Knee Eval MMT left Hip Flexion Strength Grade 3+ Fair+ Hip Abduction Strength Grade 3- Fair- Hip Adduction Strength Grade 3+ Fair+ Hip Extension Strength Grade 3+ Fair+ Knee Extension Strength Grade 4- Good- Knee Flexion Strength Grade 4- Good- Ankle/Foot Eval MMT Ankle Dorsiflexion Strength Grade 0 Zero Ankle Plantarflexion Strength Grade 2 Poor Foot Eversion Strength Grade 1 Trace Foot Inversion Strength Grade 1 Trace Balance Eval Gait/Pos
--- NOTE | 2023-04-28 17:05 | HMH.RHREAS ---
Rehab Reassessment Rehab OP Re-assessment Start: 03/25/23 13:39 Freq: Status: Active Protocol: Document 04/28/23 16:58 PHORNE (Rec: 04/28/23 17:05 PHORNE [id number]) E-signed By Abdirahman Pfeiffer, PT Tinetti Sitting Balance Sitting Balance Steady, safe Arising from Chair Ability to Arise Able, uses arms to help Attempts to Arise Arises on 1st attempt Standing Balance Immediate Standing Balance Steady with support Standing Balance Steady, wide stance Nudged Response Steady Standing with Eyes Closed Unsteady Turning Step Pattern Turning 360 Degrees Continuous steps Stability Turning 360 Degrees Unsteady, grabs/staggers Sitting Down Sitting Down Safe, steady Gait and Step Initiation of Gait No hesitancy Right Foot Step Length Does pass stance foot Right Foot Step Height Completely clears floor Left Foot Step Length Does pass stance foot Left Foot Step Height Does not clear floor Step Description Step Symmetry Step length not equal Step Continuity Steps appear continuous Gait Description Path Description Straight Trunk Description Marked sway or uses aide Walking Stance Heels apart Scoring and Interpretation Tinetti Composite Score (points) 18 Interpretation of Scores High risk for falls(< 19) Rehab Re-assessment Subjective Subjective Pt reports pain is 5/10 and he feels much stronger. He reports transfers have improved as well. Objective Objective Notes MMT L HIP: FLEX= 4/5, ABD 4/5. MMT L KNEE: EXT 5/5, FLEX 4+/5 . MMT L JEN: DF 1/5. Gait: Pt ambulates with much more continuous step length and less rigid body positioning at this time. He cotninues to require quad cane for ambulation assistance. Assessment Progress Assessment Progressing as Expected Assessment Notes Pt has shown significant improvements in overall balance with Tinetti score increased by 4 pts, however he remains at high risk for falls. He continues to need skilled intervention to return to prior level of function. Patient goals met ST,2,4,5,6 Goals Not Met
== END 2023-05-28 14:05 | disposition home or self-care (01) ==
LOC: PT 14:00
PROVIDERS: PCP Emergency Medicine; Visit Provider Emergency Medicine
DX: Z86.73 Personal history of transient ischemic attack (TIA), and cerebral infarction without residual deficits (principal)
CPT/HCPCS: 97110; 97112; 97113; 97140; 97163; 97164; 97530

== ENCOUNTER 2023-06-05 13:00 | Outpatient (RCR) | payer MEDICARE, MEDICAID, SELFPAY ==
--- NOTE | 2023-04-09 14:21 | HMH.OTOPEV ---
OT Inpatient Evaluation Rehab OT Outpatient Eval Start: 04/09/23 13:52 Freq: Status: Active Protocol: Document 04/09/23 13:53 LARISALIZBETH (Rec: 04/09/23 14:21 JYOTICARLEY [id number]) E-signed By Thelma Arce, OT Outpatient Therapy Subjective History Subjective History 62 year old female referred to skilled OP OT services for difficulty self feeding. Patient has a hx of CVA ( cerebral vascular accident. History of suspected small vessel ischemic stroke. Previous CT scan of the head at the onset of symptoms did not show evidence of acute abnormalities consistent with left-sided weakness. There was evidence of chronic, clinical silent right lacunar CVA, left lacunar CVA without clinical correlation. Patient exhibit hemiparesis to the L UE with difficulty holding utensils to cut up food and grasp utensils. Chief Complaint Weakness Level of pain today (0-10) 0 Pain scale - at its best (0-10) 0 Pain scale - at its worst (0-10) 0 Shoulder/Elbow Eval Shoulder Objective Measurements Shoulder ROM Left Shoulder Abduction Active Range of 30 Motion (degrees) Shoulder Flexion Active Range of Motion 40 (degrees) Query Text: Shoulder External Rotation Active Range 0 of Motion (degrees) Shoulder Internal Rotation Passive Range 0 of Motion (degrees) Shoulder MMT Shoulder Abduction Strength Grade 2 Poor Shoulder Extension Strength Grade 2 Poor Shoulder Flexion Strength Grade 2 Poor Shoulder Horizontal Abduction Strength 2 Poor Grade Shoulder Horizontal Adduction Strength 2 Poor Grade Infraspinatus/Teres Minor Strength Grade 2 Poor Shoulder External Rotation Strength 2 Poor Grade Shoulder Internal Rotation Strength 2 Poor Grade Elbow Objective Measurements Wrist/Hand Eval Manufacturing Team Member/Pinch Strength Right Manufacturing Team Member Strength Measurement (lbs) 50 Left Manufacturing Team Member Strength Measurement (lbs) 5 OT Outpatient Assessment Impairments Problems/Impairments Impaired Range of Motion, Impaired Strength,Subjective C /O Pain Prognosis Rehab Potential
== END 2023-06-05 13:05 | disposition home or self-care (01) ==
LOC: OT 13:00
PROVIDERS: PCP Emergency Medicine; Visit Provider Emergency Medicine
DX: R63.30 Feeding difficulties, unspecified (principal); F50.9 Eating disorder, unspecified; I63.89 Other cerebral infarction
CPT/HCPCS: 97010; 97014; 97110; 97140; 97164; 97165; 97530; G0283

== ENCOUNTER 2024-04-26 15:00 | Outpatient (RCR) | payer MEDICARE, MEDICAID, SELFPAY ==
--- NOTE | 2024-02-18 10:31 | HMH.PTOPEV ---
PT Outpatient Evaluation Rehab PT Outpatient Evaluation Start: 02/18/24 07:55 Freq: Status: Active Protocol: Document 02/18/24 07:55 CHANDANA (Rec: 02/18/24 08:53 CHANDANA [id number]) E-signed By Delia Avery, PT Outpatient Therapy Subjective History Subjective History This is an intial evaluation for 63 y/o male, Vikram Flores, who presents to PT s/p CVA. Pt reports his CVA was ~1-2 years ago. Pt reports he has mostly left-sided weakness. Pt reports he has had physical therapy in the past. Pt reports he sometimes needs help with standing up, car transfers, showering, and community ambulation. Pt uses a quad cane during ambulation. Pt is receiving an AFO mid- February. Pt reports he has trouble staying awake . Pt wishes to obtain aquatic therapy while at OP PT therapy . Pt reports he has leg exercises that he performs at home. He has PMH of CAD, CVA, DM, HF, HTN, HLD, PAD, foot drop, pacemaker, and parkinson 's disease. Denies pain complaints. Denies any falls in the past month. New diagnosis of cancer in past 12 No months? Chief Complaint Gives out/Unstable,Weakness, Decreased Coordination Current Functional Limitations Reaching,Lifting,Housework, Dressing,Standing,Recreation Activity,Walking,Stairs, Balance Hip/Knee Eval Gait Observation General Gait Pattern Observation Wide Based Gait,Decrease Stride Lngth (R),Decrease Stride Lngth (L) Assistive Device Assistive Devices Straight Cane MMT left Hip Flexion Strength Grade 4- Good- Hip Abduction Strength Grade 3+ Fair+ Hip Adduction Strength Grade 4- Good- Hip Extension Strength Grade 4- Good- Knee Extension Strength Grade 4- Good- Knee Flexion Strength Grade 4- Good- right Hip Flexion Strength Grade 4 Good Hip Abduction Strength Grade 4 Good Hip Adduction Strength Grade 4 Good Hip Extension Strength Grade 4 Good Knee Extension Strength Grade 4 Good Knee Flexion Strength Grade 4 Good Ankle/Foot Eval MMT left Ankle Dorsiflexion Strength Grade 0 Zero Ankle Plantarflexion Strength Grade 2 Poor Tinetti Sitting Balance Sitting Balance Steady, safe Arising from Chair Ability to Arise Able, w/o using arms Attempts to Arise Able, requires >1 attempt Standing Balance Immediate Standing Balance Steady with support Standing Balance Steady, wide stance Nudged Response Staggers, catches self Standing with Eyes Closed Unsteady Turning Step Pattern Turning 360 Degrees Discontinuous steps Stability Turning 360 Degrees Unsteady, grabs/staggers Sitting Down Sitting Down Uses arms or unsteady Gait and Step Initiation of Gait Hesitancy, mult. attempts Right Foot Step Length Does not pass stance ft. Right Foot Step Height Completely clears floor Left Foot Step Length Does not pass stance foot Left Foot Step Height Does not clear floor Step Description Step Symmetry Step length not equal Step Continuity Stopping or discontinuity Gait Description Path Description Straight Trunk Description Marked sway or uses aide Walking Stance Heels together Scoring and Interpretation Tinetti Composite Score (points) 12 Interpretation of Scores High risk for falls(< 19) Miscellaneous Dx PT Eval Objective Objective 5XSTS: 29 Outpatient Therapy Assessment Impairments Problems/Impairmments Impaired Strength,Impaired Endurance,Impaired Transfers, Impaired Gait Pattern,Impaired Walking,Impaired Standing, Impaired Sitting,Impaired Lifting,Impaired Stair Climbing,Impaired Stepping on Uneven Surface,Impaired Squatting,Impaired Recreational Activities, Impaired Balance,Impaired Tinnetti Score Short Term Goals Number of Weeks 4 Increase Strength Yes: LLE hip MMT 4/5 to improve gait. Improve Gait Pattern with Assistive Yes: Improved TKE control in L Device knee to demo improved functional strength. Increase Tinnetti Score Yes: Score of 14 or more to improve gait. Patient to be Ind w/ HEP Yes Director Of Restaurants Goals Number of Weeks 8 Increase Strength Yes: L Hip and knee MMT to 4+/ 5 to improve functional strength. Improve Balance Yes: Progress through higher level balance interventions with at most CGA. Increase Tinnetti Score Yes: Improve by 5 points to demonstrate improved safety. Patient to be Ind w/ Advanced HEP Yes Outpatient Therapy Plan of Care Treatment Plan May Include Therapeutic Exercise Including Home Yes Exercise Program Manual Therapy Techniques Yes Neuromuscular Re-education Yes Therapeutic Activities to Return to Yes Previous Functional/Work Level Gait Training Yes ADL/Self Care Education Yes Thermal Modalities Yes Eval/Re-Eval Yes Aquatic Therapy Yes Frequency Times per week 2x a week Duration Number of Weeks 7-8 weeks Addendums This patient is a candidate for social No or vocational rehab? Patient/Guardian verbally acknowledges Yes understanding of treatment program and consents to further treatment? Patient/Guardian verbally acknowledges Yes understanding of diagnosis, prognosis and goals for treatment? Eval Complexity PT Charges 55730 - Moderate Complexity Shoulder/Elbow Eval Shoulder Objective Measurements Elbow Objective Measurements PHYSICIAN CERTIFICATION: I certify the specified therapy services for Vikramginny Flores are required, authorized, and reviewed every 30 days.
--- NOTE | 2024-03-24 07:24 | HMH.RHREAS ---
Rehab Reassessment Rehab OP Re-assessment Start: 02/18/24 07:55 Freq: Status: Active Protocol: Document 03/23/24 14:30 CHANDANA (Rec: 03/23/24 15:12 CHANDANA [id number]) E-signed By Delia Avery, PT Tinetti Sitting Balance Sitting Balance Steady, safe Arising from Chair Ability to Arise Able, w/o using arms Attempts to Arise Able, requires >1 attempt Standing Balance Immediate Standing Balance Steady with support Standing Balance Steady, wide stance Nudged Response Staggers, catches self Standing with Eyes Closed Unsteady Turning Step Pattern Turning 360 Degrees Discontinuous steps Stability Turning 360 Degrees Unsteady, grabs/staggers Sitting Down Sitting Down Uses arms or unsteady Gait and Step Initiation of Gait Hesitancy, mult. attempts Right Foot Step Length Does not pass stance ft. Right Foot Step Height Completely clears floor Left Foot Step Length Does not pass stance foot Left Foot Step Height Does not clear floor Step Description Step Symmetry Step length not equal Step Continuity Stopping or discontinuity Gait Description Path Description Straight Trunk Description Marked sway or uses aide Walking Stance Heels together Scoring and Interpretation Tinetti Composite Score (points) 12 Interpretation of Scores High risk for falls(< 19) Rehab Re-assessment Subjective Subjective Pt reports he feels 40% better since IE. Pt reports he feels like his endurance is better. Pt reports he has not gotten his AFO. Pt reports he enjoys/ prefers aquatic therapy. Objective Objective Notes 5XSTS: 23 L Hip MMT: Hip FLEX = 4/5 Hip ABD = 4-/5 Hip ADD = 4-/5 Knee FLEX = 4/5 Knee EXT = 4/5 Tinetti: 08/23 Assessment Progress Assessment Slower Than Expected Assessment Notes This is a reassessment for Vikram Flores who presents to PT for c/o left-sided weakness . Since IE, pt has been seen for 4 treatment visits. All treatment sessions have been aquatic therapy so far per pt? s request and tolerance. Pt with good attendance to scheduled PT visits and reports adherence to HEP. Since IE, pt with improvements in STS speed and endurance and L hip and knee strength. Pt reports he notices improved ambulation ability. Pt's progress with gait limited by no active dorsiflexion ( awaiting AFO). Pt still presents with impaired gait, LLE strength, and balance. Pt still ambulates using a quad cane with no reported falls in past 30 days. Pt would continue to benefit from skilled outpatient physical therapy to address remaining deficits and achieve LTGs. Patient goals met STGs: 1) LLE hip MMT 4/5 to improve gait; NOT MET. ABD and ADD 4-/ 5 2) Improved TKE control in L knee to demo improved functional strength; DISCONTINUE goal. Deviation is from lack of dorsiflexion leading to toe first gait, not poor TKE control. 3) Score of 14 or more to improve gait; NOT MET 4) Pt to be IND with HEP; MET LTGs: Not met/In progress Revised Goals ST) Improved TKE control in L knee to demo improved functional strength; DISCONTINUE goal. Deviation is from lack of dorsiflexion leading to toe first gait, not poor TKE control. Plan Plan Continue POC Frequency of Therapy 2x weekly Duration of therapy 5-6 weeks Time and Billing Re-Eval Time 10 Re-Eval Billing Units 1 PHYSICIAN CERTIFICATION: I certify the specified therapy services for Vikram Flores are required, authorized, and reviewed every 30 days.
== END 2024-04-26 23:59 | disposition home or self-care (01) ==
LOC: PT 15:00
PROVIDERS: Visit Provider Nurse Practitioner Family
DX: R53.1 Weakness (principal)
CPT/HCPCS: 97113; 97163; 97164

== ENCOUNTER 2024-04-28 08:54 | Outpatient (CLI) | payer MEDICARE, MEDICAID, SELFPAY ==
[2024-04-28 09:19] LABS: Basophils # 0.1 K/mm3 (0-0.2); Basophils % 0.8 % (0.1-2.0); Eosinophils # 0.3 K/mm3 (0.0-0.4); Eosinophils % 3.5 % (0.1-12.0); Hematocrit 46.1 % (42.0-52.0); Hemoglobin 14.8 g/dL (14.1-18.0); Lymphocytes % 13.2 % (10-50); Mean Corpuscular Hemoglobin 29.4 pg (27.0-31.2); Mean Corpuscular Volume 91.9 fl (80-94); Mean Platelet Volume 7.4 fl (7.4-10.4); Monocytes # 0.4 K/mm3 (0.1-1.0); Monocytes % 4.7 % (1.7-9.3); Neutrophils # 5.9 K/mm3 (1.8-7.8); Neutrophils % 77.9 % (37.0-80.0); Platelet Count 282 K/mm3 (142-424); Red Blood Count 5.02 M/mm3 (4.60-6.20); Red Cell Distribution Width 14.5 % (11.5-17.5); White Blood Count 7.6 K/mm3 (4.8-10.8)
[2024-04-28 10:48] LABS: Albumin Level 4.1 g/dl (3.5-5.0); Chloride 106 mmol/L (98-107); Sodium 138 mmol/L (136-145)
[2024-04-28 10:49] LABS: Potassium 4.7 mmoL/L (3.5-5.1)
[2024-04-28 10:51] LABS: Alkaline Phosphatase 84 U/L (38-126); Anion Gap 9.7 mEq/L (5-15); Aspartate Amino Transferase 18 U/L (17-59); Bilirubin,Direct 0.2 mg/dl (0.0-0.4); Bilirubin,Indirect 1.3 mg/dL (0.0-0.9); Bilirubin,Total 1.5 mg/dl (0.2-1.3); Bilirubin,Unconjugated 1.2 mg/dL (0.0-1.1); Blood Urea Nitrogen 18 mg/dl (9-20); Calcium 8.9 mg/dl (8.4-10.2); Carbon Dioxide 27 mmol/L (22.0-30.0); Cholesterol 93 mg/dl (140-200); Estimated Glomerular Filt Rate 76 ml/min (>60); GFR (African American) 92 ML/MIN (>60); Glucose 118 mg/dl (74-100); Total Protein,Serum 6.7 g/dl (6.3-8.2); Triglycerides 105 mg/dl (30-150); VLDL Cholesterol 21 mg/dL (0-40)
[2024-04-28 10:52] LABS: Chol/HDL Ratio 3.1 (1-3.5); HDL Cholesterol 30 mg/dl (40-60); Magnesium 1.7 mg/dl (1.6-2.3)
--- NOTE | 2024-04-28 11:00 | CA_ITS ---
APPROVED REPORT EXAM: Comprehensive 2D, Doppler, and color-flow Echocardiogram [employer]be[employer] Stone Setter: Aicha Velazquez RT(R) Ht: 6 ft 0 in Wt: 190lbs BSA: 2.08 BP: 128/47 mmHg Indications: CHF, HTN, DM, hyperlipidemia, CAD, AMANDA, CM, AICD, abn EKG, hx CVA 2D Dimensions LA Volume 30.80 mL LA Volume Index 14.81 mL/m2 (M/F) 16-34 EF AP4 47.50 % GL Strain -5.1 % LV Diastology E Decel Time 183 (160-240 msec) E/A Ratio 0.6 Mitral Valve MV E Max Nikolay. 51.0 (40-130 cm/s) MV A Velocity 83.0 (40-130 cm/s) E/A Ratio 0.62 MV PHT 54.0 ms Tricuspid Valve TR P. Velocity 221.00 cm/s RAP Estimate 10.00 mmHg RVSP 29.60 mmHg Left Ventricle The left ventricle is normal size. The left ventricular systolic function is low normal. There is increased LV wall thickness. There is normal LV segmental wall motion. Transmitral Doppler flow pattern suggests impaired LV relaxation. LVEF is 50%. Right Ventricle The right ventricle is normal size. The right ventricular systolic function is normal. Atria The left atrium size is normal. The right atrium size is normal. The interatrial septum is not well-visualized. Aortic Valve The aortic valve is mildly thickened. There is no aortic valvular stenosis. No aortic regurgitation is present. Mitral Valve The mitral valve is normal in structure. No evidence of mitral valve stenosis. There is no mitral valve regurgitation noted. Tricuspid Valve The tricuspid valve leaflets are thin and pliable. Trace tricuspid regurgitation. There is insufficient TR jet to estimate RVSP. Pulmonic Valve The pulmonary valve is normal in structure. Trace pulmonic regurgitation. Great Vessels The aortic root is normal in size. The ascending aorta is not well-visualized. IVC is normal in size and collapses >50% with inspiration. Pericardium There is a small sized, anterior pericardial effusion present. The largest pocket measures 0.4 cm in diastole. There is slight invagination of the RV during diastole, but no evidence of chamber collapse. No clear echo indications of tamponade. Other Information Study Quality: Fair Conclusion Low normal LV systolic function. Normal RV size and function. No significant valvular stenosis or regurgitation. There is a small sized, anterior pericardial effusion present. The largest pocket measures 0.4 cm in diastole. There is slight invagination of the RV during diastole, but no evidence of chamber collapse. No clear echo indications of tamponade. Serial follow-up with limited TTE to evaluate for progression versus resolution of pericardial effusion is suggested. Electronically signed by : Karina Lino MD 05/04/2024 10:20:16
[2024-04-28 11:06] LABS: Free T4 (Free Thyroxine) 1.18 ng/dl (0.78-2.19)
[2024-04-28 11:09] LABS: Direct LDL Cholesterol 38.67 mg/dL (100-129)
[2024-04-28 11:20] LABS: Thyroid Stimulating Hormone 1.89 uIU/mL (0.465-4.68)
[2024-04-28 11:21] LABS: Alanine Aminotransferase < 4 U/L (12-78)
== END 2024-04-28 23:59 | disposition home or self-care (01) ==
LOC: RT 08:55
PROVIDERS: PCP Nurse Practitioner Family; Visit Provider Physician Assistant
DX: I42.8 Other cardiomyopathies (principal); I11.0 Hypertensive heart disease with heart failure; I25.10 Atherosclerotic heart disease of native coronary artery without angina pectoris; I50.22 Chronic systolic (congestive) heart failure; I73.9 Peripheral vascular disease, unspecified; G47.33 Obstructive sleep apnea (adult) (pediatric); G20.A1 Parkinson's disease without dyskinesia, without mention of fluctuations; E78.2 Mixed hyperlipidemia; E11.69 Type 2 diabetes mellitus with other specified complication; Z79.84 Long term (current) use of oral hypoglycemic drugs; Z86.73 Personal history of transient ischemic attack (TIA), and cerebral infarction without residual deficits
CPT/HCPCS: 36415; 80048; 80061; 80076; 83735; 84439; 84443; 85025; 93306

== ENCOUNTER 2024-07-12 11:58 | Outpatient (CLI) | payer MEDICARE, MEDICAID, SELFPAY ==
[2024-07-12 19:15] LABS: Basophils # 0.1 K/mm3 (0-0.2); Basophils % 0.7 % (0.1-2.0); Eosinophils # 0.1 K/mm3 (0.0-0.4); Eosinophils % 1.5 % (0.1-12.0); Hematocrit 42.7 % (42.0-52.0); Hemoglobin 14.8 g/dL (14.1-18.0); Lymphocytes # 0.8 K/mm3 (0.7-4.5); Lymphocytes % 8.5 % (10-50); Mean Corpuscular HGB Conc 34.7 g/dL (31.8-35.4); Mean Corpuscular Hemoglobin 30.4 pg (27.0-31.2); Mean Corpuscular Volume 87.6 fl (80-94); Mean Platelet Volume 7.9 fl (7.4-10.4); Monocytes # 0.5 K/mm3 (0.1-1.0); Monocytes % 4.8 % (1.7-9.3); Neutrophils # 7.8 K/mm3 (1.8-7.8); Neutrophils % 84.5 % (37.0-80.0); Platelet Count 377 K/mm3 (142-424); Red Blood Count 4.87 M/mm3 (4.60-6.20); Red Cell Distribution Width 14.8 % (11.5-17.5); White Blood Count 9.3 K/mm3 (4.8-10.8)
[2024-07-12 19:49] LABS: Alanine Aminotransferase 5 U/L (12-78); Albumin/Globulin Ratio 1.7 (1.1-1.8); Alkaline Phosphatase 88 U/L (38-126); Anion Gap 17.3 mEq/L (5-15); Aspartate Amino Transferase 17 U/L (17-59); Bilirubin,Total 1.8 mg/dl (0.2-1.3); Blood Urea Nitrogen 25 mg/dl (9-20); Carbon Dioxide 17 mmol/L (22.0-30.0); Chloride 109 mmol/L (98-107); Estimated Glomerular Filt Rate 47 ml/min (>60); GFR (African American) 57 ML/MIN (>60); Globulin 2.3 g/dL (1.3-3.2); Glucose 148 mg/dl (74-100); Magnesium 1.8 mg/dl (1.6-2.3); Phosphorous 3.9 mg/dl (2.5-4.5); Potassium 4.3 mmoL/L (3.5-5.1); Sodium 139 mmol/L (136-145); Total Protein,Serum 6.3 g/dl (6.3-8.2)
[2024-07-12 19:58] LABS: Total Iron Binding Capacity 293 ug/dL (261-462)
[2024-07-12 20:07] LABS: 25-OH Vitamin D, Total 50.5 ng/mL (30-100)
[2024-07-12 20:55] LABS: Vitamin B12 223 pg/mL (239-931)
[2024-07-12 21:04] LABS: Iron 72 ug/dL (49-181)
[2024-07-27 09:22] LABS: Testosterone, Total, LC/MS 458
== END 2024-07-12 23:59 | disposition home or self-care (01) ==
LOC: LAB.DROPOF 07-13 10:54
PROVIDERS: PCP Nurse Practitioner Family; Visit Provider Nurse Practitioner Family
DX: I51.9 Heart disease, unspecified (principal); E55.9 Vitamin D deficiency, unspecified; R53.1 Weakness; E11.69 Type 2 diabetes mellitus with other specified complication; E78.2 Mixed hyperlipidemia; I10 Essential (primary) hypertension; I25.10 Atherosclerotic heart disease of native coronary artery without angina pectoris; G20.A1 Parkinson's disease without dyskinesia, without mention of fluctuations; E11.40 Type 2 diabetes mellitus with diabetic neuropathy, unspecified
CPT/HCPCS: 80053; 82306; 82607; 82746; 83540; 83550; 83735; 84100; 84403; 84439; 85025

== ENCOUNTER 2024-07-13 12:01 | Outpatient (CLI) | payer MEDICARE, MEDICAID, SELFPAY ==
[2024-07-13 15:10] LABS: Hemoglobin A1C 5.8 % (4.0-6.0)
== END 2024-07-13 23:59 | disposition home or self-care (01) ==
LOC: LAB.DROPOF 07-15 12:02
PROVIDERS: PCP Nurse Practitioner Family; Visit Provider Nurse Practitioner Family
DX: E11.9 Type 2 diabetes mellitus without complications (principal)
CPT/HCPCS: 83036

== ENCOUNTER 2024-07-21 10:51 | Outpatient (CLI) | payer MEDICARE, MEDICAID, SELFPAY ==
--- NOTE | 2024-07-21 10:55 | CA_ITS ---
APPROVED REPORT EXAM: Limited 2D Echocardiogram Slurry Mixer: Rosita Kong CRT Ht: 6 ft 0 in Wt: 180lbs BSA: 2.04 BP: 120/75 mmHg Indications: CAD, ABN EKG, CM, AICD, AMANDA, Paricardial effusion f/u Other Information Study Quality: Technically Difficult Conclusion This is a limited TTE to evaluate for pericardial effusion. Limited windows were obtained. Technically difficult study due to poor acoustic windows. There is a small sized pericardial effusion noted towards the LV apical wall and distal RV free wall. The largest pocket measures 0.3 cm in diastole. No clear evidence of chamber collapse. The IVC is normal in size and collapsibility. No echo indications of tamponade. Compared to prior study from 04/28/2024, the pericardial effusion appears unchanged or slightly improved. Electronically signed by : Karina Lino MD 07/25/2024 12:35:09
== END 2024-07-21 23:59 | disposition home or self-care (01) ==
LOC: RT 10:53
PROVIDERS: PCP Nurse Practitioner Family; Visit Provider Nurse Practitioner
DX: I31.39 Other pericardial effusion (noninflammatory) (principal); I25.10 Atherosclerotic heart disease of native coronary artery without angina pectoris
CPT/HCPCS: 93308

== ENCOUNTER 2024-08-19 12:35 | Outpatient (CLI) | payer MEDICARE, MEDICAID, SELFPAY ==
--- NOTE | 2024-08-19 12:38 | CA_ITS ---
APPROVED REPORT EXAM: Comprehensive 2D, Doppler, and color-flow Echocardiogram Adult Family Home Program Manager: Aicha Velazquez RT(R) Ht: 6 ft 0 in Wt: 168lbs BSA: 1.98 BP: 96/46 mmHg Indications: pericardial effusion. Limited to reassess effusion, CAD, Abn EKG, CM, AICD, AMANDA. Other Information Study Quality: Technically Difficult Conclusion This is a limited TTE to evaluate for pericardial effusion. Limited windows were obtained. Technically difficult study. There is a small-sized, anterior pericardial effusion present. The largest pocket measures 0.5 cm in diastole. No echo indications of tamponade. Electronically signed by : Karina Lino MD 08/19/2024 13:19:26
== END 2024-08-19 23:59 | disposition home or self-care (01) ==
LOC: RT 12:36
PROVIDERS: PCP Nurse Practitioner Family; Visit Provider Internal Medicine
DX: I25.10 Atherosclerotic heart disease of native coronary artery without angina pectoris (principal); I31.39 Other pericardial effusion (noninflammatory)
CPT/HCPCS: 93308

== ENCOUNTER 2024-08-22 10:00 | Outpatient (CLI) | payer MEDICARE, MEDICAID, SELFPAY ==
[2024-08-22] MEDS: BARIUM SULFATE(LIQUID E-Z-PAQUE);355ML BOTTLE 355 ML PO (11:49)
--- NOTE | 2024-08-22 14:57 | HMH.SLMBS2 ---
Speech & Language Evaluation Speech/Language Mod Barium Swallow Start: 08/22/24 12:49 Freq: once Status: Complete Protocol: Document 08/22/24 12:49 CARLEEN ([facility]22/24 13[id number] Co-signed By ST iLnnea Godoy Information General Current Food Consistancy Regular,Thin Liquids Dentition Good Dentition Patient Orientation Person,Place,Time,Situation Ability to Follow Directions Excellent Communication Ability No Impairment MBS Recommendations Diet Dietary Recommendations Regular,Thin Liquids Treatment/Strategies Strategy/Precaution Recommend Sitting Upright (90 deg),Chin Tuck,Double Swallow, Supraglottic Swallow,Small Bites and Sips,Alternate Liquids/Solids Referrals/Other Recommended Referrals GI Consult Mod Barium Swallow Impressions Summary and Impressions Oral Phase Impression No Impairment (WFL) Oral Phase Summary No impairment of oral phase of swallow. Labial seal was observed to be WFL, with no anterior loss. No scattered loss of bolus pooling observed . No oral residue noted. Mastication and manipulation of bolus were observed to be WFL on mechanical soft, regular, and mixed trials. Pharyngeal Phase Impression Moderate Impairment Pharyngeal Phase Summary Moderate impairment of pharyngeal phase of swallow. Trace aspiration noted on x1 trial of thin liquid via cup. TAWER trialed chin tuck, which was successful at airway protection for thin liquids. Pt sneezed x2 during mechanical soft trial, causing AP propulsion spill to vallecula, but was able to be cleared into esophageal sphincter. Pt demonstrated reduced hyolaryngeal excursion and elevation and base of tongue retraction on all consistencies trialed. Pt was observed to have moderate amounts of diffuse oropharynx residue on all consistencies trialed. TAWER trialed liquid and puree washes to clear, however this added to residual in vallecula. Pt required supraglottic swallow, throat clear, and subsequent swallows to clear residue. Speech/Language MBS Assessment/Goals/Plan Assessment Date of Evaluation: 08/22/24 Evaluation Type Initial Certification Assessment/Problems difficulty swallowing per MD order Does Patient Qualify for Service No Qualify/Failure Comment Based on clinical observations during instrumental assessment (MBSS) and pt interview, further skilled speech services are not warranted at this time d/t adequate mastication and manipulation of bolus and sufficient compensatory strategies. Pt may benefit from GI consult, as he stated c/o vomiting after meals. Recommendations PHYSICIAN CERTIFICATION: The specified therapy services are required, authorized, and reviewed every 30 days. Diet Recommendations Normal Liquid Type Recommendations Normal/Thin SL Swallow Guidelines Alt bite w/sip thru meal,High aspiration risk,Standard Aspiration Prec.,Eat at slow rate,Oral Care Education, Reflux precautions Dysphagia Swallow Precautions/Strategies Sitting Upright (90 deg),Chin Tuck,Double Swallow, Supraglottic Swallow,Small Bites and Sips,Alternate Liquids/Solids Plan Pt/Guardian verbally ack understanding Yes of dx/prognosis/goals G -code Required No Education Instructions provided TAWER discussed clinical observations made throughout MBSS, diet recommendations, and compensatory strategies with pt who expressed understanding. Pt/Caregiver able to recall information Able to recall/restate Reinforcement needed No Mod Barium Swallow Setup Exam Setup Radiologist Yang Pierce Level of Consciousness Awake,Alert,Appropriate, Follows Commands Mod Barium Swallow-Lat View Textures Lateral View Food Presentation Thin Liquid via Cup,Thin Liquid via Straw,Pureed Food- Thick,Mech. Soft Food- Regular ,Barium Tablet,Regular Food, Pudding,Mixed Comment All bolus presentations administered x2 to assess for fatigue and consistency. Oral Phase Labial Closure No Impairment (WFL) Bolus Formation Pooling L/R No Impairment (WFL) Bolus Formation under Tongue No Impairment (WFL) Bolus Formation Scattered Loss No Impairment (WFL) Mastication Rotary Chew No Impairment (WFL) Mastication Munching No Impairment (WFL) Mastication Lateralization No Impairment (WFL) Lingual Movement No Impairment (WFL) Residue Clearing No Impairment (WFL) Pharyngeal Phase A/P Lingual Propulsion Spills Minimal Impairment Swallow Response Delay Minimal Impairment Base of Tongue Moderate Impairment Epiglottic Coverage Moderate Impairment Laryngeal Elevation Moderate Impairment Vallecular Retention Clearing Moderate Impairment Pharyn. Wall Residue Clearing Moderate Impairment Piriform Sinus Retention Moderate Impairment Aspiration? Yes Degree of Aspiration Small When aspirated During the swallow Consistencies Aspirated Thin liquid via cup Silent aspiration? No Reason for aspiration Reduced hyolarynegal excursion and elevation Mod Barium Swallow-AP View Performed Mod Barium Swallow A/P View Test Not Applicable/Performed PHYSICIAN CERTIFICATION: I certify the specified therapy services for Vikram Flores are required, authorized, and reviewed every 30 days.
== END 2024-08-22 23:59 | disposition home or self-care (01) ==
LOC: RAD 10:01
PROVIDERS: PCP Nurse Practitioner Family; Visit Provider Internal Medicine
DX: R13.10 Dysphagia, unspecified (principal)
CPT/HCPCS: 74230; 92611

== ENCOUNTER 2024-11-01 11:06 | Outpatient (CLI) | payer MEDICARE, MEDICAID, SELFPAY ==
--- NOTE | 2024-11-01 11:16 | CA_ITS ---
APPROVED REPORT EXAM: Comprehensive 2D, Doppler, and color-flow Echocardiogram Trade Mark Attorney: RT Elisabet(R) Ht: 6 ft 0 in Wt: 157lbs BSA: 1.92 BP: 118/68 mmHg Indications: HTN, DM, hyperlipidemia, AMANDA, CAD, AICD. Ordered as limited to reassess effusion. 2D Dimensions EF AP4 50.40 % GL Strain -10.9 % Other Information Study Quality: Technically Difficult Conclusion This is a limited TTE to evaluate for LV systolic function and pericardial effusion. Limited windows were obtained. Technically difficult study. The left ventricle is normal in size. There is increased LV wall thickness. The septum is asynchronous, regional wall motion abnormalities cannot be entirely excluded due to technically difficult study. LVEF is 55%. There is a trivial, anterior pericardial effusion along the distal RV free wall in the LV apex. No echo indications of tamponade in the available views. Compared to prior study from 08/19/2024, the pericardial effusion is now improved. Electronically signed by : Karina Lino MD 11/01/2024 12:04:06
== END 2024-11-01 23:59 | disposition home or self-care (01) ==
LOC: RT 11:07
PROVIDERS: PCP Nurse Practitioner Family; Visit Provider Physician Assistant
DX: I31.39 Other pericardial effusion (noninflammatory) (principal); I11.0 Hypertensive heart disease with heart failure; I25.10 Atherosclerotic heart disease of native coronary artery without angina pectoris; I50.22 Chronic systolic (congestive) heart failure; I42.0 Dilated cardiomyopathy
CPT/HCPCS: 93308

== ENCOUNTER 2024-11-04 08:51 | Outpatient (CLI) | payer MEDICARE, MEDICAID, SELFPAY ==
[2024-11-04 10:53] LABS: Chloride 107 mmol/L (98-107)
[2024-11-04 10:54] LABS: Potassium 4.1 mmoL/L (3.5-5.1); Sodium 140 mmol/L (136-145)
[2024-11-04 10:56] LABS: Blood Urea Nitrogen 23 mg/dl (9-20); Estimated Glomerular Filt Rate 75 ml/min (>60); GFR (African American) 91 ML/MIN (>60)
[2024-11-04 10:57] LABS: Anion Gap 13.1 mEq/L (5-15); Calcium 9.4 mg/dl (8.4-10.2); Carbon Dioxide 24 mmol/L (22.0-30.0); Glucose 134 mg/dl (74-100); Magnesium 1.7 mg/dl (1.6-2.3)
[2024-11-04 11:09] LABS: Free T4 (Free Thyroxine) 0.92 ng/dl (0.78-2.19)
[2024-11-04 11:29] LABS: Thyroid Stimulating Hormone 0.87 uIU/mL (0.465-4.68)
== END 2024-11-04 23:59 | disposition home or self-care (01) ==
LOC: LAB 08:52
PROVIDERS: PCP Nurse Practitioner Family; Visit Provider Nurse Practitioner
DX: I25.10 Atherosclerotic heart disease of native coronary artery without angina pectoris (principal); R00.0 Tachycardia, unspecified; R06.02 Shortness of breath; E78.5 Hyperlipidemia, unspecified
CPT/HCPCS: 36415; 80048; 83735; 84439; 84443

== ENCOUNTER 2024-11-15 16:24 | Emergency (ER) | payer MEDICARE, MEDICAID, SELFPAY ==
[2024-11-15] VITALS (8 sets, daily range): BP systolic 121–149; BP diastolic 80–89; PULSE 62–75; RESP 12–20; TEMP 36.6–36.8; O2SAT 98–100; BMI 23.0
--- NOTE | 2024-11-15 16:25 | ECG_ITS ---
APPROVED REPORT Exam: Resting ECG HR:68 bpm ECG Measurements Heart Rate 68 AXES SC 183 P 56 QRSd 150 QRS -80 QT 416 T 14 QTc 433 Conclusion ELECTRONIC VENTRICULAR PACEMAKER ABNORMAL RHYTHM ECG UNCONFIRMED REPORT Electronically signed by : GARY BRAVO, 11/16/2024 05:52:54
--- NOTE | 2024-11-15 16:34 | ED_ITS ---
<Statement entered by Johanna Diaz DO - 11/15/24 23:40> I was consulted by the JYOTI, and we discussed the complexity of the problems being addressed. I approved the treatment and management plan for this patient's care in the emergency department, thus performing a substantive portion of the medical decision making. Johanna Diaz DO Discharge Plan Disposition Patient Disposition: Home, Self-Care Condition: Good Prescriptions Prescriptions: No Action cilostazol 50 mg tablet 50 mg PO Patient Comments: TAKE 1 TABLET BY MOUTH EVERY 12 HOURS desvenlafaxine succinate [Pristiq] 25 mg tablet extended release 24 hr 25 mg PO DAILY Qty: 30 2RF baclofen 5 mg tablet 5 mg PO DAILY nitroglycerin 0.1 mg/hr patch 24 hour 1 patch transdermal DAILY Rx Instructions: allow nitrate-free interval of approx. 10-12 hrs per 24-hour period acetaminophen [Tylenol] 325 mg tablet 650 mg PO Q6H PRN (Reason: pain) Qty: 90 3RF atorvastatin 20 mg tablet See Rx Instructions .ROUTE .COMPLEX Qty: 90 0RF Dose Instruction: TAKE 1 TABLET BY MOUTH ONCE DAILY FOR HIGH CHOLESTEROL Rx Instructions: TAKE 1 TABLET BY MOUTH ONCE DAILY FOR HIGH CHOLESTEROL carbidopa-levodopa 25-100 mg tablet 1.5 tab PO TID Qty: 90 0RF losartan 25 mg tablet See Rx Instructions .ROUTE .COMPLEX Qty: 30 3RF Dose Instruction: Take 1/2 (one-half) tablet by mouth once daily Rx Instructions: Take 1/2 (one-half) tablet by mouth once daily glipizide 10 mg tablet extended release 24hr See Rx Instructions .ROUTE .COMPLEX Qty: 90 0RF Dose Instruction: Take 1 tablet by mouth once daily Rx Instructions: Take 1 tablet by mouth once daily metformin 1,000 mg tablet See Rx Instructions .ROUTE .COMPLEX Qty: 180 0RF Dose Instruction: TAKE 1 TABLET BY MOUTH TWICE DAILY . APPOINTMENT REQUIRED FOR FUTURE REFILLS Rx Instructions: TAKE 1 TABLET BY MOUTH TWICE DAILY . APPOINTMENT REQUIRED FOR FUTURE REFILLS furosemide [Lasix] 20 mg tablet 20 mg PO DAILY Qty: 30 2RF carvedilol [Coreg] 25 mg tablet 25 mg PO BID Qty: 60 2RF Rx Instructions: must administer with a meal/food Xarelto 2.5 mg tablet See Rx Instructions .ROUTE .COMPLEX Qty: 180 0RF Dose Instruction: Take 1 tablet by mouth twice daily Rx Instructions: Take 1 tablet by mouth twice daily clopidogrel 75 mg tablet See Rx Instructions .ROUTE .COMPLEX Qty: 90 0RF Dose Instruction: Take 1 tablet by mouth once daily Rx Instructions: Take 1 tablet by mouth once daily trihexyphenidyl 2 mg tablet 1 mg PO DAILY Rx Instructions: Take 1/2 (one-half) tablet by mouth once daily Referrals Follow up/Referrals: Provider,Referral, MD [Referring] - See instructions Activity Restrictions/Add. Instructions Additional Instructions/Restrictions: Please schedule follow-up with cardiology this week. If you have any continued new or worsening signs or symptoms follow-up with your PCP cardiology or return to ER as needed Clinical Impressions Clinical Impression: Chest pain Instructions Patient Instructions: DI for Chest Pain Print Language Print Language: Citizen Of [place] Discharge ED Provider: Johanna Diaz General Adult HPI <CRAMINE Swanson - Last Filed: 11/15/24 20:21> General Chief complaint: Chest Pain Stated complaint: chest pain Time Seen by Provider: 11/15/24 16:27 History of Present Illness HPI narrative: Patient presents for evaluation of chest pain. Patient reports that he began having chest pain around 10 or 11 this morning. It has not been constant however it has been ongoing for 4 hours prior to presentation. He does have a cardiac history of implantable pacemaker. He denies shortness of breath diaphoresis headache dizziness shortness of breath fever chills hemoptysis hematochezia melena nausea vomit diarrhea. Related Data Home Medications ?Medication ?Instructions ?Recorded ?Confirmed trihexyphenidyl 2 mg tablet 1 mg PO DAILY parkinsons 12/10/22 11/01/24 nitroglycerin 0.1 mg/hr 1 patch transdermal DAILY 10/19/23 11/01/24 transdermal 24 hour patch cilostazol 50 mg tablet 50 mg PO 04/18/24 11/01/24 baclofen 5 mg tablet 5 mg PO DAILY 10/25/24 11/01/24 Previous Rx's ?Medication ?Instructions ?Recorded acetaminophen 325 mg tablet 650 mg (2 x 325 mg) PO Q6H PRN 06/23/22 (Tylenol) pain #90 tabs atorvastatin 20 mg tablet See Rx Instructions .Route 09/06/24 .COMPLEX #90 tabs carbidopa 25 mg-levodopa 100 mg 1.5 tab PO TID Parkinson #90 tabs 09/21/24 tablet losartan 25 mg tablet See Rx Instructions .Route 09/22/24 .COMPLEX #30 tabs desvenlafaxine succinate 25 mg 25 mg PO DAILY #30 tabs 09/28/24 tablet,extended release 24 hr (Pristiq) glipizide 10 mg tablet, extended See Rx Instructions .Route 10/03/24 release 24 hr .COMPLEX #90 tabs metformin 1,000 mg tablet See Rx Instructions .Route 10/20/24 .COMPLEX #180 tabs furosemide 20 mg tablet (Lasix) 20 mg PO DAILY #30 tabs 10/27/24 carvedilol 25 mg tablet (Coreg) 25 mg PO BID #60 tabs 11/02/24 rivaroxaban 2.5 mg tablet (Xarelto) See Rx Instructions .Route 11/11/24 .COMPLEX #180 tabs clopidogrel 75 mg tablet See Rx Instructions .Route 11/14/24 .COMPLEX #90 tabs Allergies Allergy/AdvReac Type Severity Reaction Status Date / Time No Known Allergies Allergy Verified 11/01/24 11:53 [facility] <CARMINE Swanson - Last Filed: 11/15/24 20:21> [facility] Disclaimer: The information contained in this section may have been updated after the patient was seen, as this information can be updated by other users. Medical History Pericardial effusion Bowel and bladder incontinence AMANDA (obstructive sleep apnea) Angina pectoris Parkinson disease Type 2 diabetes mellitus with diabetic neuropathy, without long-term current use of insulin Heart failure, NYHA class 2 Episode of change in speech Dyspnea and respiratory abnormality CVA (cerebral vascular accident) Transient ischemic attack (TIA) Diabetic neuropathy Decreased stamina Dyspnea Cardiomyopathy Chronic systolic heart failure SOB (shortness of breath) CAD (coronary artery disease) HTN (hypertension) PAD (peripheral artery disease) Hyperlipidemia Diabetes mellitus Surgical History AICD present, double chamber AICD (automatic cardioverter/defibrillator) present Family History Family/Other No significant family history Social History Smoking Status: Never smoker alcohol intake: never substance use type: denies use current occupational status: disabled Travel in the last 8 weeks: Inside the [place] household members: spouse housing: house number of children: 0 current occupational exposures/hazards: Yes caffeine: Yes Have you lived/traveled outside [place] in past 30 days?: No Contact w/someone who lives/traveled outside US past 30 days?: No Exposure to someone with infectious disease in past 14 days?: No Do you have a fever (greater than 100.4 F or 38 C)?: No Have you tested positive for COVID-19: No Exposed to someone with COVID-19 in past 14 days?: No Do you have a sore throat?: No Do you have a cough?: No Do you have any weakness?: No Do you have any diarrhea?: No Are you experiencing any unusual bleeding?: No Do you have any muscle aches/pain?: No Do you have any abdominal pain?: No Are you experiencing loss of taste or smell?: No Other Medical History Have you received the Flu Vaccine for this season: No Have you received the Pneumonia Vaccine: Yes <CARMINE Swanson - Last Filed: 11/15/24 20:21> ROS Obtained: Yes Systems reviewed as appropriate & no additional complaints except as documented Physical Exam <CARMINE Swanson - Last Filed: 11/15/24 20:21> General General appearance: alert and in no apparent distress Respiratory Respiratory exam: Present normal lung sounds bilaterally Cardiovascular Cardiovascular exam: Present regular rate Neurological Exam Neurological exam: Present alert and oriented X3 Medical Decision Making <CARMINE Swanson - Last Filed: 11/15/24 20:21> Medical Records Medical records reviewed: Yes I reviewed the patient's medical records. Screening: Per USPSTF and CDC recommendations, given the prevalence of disease in our region, it is our hospital?s policy to screen for HIV and viral Hepatitis for all patients aged 18 and over and those with ongoing risk factors. Felipe Inquiry Pt receiving controlled substance: No Vital Signs: 11/15/24 16:34 11/15/24 17:00 11/15/24 17:30 Temperature 98.2 F Temperature Source Oral Pulse Rate 70 66 Pulse Rate [Left Radial] 69 Respiratory Rate 20 15 17 Blood Pressure 137/82 141/80 H Blood Pressure [Right Arm] 121/81 Blood Pressure Mean [Right Arm] 94 02 Sat by Pulse Oximetry 98 98 98 Oxygen Delivery Method Room Air 11/15/24 18:30 11/15/24 19:00 11/15/24 19:30 Temperature Temperature Source Pulse Rate 64 65 65 Pulse Rate [Left Radial] Respiratory Rate 12 15 15 Blood Pressure 140/82 147/89 H 137/82 Blood Pressure [Right Arm] Blood Pressure Mean [Right Arm] 02 Sat by Pulse Oximetry 100 99 99 Oxygen Delivery Method Lab Data Lab results reviewed: Yes I reviewed the patient's lab results. Lab Results 11/15/24 16:30: WBC 7.0, RBC 4.41 L, Hgb 13.6 L, Hct 39.7 L, MCV 90.0, MCH 30.8, MCHC 34.3, RDW 12.2, Plt Count 236, MPV 8.9, Neut % (Auto) 71.1, Lymph % (Auto) 14.4, [place] % (Auto) 7.9, Eos % (Auto) 5.0, Baso % (Auto) 1.2, Neut # (Auto) 4.9, Lymph # (Auto) 1.0, [place] # (Auto) 0.6, Eos # (Auto) 0.4, Baso # (Auto) 0.1, Sodium 139, Potassium 4.0, Chloride 108 H, Carbon Dioxide 23, Anion Gap 12.0, BUN 20, Creatinine 1.00, Estimated Creat Clear 82, Estimated GFR 75, Est GFR ( Amer) 91, Glucose 130 H, Calcium 9.3, Magnesium 1.7, Total Bilirubin 0.7, AST 26, ALT 10 L, Alkaline Phosphatase 94, Troponin I < 0.01, Total Protein 6.6, Albumin 4.3, Globulin 2.3, Albumin/Globulin Ratio 1.9 H, Procalcitonin 0.060 11/15/24 19:27: Troponin I < 0.01 11/15/24 16:30 11/15/24 16:30 Orders (Tests/Meds): ED MEDICATIONS Discontinued Medications Generic Name Dose Route Start Last Admin Trade Name Freq PRN Reason Stop Dose Admin Acetaminophen 1,000 mg 11/15/24 16:49 11/15/24 16:55 Acetaminophen 500mg Tab PO 11/15/24 16:50 1,000 mg ONCE ONE Administration Iopamidol 70 ml 11/15/24 17:54 11/15/24 17:54 Iopamidol-370 (76%);100ml Bottle IV 11/15/24 17:55 70 ml ONCE ONE Administration Ketorolac Tromethamine 15 mg 11/15/24 16:49 11/15/24 16:55 Ketorolac 30mg/Ml Vial IV 11/15/24 16:50 15 mg ONCE ONE Administration Sodium Chloride 10 ml 11/15/24 17:54 11/15/24 17:54 Sodium Chloride 0.9% 10ml Syr (Rad Only) IV 11/15/24 17:55 10 ml ONCE ONE Administration Sodium Chloride 50 ml 11/15/24 17:54 11/15/24 17:54 0.9 % Sodium Chloride 50 Ml Vial IV 11/15/24 17:55 50 ml ONCE ONE Administration ORDERS Category Date Time Status CT angio chest PE protocol Stat Cat Scan 11/15/24 16:49 Completed CBC w/Auto Diff [Complete Blood Count Auto Diff] Stat Lab 11/15/24 16:30 Completed CMP [Comprehensive Metabolic Panel] Stat Lab 11/15/24 16:30 Completed Magnesium Stat Lab 11/15/24 16:30 Completed Procalcitonin Stat Lab 11/15/24 16:30 Completed Trop I [Troponin I] Stat Lab 11/15/24 16:30 Completed Troponin I Q3H Lab 11/15/24 19:27 Completed Troponin I Q3H Lab 11/15/24 23:00 Ordered Medical Decision Narrative: In summary patient is a 64-year-old male who presents to the emergency department for evaluation of sided chest pain. Patient is hemodynamically stable upon arrival, afebrile. Physical exam is unremarkable nonfocal including normal breath sounds without adventitious sounds or increased work of breathing and normal heart sounds and no dependent edema. There is no reproducible pain on palpation. Patient has full range of motion of all 4 extremities. He is neurovascularly intact in all 4 extremities no focal neurologic deficits.. Differential diagnosis includes ACS versus PE versus pneumonia versus infection etc. Initial workup will be conducted with hematologic labs COVID and flu swabs CTA PE protocol. Initial interventions include Toradol Tylenol Zofran. Initial workup reviewed by me shows that his hematologic labs are nonactionable troponins undetectable mom febrile to rotation CT scan PE protocol shows no evidence of thrombus or acute intrathoracic abnormality prior to radiology read. Please see final report for official interpretation.. Upon repeat evaluation patient is chest pain-free after initial intervention. Given this the patient was placed in observation status at 1730. Medical necessity for observational status is serial troponins. The patient was provided serial reevaluations continuous cardiac monitoring pulse oximetry while awaiting results. Patient's second troponin is also undetectable. Positive these results patient is appropriate for discharge Remains diagnostic uncertainty as to the exact cause of his pain we have ruled out any serious orthopedic condition. Patient denies should follow-up with cardiology as expected and follow-up with his PCP if he has new continuing signs or symptoms or return to the ER as needed.. Total time in observation was 2-1/2 hours. <Johanna Diaz, DO - Last Filed: 11/15/24 16:50> Vital Signs: 11/15/24 16:34 11/15/24 17:00 11/15/24 17:30 Temperature 98.2 F Temperature Source Oral Pulse Rate 70 66 Pulse Rate [Left Radial] 69 Respiratory Rate 20 15 17 Blood Pressure 137/82 141/80 H Blood Pressure [Right Arm] 121/81 Blood Pressure Mean [Right Arm] 94 02 Sat by Pulse Oximetry 98 98 98 Oxygen Delivery Method Room Air 11/15/24 18:30 11/15/24 19:00 11/15/24 19:30 Temperature Temperature Source Pulse Rate 64 65 65 Pulse Rate [Left Radial] Respiratory Rate 12 15 15 Blood Pressure 140/82 147/89 H 137/82 Blood Pressure [Right Arm] Blood Pressure Mean [Right Arm] 02 Sat by Pulse Oximetry 100 99 99 Oxygen Delivery Method Lab Data Lab Results 11/15/24 16:30: WBC 7.0, RBC 4.41 L, Hgb 13.6 L, Hct 39.7 L, MCV 90.0, MCH 30.8, MCHC 34.3, RDW 12.2, Plt Count 236, MPV 8.9, Neut % (Auto) 71.1, Lymph % (Auto) 14.4, [place] % (Auto) 7.9, Eos % (Auto) 5.0, Baso % (Auto) 1.2, Neut # (Auto) 4.9, Lymph # (Auto) 1.0, [place] # (Auto) 0.6, Eos # (Auto) 0.4, Baso # (Auto) 0.1, Sodium 139, Potassium 4.0, Chloride 108 H, Carbon Dioxide 23, Anion Gap 12.0, BUN 20, Creatinine 1.00, Estimated Creat Clear 82, Estimated GFR 75, Est GFR ( Amer) 91, Glucose 130 H, Calcium 9.3, Magnesium 1.7, Total Bilirubin 0.7, AST 26, ALT 10 L, Alkaline Phosphatase 94, Troponin I < 0.01, Total Protein 6.6, Albumin 4.3, Globulin 2.3, Albumin/Globulin Ratio 1.9 H, Procalcitonin 0.060 11/15/24 19:27: Troponin I < 0.01 Orders (Tests/Meds): ED MEDICATIONS Discontinued Medications Generic Name Dose Route Start Last Admin Trade Name Freq PRN Reason Stop Dose Admin Acetaminophen 1,000 mg 11/15/24 16:49 11/15/24 16:55 Acetaminophen 500mg Tab PO 11/15/24 16:50 1,000 mg ONCE ONE Administration Iopamidol 70 ml 11/15/24 17:54 11/15/24 17:54 Iopamidol-370 (76%);100ml Bottle IV 11/15/24 17:55 70 ml ONCE ONE Administration Ketorolac Tromethamine 15 mg 11/15/24 16:49 11/15/24 16:55 Ketorolac 30mg/Ml Vial IV 11/15/24 16:50 15 mg ONCE ONE Administration Sodium Chloride 10 ml 11/15/24 17:54 11/15/24 17:54 Sodium Chloride 0.9% 10ml Syr (Rad Only) IV 11/15/24 17:55 10 ml ONCE ONE Administration Sodium Chloride 50 ml 11/15/24 17:54 11/15/24 17:54 0.9 % Sodium Chloride 50 Ml Vial IV 11/15/24 17:55 50 ml ONCE ONE Administration ORDERS Category Date Time Status CT angio chest PE protocol Stat Cat Scan 11/15/24 16:49 Completed CBC w/Auto Diff [Complete Blood Count Auto Diff] Stat Lab 11/15/24 16:30 Completed CMP [Comprehensive Metabolic Panel] Stat Lab 11/15/24 16:30 Completed Magnesium Stat Lab 11/15/24 16:30 Completed Procalcitonin Stat Lab 11/15/24 16:30 Completed Trop I [Troponin I] Stat Lab 11/15/24 16:30 Completed Troponin I Q3H Lab 11/15/24 19:27 Completed Troponin I Q3H Lab 11/15/24 23:00 Ordered ECG Data Tracing #1: I reviewed this ECG and interpreted as documented below: Ventricularly paced at a rate of 68 bpm. Does not meet Sgarbossa criteria for STEMI. ECG initial impression date: 11/15/24 ECG initial impression time: 16:27 Critical Care <CARMINE Swanson - Last Filed: 11/15/24 20:21> Critical Care Time Critical Care Time: No
--- NOTE | 2024-11-15 16:42 | PC.NURSE ---
fbs upon triage was 148
--- NOTE | 2024-11-15 16:49 | CT_ITS ---
PROCEDURE INFORMATION: Exam: CTA Chest With Contrast Exam date and time: 11/15/2024 5:53 PM Age: 64 years old Clinical indication: Pain; Chest pressure; Additional info: Left-sided chest pain TECHNIQUE: Imaging protocol: Computed tomographic angiography of the chest with contrast. Exam focused on the arteries. 3D rendering (Not supervised by radiologist): MIP and/or 3D reconstructed images were created by the technologist. Radiation optimization: All CT scans at this facility use at least one of these dose optimization techniques: automated exposure control; mA and/or kV adjustment per patient size (includes targeted exams where dose is matched to clinical indication); or iterative reconstruction. Contrast material: ISOVUE; Contrast volume: 70 ml; Contrast route: INTRAVENOUS (IV); COMPARISON: CT ANGIO CHEST 12/28/2020 11:26 PM FINDINGS: Tubes, catheters and devices: Left subclavian transvenous biventricular pacemaker leads in place. Pulmonary arteries: No acute pulmonary emboli. Aorta: Unremarkable. No aortic aneurysm. No aortic dissection. Lungs: Mild bibasilar atelectasis and/or scarring. Pleural spaces: Unremarkable. No pneumothorax. No pleural effusion. Heart: Unremarkable. No cardiomegaly. No pericardial effusion. Coronary arteries: Mild atherosclerotic disease of the visualized left anterior descending coronary artery. Lymph nodes: Calcified subcarinal lymph nodes, compatible with prior granulomatous disease. Bones/joints: Old, healed left posterior and left lateral rib fractures. Multilevel thoracic spine degenerative disc space narrowing and osteophyte formation. Soft tissues: Unremarkable. IMPRESSION: No acute thoracic abnormality.
[2024-11-15 16:54] LABS: Basophils # 0.1 K/mm3 (0-0.2); Basophils % 1.2 % (0.1-2.0); Eosinophils # 0.4 K/mm3 (0.0-0.4); Hematocrit 39.7 % (42.0-52.0); Hemoglobin 13.6 g/dL (14.1-18.0); Lymphocytes % 14.4 % (10-50); Mean Corpuscular HGB Conc 34.3 g/dL (31.8-35.4); Mean Corpuscular Hemoglobin 30.8 pg (27.0-31.2); Mean Platelet Volume 8.9 fl (7.4-10.4); Monocytes # 0.6 K/mm3 (0.1-1.0); Monocytes % 7.9 % (1.7-9.3); Neutrophils # 4.9 K/mm3 (1.8-7.8); Neutrophils % 71.1 % (37.0-80.0); Platelet Count 236 K/mm3 (142-424); Red Blood Count 4.41 M/mm3 (4.60-6.20); Red Cell Distribution Width 12.2 % (11.5-17.5)
[2024-11-15] MEDS: KETOROLAC 30MG/ML VIAL 15 MG IV (16:55)
[2024-11-15] MEDS: ACETAMINOPHEN 500MG TAB 1000 MG PO (16:55)
[2024-11-15 17:10] LABS: Albumin Level 4.3 g/dl (3.5-5.0); Chloride 108 mmol/L (98-107); Sodium 139 mmol/L (136-145)
[2024-11-15 17:13] LABS: Alanine Aminotransferase 10 U/L (12-78); Albumin/Globulin Ratio 1.9 (1.1-1.8); Alkaline Phosphatase 94 U/L (38-126); Aspartate Amino Transferase 26 U/L (17-59); Bilirubin,Total 0.7 mg/dl (0.2-1.3); Blood Urea Nitrogen 20 mg/dl (9-20); Carbon Dioxide 23 mmol/L (22.0-30.0); Creatinine Clearance Estimated 82 mL/min (50-200); Estimated Glomerular Filt Rate 75 ml/min (>60); GFR (African American) 91 ML/MIN (>60); Globulin 2.3 g/dL (1.3-3.2); Total Protein,Serum 6.6 g/dl (6.3-8.2)
[2024-11-15 17:14] LABS: Calcium 9.3 mg/dl (8.4-10.2); Glucose 130 mg/dl (74-100); Magnesium 1.7 mg/dl (1.6-2.3)
[2024-11-15 17:31] LABS: Troponin I < 0.01 ng/ml (0.00-0.034)
[2024-11-15] MEDS: SODIUM CHLORIDE 0.9% 10ML SYR (RAD ONLY) 10 ML IV (17:54)
[2024-11-15] MEDS: 0.9 % SODIUM CHLORIDE 50 ML VIAL IV (17:54)
[2024-11-15] MEDS: IOPAMIDOL-370 (76%);100ML BOTTLE 70 ML IV (17:54)
--- NOTE | 2024-11-15 18:06 | PC.NURSE ---
rounded on pt, no needs at this time.
[2024-11-15 20:14] LABS: Troponin I < 0.01 ng/ml (0.00-0.034)
--- NOTE | 2024-11-15 20:30 | PC.NURSE ---
IV removed. Catheter tip intact. bleeding controlled.
== END 2024-11-15 20:31 | disposition home or self-care (01) ==
PROVIDERS: Physician Assistant; Emergency Provider Emergency Medicine; PCP Nurse Practitioner Family
DX: R07.9 Chest pain, unspecified (principal)
CPT/HCPCS: 71275; 80053; 83735; 84145; 84484; 85025; 93005; 96374; 99285; J1885; Q9967

== ENCOUNTER 2024-11-27 01:55 | Emergency (ER) | payer MEDICARE, MEDICAID, SELFPAY ==
[2024-11-27] VITALS (7 sets, daily range): BP systolic 116–126; BP diastolic 70–73; PULSE 71–80; RESP 12–20; TEMP 36.6–36.7; O2SAT 95–99; BMI 22.6
--- NOTE | 2024-11-27 02:00 | XR_ITS ---
PROCEDURE INFORMATION: Exam: XR Chest Exam date and time: 11/27/2024 2:19 AM Age: 64 years old Clinical indication: Pain; Left-sided; Additional info: Cp TECHNIQUE: Imaging protocol: Radiologic exam of the chest. Views: 1 view. COMPARISON: CT ANGIO CHEST PE PROTOCOL 11/15/2024 5:53 PM FINDINGS: Tubes, catheters and devices: A biventricular pacing/defibrillating device anterior from the left. Lungs: Unremarkable. No consolidation. Pleural spaces: Unremarkable. No pleural effusion. No pneumothorax. Heart/Mediastinum: Unremarkable. No cardiomegaly. Vasculature: Unremarkable. Bones/joints: Unremarkable. IMPRESSION: No acute findings.
--- NOTE | 2024-11-27 02:00 | ECG_ITS ---
APPROVED REPORT Exam: Resting ECG HR:77 bpm ECG Measurements Heart Rate 77 AXES MD 188 P 70 QRSd 140 QRS -84 QT 397 T 50 QTc 429 Conclusion UNCERTAIN IRREGULAR RHYTHM ELECTRONIC VENTRICULAR PACEMAKER -- CONTOUR ANALYSIS BASED ON INTRINSIC RHYTHM RIGHT BUNDLE BRANCH BLOCK [120+ ms QRS DURATION, UPRIGHT V1, 40+ ms S IN I/aVL/V4/V5/V6] POSSIBLE ANTERIOR MYOCARDIAL INFARCTION , PROBABLY OLD [30 ms Q WAVE IN V3/V4, OR R < 0.2 mV IN V4] INFERIOR MYOCARDIAL INFARCTION , PROBABLY OLD [40+ ms Q WAVE AND/OR ST/T ABNORMALITY IN II/aVF] No STEMI Electronically signed by : KYLE CRUZ, 11/28/2024 00:23:22
[2024-11-27 02:07] LABS: Basophils # 0.1 K/mm3 (0-0.2); Basophils % 0.7 % (0.1-2.0); Eosinophils # 0.3 K/mm3 (0.0-0.4); Eosinophils % 3.7 % (0.1-12.0); Hematocrit 39.8 % (42.0-52.0); Hemoglobin 13.9 g/dL (14.1-18.0); Lymphocytes # 1.4 K/mm3 (0.7-4.5); Mean Corpuscular HGB Conc 34.9 g/dL (31.8-35.4); Mean Corpuscular Hemoglobin 30.8 pg (27.0-31.2); Mean Corpuscular Volume 88.2 fl (80-94); Monocytes # 0.5 K/mm3 (0.1-1.0); Monocytes % 7.7 % (1.7-9.3); Neutrophils # 4.8 K/mm3 (1.8-7.8); Neutrophils % 67.6 % (37.0-80.0); Platelet Count 252 K/mm3 (142-424); Red Blood Count 4.51 M/mm3 (4.60-6.20); Red Cell Distribution Width 12.1 % (11.5-17.5)
[2024-11-27] MEDS: hydrOXYzine pamoate 25MG CAPSULE 50 MG PO (02:07)
[2024-11-27] MEDS: ASPIRIN 81MG CHEWABLE TABLET 324 MG PO (02:07)
[2024-11-27 02:13] LABS: Alanine Aminotransferase 13 U/L (12-78); Albumin Level 3.9 g/dl (3.5-5.0); Albumin/Globulin Ratio 1.4 (1.1-1.8); Alkaline Phosphatase 79 U/L (38-126); Anion Gap 16.6 mEq/L (5-15); Aspartate Amino Transferase 21 U/L (17-59); Bilirubin,Total 1.5 mg/dl (0.2-1.3); Blood Urea Nitrogen 32 mg/dl (9-20); Calcium 9.5 mg/dl (8.4-10.2); Carbon Dioxide 22 mmol/L (22.0-30.0); Chloride 107 mmol/L (98-107); Creatinine Clearance Estimated 68 mL/min (50-200); Estimated Glomerular Filt Rate 61 ml/min (>60); GFR (African American) 74 ML/MIN (>60); Globulin 2.8 g/dL (1.3-3.2); Glucose 161 mg/dl (74-100); Potassium 3.6 mmoL/L (3.5-5.1); Sodium 142 mmol/L (136-145); Total Protein,Serum 6.7 g/dl (6.3-8.2)
[2024-11-27 02:19] LABS: D-Dimer 0.31 ug/mL (0.0-0.5)
[2024-11-27 02:27] LABS: Troponin I < 0.01 ng/ml (0.00-0.034)
--- NOTE | 2024-11-27 03:31 | ED_ITS ---
Discharge Plan Disposition Patient Disposition: Home, Self-Care Condition: Good Prescriptions Prescriptions: New hydroxyzine HCl 25 mg tablet 25 mg PO Q8H PRN (Reason: anxiety) Qty: 10 0RF No Action cilostazol 50 mg tablet 50 mg PO Patient Comments: TAKE 1 TABLET BY MOUTH EVERY 12 HOURS desvenlafaxine succinate [Pristiq] 25 mg tablet extended release 24 hr 25 mg PO DAILY Qty: 30 2RF baclofen 5 mg tablet 5 mg PO DAILY nitroglycerin 0.1 mg/hr patch 24 hour 1 patch transdermal DAILY Rx Instructions: allow nitrate-free interval of approx. 10-12 hrs per 24-hour period acetaminophen [Tylenol] 325 mg tablet 650 mg PO Q6H PRN (Reason: pain) Qty: 90 3RF atorvastatin 20 mg tablet See Rx Instructions .ROUTE .COMPLEX Qty: 90 0RF Dose Instruction: TAKE 1 TABLET BY MOUTH ONCE DAILY FOR HIGH CHOLESTEROL Rx Instructions: TAKE 1 TABLET BY MOUTH ONCE DAILY FOR HIGH CHOLESTEROL carbidopa-levodopa 25-100 mg tablet 1.5 tab PO TID Qty: 90 0RF losartan 25 mg tablet See Rx Instructions .ROUTE .COMPLEX Qty: 30 3RF Dose Instruction: Take 1/2 (one-half) tablet by mouth once daily Rx Instructions: Take 1/2 (one-half) tablet by mouth once daily glipizide 10 mg tablet extended release 24hr See Rx Instructions .ROUTE .COMPLEX Qty: 90 0RF Dose Instruction: Take 1 tablet by mouth once daily Rx Instructions: Take 1 tablet by mouth once daily metformin 1,000 mg tablet See Rx Instructions .ROUTE .COMPLEX Qty: 180 0RF Dose Instruction: TAKE 1 TABLET BY MOUTH TWICE DAILY . APPOINTMENT REQUIRED FOR FUTURE REFILLS Rx Instructions: TAKE 1 TABLET BY MOUTH TWICE DAILY . APPOINTMENT REQUIRED FOR FUTURE REFILLS furosemide [Lasix] 20 mg tablet 20 mg PO DAILY Qty: 30 2RF carvedilol [Coreg] 25 mg tablet 25 mg PO BID Qty: 60 2RF Rx Instructions: must administer with a meal/food Xarelto 2.5 mg tablet See Rx Instructions .ROUTE .COMPLEX Qty: 180 0RF Dose Instruction: Take 1 tablet by mouth twice daily Rx Instructions: Take 1 tablet by mouth twice daily clopidogrel 75 mg tablet See Rx Instructions .ROUTE .COMPLEX Qty: 90 0RF Dose Instruction: Take 1 tablet by mouth once daily Rx Instructions: Take 1 tablet by mouth once daily trihexyphenidyl 2 mg tablet 1 mg PO DAILY Rx Instructions: Take 1/2 (one-half) tablet by mouth once daily Referrals Follow up/Referrals: Marquez Saldaña APRN [Primary Care Provider] - See instructions Activity Restrictions/Add. Instructions Additional Instructions/Restrictions: You were evaluated in the ER and are appropriate for discharge at this time. Continue all home medications as previously prescribed. Take the prescribed hydroxyzine if needed for anxiety. Please make an appointment with primary care doctor for reevaluation in a few days. Also follow-up with cardiology. Return to the ER with any new, worsening, or otherwise concerning symptoms. Clinical Impressions Clinical Impression: Chest pain, Anxiety Print Language Print Language: Upper Sorbian Discharge ED Provider: Ricardo Demarco General Chief Complaint: Chest Pain Stated Complaint: CHEST PAIN Time Seen by Provider: 11/27/24 01:58 Mode of Arrival: Ambulatory Source of Information: Patient Description of Symptoms (Recalled from ER Triage Doc. by RN): PT C/O CHEST PAIN X2 HOURS. REPORTS HAVING TROUBLE WITH SLEEP PATTERN. SPOUSE REPORTS FREQUENT EPISODES LIKE THIS AT NIGHT TIME, POSSIBLE ANXIETY. History of Present Illness HPI narrative: 64-year-old male with history of stroke leaving left-sided deficits, pacemaker, CAD, hypertension presents to the ER for concerns of chest pain. provides majority of history. Reportedly chest pain began approximately 2 hours prior to arrival. reports the patient has a very erratic sleep pattern and is very irregular. She states he is awake all night and sleeps during the day. She is concerned that his episodes are anxiety related. She states the patient has been evaluated for episodes like this previously with the identical symptoms including chest pain and pain in the left arm and left leg which is exactly what the patient complains of today. She states the symptoms have seemed to typically happen at night. Reportedly patient has no dizziness, headache, nausea, or chest pain at this time. He did not have other associated symptoms besides pain in the left arm and left leg. No new numbness, tingling, or weakness. Related Data Home Medications ?Medication ?Instructions ?Recorded ?Confirmed trihexyphenidyl 2 mg tablet 1 mg PO DAILY parkinsons 12/10/22 11/01/24 nitroglycerin 0.1 mg/hr 1 patch transdermal DAILY 10/19/23 11/01/24 transdermal 24 hour patch cilostazol 50 mg tablet 50 mg PO 04/18/24 11/01/24 baclofen 5 mg tablet 5 mg PO DAILY 10/25/24 11/01/24 Previous Rx's ?Medication ?Instructions ?Recorded acetaminophen 325 mg tablet 650 mg (2 x 325 mg) PO Q6H PRN 06/23/22 (Tylenol) pain #90 tabs atorvastatin 20 mg tablet See Rx Instructions .Route 09/06/24 .COMPLEX #90 tabs carbidopa 25 mg-levodopa 100 mg 1.5 tab PO TID Parkinson #90 tabs 09/21/24 tablet losartan 25 mg tablet See Rx Instructions .Route 09/22/24 .COMPLEX #30 tabs desvenlafaxine succinate 25 mg 25 mg PO DAILY #30 tabs 09/28/24 tablet,extended release 24 hr (Pristiq) glipizide 10 mg tablet, extended See Rx Instructions .Route 10/03/24 release 24 hr .COMPLEX #90 tabs metformin 1,000 mg tablet See Rx Instructions .Route 10/20/24 .COMPLEX #180 tabs furosemide 20 mg tablet (Lasix) 20 mg PO DAILY #30 tabs 10/27/24 carvedilol 25 mg tablet (Coreg) 25 mg PO BID #60 tabs 11/02/24 rivaroxaban 2.5 mg tablet (Xarelto) See Rx Instructions .Route 11/11/24 .COMPLEX #180 tabs clopidogrel 75 mg tablet See Rx Instructions .Route 11/14/24 .COMPLEX #90 tabs hydroxyzine HCl 25 mg tablet 25 mg PO Q8H PRN anxiety #10 tabs 11/27/24 Allergies Allergy/AdvReac Type Severity Reaction Status Date / Time No Known Allergies Allergy Verified 11/01/24 11:53 [facility] Disclaimer: The information contained in this section may have been updated after the patient was seen, as this information can be updated by other users. Medical History Pericardial effusion Bowel and bladder incontinence AMANDA (obstructive sleep apnea) Angina pectoris Parkinson disease Type 2 diabetes mellitus with diabetic neuropathy, without long-term current use of insulin Heart failure, NYHA class 2 Episode of change in speech Dyspnea and respiratory abnormality CVA (cerebral vascular accident) Transient ischemic attack (TIA) Diabetic neuropathy Decreased stamina Dyspnea Cardiomyopathy Chronic systolic heart failure SOB (shortness of breath) CAD (coronary artery disease) HTN (hypertension) PAD (peripheral artery disease) Hyperlipidemia Diabetes mellitus Surgical History AICD present, double chamber AICD (automatic cardioverter/defibrillator) present Family History Family/Other No significant family history Social History Smoking Status: Current some day smoker alcohol intake: never substance use type: denies use current occupational status: disabled Travel in the last 8 weeks: Inside the [place] household members: spouse housing: house number of children: 0 current occupational exposures/hazards: Yes caffeine: Yes Have you lived/traveled outside US in past 30 days?: No Contact w/someone who lives/traveled outside US past 30 days?: No Exposure to someone with infectious disease in past 14 days?: No Do you have a fever (greater than 100.4 F or 38 C)?: No Have you tested positive for COVID-19: No Exposed to someone with COVID-19 in past 14 days?: No Do you have a sore throat?: No Do you have a cough?: No Do you have any weakness?: No Do you have any diarrhea?: No Are you experiencing any unusual bleeding?: No Do you have any muscle aches/pain?: No Do you have any abdominal pain?: No Are you experiencing loss of taste or smell?: No Other Medical History Have you received the Flu Vaccine for this season: No Have you received the Pneumonia Vaccine: Yes ROS Obtained: Yes Systems reviewed as appropriate & no additional complaints except as documented Per HPI Physical Exam General General appearance: alert and in no apparent distress Comment: Appears older than stated age Head Head exam: atraumatic and normocephalic Eye Eye exam: Present PERRL and EOMI ENT ENT exam: Present mucous membranes moist Neck Neck exam: Present normal inspection and full ROM Chest Chest inspection: Present symmetric chest wall rise; Absent tenderness Respiratory Respiratory exam: Present normal lung sounds bilaterally; Absent respiratory distress, wheezes or stridor Cardiovascular Cardiovascular exam: Present regular rate and normal rhythm Abdominal Exam Abdominal exam: Present soft; Absent distention or tenderness Extremities Exam Extremities exam: Present full ROM Neurological Exam Neurological exam: Present alert, oriented X3 and motor sensory deficit (Patient has left-sided deficits, at baseline, no other deficits, no new deficits); Absent normal gait (Uses cane to ambulate) Psychiatric Psychiatric exam: Present normal affect and normal mood Skin Skin exam: Present warm and dry HEART Score HEART Score HEART Score assessment performed?: Yes History (anamnesis): Slightly suspicious ECG: Non-specific disturbance Age: 45-65 years Risk factors: 3 or more risk factors Troponin: </= normal limit HEART Score: 4 Critical Care Critical Care Time Critical Care Time: No Medical Decision Making Medical Records Medical records reviewed: Yes I reviewed the patient's medical records. MR Comment: Patient evaluated for similar symptoms on November 15, 2024 in this ER. He had reassuring workup including negative serial troponins at that time. Recommended to follow-up with PCP Felipe Mcmanus Pt receiving controlled substance: No Vital Signs Vital Signs: 11/27/24 01:57 11/27/24 02:00 11/27/24 03:30 Temperature 98.0 F Temperature Source Oral Pulse Rate 73 76 Pulse Rate [Apical] 80 Respiratory Rate 20 18 12 Blood Pressure 126/70 126/70 Blood Pressure [Right Arm] 116/72 Blood Pressure Mean 86 Blood Pressure Mean [Right Arm] 86 02 Sat by Pulse Oximetry 96 99 98 Oxygen Delivery Method Room Air Room Air 11/27/24 04:00 11/27/24 04:30 11/27/24 04:53 Temperature Temperature Source Pulse Rate 74 73 75 Pulse Rate [Apical] Respiratory Rate 17 17 Blood Pressure 121/70 126/73 Blood Pressure [Right Arm] Blood Pressure Mean 94 90 Blood Pressure Mean [Right Arm] 02 Sat by Pulse Oximetry 95 95 Oxygen Delivery Method Room Air Room Air Lab Data Labs: Lab Results 11/27/24 01:57: WBC 7.0, RBC 4.51 L, Hgb 13.9 L, Hct 39.8 L, MCV 88.2, MCH 30.8, MCHC 34.9, RDW 12.1, Plt Count 252, MPV 9.0, Neut % (Auto) 67.6, Lymph % (Auto) 20.0, [place] % (Auto) 7.7, Eos % (Auto) 3.7, Baso % (Auto) 0.7, Neut # (Auto) 4.8, Lymph # (Auto) 1.4, [place] # (Auto) 0.5, Eos # (Auto) 0.3, Baso # (Auto) 0.1, D- Dimer 0.31, Sodium 142, Potassium 3.6, Chloride 107, Carbon Dioxide 22, Anion Gap 16.6 H, BUN 32 H, Creatinine 1.20, Estimated Creat Clear 68, Estimated GFR 61, Est GFR ( Amer) 74, Glucose 161 H, Calcium 9.5, Total Bilirubin 1.5 H , AST 21, ALT 13, Alkaline Phosphatase 79, Troponin I < 0.01, Total Protein 6.7, Albumin 3.9, Globulin 2.8, Albumin/Globulin Ratio 1.4 11/27/24 05:00: Troponin I < 0.01 11/27/24 01:57 11/27/24 01:57 Response Orders (Tests/Meds): ED MEDICATIONS Discontinued Medications Generic Name Dose Route Start Last Admin Trade Name Freq PRN Reason Stop Dose Admin Aspirin 324 mg 11/27/24 02:00 11/27/24 02:07 Aspirin 81mg Chewable Tablet PO 11/27/24 02:01 324 mg ONCE ONE Administration Hydroxyzine Pamoate 50 mg 11/27/24 02:00 11/27/24 02:07 Hydroxyzine Pamoate 25mg Capsule PO 11/27/24 02:01 50 mg ONCE ONE Administration ORDERS Category Date Time Status XR chest portable Stat Exams 11/27/24 02:00 Completed Complete Blood Count Auto Diff Stat Lab 11/27/24 01:57 Completed Comprehensive Metabolic Panel Stat Lab 11/27/24 01:57 Completed D-Dimer Stat Lab 11/27/24 01:57 Completed Troponin I Q3H Lab 11/27/24 05:00 Completed Troponin I Q3H Lab 11/27/24 08:00 Ordered Troponin I Stat Lab 11/27/24 01:57 Completed MDM Narrative Medical Decision Narrative: In summary, this 64-year-old male with comorbidities described in the HPI which may not be at goal therapy presents to the emergency department today with concerns of chest pain, left-sided arm and leg pain. On initial evaluation patient is hemodynamically stable, afebrile, no chest pain actively, no new neurologic deficits, deficits from previous stroke are at baseline, no reproducible pain on exam, cardiopulmonary exam benign. Differential diagnosis includes but is not limited to ACS, PE, electrolyte abnormality, esophageal spasm, pneumothorax, pneumonia, also considered the 's concern of possible anxiety, among others. Based on these concerns, I ordered cardiac workup, D- dimer, chest x-ray. Ruling out the most morbid conditions drove my assessment. ECG personally interpreted demonstrates V-paced rhythm, rate 77, left axis deviation, right bundle branch block, normal QTc, no STEMI, similar to previous. Patient received aspirin and hydroxyzine for treatment. Labs personally reviewed demonstrate no leukocytosis, anemia stable from prior, platelets normal, D-dimer 0.31, no CTA PE indicated. Patient has prerenal azotemia but is tolerating oral intake. He was encouraged to drink more fluids. Bilirubin slightly elevated compared to previous, now 1.5 up from 0.7. Initial troponin undetectably low less than 0.01 XR personally interpreted demonstrates no acute thoracic abnormality, see radiology read for final interpretation. Patient was placed into ED observation at 0330 for serial troponins to rule out evolving [place] and preclude unnecessary admission. He remained on the nuclear monitoring technician and was frequently reassessed. He remained free of chest pain and comfortable. His pain in the left arm and left leg went away. He is resting comfortably. Repeat troponin also undetectably low less than 0.01. I am very reassured against potential life-threatening pathology at this time I believe the patient is appropriate for discharge. would like a prescription for hydroxyzine since this seemed to help ease the patient's anxiety. I prescribed a short course of this but encouraged him to follow closely with PCP for better long-term anxiety management. Patient and for given instructions on symptomatic management, follow up instructions, and return precautions for the emergency department. They indicated understanding and patient was discharged in stable condition. Total time in ED observation: 2 hours
[2024-11-27 05:28] LABS: Troponin I < 0.01 ng/ml (0.00-0.034)
== END 2024-11-27 05:43 | disposition home or self-care (01) ==
PROVIDERS: Emergency Provider Emergency Medicine; PCP Nurse Practitioner Family
DX: R07.9 Chest pain, unspecified (principal); F41.9 Anxiety disorder, unspecified; M79.602 Pain in left arm; M79.605 Pain in left leg; F33.9 Major depressive disorder, recurrent, unspecified; I31.39 Other pericardial effusion (noninflammatory); G47.33 Obstructive sleep apnea (adult) (pediatric); I25.10 Atherosclerotic heart disease of native coronary artery without angina pectoris; Z72.0 Tobacco use
CPT/HCPCS: 71045; 80053; 84484; 85025; 85378; 93005; 99284

== ENCOUNTER 2025-02-21 14:30 | Outpatient (CLI) | payer MEDICARE, MEDICAID, SELFPAY ==
[2025-02-21 18:38] LABS: Creatinine,Urine Random 100 mg/dL (Not Estab.); Microalbumin/Creatinine Ratio 41.5
--- OUTSIDE RECORDS SUMMARY | 2025-02-22 13:59 | XMS_ITS | Clinical Summary ---
Author Organization [facility] Address [address] [place] [address] Care Team Providers Care Materials Manager Name Role Phone Joe Haley MD Unavailable [phone] Roddy Tipton MD Unavailable Marquez Saldaña APRN Primary Care Provider [phone] Allergies No known active allergies Medications aspirin 81 MG EC tablet Take 1 tablet (81 mg) by mouth 1 (one) time each day. Active atorvastatin (Lipitor) 20 MG tablet Take 1 tablet (20 mg) by mouth 1 (one) time each day. Active FLUoxetine (PROzac) 40 MG capsule Take 1 capsule (40 mg) by mouth 1 (one) time each day. Active glipiZIDE XL (Glucotrol XL) 10 MG 24 hr tablet Take 1 tablet (10 mg) by mouth 2 (two) times a day. Do not crush, chew, or split. Active metFORMIN (Glucophage) 1000 MG tablet Take 1 tablet (1,000 mg) by mouth 2 (two) times a day with meals. Active spironolactone (Aldactone) 25 MG tablet Take 1 tablet (25 mg) by mouth 1 (one) time each day. Take 1/2 pill daily Active ergocalciferol (Vitamin D-2) 1.25 MG (03471 UT) capsule Take 50,000 Units by mouth 1 (one) time per week. Active rivaroxaban (Xarelto) 2.5 MG tablet Take by mouth 2 (two) times a day. Active melatonin 3 MG tablet Take by mouth at night if needed. Active nitroglycerin (Nitrodur) 0.1 MG/HR patch Place 1 patch on the skin 1 (one) time each day. Active acetaminophen (Tylenol 8 Hour) 650 MG ER tablet Take 1 tablet (650 mg) by mouth if needed. Do not crush, chew, or split. Active buPROPion SR (Wellbutrin SR) 150 MG 12 hr tablet Take by mouth 2 (two) times a day. Do not crush, chew, or split. Active carvedilol (Coreg) 25 MG tablet Take 0.5 tablets (12.5 mg) by mouth 2 (two) times a day with meals. Active losartan (Cozaar) 50 MG tablet Take 0.5 tablets (25 mg) by mouth 1 (one) time each day. Active clindamycin (Cleocin) 300 MG capsule Take 300 mg by mouth 2 (two) times a day. 2 Active mupirocin (Bactroban) 2 % ointment Apply 2 application topically 2 (two) times a day. 2 Active oxybutynin XL (Ditropan-XL) 5 MG 24 hr tablet Take 5 mg by mouth 1 (one) time each day. 1 Active clopidogrel (Plavix) 75 MG tablet Take 1 tablet (75 mg) by mouth 1 (one) time each day. 2 Active cilostazol (Pletal) 50 MG tablet Take by mouth. 4 Active trimethoprim-po lymyxin b (Polytrim) ophthalmic solution INSTILL 1 DROP INTO LEFT EYE 4 TIMES DAILY FOR 10 DAYS 4 Active trihexyphenidyl (Artane) 2 MG tablet Take 0.5 tablets (1 mg) by mouth 3 (three) times a day with meals. 135 tablet 3 4 06/09/20 25 Active carbidopa-levod opa (Sinemet) 25-100 MG tablet Take 2.5 tablets by mouth 3 (three) times a day. TAKE 2 & 1/2 (TWO & ONE-HALF) TABLETS BY MOUTH THREE TIMES DAILY 675 tablet 3 4 08/26/20 25 Active Baclofen 5 MG tablet Take 1 tablet by mouth twice daily 180 tablet 3 5 Active Active Problems Problem Noted Date Diagnosed Date Mixed hyperlipidemia 03/13/2021 Left homonymous hemianopsia 03/13/2021 Left-sided visual neglect 03/13/2021 Hemiparesis of left nondomin ant side as late effect of cerebral infarction 03/13/2021 Right-sided lacunar stroke 03/13/2021 Ischemic cardiomyopathy 03/13/2021 Coronary artery disease invo lving [place] coronary artery of [place] heart without angina pectoris 03/13/2021 Presence of combination inte rnal cardiac defibrillator (ICD) and pacemaker 03/13/2021 Syncope 03/13/2021 Drug-induced encephalopathy 03/13/2021 AMANDA (obstructive sleep apnea) 03/13/2021 On rivaroxaban therapy 03/13/2021 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 03/13/2021 At high risk for injury related to fall 03/13/20 21 Proteinuria 05/09/2019 CKD (chronic kidney disease) stage 2, GFR 60-89 ml/min 11/04/2018 Essential hypertension 10/27/2018 Diabetes mellitus, type 2 10/27/2018 Microalbuminuria 09/24/2018 Immunizations Immunization Administration Dates Next Due Influenza, injectable, quadr ivalent, preservative free 08/13/2023,06/18/2022,06/04/2018 Influenza, seasonal, injecta ble, preservative free 06/16/2017 PPD Skin Test (TB Skin Test) 03/19/2018,04/07/20 17 Pneumococcal Polysaccharide PPV23 09/10/2020 Tdap 03/06/2021 Family History Medical History Relation Name Comments Lymphoma Father Cardiac disorder Mother Diabetes Mother Hyperlipidemia Mother Hypertension Mother Relation Name Status Comments Father Mother Social History Tobacco Use Types Packs/Day Years Used Date Smoking Tobacco: Never Smokeless Tobacco: Never Tobacco Cessation:Counseling Given: Not Answered Alcohol Use Standard Drinks/Week Comments Never 0 (1 standard drink = 0.6 oz pur e alcohol) PHQ-2 Answer Date Recorded Patient Health Questionnaire-2 Score 6 02/19/2024 PHQ-9 Answer Date Recorded Patient Health Questionnaire-9 Score 22 02/19/2024 Sex and Gender Information Value Date Recorded Sex Assigned at Not on file Legal Sex Male 8:50 PM EDT Gender Identity Not on file Sexual Orientation Not on file Last Filed Vital Signs Vital Sign Reading Time Taken Comments Blood Pressure 122/77 02/19/2024 10:00 AM EDT Pulse 86 02/19/2024 10:00 AM EDT Temperature 36.3 C (97.3 F) 02/19/2024 10:00 AM EDT Respiratory Rate 25 03/29/2022 1:31 AM EDT Oxygen Saturation 94% 02/19/2024 10: 00 AM EDT Inhaled Oxygen Concentration - - Weight 90.1 kg (198 lb 10.2 oz) 024 10:00 AM EDT Height 182.9 cm (6') 02/19/2024 10:00 AM EDT Body Mass Index 26.94 02/19/2024 10:00 AM EDT Plan of Treatment Health Maintenance Due Date Last Done Comments [facility]-Diabetes: Hemoglobin A1C 1961 [facility]-HIV Screening 1961 [facility]-Hepatitis C Screening 1961 [facility]-Medicare Annual Wellness (AWV) 1961 [facility]-Infant/Child/Adol SDOH Screenings 1961 Diabetes: Dental Exam 1971 [facility]- SDOH Screenings 1979 [facility]-Adult SDOH Screenings 1979 CT Colonography 2006 Colonoscopy 2006 FIT-DNA 2006 FIT 2006 FOBT 2006 Sigmoidoscopy 2006 [facility]-Colorectal Cancer Screening 2006 [facility]-Zoster Vaccines (1 of 2) 2011 [facility]-RSV Vaccine: 60+ Years or (1 - Risk 60-74 years 1-dose series) 2021 [facility]-Pneumococcal Vaccine: 50+ Years (2 of 2 - PCV) 09/10/2021 09/10/2020 [id number] Vaccine ( - season) 2024 12/28/2020, 11/27/2020 [facility]-Depression Screening 02/18/2025 02/19/2024, 01/30 [facility]-DTaP,Tdap,and Td Vaccines (2 - Td or Tdap) 03/06/2031 03/06/2021 [facility]-Influenza Vaccine Completed 07/12/2024 , 08/13/2023, 06/18/2022, Additional history exists [facility]-Obesity Intervention Completed 10/19/2024, 01/30 HPV Vaccines Aged Out No longer eligi ble based on patient's age to complete this topic [facility]-HIB Vaccines Aged Out No longer e ligible based on patient's age to complete this topic [facility]-Hepatitis A Vaccines Aged Out No longer eligible based on patient's age to complete this topic [facility]-IPV Vaccines Aged Out No longer e ligible based on patient's age to complete this topic [facility]-Rotavirus Vaccines Aged Out No lo nger eligible based on patient's age to complete this topic Medical Devices Implanted Type Area Shipping Clerk Packing Device Identifier Shelf Expiration Date Model / Serial / Lot [place] 4-Front Lead-05/18/2019 Implanted:05/18 (Quantity not on file) Lead Chest PVPower [id number] / [id number] / Acuity X4 Lead-05/18/2019 Implanted:05/18 (Quantity not on file) Lead Chest PVPower [id number] / [id number] / Ingevity Mri Lead-05/18/2019 Implanted:05/18 (Quantity not on file) Lead Chest [employer] [id number] / [id number] / Vigilant [employer] Pacemaker Implanted:05/18 (Quantity not on file) Pacemaker Chest [employer] [id number] / [id number] / Insurance [place] MEDIC[place] Care Teams Materials Manager Relationship Specialty Start Date End Date Marquez Saldaña APRN [address] [place] [address] PCP - General 02/19/24 Joe Haley MD [id number] [place] [address] Consulting Physician Neurology 05/21/21 Roddy Tipton MD [address] [place] [address] Consulting Physician Neurology 01/30/22
--- OUTSIDE RECORDS SUMMARY | 2025-02-22 13:59 | XMS_ITS | Encounter Summary ---
Author Organization [facility] Address [address] [place] [address] Care Team Providers Care Fisher Pound Net Or Trap Name Role Phone Mohan Levine MD Primary Care Provider [phone] Joe Haley MD Unavailable [phone] Shashank Tipton MD Unavailable Roddy Tipton MD Unavailable Marquez Saldaña APRN Primary Care Provider [phone] Reason for Referral * Consultation (Routine) - Closed Specialty Diagnoses / Procedures Referred By Contjarrell t Referred To Contact Neurology Diagnoses Impending cerebrovascular accident (CMS/HCC) History of CVA (cerebrovascular accident) Weakness Taz Fritz, STATE'S ATTORNEY [address] [place] [address] Phone: tel: fax: Referral ID Status Reason Start Date Expiration Date V isits Requested Visits Authorized [id number] Closed Specialty Services Required 02/13/2021 08/12/2021 1 1 Encounter Details Date Type Department Care Team (Latest Contact Info) Description 02/13/2021 Community [facility] [address] [place] [address] Taz Fritz, STATE'S ATTORNEY [address] [place] [address] Impending cerebrovascular accident (CMS/HCC) (Primary Dx); History of CVA (cerebrovascular accident); Weakness Social History Tobacco Use Types Packs/Day Years Used Date Smoking Tobacco: Never Smokeless Tobacco: Never Sex and Gender Information Value Date Recorded Sex Assigned at Not on file Legal Sex Male 8:50 PM EDT Gender Identity Not on file Sexual Orientation Not on file COVID-19 Exposure Response Date Recorded In the last month, have you been in contact with someone who was confirmed or suspected to have Coronavirus / COVID-19? No / Unsure 02/11/2021 3:19 PM EDT documented as of this encounter Plan of Treatment Scheduled Referrals Name Type Priority Associated Diagnoses Orde r Schedule Ambulatory referral to Neurology Outpatient Referral Routine Impending cerebrovascular accident (CMS/HCC) History of CVA (cerebrovascular accident) Weakness Ordered: 02/13/2021 documented as of this encounter Visit Diagnoses Diagnosis Impending cerebrovascular accident (CMS/HCC)- Primary Unspecified transient cerebral ischemia History of CVA (cerebrovascular accident) Transient ischemic attack (TIA), and cerebral infarction without residual deficits Weakness Other malaise and fatigue documented in this encounter Additional Health Concerns Infection Onset Date Last Indicated Resolved Time COVID-19 Rule-Out 03/28/2022 03/28/2022 03/29/2022 12:31 AM EDT documented as of this encounter Care Teams Fisher P[employer] T[employer] Relationship Specialty Start Date End Date Mohan Levine MD [address] [place] [address] PCP - General 03/13/21 02/18/24 Marquez Saldaña, STATE'S ATTORNEY [address] [place] [address] PCP - General 02/19/24 Joe Haley MD [address] [phone] Consulting Physician Neurology 05/21/21 Shashank Tipton MD [address] [address] Gastroenterology 01/30/22 01/30/22 Roddy Tipton MD [address] [place] [id number] Consulting Physician Neurology 01/30/22 documented as of this encounter
--- OUTSIDE RECORDS SUMMARY | 2025-02-22 13:59 | XMS_ITS | Encounter Summary ---
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 type 2 diabetes mellitus Keely Gaytan MD [address] [facility] [address] [place] [address] Phone: tel: fax: [facility] [address] [place] [phone] Phone: tel: fax: Referral ID Status Reason Start Date Expiration Date Visits Requested Visits Authorized [id number] Authorized Specialty Services Required 12/29/2025 1 1 Encounter Details Date Type Department Care Team (Latest Contact Info) Description 06/29/2024 Community [facility] [address] [place] [address] Keely Gaytan MD [address] [place] [address] 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 type 2 diabetes mellitus (CMS/HCC) (Primary Dx) Social History Tobacco Use Types Packs/Day Years Used Date Smoking Tobacco: Never Smokeless Tobacco: Never Alcohol Use Standard Drinks/Week Comments Never 0 [...] on file Sexual Orientation Not on file documented as of this encounter Plan of Treatment Scheduled Referrals Name Type Priority Associated Diagnoses Orde r Schedule Ambulatory Referral to Ophthalmology Outpatient Referral Routine 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 type 2 diabetes mellitus (CMS/HCC) Expected: 06/29/2024 (Approximate), Expires: 12/28/2025 documented as of this encounter Visit Diagnoses Diagnosis 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 type 2 diabetes mellitus- Primary documented in this encounter Additional Health Concerns Assessment Noted Time PHQ-9 Depression Total Score: 22 024 9:58 AM EDT A fall risk assessment has been complete d for the patient 02/19/2024 9:58 AM EDT A Body Mass Index follow-up plan has been documented for the patient 02/19/2024 10:46 AM EDT documented as of this encounter Care Teams Manager Product Relationship Specialty Start Date End Date Marquez Saldaña APRN [address] [place] [address] PCP - General 02/19/24 Joe Haley MD [address] [place] [address] Consulting Physician Neurology 05/21/21 Roddy Tipton MD [address] [place] [address] Consulting Physician Neurology 01/30/22 documented as of this encounter
--- OUTSIDE RECORDS SUMMARY | 2025-02-22 13:59 | XMS_ITS | Encounter Summary ---
Author Organization Healthcare Address [address] [place] [address] Care Team Providers Care Concrete Paver Name Role Phone Joe Haley MD Unavailable [phone] Roddy Tipton MD Unavailable Marquez Saldaña APRN Primary Care Provider [phone] Reason for Visit * Reason Comments Med Refill Encounter Details Date Type Department Care Team ([facility] st Contact Info) Description 04/19/2024 Refill [facility] [address] [facility], [address] [place] [address] Roddy Tipton MD [address] [facility] [address] [place] [address] Social History Tobacco Use Types Packs/Day Years [...] on file documented as of this encounter Miscellaneous Notes * Telephone Encounter - Arlin Henley RN - 04/25/2024 12:43 PM EDT Patient discontinued on medication documented in this encounter Plan of Treatment Not on file documented as of this encounter Visit Diagnoses Not on filedocumented in this encounter Additional Health Concerns Assessment Noted Time PHQ-9 Depression Total Score: 024 9:58 AM EDT A fall risk assessment has been complete d for the patient 02/19/2024 9:58 AM EDT A Body Mass Index follow-up plan has been documented for the patient 02/19/2024 10:46 AM EDT documented as of this encounter Care Teams Concrete Paver Relationship Specialty Start Date End Date Marquez Saldaña APRN [address] [place] [address] PCP - General 02/19/24 Joe Haley MD [address] [facility] [place] [address] Consulting Physician Neurology 05/21/21 Roddy Tipton MD [address] [place] [address] Consulting Physician Neurology 01/30/22 documented as of this encounter
--- OUTSIDE RECORDS SUMMARY | 2025-02-22 14:58 | XMS_ITS | CCD ---
Author Organization Unknown Care Team Providers Care Equipment Maint Tech Name Role Phone Non Engaged, [employer] Primary Care Provider Unav ailable Unavailable Chronic Care Management Unavaila ble Summary Purpose DataExchange Insurance Providers Payer name Policy type / Coverage type Covered green party ID Effective Begin Date Effective End Date [facility] [id number] Unknown Unknown Family History Family History data not found Medication Administered No Medication Administered data Reason For Visit No Reason For Visit data Medical Equipment No Medical Equipment data Advance Directives No Advance Directive data
--- OUTSIDE RECORDS SUMMARY | 2025-02-22 14:58 | XMS_ITS | CCD ---
Author Organization Unknown Care Team Providers Care Glass Presser Name Role Phone Non Engaged, [employer] Primary Care Provider Unav ailable Unavailable Chronic Care Management Unavaila ble Summary Purpose DataExchange Insurance Providers Payer name Policy type / Coverage type Covered alliance party ID Effective Begin Date Effective End Date [facility] [id number] Unknown Unknown Family History Family History data not found Medication Administered No Medication Administered data Reason For Visit No Reason For Visit data Medical Equipment No Medical Equipment data Advance Directives No Advance Directive data
== END 2025-02-21 23:59 | disposition home or self-care (01) ==
LOC: LAB.DROPOF 02-22 13:56
PROVIDERS: PCP Nurse Practitioner Family; Visit Provider Nurse Practitioner Family
DX: E11.9 Type 2 diabetes mellitus without complications (principal)
CPT/HCPCS: 82043; 82570

== ENCOUNTER → 2025-03-21 12:42 | Outpatient (RCR) | payer MEDICARE, MEDICAID, SELFPAY ==
--- NOTE | 2025-03-21 14:50 | HMH.PTOPEV ---
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 Pt reports he suffered a stroke years ago affecting his left side. Pt reports he uses a quad cane and an AFO for ambulation. Pt denies recent falls but has had some stumbles where he was able to catch himself. Pt report he has difficulty walking on uneven ground and maintaining his balance when he makes quick movements. Pt reports he requires assistance with ADLs such as dressing and bathing and is also unable pick objects up off the ground and maintain his balance. Pt states he also gets easily fatigued. Pt states his legs get tight at night time causing his knees to bend and are sometimes painful to straighten. Pt reports his personal goals for PT are to be able to walk his dog, pick something up off the ground and walk longer distances without becoming fatigued to assist with an upcoming trip to [place] in May. R handed Medical History: Hypertension, Type II Diabetes, Diabetic Neuropathy, Dyspnea, CAD, PAD, Hyperlipidemia, PACEMAKER New diagnosis of No cancer in past 12 months? Chief Complaint Weakness Current Functional Housework,Dressing,Squatting,Recreation Activity, Limitations Walking,Stairs,Balance,Bending/Stooping Hip/Knee Eval MMT right Hip Flexion Strength 4+ Good+ Grade Hip Abduction 4+ Good+ Strength Grade Hip Adduction 4+ Good+ Strength Grade Hip Extension 4 Good Strength Grade Knee Extension 4+ Good+ Strength Grade Knee Flexion 4+ Good+ Strength Grade left Hip Flexion Strength 3+ Fair+ Grade Hip Abduction 4- Good- Strength Grade Hip Adduction 4- Good- Strength Grade Hip Extension 3+ Fair+ Strength Grade Knee Extension 4- Good- Strength Grade Knee Flexion 4- Good- Strength Grade Balance Eval Current Functional Limitations Comment dressing, transfers, strength, endurance, ambulation, balance Hx of Falls Hx Falls No Gait/Posture Asssessment Assistive Devices Straight Cane Level of Transfer Independent Assist Ankle/Foot Decreased Foot Clearance Observation in Gait Swing Ankle/Foot Foot Slap Observation in Gait Stance LE ROM Ankle/Foot 0 Dorsiflexion w/Knee Extended Active Range Motion ( degrees) Ankle/Foot ROM Muscle Weakness Limitations Timed Up and Go Test 1. Is the Timed Up yes and Go test result > or = to 12 seconds? Miscellaneous Dx PT Eval Objective Objective 5x sit to stand: 20 from standard chair with RUE assist TU quad cane Outpatient Therapy Assessment Impairments Problems/ Impaired Strength,Impaired Endurance,Impaired Transfers Impairmments ,Impaired Gait Pattern,Impaired Walking,Impaired Dressing,Impaired Shower/Bathing,Impaired Household Care,Impaired Stair Climbing,Impaired Incline Stepping, Impaired Stepping on Uneven Surface,Impaired Squatting, Impaired Balance,Impaired TUG Time,Impaired Self Care/ Self Management Prognosis Rehab Potential Fair Comment barriers to progress include chronicity of stroke Clinical Impression Consistent with Yes Diagnosis Additional details: Treat and recommend OT evaluation for flaccid LUE impairing ADLs Short Term Goals Number of Weeks 3 Increase Endurance Yes: Perform NuStep/Bike for 10' with RPE 5/10 or less to assist with endurance Improve Transfers Yes: Improve 5x sit to stand score to 15 or less to decrease fall risk Improve Self Care/ Yes Self Management Patient to be Ind w/ Yes HEP Urology Nurse Goals Number of Weeks 6 Increase Strength Yes: Improve LLE MMT to at least 4-/5 grossly to assist with function Increase Endurance Yes: Perform NuStep/Bike for 15' with RPE 5/10 or less to assist with endurance Improve Transfers Yes: Improve 5x sit to stand score to 12 or less to decrease fall risk Increase Ability to Yes: 300 ft with quad cane/AFO & RPE 5/10 or less to Walk assist with endurance Restore Ability to Yes: potato picker an object from the ground in a seated Lift Objects to position without LOB for ADLs Waist Level Improve Balance Yes: TUG 12 or less to decrease fall risk Outpatient Therapy Plan of Care Treatment Plan May Include Therapeutic Exercise Yes Including Home Exercise Program Manual Therapy Yes Techniques Neuromuscular Re- Yes education Therapeutic Yes Activities to Return to Previous Functional/Work Level Gait Training Yes ADL/Self Care Yes Education Orthotics/Bracing/ Yes Splinting Group Therapy for Yes Medicare Eval/Re-Eval Yes Aquatic Therapy Yes Frequency Times per week 2 Duration Number of Weeks 6 Addendums This patient is a No candidate for social or vocational rehab ? Patient/Guardian Yes verbally acknowledges understanding of treatment program and consents to further treatment? Patient/Guardian Yes verbally acknowledges understanding of diagnosis, prognosis and goals for treatment? Eval Complexity PT Charges 48832 - Moderate Complexity Shoulder/Elbow Eval Shoulder Objective Measurements Elbow Objective Measurements PHYSICIAN CERTIFICATION: I certify the specified therapy services for Vikram Flores are required, authorized, and reviewed every 30 days.
== END ==
LOC: PT 12:42
PROVIDERS: PCP Nurse Practitioner Family; Visit Provider Nurse Practitioner Family
DX: I69.354 Hemiplegia and hemiparesis following cerebral infarction affecting left non-dominant side (principal); R26.9 Unspecified abnormalities of gait and mobility
CPT/HCPCS: 97162

== ENCOUNTER → 2025-03-24 09:58 | Outpatient (RCR) | payer MEDICARE, MEDICAID, SELFPAY | LOC: OT 09:58 | PROVIDERS: PCP Nurse Practitioner Family; Visit Provider Nurse Practitioner Family | DX: G83.24 Monoplegia of upper limb affecting left nondominant side (principal) | CPT/HCPCS: 97166 ==

== ENCOUNTER 2025-04-27 10:00 | Outpatient (RCR) | payer MEDICARE, MEDICAID, SELFPAY | END 2025-04-27 23:59 | disposition home or self-care (01) | LOC: OT 10:00 | PROVIDERS: PCP Nurse Practitioner Family; Visit Provider Nurse Practitioner Family | DX: G83.24 Monoplegia of upper limb affecting left nondominant side (principal) | CPT/HCPCS: 97110; 97140; 97535 ==

== ENCOUNTER 2025-04-27 11:00 | Outpatient (RCR) | payer MEDICARE, MEDICAID, SELFPAY ==
--- NOTE | 2025-04-18 12:02 | HMH.RHREAS ---
Rehab Reassessment Rehab OP Re-assessment Start: 04/11/25 10:53 Freq: Status: Active Protocol: Document 04/18/25 11:07 JEN (Rec: 04/18/25 12:01 JEN [id number]) E-signed By Johanna Story PT Rehab Re-assessment Subjective Subjective Pt reports he is fatigued due to not sleeping well recently. Pt reports he has continued to use his quad cane for all ambulation although admits to performing household ambulation without his cane but requires him to reach for josue and furniture. Pt denies recent falls but admits to stumbling a few times. Pt reports overall compliance with HEP with the exception of the past few days due to being busy with doctor appointments. Objective Objective Notes Endurance: NuStep 7' with RPE 5/10 5x sit to stand: 18 with RUE assist from standard chair Assessment Assessment Notes Pt has only attend 2 PT treatment sessions since his initial evaluation performed on 03/21/25 although reported compliance with HEP. Pt demonstrated minimal progress towards functional goals this date including endurance and 5x sit to stand score. Overall, the pt would continue to benefit from skilled PT to further improve strength, transfers, gait, balance/ proprioception and functional activity performance/ tolerance to improve overall QOL/function and decrease fall risk and burden of care. PT Patient Goals PT Short Term 3 weeks: 1/3 Patient Goals 1. Perform NuStep/Bike for 10' with RPE 5/10 or less to assist with endurance -NOT MET 2. Improve 5x sit to stand score to 15 or less to decrease fall risk -NOT MET 3. Independent with HEP -MET PT [employer] Patient 6 weeks: 0/6 Goals 1. Improve LLE MMT to at least 4-/5 grossly to assist with function -NOT MET 2. Perform NuStep/Bike for 15' with RPE 5/10 or less to assist with endurance -NOT MET 3. Improve 5x sit to stand score to 12 or less to decrease fall risk -NOT MET 4. 300 ft with quad cane/AFO & RPE 5/10 or less to assist with endurance -NOT MET 5. food and nutrition supervisor an object from the ground in a seated position without LOB for ADLs -NOT MET 6. TUG 12 or less to decrease fall risk -NOT MET Plan Plan Continue initial POC to include therapeutic exercise, therapeutic activity, neuromuscular re-education, and gait training to assist with reaching functional goals Frequency of Therapy 2x/week Duration of Therapy 4 more weeks Therapeutic Exercise Yes Including Home Exercise Program Manual Therapy Yes Techniques Neuromuscular Re- Yes education Therapeutic Yes Activities to Return to Previous Functional/Work Level Gait Training Yes ADL/Self Care Yes Education Group Therapy for Yes Medicare Eval/Re-Eval Yes Aquatic Therapy Yes Time and Billing Re-Eval Time 10 Re-Eval Billing 0 Units Charge for PT No reassessment? Charge for OT No reassessment? PHYSICIAN CERTIFICATION: I certify the specified therapy services for Vikram Flores are required, authorized, and reviewed every 30 days.
== END 2025-04-27 23:59 | disposition home or self-care (01) ==
LOC: PT 11:00
PROVIDERS: PCP Nurse Practitioner Family; Visit Provider Nurse Practitioner Family
DX: I69.354 Hemiplegia and hemiparesis following cerebral infarction affecting left non-dominant side (principal)
CPT/HCPCS: 97112; 97530

== ENCOUNTER 2025-05-16 10:00 | Outpatient (RCR) | payer MEDICARE, MEDICAID, SELFPAY ==
--- NOTE | 2025-05-11 10:31 | HMH.RHREAS ---
Rehab Reassessment Rehab OP Re-assessment Start: 05/11/25 09:55 Freq: Status: Active Protocol: Document 05/11/25 10:10 RMARSHALL (Rec: 05/11/25 10:30 [email or web address] [id number]) E-signed By Eric Fitzgerald OT Rehab Re-assessment Subjective Subjective It's about the same. Objective Objective Notes Pt continues to be seen twice a week in order to address all LUE exercises. Therapist has been focusing on right UE strengthening in order to assist with ADLs . PROM manual stretching of LUE is completed each session in order to improve overall functional use of LUE. AROM and light strengthening has also been completed with LUE in order to improve independence with ADLs at home. ADL practice has also been addressed with lower body dressing to educate on compensatory strategies of dressing in order to improve independence. He is doing very well with this and is now able to don and doff socks and shoes independently (slip on shoes). Assessment Progress Assessment Slower Than Expected Assessment Notes Pt consistent about attending therapy sessions. Pt did miss a session last week because he was on vacation. Each session, pt is passively ranged at all joints in LUE in order improve overall AROM at LUE. However, pt continues to demonstrate with the flexion synergy pattern at the left shoulder. He does not have much range in any other planes besides abduction and ER of the shoulder. RUE strengthening has improved which has assisted with ADL independence. Lower body dressing has improved since initial evaluation. Goals met: 1. Patient to improve AROM of L UE shoulder flexion to 50 degrees to in order to engage in UB ADL drsg with Mod A 50% of time. 2. Patient to improve AROM of L UE shoulder abd to 50 degrees to in order to engage in UB ADL drsg with Mod A 50% of time. 3. Patient to improve AROM of L UE shoulder external 25 degrees to in order to engage in UB ADL drsg with Mod A 25% of time. OT Patient Goals OT Short Term 4. Patient to improve AROM of L UE shoulder internal 30 Patient Goals degrees to in order to engage in UB ADL drsg with Mod A 25% of time. 5. Patient to improve L UE shoulder strength to 2/5 to 2-/5 throughout in order to engage in bed mobility from supine->sit with Min A 75% of time. 6. Patient to improve L UE hand seam hammerer strength to 6# in order to participate in UB drsg task Mod A with 25% of time. OT Core Cutter And Reamer Patient 1. Patient to improve PROM of L UE shoulder flexion to Goals 75 degrees to in order to engage in UB ADL drsg with Mod A 25% of time. 2. Patient to improve PROM of L UE shoulder abduction 75 degrees to in order to engage in UB ADL drsg with Mod A 25% of time. 3. Patient to improve PROM of L UE shoulder external 30 degrees to in order to engage in UB ADL drsg with Mod A 25% of time. 4. Patient to improve PROM of L UE shoulder internal 30 degrees to in order to engage in UB ADL drsg with Mod A 25% of time. 5. Patient to improve L UE shoulder strength to 2+ to 2 /5 throughout in order to engage in bed mobility from supine->sit with Min A 50% of time. 6. Patient to improve L UE hand seam hammerer strength to 12# in order to participate in UB drsg task Mod A with 25% of time. [ End ] Plan Plan Continue with OT plan of care at this time. Frequency of Therapy 2x's a week Duration of Therapy 4 more weeks Therapeutic Exercise Yes Including Home Exercise Program Manual Therapy Yes Techniques Neuromuscular Re- Yes education Therapeutic Yes Activities to Return to Previous Functional/Work Level ADL/Self Care Yes Education Dry Needling Yes Thermal Modalities Yes Electrical Yes Stimulation Ultrasound/ Yes Phonophoresis Iontophoresis Yes Parrafin Yes Orthotics/Bracing/ Yes Splinting Massage Yes Eval/Re-Eval Yes Time and Billing Re-Eval Time 8 Re-Eval Billing 1 Units Charge for OT No reassessment? PHYSICIAN CERTIFICATION: I certify the specified therapy services for Vikram Flores are required, authorized, and reviewed every 30 days.
== END 2025-05-16 23:59 | disposition home or self-care (01) ==
LOC: OT 10:00
PROVIDERS: PCP Nurse Practitioner Family; Visit Provider Nurse Practitioner Family
DX: G83.24 Monoplegia of upper limb affecting left nondominant side (principal)
CPT/HCPCS: 97110; 97140; 97530

== ENCOUNTER 2025-05-23 11:00 | Outpatient (RCR) | payer MEDICARE, MEDICAID, SELFPAY ==
--- NOTE | 2025-05-16 13:04 | [facility]H.RHREAS ---
Rehab Reassessment Rehab OP Re-assessment Start: 05/11/25 10:57 Freq: Status: Active Protocol: Document 05/16/25 10:43 JEN (Rec: 05/16/25 13:03 JEN [id number]) E-signed By Johanna Story PT Rehab Re-assessment Subjective Subjective Pt reports he feels that his endurance, strength and balance are improving overall. Pt states he has a sitter who is helping him perform his HEP and ambulate daily. Pt reports he recently went on a trip to [place] and was able to walk 5 blocks at his own pace with his quad cane and AFO. Pt denies recent falls. Pt reports he feels that he still has balance deficits but feels that it is improving. Pt reports he still has difficulty reaching forward to turn on the water in the shower and picking up objects from the ground in standing. Pt states he is now able to bend over and pick an object off the ground from a seated position without loss of balance. Objective Objective Notes Endurance: NuStep 15' with RPE 4/10 5x sit to stand: 20 with RUE assist from standard chair TU with quad cane and AFO LLE MMT: hip flex 4/5, hip abd 4-/5, hip add 4-/5, knee ext 4/5, knee flex 4-/5 Assessment Assessment Notes PT treatment sessions have consisted of aerobic exercise, LE strengthening, and balance/proprioception training. Pt demonstrated improved LLE strength, TUG time, and endurance this date compared to the previous reassessment. Pt demonstrated no change in 5x sit to stand functional outcome measure compared to the initial evaluation. Overall, the pt would continue to benefit from skilled PT to further improve strength, transfers, gait, balance/proprioception and functional activity performance/tolerance to improve overall QOL/ function and decrease fall risk and burden of care. PT Patient Goals PT Short Term 3 weeks: 2/3 Patient Goals 1. Perform NuStep/Bike for 10' with RPE 5/10 or less to assist with endurance -MET 2. Improve 5x sit to stand score to 15 or less to decrease fall risk -NOT MET 3. Independent with HEP -MET PT Staff Appraiser Patient 6 weeks: 4/6 Goals 1. Improve LLE MMT to at least 4-/5 grossly to assist with function -MET 2. Perform NuStep/Bike for 15' with RPE 5/10 or less to assist with endurance - MET 3. Improve 5x sit to stand score to 12 or less to decrease fall risk -NOT MET 4. 300 ft with quad cane/AFO & RPE 5/10 or less to assist with endurance -MET 5. supervisor scenic arts an object from the ground in a seated position without LOB for ADLs -MET 6. TUG 12 or less to decrease fall risk -NOT MET Plan Plan Continue initial POC to include therapeutic exercise, therapeutic activity, neuromuscular re-education, and gait training to assist with reaching functional goals. This reassessment will be sent to the referring provider for signature. Frequency of Therapy 2x/week Duration of Therapy 4 more weeks Therapeutic Exercise Yes Including Home Exercise Program Manual Therapy Yes Techniques Neuromuscular Re- Yes education Therapeutic Yes Activities to Return to Previous Functional/Work Level Gait Training Yes ADL/Self Care Yes Education Group Therapy for Yes Medicare Eval/Re-Eval Yes Time and Billing Re-Eval Time 12 Re-Eval Billing 0 Units Charge for PT No reassessment? Charge for OT No reassessment? PHYSICIAN CERTIFICATION: I certify the specified therapy services for Vikram Flores are required, authorized, and reviewed every 30 days.
== END 2025-05-23 23:59 | disposition home or self-care (01) ==
LOC: PT 11:00
PROVIDERS: PCP Nurse Practitioner Family; Visit Provider Nurse Practitioner Family
DX: I69.354 Hemiplegia and hemiparesis following cerebral infarction affecting left non-dominant side (principal)
CPT/HCPCS: 97112; 97530

== ENCOUNTER 2025-06-06 09:51 | Outpatient (RCR) | payer MEDICARE, MEDICAID, SELFPAY | END 2025-06-08 23:59 | disposition home or self-care (01) | LOC: OT 09:51 | PROVIDERS: PCP Nurse Practitioner Family; Visit Provider Nurse Practitioner Family | DX: G83.24 Monoplegia of upper limb affecting left nondominant side (principal) ==

== ENCOUNTER 2025-06-15 11:00 | Outpatient (RCR) | payer MEDICARE, MEDICAID, SELFPAY ==
--- NOTE | 2025-06-15 13:17 | [facility].RHREAS ---
Rehab Reassessment Rehab OP Re-assessment Start: 06/06/25 10:40 Freq: Status: Active Protocol: Document 06/15/25 11:24 [email or web address] (Rec: 06/15/25 13:16 JEN [id number]) E-signed By Johanna Story PT Rehab Re-assessment Subjective Subjective Pt reports he feels 80% improved since starting PT. Pt reports his endurance and strength feels improved overall. Pt reports compliance with HEP and ambulating at home with assistance from his sitter including stair climbing with good tolerance. Pt reports he uses his quad cane for community ambulation and performs some household ambulation without an AD but states he often uses furniture and josue to steady himself. Pt denies recent falls. Pt reports he is now able to bend forward to turn the water on in the shower independently without LOB and is able to pick things up off the ground of he is slow and careful without LOB. Objective Objective Notes Endurance: NuStep 15' with RPE <5/10 5x sit to stand: 12 with RUE assist from standard chair - able to perform one sit to stand without UE assist TU with quad cane and AFO LLE MMT: hip flex 4/5, hip abd 4/5, hip add 4/5, knee ext 4/5, knee flex 4/5 Assessment Assessment Notes PT treatment sessions have consisted of aerobic exercise, LE strengthening, and balance/proprioception training. Pt demonstrated improved LLE strength, TUG time, and 5x sit to stand outcome measures this date compared to the previous reassessment. Overall, the pt has met most PT goals and is appropriate to discharge to independent HEP at this time. Pt encouraged to maintain compliance with HEP and ambulation independently to further progress and decrease risk of falling. Pt also encouraged to utilize [facility] wellness center upon discharge. PT Patient Goals PT Short Term 3 weeks: 2/3 Patient Goals 1. Perform NuStep/Bike for 10' with RPE 5/10 or less to assist with endurance -MET 2. Improve 5x sit to stand score to 15 or less to decrease fall risk -MET 3. Independent with HEP -MET PT Consolidator Patient 6 weeks: 4/6 Goals 1. Improve LLE MMT to at least 4-/5 grossly to assist with function -MET 2. Perform NuStep/Bike for 15' with RPE 5/10 or less to assist with endurance - MET 3. Improve 5x sit to stand score to 12 or less to decrease fall risk -MET 4. 300 ft with quad cane/AFO & RPE 5/10 or less to assist with endurance -MET 5. superintendent operations division an object from the ground in a seated position without LOB for ADLs -MET 6. TUG 12 or less to decrease fall risk -NOT MET Plan Plan Discharge to independent [facility] Eval/Re-Eval Yes Time and Billing Re-Eval Time 11 Re-Eval Billing 0 Units Charge for PT No reassessment? Charge for OT No reassessment? PHYSICIAN CERTIFICATION: I certify the specified therapy services for Vikram Flores are required, authorized, and reviewed every 30 days.
== END 2025-06-15 23:59 | disposition home or self-care (01) ==
LOC: PT 11:00
PROVIDERS: PCP Nurse Practitioner Family; Visit Provider Nurse Practitioner Family
DX: I69.354 Hemiplegia and hemiparesis following cerebral infarction affecting left non-dominant side (principal)
CPT/HCPCS: 97112; 97530